=== PATIENT | female | born 1935 | race Caucasian/White ===

== ENCOUNTER → 2016-07-13 | Outpatient (CLI) | payer OTHER, BC ==
[~2016-07-13] MED LIST: ASPI81TA28 PO; CALC-354 PO; CPR250 PO; CRG625 PO; INSUINJ14 SC; INSUINJ4 SC; MULTTAB58 PO; NRV5 PO; PRT40 PO
--- NOTE | 2016-07-13 14:22 | DIAGNOSTIC IMAGING REPORT ---
CT OF THE CHEST WITHOUT IV CONTRAST CLINICAL HISTORY: Pulmonary mass. COMPARISON STUDY: March 23, 2016 CT DOSE: 278.92 mGy.cm TECHNIQUE: CT of the thorax was performed from the thoracic inlet to the lung bases. Images are reviewed in the axial, sagittal, and coronal planes. IV contrast was not administered for this examination. FINDINGS: Thyroid: There is a partially calcified 12 mm right lobe thyroid nodule. Thoracic aorta: The thoracic aorta is normal in course and caliber, noting standard 3 vessel arch anatomy. Heart: The heart is normal in size and configuration, without pericardial effusion. Lungs and pleural spaces: No pleural effusions are visualized. There is been interval resolution of the previously identified 3 cm groundglass right lower lobe pleural-based opacity. There is a stable subtle area of distortion within the right upper lobe. There are multiple scattered areas of presumed interstitial scarring. There is scattered subcentimeter pulmonary nodules. A 5.9 mm right lower lobe pulmonary nodule as visualized in image #[id number] measured 4.6 mm in November 2013. Mediastinum: There is a stable 9 mm precarinal lymph node. Samantha: There is no evidence of pathologic hilar adenopathy given the limitations of a noncontrast study Axilla: Clear. Upper abdomen: No adrenal masses are visualized Skeletal structures: There are no lytic or blastic osseous lesions. IMPRESSION: 1. The recently described 3 cm groundglass nodule within the right lower lobe has resolved. This is likely inflammatory/atelectatic 2. Scattered bilateral subcentimeter pulmonary nodules. A 5.9 mm right lower lobe pulmonary nodule measured 4.6 mm in November 2013. 3. Scattered areas of interstitial scarring. Electronically signed by: Isauro Espinal M.D. 07/13/2016 2:21 PM Dictated Date/Time: 07/13/2016 2:13 PM
== END | disposition home or self-care (01) ==
LOC: C.CTS 13:59
PROVIDERS: ATTEND Internal Medicine Pulmonary Disease
DX: R91.8 Other nonspecific abnormal finding of lung field (principal); R91.1 Solitary pulmonary nodule

== ENCOUNTER → 2016-09-14 | Outpatient (CLI) | payer OTHER, BC ==
[~2016-09-14] MED LIST changes: +CIPR250T5 PO; -CPR250 PO
--- NOTE | 2016-09-14 07:44 | DIAGNOSTIC IMAGING REPORT ---
CT ANGIO ABD/PELVIS WITH CONTRAST CT DOSE: 570.27 mGy.cm CLINICAL HISTORY: Chronic renal disease. Possible renal artery stenosis. Nondiagnostic ultrasound. TECHNIQUE: The patient was scanned in a dynamic helical fashion during intravenous administration of 117 cc of Optiray 320. MIP imaging was performed. COMPARISON STUDY: 06/03/2014 FINDINGS: Visualized portions lung bases reveal bibasilar atelectasis. No hepatic or splenic masses are visualized this arterial phase study. The gallbladder surgically absent. No adrenal masses are visualized. Masses are visualized. No solid renal masses are visualized this arterial phase study. There are no transition zones indicate bowel obstruction. No acute inflammatory changes are visualized. There is no pathologic adenopathy. There is no evidence of aortic or iliac artery stenosis. Moderate atheromatous changes are present within the aorta. There is minimal narrowing of the celiac origin. There is no evidence of superior mesenteric artery stenosis. There is no evidence of left renal artery stenosis. There is a proximal right renal artery stent. There is moderate luminal narrowing of the proximal stent.] Stenosis measurement is difficult to determine due to adjacent calcification. IMPRESSION: 1. Atheromatous calcification at the origin of the left renal artery but no evidence of hemodynamically significant stenosis 2. Proximal right renal artery stent. Moderate luminal narrowing of the stent is suspected. Is difficult to obtain an accurate stenosis measurements due to artifact from adjacent stent wall and calcification. Electronically signed by: Isauro Espinal M.D. 09/14/2016 7:41 AM Dictated Date/Time: 09/14/2016 7:33 AM
== END | disposition home or self-care (01) ==
LOC: C.CTS 06:48
PROVIDERS: ATTEND Internal Medicine Cardiovascular Disease
DX: I12.9 Hypertensive chronic kidney disease with stage 1 through stage 4 chronic kidney disease, or unspecified chronic kidney disease (principal); N18.3 Chronic kidney disease, stage 3 (moderate); I70.1 Atherosclerosis of renal artery

== ENCOUNTER → 2017-02-16 | Outpatient (CLI) | payer OTHER, BC ==
[~2017-02-16] MED LIST changes: -CIPR250T5 PO; +CPR250 PO; +OPTIRAY 320 IV PRN
--- NOTE | 2017-02-16 09:24 | DIAGNOSTIC IMAGING REPORT ---
ANGIO ABDOMEN COMBO CLINICAL HISTORY: 81 years-old Female presenting with I70.1, renal artery stenosis, right renal artery stent. TECHNIQUE: Multidetector CT angiography of the abdomen and pelvis was performed before and after the administration of intravenous contrast. 3-D volumetric and/or maximum intensity projection (MIP) images were subsequently reconstructed for review. IV contrast: 92 mL of Optiray 320. A dose lowering technique was used consistent with the principles of ALARA (as low as reasonably achievable). Stenosis measurements were based on NASCET-like criteria. COMPARISON: 09/14/2016. CT DOSE (mGy.cm): The estimated cumulative dose is 1957.52. FINDINGS: History Card Clerk topogram: Cholecystectomy clips noted. Vasculature: Calcified and noncalcified atherosclerotic plaque along the normal caliber patent abdominal aorta. No significant narrowing of the celiac or superior mesenteric artery origins. A right renal artery stent is noted at the origin extending along the proximal 1 to 2 cm of the course. The stent is patent. No significant narrowing of the stent. Single bilateral main renal arteries. No significant narrowing of the origin of the left renal artery. The iliac vessels patent. Remaining abdomen and pelvis: Lung bases: Extensive dependent and bandlike opacities at the lung bases, stable to slightly increased from prior exam, likely atelectasis and scarring. Mosaic attenuation at the lung bases could suggest small airways disease. Multichamber enlargement of the heart. Coronary artery calcification. No pericardial or pleural effusion. Liver: Normal morphology. No focal lesion allowing for the phase of contrast. Suggestion of hepatic steatosis. Patent portal veins. Accessory left hepatic artery arising from the left gastric artery. Biliary: No intrahepatic or extrahepatic biliary ductal dilatation. Gallbladder surgically absent. Pancreas: Moderate parenchymal atrophy. Spleen: Normal. Adrenal glands: Normal. Kidneys and ureters: Few punctate hyperdensities in the upper pole of the right kidney may represent tiny renal calculi. Bladder: Mild circumferential bladder wall thickening. Pelvic organs: Uterus surgically absent. No adnexal masses. Bowel: Normal. No bowel obstruction. Peritoneal cavity: No free fluid or intraperitoneal gas. Lymph nodes: Scattered subcentimeter lymph nodes in the mesentery and retroperitoneum, nonspecific and possibly reactive. Abdominal wall: Diastasis of the rectus abdominis. Musculoskeletal: Degenerative changes of the spine. IMPRESSION: 1. Patent proximal right renal artery stent. 2. Atherosclerosis of the abdominal aorta without significant narrowing of the origins of the major branch vessels. 3. Mild circumference of bladder wall thickening. Cystitis cannot be excluded. Correlate with urinalysis. Electronically signed by: Mello Titus M.D. 02/16/2017 9:22 AM Dictated Date/Time: 02/16/2017 9:13 AM
== END | disposition home or self-care (01) ==
LOC: C.CTS 06:55
PROVIDERS: ATTEND Surgery Vascular Surgery
DX: I70.1 Atherosclerosis of renal artery (principal); I70.0 Atherosclerosis of aorta

== ENCOUNTER → 2017-04-10 | Outpatient (CLI) | payer OTHER, BC ==
[~2017-04-10] MED LIST changes: +CIPR250T5 PO; -CPR250 PO; -OPTIRAY 320 IV PRN
--- NOTE | 2017-04-10 15:03 | DIAGNOSTIC IMAGING REPORT ---
(CHEST) THORAX WITHOUT CLINICAL HISTORY: R91.1 RIGHT LOWER LOBE MASS. FOLLOWING NODULES. COMPARISON STUDY: 07/11/2016 CT DOSE: 282.60 mGy.cm TECHNIQUE: CT of the thorax was performed from the thoracic inlet to the lung bases. Images are reviewed in the axial, sagittal, and coronal planes. IV contrast was not administered for this examination. A dose lowering technique was utilized adhering to the principles of ALARA. FINDINGS: Thyroid: The right lobe appears larger than the left. There are multiple right lobe nodules several which contain calcifications. Thoracic aorta: The thoracic aorta is normal in course and caliber, noting standard 3 vessel arch anatomy. Heart: The heart is borderline enlarged. There is no pericardial effusion. Lungs and pleural spaces: No pleural effusions are visualized. There are stable areas of presumed interstitial scarring. There is a stable area of architectural distortion within the right upper lobe. There is scattered bilateral nodules including tree-in-bud opacities within the left upper lobe. These are likely inflammatory/postinflammatory. The solid right lower lobe pulmonary nodule remains similar in size measuring 6 mm. Mediastinum: There is a 9 mm precarinal lymph node. Samantha: There is no evidence of pathologic hilar adenopathy given the limitations of a noncontrast study Axilla: There is no evidence of pathologic axillary lymphadenopathy Upper abdomen: Partially visualized upper abdominal viscera is within normal limits. Skeletal structures: There are no lytic or blastic osseous lesions. IMPRESSION: 1. No significant change from the preceding July 2016 study 2. Multiple scattered bilateral pulmonary nodules, including a stable 6 mm right lower lobe pulmonary nodule 3. Scattered areas of presumed interstitial scarring. Electronically signed by: Isauro Espinal M.D. 04/10/2017 3:01 PM Dictated Date/Time: 04/10/2017 2:56 PM
== END | disposition home or self-care (01) ==
LOC: C.CTS 14:11
PROVIDERS: ATTEND Internal Medicine Pulmonary Disease
DX: R91.8 Other nonspecific abnormal finding of lung field (principal); R91.1 Solitary pulmonary nodule

== ENCOUNTER → 2017-09-21 | Outpatient (CLI) | payer OTHER, BC ==
[~2017-09-21] MED LIST changes: +CIPR250T23 PO; -CIPR250T5 PO
--- NOTE | 2017-09-21 13:39 | Discharge Instructions ---
Discharge Instructions Procedure Procedure Date: September 21, 2017. Reason for visit: Thyroid Nodule. Discharge Discharge Date: September 21, 2017. Discharge Diagnosis: Thyroid nodule Instructions Activity Recommendations: No limitations Return to School/Work: no limitations Recommended Home Diet: Resume Previous Diet Provider Instructions: Ultrasound guided fine-needle aspiration of a right lobe thyroid nodule is performed. The procedure was well tolerated and without immediate complication. ACTIVITY RECOMMENDATIONS: * Rest today. * Resume regular activity in one day. MEDICATIONS: * May take Tylenol or Ibuprofen as needed for pain. DIET: * Resume previous diet. SPECIAL CARE INSTRUCTIONS: Call your doctor if: * Temperature above 101 degrees F. * Pain not relieved by pain medicine ordered. * Increased drainage or redness from incision. * Notify your doctor with any questions or concerns. Call your doctor or go to the nearest Emergency Department if you experience: * Increased chest pain or shortness of breath. FOLLOW UP VISIT: Follow-up with Referring Physician as scheduled. Allergies Coded Allergies: Latex (Verified Allergy, Intermediate, RED RASH, 02/13/15) NO KNOWN DRUG ALLERGIES (Verified Allergy, Unknown, NKDA, 02/13/15) [place] Recommendations: Call your doctor if: * Temperature above 101 degrees * Pain not relieved by pain medicine ordered * There is increased drainage or redness from any incision * You have any unanswered questions or concerns. Your Doctors Instructions noted above were prepared by provider Teddy Mejia. Patient Signature Section: Patient Instructions Signature Page Mer Diaz Patient (or Guardian) Signature/Date: I have read and understand the instructions given to me by my caregivers. Caregiver/RN/Doctor Signature/Date: The above-named patient and/or guardian has received patient instructions on this date. + Original Patient Signature Page (only) stays with chart. Please make copy for patient.
--- NOTE | 2017-09-21 13:52 | DIAGNOSTIC IMAGING REPORT ---
ULTRASOUND-GUIDED FINE-NEEDLE ASPIRATION THYROID CLINICAL HISTORY: Right lobe thyroid nodule. COMPARISON STUDY: Thyroid ultrasound dated 08/17/2017. PROCEDURE: The risks, benefits, and alternatives to the procedure were discussed with the patient. Written informed consent was obtained. The patient was placed supine in ultrasound, and the 3.0 x 2.1 x 1.7 cm solid and cystic nodule in the right lobe of the thyroid was localized by ultrasound and selected for fine needle aspiration. The right neck was prepped and draped in the usual sterile fashion. The nodule was aspirated under ultrasound guidance with 2 passes utilizing 25-gauge needles. Specimens were reviewed by the pathologist in real-time and deemed adequate for diagnosis. The patient tolerated the procedure well and left the department in satisfactory condition. IMPRESSION: Completed fine-needle aspiration of a right thyroid nodule as above. Electronically signed by: Teddy Mejia M.D. 09/21/2017 1:51 PM Dictated Date/Time: 09/21/2017 1:50 PM
== END | disposition home or self-care (01) ==
LOC: C.ULTR 12:34
PROVIDERS: ATTEND Family Medicine
DX: E04.1 Nontoxic single thyroid nodule (principal)

== ENCOUNTER 2024-02-13 15:12 | Inpatient (IN) ==
[2024-02-13] MEDS ORDERED: STAT IV Infusion **Titration per Protocol STA ×5 (15:18→19:36)
[2024-02-13] MEDS: propofoL 1,000 MG/100 ML VIAL IV SCH (15:25)
--- NOTE | 2024-02-13 15:36 | Emergency Department Note ---
Impression & Plan Cardiac arrest, Aspiration pneumonia ED Provider Note HISTORY OF PRESENT ILLNESS: Patient is an 88-year-old female presenting status postcardiac arrest. Patient was at [facility] receiving outpatient CT abdomen/pelvis with oral contrast. She reportedly ingested the oral contrast earlier this afternoon and shortly after ingestion, she became nauseous and very short of breath. A rapid response was called and the CT waiting room for the patient. She was bradycardic and hypoxic and was given supplemental oxygen and 1 mg of atropine. They laid her flat for further assessment and shortly after laying supine, the patient lost pulses. ACLS was performed for 4 minutes per report. She received 1 mg of epinephrine. Carburetor Repairer, Dr. Matos, reports patient was noted to be in a wide-complex tachycardia on the monitor. He states that he did administer 1 shock. ROSC was obtained. Patient was intubated by anesthesia at [facility] and she received succinylcholine for the intubation. Per report from [facility] cardiology, patient had an EKG that showed sinus tachycardia with a left bundle branch block. In route to the hospital with EMS, the patient started to gag around her tube and she was given IV etomidate and fentanyl for further sedation. On arrival to the ER, the patient is unresponsive and unable to provide any meaningful history. ROS: as above PHYSICAL EXAM: Constitutional: Patient appears in no acute distress. Patient is intubated with a Vitaly device on her chest not supplying CPR at this time. HENT: Head: Normocephalic and atraumatic. Eyes: Pupils pinpoint. Mouth/Throat: Mucous membranes moist. Neck: Trachea midline. Neck supple. Cardiovascular: Tachycardic with regular rhythm. No murmurs, rubs or gallops. Intact femoral pulse. Pulmonary/Chest: Patient is intubated. Coarse breath sounds bilaterally. Abdominal: Abdomen soft, no tenderness, rebound or guarding. Musculoskeletal: No edema, tenderness or deformity noted. Skin: Warm and dry. Neurological: Unresponsive. Gag reflex present. MDM: - Vitals signs showed hypertension. - History obtained via EMS, given patient's unresponsiveness.. History as above. - Chronic conditions affecting care: DM-2; HTN; renal artery stenosis; CKD - Differential diagnoses include, but are not limited to: Aspiration; dysrhythmia; electrolyte abnormality; ACS - Order placed for continuous cardiac monitoring. At this time, monitor showed rate of 72 bpm with normal sinus rhythm, per my interpretation. - External medical records reviewed. Transthoracic echocardiogram obtained on 09/07/2016 through [facility] was reviewed. Patient had a normal EF of 60 to 64% at that time. - Bedside [id number] echo shows good squeeze throughout all chambers, per my interpretation. No obvious pericardial effusion. - EKG interpreted by myself showed normal sinus rhythm. Rate tachycardic 107 bpm. Noted to have a left bundle branch block. QT 374. - Laboratory workup interpreted by myself showed leukocytosis (WBC 16.54) with elevated neutrophils; normal PT/INR; stable electrolytes; elevated troponin (45.4); normal lipase - Repeat troponin risen to 108.2. Likely secondary to her compressions from CPR. - CXR showed bilateral multi focal opacities, per my interpretation. - CT head wo contrast negative for acute intracranial pathology. - CT chest wo contrast cardiomegaly with evidence of fluid overload/congestive failure and pleural effusions. Noted to have diffuse multifocal airspace consolidations throughout both lungs. - CT abdomen/pelvis wo contrast showed small amount of pneumatosis versus extraluminal gas in the splenic flexure likely due to barotrauma. - IV unasyn ordered for aspiration coverage. Patient was started on IV propofol for sedation, she does awaken and try to sit up in bed without any. She was given pushes of IV fentanyl for further sedation. Her blood pressure did drop and she became hypotensive, so she was started on peripheral IV epinephrine. A central line was placed in the right IJ by myself. Please see procedure note below. Post line placement x-ray shows appropriate placement of the IJ without any pneumothorax. A right radial arterial line was also placed by myself. Please see procedure note below. - Discussion was had with family preservation caseworker about patient's case and need for admission - Discussed case with ICU attending, Dr. Hollins, at 17:06. He was agreeable to ICU admission. - Hospitalist, Dr. Lyons, consulted for admission - Patient admitted to [facility] hospitalist service for further evaluation and management. I have personally spent 73 minutes of critical care time in the direct management of this patient. This includes bedside care, interpretation of diagnostic studies, and testing, discussion with consultants, patient, and family members, and other required patient management activities. This 73 minutes is in excess of all separately billable procedures. PROCEDURE: 1. Central Venous Catheter Indication: limited IV access; pressor support Catheter type: triple lumen Location: Right IJ Emergent consent implied, given the patient's critical illness. At this time, the risks of the procedure are less than the risks of NOT performing the procedure. A time out was taken and the correct patient and site identified. The patient was placed in reverse Trendelenburg position and the skin was prepped in the standard fashion with chlorhexidine and full sterile drapes applied. The proper landmarks were identified with ultrasound and the needle was inserted through the skin in the standard fashion. The needle was carefully advanced into blood vessel lumen under ultrasound guidance. The guidewire was placed uneventfully. The vessel is dilated and the catheter was placed. It was sutured into position. There was good blood return from all ports. The patient tolerated the procedure well and there were no complications. Post procedure x- ray was normal. 2. Arterial Line Indication: BP monitoring; frequent ABGs Catheter type: Arrow Location: Right radial artery Emergent consent implied, given the patient's critical illness. At this time, the risks of the procedure are less than the risks of NOT performing the procedure. A time out was taken and the correct patient and site identified. Skin was prepped in the standard fashion with chlorhexidine and full sterile drapes applied. The proper landmarks were identified with ultrasound and the needle was inserted through the skin in the standard fashion. The needle was carefully advanced into blood vessel lumen under ultrasound guidance. The guidewire was placed uneventfully. The catheter was then placed over the guidewire. It was sutured into position. There was good blood return from all ports. The patient tolerated the procedure well and there were no complications. 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 Cervical myelopathy Encounter for pre-operative examination HTN (hypertension) (Chronic) Heart disease (Chronic) GERD (gastroesophageal reflux disease) (Chronic) DM type 2 (diabetes mellitus, type 2) (Chronic) CKD (chronic kidney disease), stage III (Chronic) Peripheral neuropathy (Acute) Hyperlipidemia (Acute) Diabetic nephropathy (Acute) Asthma (Acute) Mitral regurgitation Left bundle branch block Chronic pain Esophageal dilatation HH (hiatus hernia) Abdominal pain Renal artery stenosis (Chronic) Status post right renal artery stent 2014 Medical History (Updated 02/13/24 @ 18:20 by Triston Hollins MD) Dysphagia Osteoarthritis Chronic back pain GERD (gastroesophageal reflux disease) Diabetes mellitus, type 2 Anxiety Hypertension Hyperlipidemia Cardiac murmur follows with Dr. Esquivel Esophageal spasm Surgical History (Updated 08/23/22 @ 15:45 by Memo Ramirez PA-C) History of total hysterectomy with bilateral salpingo-oophorectomy (BSO) History of dilatation and curettage History of surgery Status post right renal artery stent 2014 History of tooth extraction upper teeth History of wisdom tooth extraction History of bilateral cataract extraction History of colonoscopy Hx laparoscopic cholecystectomy H/O esophagogastroduodenoscopy H/O breast surgery "left breast duct excision" S/P tonsillectomy and adenoidectomy S/P appendectomy Family History Father Heart disease Mother Heart disease Family history of reaction to anesthesia had tear duct sx--right side of head "hair turned white" Diabetes Hypertension Stroke Denies family history of Crohn's disease Colorectal cancer Ulcerative colitis Social History Smoking Status: Unknown if ever smoked packs per day: 1; Second Hand Exposure: Yes (parents smoked); Do You Dip or Chew Tobacco: No; Preferred Language: Portuguese Communication Ability: Unable to Communication Ability Comment: Unable to obtain Organizational Effectiveness Director Required: No Beliefs That Will Affect Care: Voodoo Voodoo Beliefs: Anabaptism marital status: / Current Living Situation: Alone Current Living Situation Comment: Unable to obtain current occupational status: retired How many Children do You have: 2 Feels Safe at Home: Yes Diet: diabetic during the past year weight has: decreased > 10 lbs Assistive Devices: Denture - Upper and Glasses Allergies Allergies Allergy/AdvReac Type Severity Reaction Status Date / Time latex Allergy Intermediate RED RASH Verified 06/12/23 14:35 [id number] Reductase Allergy Intermediate muscle Verified 06/12/23 14:35 Inhibitor pain/can't [[id number]-[id number] Reductase concentrate/dizzy/nausea Inhibitor] Home Meds Home Medications Medication Instructions Recorded Confirmed multivitamin (Multiple Vitamins 1 tab PO QAM 01/03/19 02/13/24 tablet) losartan 25 mg tablet 12.5 mg PO QAM 05/31/19 02/13/24 aspirin 81 mg tablet,delayed 81 mg PO QAM 10/23/19 02/13/24 release (Mariella Low Dose Aspirin) furosemide 20 mg tablet 20 mg PO QAM 06/12/23 02/13/24 omeprazole 20 mg capsule,delayed 20 mg PO QAM 06/12/23 02/13/24 release calcium carbonate 600 mg-vitamin 1 tab PO BID 02/13/24 02/13/24 D3 20 mcg (800 unit) tablet (Caltrate with Vitamin D3) insulin degludec 100 unit/mL (3 24 unit subcut HS 02/13/24 02/13/24 mL) subcutaneous pen (Tresiba FlexTouch U-100 insulin) timolol maleate 0.5 % eye drops 1 drp OPR BID 02/13/24 02/13/24 Previous Rx's Medication Instructions Recorded insulin aspart U-100 100 unit/mL 30 unit (0.3 mL) subcut DAILY #30 12/22/23 (3 mL) subcutaneous pen (Novolog mL FlexPen U-100 Insulin aspart) Contour Next Test Strips (blood #300 ea 01/23/24 sugar diagnostic) Results & Data (ED) Vital Signs Vital Signs - 24 hr 02/13/24 15:18 02/13/24 15:27 02/13/24 15:30 Temperature 33.5 C L Temperature Source Dixon Cath ( Temp Sensing) Pulse Rate 102 H 98 H Pulse Rate from SpO2 Sensor 103 H Respiratory Rate 18 18 Respiratory Effort / Characteristics Non-Labored Spontaneous Respiratory Depth Normal Respiratory Pattern Regular Blood Pressure 191/121 H 147/72 H Blood Pressure Mean 156 97 Blood Pressure Position Lying Pulse Oximetry 93 94 Oxygen Delivery Method Mechanical Vent Fraction of Inspired Oxygen Sepsis Recent Fever Within 48 Hours No Sepsis New/Unexplained Change in Mental Status N/A Sepsis Action Taken by Nursing No Action Required 02/13/24 15:30 02/13/24 15:30 02/13/24 15:30 Temperature Temperature Source Pulse Rate Pulse Rate from SpO2 Sensor Respiratory Rate Respiratory Effort / Characteristics Respiratory Depth Respiratory Pattern Blood Pressure 147/72 H 147/72 H 147/72 H Blood Pressure Mean 107 107 107 Blood Pressure Position Pulse Oximetry Oxygen Delivery Method Fraction of Inspired Oxygen Sepsis Recent Fever Within 48 Hours Sepsis New/Unexplained Change in Mental Status Sepsis Action Taken by Nursing 02/13/24 15:32 02/13/24 15:33 02/13/24 15:58 Temperature Temperature Source Pulse Rate 106 H Pulse Rate from SpO2 Sensor Respiratory Rate 16 Respiratory Effort / Characteristics Respiratory Depth Respiratory Pattern Blood Pressure 76/44 L Blood Pressure Mean 55 Blood Pressure Position Pulse Oximetry 94 Oxygen Delivery Method Fraction of Inspired Oxygen 100 Sepsis Recent Fever Within 48 Hours Sepsis New/Unexplained Change in Mental Status Sepsis Action Taken by Nursing 02/13/24 16:00 02/13/24 16:05 02/13/24 16:05 Temperature Temperature Source Pulse Rate Pulse Rate from SpO2 Sensor Respiratory Rate Respiratory Effort / Characteristics Respiratory Depth Respiratory Pattern Blood Pressure 83/47 L 84/54 L 84/54 L Blood Pressure Mean 56 60 60 Blood Pressure Position Pulse Oximetry Oxygen Delivery Method Fraction of Inspired Oxygen Sepsis Recent Fever Within 48 Hours Sepsis New/Unexplained Change in Mental Status Sepsis Action Taken by Nursing 02/13/24 16:05 02/13/24 16:09 02/13/24 16:10 Temperature 36.8 C Temperature Source Pulse Rate 82 Pulse Rate from SpO2 Sensor 82 Respiratory Rate 18 Respiratory Effort / Characteristics Respiratory Depth Respiratory Pattern Blood Pressure 84/54 L 98/59 L Blood Pressure Mean 60 73 Blood Pressure Position Pulse Oximetry 96 Oxygen Delivery Method Fraction of Inspired Oxygen Sepsis Recent Fever Within 48 Hours Sepsis New/Unexplained Change in Mental Status Sepsis Action Taken by Nursing 02/13/24 16:10 02/13/24 16:15 02/13/24 16:15 Temperature 36.8 C Temperature Source Pulse Rate 81 Pulse Rate from SpO2 Sensor 81 Respiratory Rate 17 Respiratory Effort / Characteristics Respiratory Depth Respiratory Pattern Blood Pressure 98/59 L 114/56 L Blood Pressure Mean 73 74 Blood Pressure Position Pulse Oximetry 96 Oxygen Delivery Method Fraction of Inspired Oxygen Sepsis Recent Fever Within 48 Hours Sepsis New/Unexplained Change in Mental Status Sepsis Action Taken by Nursing 02/13/24 16:25 02/13/24 16:25 02/13/24 16:30 Temperature Temperature Source Pulse Rate Pulse Rate from SpO2 Sensor Respiratory Rate Respiratory Effort / Characteristics Respiratory Depth Respiratory Pattern Blood Pressure 94/57 L 94/57 L 97/60 L Blood Pressure Mean 70 70 72 Blood Pressure Position Pulse Oximetry Oxygen Delivery Method Fraction of Inspired Oxygen Sepsis Recent Fever Within 48 Hours Sepsis New/Unexplained Change in Mental Status Sepsis Action Taken by Nursing 02/13/24 16:30 02/13/24 16:30 02/13/24 16:35 Temperature 36.8 C Temperature Source Pulse Rate 77 Pulse Rate from SpO2 Sensor 62 Respiratory Rate 18 Respiratory Effort / Characteristics Respiratory Depth Respiratory Pattern Blood Pressure 97/60 L 94/54 L Blood Pressure Mean 72 72 Blood Pressure Position Pulse Oximetry 96 Oxygen Delivery Method Fraction of Inspired Oxygen Sepsis Recent Fever Within 48 Hours Sepsis New/Unexplained Change in Mental Status Sepsis Action Taken by Nursing 02/13/24 16:35 Temperature Temperature Source Pulse Rate Pulse Rate from SpO2 Sensor Respiratory Rate Respiratory Effort / Characteristics Respiratory Depth Respiratory Pattern Blood Pressure 94/54 L Blood Pressure Mean 72 Blood Pressure Position Pulse Oximetry Oxygen Delivery Method Fraction of Inspired Oxygen Sepsis Recent Fever Within 48 Hours Sepsis New/Unexplained Change in Mental Status Sepsis Action Taken by Nursing Laboratory Data 02/13/24 15:24 02/13/24 17:17 Lab Results 02/13/24 Range/Units 15:24 WBC 16.54 H (4.8-10.8) K/ul RBC 5.59 H (4.20-5.40) M/uL Hgb 17.5 H (12.0-16.0) g/dl Hct 51.0 H (37.0-47.0) % MCV 91.2 (80.0-100.0) fL MCH 31.3 (25.0-34.0) pg MCHC 34.3 (32.0-36.0) g/dL RDW Std Deviation 39.6 (36.4-46.3) fL RDW Coeff of Kiana 11.9 (11.5-14.5) % Plt Count 367 (130-400) K/uL MPV 9.8 (9.4-12.4) fL Immature Gran % (Auto) 2.2 % Neut % (Auto) 56.2 % Lymph % (Auto) 28.8 % Wirt % (Auto) 11.0 % Eos % (Auto) 1.3 % Baso % (Auto) 0.5 % Neut # (Auto) 9.30 H (1.40-6.50) K/uL Lymph # (Auto) 4.77 H (1.20-3.40) K/uL Wirt # (Auto) 1.82 H (0.11-0.59) K/uL Eos # (Auto) 0.21 (0.00-0.50) K/uL Baso # (Auto) 0.08 (0.00-0.20) K/uL Immature Gran # (Auto) 0.36 H (0.01-0.20) K/uL PT Cancelled INR Cancelled Sodium 135 L (136-145) mmol/L Potassium TNP Chloride 99 (98-107) mmol/L Carbon Dioxide 30 (21-32) mmol/L Anion Gap 6 (3-11) BUN 19 (6-23) mg/dl Creatinine 1.09 (0.6-1.2) mg/dl Est Cr Clr Drug Dosing 43.2 ml/min Est GFR ( Amer) 52.5 ml/min Est GFR (Non-Af Amer) 45.3 ml/min BUN/Creatinine Ratio 17.4 (10-20) Glucose 217 H (70-99(Fasting)) mg/dl Calcium 8.9 (8.6-10.3) mg/dl Total Bilirubin 0.6 (0.2-1.0) mg/dl AST TNP ALT 31 (7-52) U/L Alkaline Phosphatase 134 H (34-104) U/L Troponin I High Sens 45.4 H (0-14) pg/ml Total Protein 7.5 (6.0-8.3) gm/dl Albumin 3.8 (3.4-5.0) gm/dl Globulin 3.7 (2.5-4.0) gm/dl Albumin/Globulin Ratio 1.0 (0.9-2) Lipase 46 (11-82) U/L Administered Medications Propofol (Diprivan) 1,000 mg in 100 mls @ 11.94 mls/hr IV .Q8H23M [facility]; Protocol Stop: 02/16/24 15:29 Last Admin: 02/13/24 15:25 Dose: 20 mcg/kg/min, 11.9 mls/hr Documented By: ASW Co-signed By: CEF Epinephrine HCl () 4 mg in 254 mls @ 7.582 mls/hr IV .Q24H RAIZA; Protocol Stop: 03/14/24 16:14 Last Titration: 02/13/24 18:42 Dose: 0.04 mcg/kg/min, 15.2 mls/hr Documented By: Admin: 02/13/24 16:37 Dose: 0.03 mcg/kg/min, 11.4 mls/hr Documented By: ASW Co-signed By: MARGARET Fentanyl Citrate (Fentanyl Citrate) 2,500 mcg in 250 mls @ 2.5 mls/hr IV .Q96H RAIZA; Protocol Stop: 02/27/24 18:29 Last Admin: 02/13/24 18:38 Dose: 25 mcg/hr, 2.5 mls/hr Documented By: RASHEED Co-signed By: SHARA Propofol (Propofol Bolus From Bag) 20 mg IV Q5M PRN PRN Reason: Sedation Stop: 02/16/24 15:17 Last Admin: 02/13/24 15:40 Dose: 20 mg Documented By: ASW Co-signed By: CEF Discontinued Medications Fentanyl Citrate (Fentanyl Citrate Pf 100 Mcg/2 Ml Vial) Confirm Administered Dose 100 mcg .ROUTE .STK-MED ONE Stop: 02/13/24 15:20 Last Increment: 02/13/24 15:57 Dose: 50 mcg Documented By: ASW Fentanyl Citrate (Fentanyl Citrate Pf 100 Mcg/2 Ml Vial) Confirm Administered Dose 100 mcg .ROUTE .STK-MED ONE Stop: 02/13/24 16:55 Last Increment: 02/13/24 16:46 Dose: 50 mcg Documented By: ASW Fentanyl Citrate (Fentanyl Citrate Pf 100 Mcg/2 Ml Vial) Confirm Administered Dose 100 mcg .ROUTE .STK-MED ONE Stop: 02/13/24 17:43 Last Increment: 02/13/24 17:44 Dose: 50 mcg Documented By: ASW Ampicillin Sodium/Sulbactam Sodium (Unasyn) 3,000 mg in 100 mls @ 200 mls/hr IV NOW ONE; Protocol Stop: 02/13/24 16:29 Last Infusion: 02/13/24 17:53 Dose: Infused Documented By: Admin: 02/13/24 17:18 Dose: 200 mls/hr Documented By: ASW Propofol (Propofol Iv Emulsion 10 Mg/Ml 100 Ml Vial) Confirm Administered Dose 1,000 mg IV .[email or web address] ONE Stop: 02/13/24 15:18 Last Admin: 02/13/24 15:58 Dose: 1,000 mg Documented By: ETHANW Co-signed By: [facility] Imaging Data Radiologist's Impression: Abdomen/Pelvis CT 02/13/24 15:29 CT abd pelvis wo con CLINICAL HISTORY: arrest TECHNIQUE: Helical axial images of the abdomen and pelvis were obtained. Automated dose lowering techniques and/or adjustment according to patient size were utilized for this exam. This exam was performed without intravenous contrast. COMPARISON: Comparison is made to CT abdomen pelvis 01/28/2022 FINDINGS: Lower chest: For findings above the diaphragm, please see CT chest performed same day. Liver: Unremarkable. No focal lesions are seen. Gallbladder and biliary tree: Patient is status post cholecystectomy. No intra- or extrahepatic biliary ductal dilation. Pancreas: Fatty replacement of the pancreas is seen. Spleen: Unremarkable. Adrenals: Unremarkable. Kidneys and ureters: Perinephric stranding is noted bilaterally. Bladder: Dixon catheter is seen. Reproductive organs: Patient is status post hysterectomy. Bowel: Unremarkable. Lymph nodes Retroperitoneal: Unremarkable. Pelvic: Unremarkable. Mesenteric: Unremarkable. Peritoneum: A small amount of gas is seen surrounding the large bowel about the splenic flexure. Vessels: Atherosclerotic calcifications are seen. Abdominal wall: Unremarkable. Bones: Degenerative changes in the visualized spine. IMPRESSION: A small amount of pneumatosis versus extraluminal gas about the splenic flexure is likely due to barotrauma in this patient status post cardiac arrest. No gross abnormalities are otherwise seen. ACT 112: Negative or not required by law. Electronically signed by: Jersey Chauhan M.D. 02/13/2024 4:22 PM Chest X-Ray 02/13/24 15:29 XR chest 1V portable CLINICAL HISTORY: cardiac arrest TECHNIQUE: Single frontal radiograph of the chest was obtained. Comparison: Comparison is made to chest radiograph 02/11/2016 FINDINGS: Endotracheal tube terminates 6 cm from the vadim. Cardiomegaly is noted. The aortic arch is calcified. Multifocal airspace opacities are seen, currently B- lines are noted. No evidence of pleural effusion or pneumothorax. IMPRESSION: Multifocal airspace opacities likely represent aspiration in this patient status post cardiac arrest. Superimposed pneumonia or edema may be present. ACT 112: Negative or not required by law. Electronically signed by: Jersey Chauhan M.D. 02/13/2024 3:[address] 02/13/24 15:29 CT head/brain wo con CLINICAL HISTORY: 88 years-old Female with arrest. Acute cardiac arrest TECHNIQUE: Multiple axial CT images of the head were obtained without contrast. A dose lowering technique was utilized adhering to the principles of ALARA. CT DOSE: 1787.8 mGy.cm COMPARISON: 06/18/2019 FINDINGS: Motion degraded study. No acute intracranial hemorrhage, midline shift, intra- axial mass, hydrocephalus, territorial ischemia or abnormal extra-axial collection. Involutional changes with chronic microvascular ischemic disease. Cerebrovascular calcifications. 11 mm calcified meningioma adjacent to the right frontotemporal lobe on image 11 series 2 without significant mass effect, unchanged. The calvarium is intact. The paranasal sinuses, mastoid air cells, and middle ear cavities are clear. IMPRESSION: Chronic findings as above without acute intracranial abnormality. ACT 112: Negative or not required by law. The above report was generated using voice recognition software. It may contain grammatical, syntax or spelling errors. Electronically signed by: Major Maloney M.D. 02/13/2024 4:[address] 02/13/24 15:30 CT SCAN OF THE CHEST WITHOUT IV CONTRAST CLINICAL HISTORY: Cardiac arrest. COMPARISON STUDY: Chest CT dated 03/28/2018. Chest x-ray dated 02/13/2024. TECHNIQUE: CT scan of the thorax was performed from the thoracic inlet to the upper abdomen. Images are reviewed in the axial, sagittal, and coronal planes. IV contrast was not administered for this examination as per the referring clinician. A dose lowering technique was utilized adhering to the principles of ALARA. The examination is significantly degraded by motion artifact, as well as by streak artifact from the arms which could not be elevated above the chest. FINDINGS: Thyroid: Mildly enlarged and heterogeneous, typical for goiter. Thoracic aorta: There is advanced atherosclerotic calcification of the thoracic aorta, which is normal in caliber and demonstrates standard 3-vessel arch anatomy. Heart: The heart is enlarged and without pericardial effusion. The coronary arteries and mitral annulus are densely calcified. The main pulmonary arteries are dilated beginning pulmonary artery hypertension. Lungs and pleural spaces: Evaluation of the lung parenchyma is significantly degraded by motion artifact. An endotracheal tube is in place, and terminates above the vadim. There are small pleural effusions. Diffuse intralobular septal thickening indicates fluid overload/congestive failure. Dense multifocal airspace consolidation is seen throughout both lungs. No pneumothorax is seen. Mediastinum: Mildly enlarged mediastinal lymph nodes measure up to 12 mm in short axis. Samantha: Not well assessed without IV contrast. Axillae: There is no axillary lymphadenopathy. Upper abdomen: An enteric tube is in place. This extends below the diaphragm into the stomach. There is advanced atherosclerotic calcification of the visualized abdominal aorta. Skeletal structures: The skeletal structures are osteopenic. The bony thorax is grossly intact. No lytic or blastic bony lesions are seen. Degenerative change and mild kyphoscoliosis is noted in the thoracic spine. IMPRESSION: 1. Significantly streak and motion compromised examination. 2. Cardiomegaly with evidence of fluid overload/congestive failure and small pleural effusions. 3. Extensive/diffuse multifocal airspace consolidation is seen throughout both lungs. Differential considerations include pulmonary edema, multifocal pneumonia, pulmonary hemorrhage, and/or ARDS. Clinical correlation will be essential. 4. No pneumothorax is seen. 5. Lines and tubes as above. ACT 112: Negative or not required by law. Electronically signed by: Teddy Mejia M.D. 02/13/2024 4:37 PM Discharge Plan Visit Data Chief Complaint: Cardiac Arrest/CPR Stated Complaint: CARDIAC ED Provider: Ana Ramos Discharge Problem: Cardiac arrest, Aspiration pneumonia Patient Disposition: Admitted As Inpatient Discharge Instructions Interventions: ED Discharge Assessment Last Done: 02/13/24 18:01
[2024-02-13] MEDS: PROPOFOL BOLUS FROM BAG IV PRN (15:40)
[2024-02-13 15:49] LABS: Basophils # (auto) 0.08 K/uL (0.00-0.20); Basophils % (auto) 0.5 %; Eosinophils # (auto) 0.21 K/uL (0.00-0.50); Eosinophils % (auto) 1.3 %; Hemoglobin 17.5 g/dl (12.0-16.0); Immature Granulocytes # (auto) 0.36 K/uL (0.01-0.20); Immature Granulocytes % (auto) 2.2 %; Lymphocytes # (auto) 4.77 K/uL (1.20-3.40); Lymphocytes % (auto) 28.8 %; Mean Corpuscular Hemoglobin 31.3 pg (25.0-34.0); Mean Corpuscular Hgb Conc 34.3 g/dL (32.0-36.0); Mean Corpuscular Volume 91.2 fL (80.0-100.0); Mean Platelet Volume 9.8 fL (9.4-12.4); Monocytes # (auto) 1.82 K/uL (0.11-0.59); Neutrophils % (auto) 56.2 %; Platelet Count 367 K/uL (130-400); RDW Coefficient of Variation 11.9 % (11.5-14.5); RDW Standard Deviation 39.6 fL (36.4-46.3); Red Blood Count 5.59 M/uL (4.20-5.40); White Blood Count 16.54 K/ul (4.8-10.8)
[2024-02-13] MEDS: fentaNYL citrate PF 100 MCG/2 ML VIAL ONE ×3 (15:57→17:44)
--- NOTE | 2024-02-13 15:57 | XRay Report ---
XR chest 1V portable CLINICAL HISTORY: cardiac arrest TECHNIQUE: Single frontal radiograph of the chest was obtained. Comparison: Comparison is made to chest radiograph 02/11/2016 FINDINGS: Endotracheal tube terminates 6 cm from the vadim. Cardiomegaly is noted. The aortic arch is calcifie d. Multifocal airspace opacities are seen, currently B-lines are noted. No evidence of pleural effusi on or pneumothorax. IMPRESSION: Multifocal airspace opacities likely represent aspiration in this patient status post cardiac arrest. Superimposed pneumonia or edema may be present. ACT 112: Negative or not required by law. Electronically signed by: Jersey Chauhan M.D. 02/13/2024 3:56 PM
[2024-02-13] MEDS: PROPOFOL IV EMULSION 10 MG/ML 100 ML VIAL IV ONE (15:58)
--- NOTE | 2024-02-13 16:07 | CT Scan Report ---
CT head/brain wo con CLINICAL HISTORY: 88 years-old Female with arrest. Acute cardiac arrest TECHNIQUE: Multiple axial CT images of the head were obtained without contrast. A dose lowering tech nique was utilized adhering to the principles of ALARA. CT DOSE: 1787.8 mGy.cm COMPARISON: 06/18/2019 FINDINGS: Motion degraded study. No acute intracranial hemorrhage, midline shift, intra-axial mass, hydrocephal us, territorial ischemia or abnormal extra-axial collection. Involutional changes with chronic microv ascular ischemic disease. Cerebrovascular calcifications. 11 mm calcified meningioma adjacent to the right frontotemporal lobe on image 11 series 2 without significant mass effect, unchanged. The calvarium is intact. The paranasal sinuses, mastoid air cells, and middle ear cavities are clear . IMPRESSION: Chronic findings as above without acute intracranial abnormality. ACT 112: Negative or not required by law. The above report was generated using voice recognition software. It may contain grammatical, syntax o r spelling errors. Electronically signed by: Major Maloney M.D. 02/13/2024 4:06 PM
[2024-02-13 16:20] LABS: Alanine Aminotransferase 31 U/L (7-52); Albumin Level 3.8 gm/dl (3.4-5.0); Alkaline Phosphatase 134 U/L (34-104); Anion Gap 6 (3-11); BUN Creatinine Ratio 17.4 (10-20); Bilirubin,Total 0.6 mg/dl (0.2-1.0); Blood Urea Nitrogen 19 mg/dl (6-23); Calcium 8.9 mg/dl (8.6-10.3); Carbon Dioxide 30 mmol/L (21-32); Chloride 99 mmol/L (98-107); Creatinine Clr Calc Pharmacy 43.2 ml/min; Est GFR (African American) 52.5 ml/min; Est GFR (Non-African American) 45.3 ml/min; Globulin 3.7 gm/dl (2.5-4.0); Glucose 217 mg/dl (70-99(Fasting)); Lipase 46 U/L (11-82); Sodium 135 mmol/L (136-145); Total Protein 7.5 gm/dl (6.0-8.3); Troponin I High Sensitivity 45.4 pg/ml (0-14)
--- NOTE | 2024-02-13 16:23 | CT Scan Report ---
CT abd pelvis wo con CLINICAL HISTORY: arrest TECHNIQUE: Helical axial images of the abdomen and pelvis were obtained. Automated dose lowering tech niques and/or adjustment according to patient size were utilized for this exam. This exam was perfor med without intravenous contrast. COMPARISON: Comparison is made to CT abdomen pelvis 01/28/2022 FINDINGS: Lower chest: For findings above the diaphragm, please see CT chest performed same day. Liver: Unremarkable. No focal lesions are seen. Gallbladder and biliary tree: Patient is status post cholecystectomy. No intra- or extrahepatic bilia ry ductal dilation. Pancreas: Fatty replacement of the pancreas is seen. Spleen: Unremarkable. Adrenals: Unremarkable. Kidneys and ureters: Perinephric stranding is noted bilaterally. Bladder: Dixon catheter is seen. Reproductive organs: Patient is status post hysterectomy. Bowel: Unremarkable. Lymph nodes Retroperitoneal: Unremarkable. Pelvic: Unremarkable. Mesenteric: Unremarkable. Peritoneum: A small amount of gas is seen surrounding the large bowel about the splenic flexure. Vessels: Atherosclerotic calcifications are seen. Abdominal wall: Unremarkable. Bones: Degenerative changes in the visualized spine. IMPRESSION: A small amount of pneumatosis versus extraluminal gas about the splenic flexure is likely due to roseline trauma in this patient status post cardiac arrest. No gross abnormalities are otherwise seen. ACT 112: Negative or not required by law. Electronically signed by: Jersey Chauhan M.D. 02/13/2024 4:22 PM
[2024-02-13] MEDS: EPINEPHrine/NSS 4 MG/254 ML BAG IV SCH (16:37)
--- NOTE | 2024-02-13 16:38 | CT Scan Report ---
CT SCAN OF THE CHEST WITHOUT IV CONTRAST CLINICAL HISTORY: Cardiac arrest. COMPARISON STUDY: Chest CT dated 03/28/2018. Chest x-ray dated 02/13/2024. TECHNIQUE: CT scan of the thorax was performed from the thoracic inlet to the upper abdomen. Images are reviewed in the axial, sagittal, and coronal planes. IV contrast was not administered for this ex amination as per the referring clinician. A dose lowering technique was utilized adhering to the jacqueline david of [place]. The examination is significantly degraded by motion artifact, as well as by streak artifact from the arms which could not be elevated above the chest. FINDINGS: Thyroid: Mildly enlarged and heterogeneous, typical for goiter. Thoracic aorta: There is advanced atherosclerotic calcification of the thoracic aorta, which is jesi l in caliber and demonstrates standard 3-vessel arch anatomy. Heart: The heart is enlarged and without pericardial effusion. The coronary arteries and mitral annul us are densely calcified. The main pulmonary arteries are dilated beginning pulmonary artery hyperten cat. Lungs and pleural spaces: Evaluation of the lung parenchyma is significantly degraded by motion artif act. An endotracheal tube is in place, and terminates above the vadim. There are small pleural effus ions. Diffuse intralobular septal thickening indicates fluid overload/congestive failure. Dense multi focal airspace consolidation is seen throughout both lungs. No pneumothorax is seen. Mediastinum: Mildly enlarged mediastinal lymph nodes measure up to 12 mm in short axis. Samantha: Not well assessed without IV contrast. Axillae: There is no axillary lymphadenopathy. Upper abdomen: An enteric tube is in place. This extends below the diaphragm into the stomach. There is advanced atherosclerotic calcification of the visualized abdominal aorta. Skeletal structures: The skeletal structures are osteopenic. The bony thorax is grossly intact. No ly tic or blastic bony lesions are seen. Degenerative change and mild kyphoscoliosis is noted in the tho racic spine. IMPRESSION: 1. Significantly streak and motion compromised examination. 2. Cardiomegaly with evidence of fluid overload/congestive failure and small pleural effusions. 3. Extensive/diffuse multifocal airspace consolidation is seen throughout both lungs. Differential co nsiderations include pulmonary edema, multifocal pneumonia, pulmonary hemorrhage, and/or ARDS. Clinic al correlation will be essential. 4. No pneumothorax is seen. 5. Lines and tubes as above. ACT 112: Negative or not required by law. Electronically signed by: Teddy Mejia M.D. 02/13/2024 4:37 PM
--- NOTE | 2024-02-13 16:49 | History & Physical Report ---
Date of Service February 13, 2024 Assessment & Plan (1) Aspiration pneumonia: (2) Cardiac arrest: Plan Patient is an 88-year-old female with past medical history significant for type 2 diabetes, renal artery stenosis, hypertension, GERD, CKD who was brought in via EMS intubated status post cardiac arrest at the [facility]. Patient was at the [facility] to complete a CT abdomen pelvis with IV and oral contrast as part of her gastroenterology workup for generalized abdominal pain. Reportedly right after patient drank oral contrast she developed nausea and respiratory distress. The rapid response team there was activated, which included insurance checker Dr. Matos and anesthesia who were present in the building. It was reported that her oxygen saturations were in the 70s and she was given a dose of Solu-Medrol 125 mg and 50 mg of diphen hydramine IM into the left deltoid. She was also given supplemental oxygen. Her respiratory distress progressed and she became unresponsive. Per Dr. Matos's report in [facility], her EKG revealed left bundle branch block which he states is chronic for her. CPR was started when she became bradycardic down to the 30s and she was given 1 mg of IV atropine. Per Dr. Matos's report in [facility], she subsequently developed wide-complex tachycardia in the 140s and had a palpable brachial and radial pulse, effectively achieving ROSC. As she was still unresponsive, she underwent endotracheal intubation by anesthesia and was given succinylcholine. She was then transferred to the [facility] emergency room via EMS. Per other reports, ACLS was performed for 4 minutes and patient also received 1mg of epinephrine. On arrival to the emergency room, patient was sedated, central and peripheral lines placed and she was admitted to the ICU for further evaluation and management. Cardiac arrest Elevated Troponins Hypotension Anaphylaxis Mechanical ventilation Status post CPR with ROSC, currently intubated and sedated Received 1 mg of atropine and 1 mg of epinephrine EKG, Trend trops, echo Was on epi, transitioned to levophed Continue sedation with propofol and fentanyl Flotation Tank Operator/letterer consulted, appreciate recs Cardiology consulted, appreciate recs Aspiration pneumonia Chest xray and Chest CT suggestive of aspiration Continue IV Unasyn and azithromycin s/p bronch on 02/13/24 in the ICU Follow cultures Resume other home meds once able to take po Diet: currently npo DVT prophylaxis: SCDs Dispo: admit to the ICU History of Present Illness Chief Complaint: cardiac arrest Primary Care Provider: Luis Felipe Jerome MD Patient is an 88-year-old female with past medical history significant for type 2 diabetes, renal artery stenosis, hypertension, GERD, CKD who was brought in via EMS intubated status post cardiac arrest at the [facility]. Patient was at the [facility] to complete a CT abdomen pelvis with IV and oral contrast as part of her gastroenterology workup for generalized abdominal pain. Reportedly right after patient drank oral contrast she developed nausea and respiratory distress. The rapid response team was activated, which included insurance checker Dr. Matos and anesthesia who was present in the building. It was reported that her oxygen saturations were in the 70s and she was given a dose of Solu-Medrol 125 mg and 50 mg of diphenhydramine IM into the left deltoid. She was also given supplemental oxygen. Her respiratory distress progressed and she became unresponsive. Per Dr. Matos's report in [facility], her EKG revealed left bundle branch block which he states is chronic for her. CPR was started when she became bradycardic down to the 30s and she was given 1 mg of IV atropine. Per Dr. Matos's report in [facility], she subsequently developed wide-complex tachycardia in the 140s and had a palpable brachial and radial pulse. As she was still unresponsive, she underwent endotracheal intubation by anesthesia and was given succinylcholine. She was then transferred to the [facility] emergency room via EMS. Per other reports, ACLS was performed for 4 minutes and patient also received 1mg of epinephrine. On arrival to the emergency room, patient was sedated, central and peripheral lines placed and she was admitted to the ICU. Discussion with patient's son via telephone who states that he does have her CODE STATUS wishes down on paper but it is at home. States he is unclear of the exact wording however he believes that initially she would want everything done and is a full code at this time. Allergies Allergy/AdvReac Type Severity Reaction Status Date / Time Iodinated Contrast Media Allergy Severe Anaphylaxis Verified 02/13/24 20:21 latex Allergy Intermediate RED RASH Verified 06/12/23 14:35 [id number] Reductase Allergy Intermediate muscle Verified 06/12/23 14:35 Inhibitor pain/can't [Jrozgxh-Pyl-Com Reductase concentrate/dizzy/nausea Inhibitor] Home Medications Medication Instructions Recorded Confirmed Type multivitamin (Multiple Vitamins 1 tab PO QAM 01/03/19 02/13/24 History tablet) losartan 25 mg tablet 12.5 mg PO QAM 05/31/19 02/13/24 History aspirin 81 mg tablet,delayed 81 mg PO QAM 10/23/19 02/13/24 History release (Mariella Low Dose Aspirin) furosemide 20 mg tablet 20 mg PO QAM 06/12/23 02/13/24 History omeprazole 20 mg capsule,delayed 20 mg PO QAM 06/12/23 02/13/24 History release insulin aspart U-100 100 unit/mL 30 unit (0.3 mL) subcut DAILY #30 12/22/23 02/13/24 Rx (3 mL) subcutaneous pen (Novolog mL FlexPen U-100 Insulin aspart) Contour Next Test Strips (blood #300 ea 01/23/24 02/13/24 Rx sugar diagnostic) calcium carbonate 600 mg-vitamin 1 tab PO BID 02/13/24 02/13/24 History D3 20 mcg (800 unit) tablet (Caltrate with Vitamin D3) insulin degludec 100 unit/mL (3 24 unit subcut HS 02/13/24 02/13/24 History mL) subcutaneous pen (Tresiba FlexTouch U-100 insulin) timolol maleate 0.5 % eye drops 1 drp OPR BID 02/13/24 02/13/24 History Past Med/Surg History Problem List (Updated 02/13/24 @ 18:20 by Triston Hollins MD) Arterial hypotension Aspiration pneumonia (Acute) Cardiac arrest (Acute) Intercostal pain right side @ lower sternum Right-sided chest wall pain right of lower sternum Hx of cholecystectomy Spinal stenosis of cervical region with radiculopathy Chronic visceral pain Cervical spondylosis 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 Cervical myelopathy Encounter for pre-operative examination HTN (hypertension) (Chronic) Heart disease (Chronic) GERD (gastroesophageal reflux disease) (Chronic) DM type 2 (diabetes mellitus, type 2) (Chronic) CKD (chronic kidney disease), stage III (Chronic) Peripheral neuropathy (Acute) Hyperlipidemia (Acute) Diabetic nephropathy (Acute) Asthma (Acute) Mitral regurgitation Left bundle branch block Chronic pain Esophageal dilatation HH (hiatus hernia) Abdominal pain Renal artery stenosis (Chronic) Status post right renal artery stent 2014 Medical History (Updated 02/13/24 @ 18:20 by Triston Hollins MD) Dysphagia Osteoarthritis Chronic back pain GERD (gastroesophageal reflux disease) Diabetes mellitus, type 2 Anxiety Hypertension Hyperlipidemia Cardiac murmur follows with Dr. Esquivel Esophageal spasm Surgical History (Updated 08/23/22 @ 15:45 by Memo Ramirez PA-C) History of total hysterectomy with bilateral salpingo-oophorectomy (BSO) History of dilatation and curettage History of surgery Status post right renal artery stent 2014 History of tooth extraction upper teeth History of wisdom tooth extraction History of bilateral cataract extraction History of colonoscopy Hx laparoscopic cholecystectomy H/O esophagogastroduodenoscopy H/O breast surgery "left breast duct excision" S/P tonsillectomy and adenoidectomy S/P appendectomy Family History Father Heart disease Mother Heart disease Family history of reaction to anesthesia had tear duct sx--right side of head "hair turned white" Diabetes Hypertension Stroke Denies family history of Crohn's disease Colorectal cancer Ulcerative colitis Social History Smoking Status: Unknown if ever smoked packs per day: 1; Second Hand Exposure: Yes (parents smoked); Do You Dip or Chew Tobacco: No; Preferred Language: Tamazight Communication Ability: Unable to Communication Ability Comment: Unable to obtain Slabber Required: No Beliefs That Will Affect Care: Zoroastrian Zoroastrian Beliefs: Mormonism marital status: / Current Living Situation: Alone Current Living Situation Comment: Unable to obtain current occupational status: retired How many Children do You have: 2 Feels Safe at Home: Yes Diet: diabetic during the past year weight has: decreased > 10 lbs Assistive Devices: Denture - Upper and Glasses Review of Systems Review of Systems: All systems reviewed & are unremarkable except as noted in HPI & below Physical Exam Physical Exam: General: intubated and sedated at the time of exam Psych: mood and affect could not be determined Neuro: intubated and sedated HEENT: NC/AT, intubated and sedated CV: RRR Resp: intubated and sedated Abdomen: Soft Extremities: No edema in lower extremities bilaterally. Results & Data Results & Data Vital Signs (Past 12 Hours) Vital Signs Temp Pulse Resp BP Pulse Ox O2 Del Method FiO2 02/13/24 16:35 94/54 L 02/13/24 16:35 94/54 L 02/13/24 16:30 36.8 C 77 18 96 02/13/24 16:30 97/60 L 02/13/24 16:30 97/60 L 02/13/24 16:25 94/57 L 02/13/24 16:25 94/57 L 02/13/24 16:15 36.8 C 81 17 96 02/13/24 16:15 114/56 L 02/13/24 16:10 98/59 L 02/13/24 16:10 98/59 L 02/13/24 16:09 36.8 C 82 18 96 02/13/24 16:05 84/54 L 02/13/24 16:05 84/54 L 02/13/24 16:05 84/54 L 02/13/24 16:00 83/47 L 02/13/24 15:58 76/44 L 02/13/24 15:33 106 H 02/13/24 15:32 16 94 100 02/13/24 15:30 147/72 H 02/13/24 15:30 147/72 H 02/13/24 15:30 147/72 H 02/13/24 15:30 33.5 C L 98 H 18 147/72 H 94 Mechanical Vent 02/13/24 15:27 102 H 18 93 02/13/24 15:18 191/121 H Diagnostic Findings Abdomen/Pelvis CT 02/13/24 15:29 CT abd pelvis wo con CLINICAL HISTORY: arrest TECHNIQUE: Helical axial images of the abdomen and pelvis were obtained. Automated dose lowering techniques and/or adjustment according to patient size were utilized for this exam. This exam was performed without intravenous contrast. COMPARISON: Comparison is made to CT abdomen pelvis 01/28/2022 FINDINGS: Lower chest: For findings above the diaphragm, please see CT chest performed same day. Liver: Unremarkable. No focal lesions are seen. Gallbladder and biliary tree: Patient is status post cholecystectomy. No intra- or extrahepatic biliary ductal dilation. Pancreas: Fatty replacement of the pancreas is seen. Spleen: Unremarkable. Adrenals: Unremarkable. Kidneys and ureters: Perinephric stranding is noted bilaterally. Bladder: Dixon catheter is seen. Reproductive organs: Patient is status post hysterectomy. Bowel: Unremarkable. Lymph nodes Retroperitoneal: Unremarkable. Pelvic: Unremarkable. Mesenteric: Unremarkable. Peritoneum: A small amount of gas is seen surrounding the large bowel about the splenic flexure. Vessels: Atherosclerotic calcifications are seen. Abdominal wall: Unremarkable. Bones: Degenerative changes in the visualized spine. IMPRESSION: A small amount of pneumatosis versus extraluminal gas about the splenic flexure is likely due to barotrauma in this patient status post cardiac arrest. No gross abnormalities are otherwise seen. ACT 112: Negative or not required by law. Electronically signed by: Jersey Chauhan M.D. 02/13/2024 4:22 PM Chest X-Ray 02/13/24 15:29 XR chest 1V portable CLINICAL HISTORY: cardiac arrest TECHNIQUE: Single frontal radiograph of the chest was obtained. Comparison: Comparison is made to chest radiograph 02/11/2016 FINDINGS: Endotracheal tube terminates 6 cm from the vadim. Cardiomegaly is noted. The aortic arch is calcified. Multifocal airspace opacities are seen, currently B- lines are noted. No evidence of pleural effusion or pneumothorax. IMPRESSION: Multifocal airspace opacities likely represent aspiration in this patient status post cardiac arrest. Superimposed pneumonia or edema may be present. ACT 112: Negative or not required by law. Electronically signed by: Jersey Chauhan M.D. 02/13/2024 3:[address] 02/13/24 15:29 CT head/brain wo con CLINICAL HISTORY: 88 years-old Female with arrest. Acute cardiac arrest TECHNIQUE: Multiple axial CT images of the head were obtained without contrast. A dose lowering technique was utilized adhering to the principles of ALARA. CT DOSE: 1787.8 mGy.cm COMPARISON: 06/18/2019 FINDINGS: Motion degraded study. No acute intracranial hemorrhage, midline shift, intra- axial mass, hydrocephalus, territorial ischemia or abnormal extra-axial collection. Involutional changes with chronic microvascular ischemic disease. Cerebrovascular calcifications. 11 mm calcified meningioma adjacent to the right frontotemporal lobe on image 11 series 2 without significant mass effect, unchanged. The calvarium is intact. The paranasal sinuses, mastoid air cells, and middle ear cavities are clear. IMPRESSION: Chronic findings as above without acute intracranial abnormality. ACT 112: Negative or not required by law. The above report was generated using voice recognition software. It may contain grammatical, syntax or spelling errors. Electronically signed by: Major Maloney M.D. 02/13/2024 4:[address] 02/13/24 15:30 CT SCAN OF THE CHEST WITHOUT IV CONTRAST CLINICAL HISTORY: Cardiac arrest. COMPARISON STUDY: Chest CT dated 03/28/2018. Chest x-ray dated 02/13/2024. TECHNIQUE: CT scan of the thorax was performed from the thoracic inlet to the upper abdomen. Images are reviewed in the axial, sagittal, and coronal planes. IV contrast was not administered for this examination as per the referring clinician. A dose lowering technique was utilized adhering to the principles of ALARA. The examination is significantly degraded by motion artifact, as well as by streak artifact from the arms which could not be elevated above the chest. FINDINGS: Thyroid: Mildly enlarged and heterogeneous, typical for goiter. Thoracic aorta: There is advanced atherosclerotic calcification of the thoracic aorta, which is normal in caliber and demonstrates standard 3-vessel arch anatomy. Heart: The heart is enlarged and without pericardial effusion. The coronary arteries and mitral annulus are densely calcified. The main pulmonary arteries are dilated beginning pulmonary artery hypertension. Lungs and pleural spaces: Evaluation of the lung parenchyma is significantly degraded by motion artifact. An endotracheal tube is in place, and terminates above the vadim. There are small pleural effusions. Diffuse intralobular septal thickening indicates fluid overload/congestive failure. Dense multifocal airspace consolidation is seen throughout both lungs. No pneumothorax is seen. Mediastinum: Mildly enlarged mediastinal lymph nodes measure up to 12 mm in short axis. Samantha: Not well assessed without IV contrast. Axillae: There is no axillary lymphadenopathy. Upper abdomen: An enteric tube is in place. This extends below the diaphragm into the stomach. There is advanced atherosclerotic calcification of the visualized abdominal aorta. Skeletal structures: The skeletal structures are osteopenic. The bony thorax is grossly intact. No lytic or blastic bony lesions are seen. Degenerative change and mild kyphoscoliosis is noted in the thoracic spine. IMPRESSION: 1. Significantly streak and motion compromised examination. 2. Cardiomegaly with evidence of fluid overload/congestive failure and small pleural effusions. 3. Extensive/diffuse multifocal airspace consolidation is seen throughout both lungs. Differential considerations include pulmonary edema, multifocal pneumonia, pulmonary hemorrhage, and/or ARDS. Clinical correlation will be essential. 4. No pneumothorax is seen. 5. Lines and tubes as above. ACT 112: Negative or not required by law. Electronically signed by: Teddy Mejia M.D. 02/13/2024 4:37 PM Chest X-Ray 02/13/24 17:11 XR chest 1V portable CLINICAL HISTORY: line placement TECHNIQUE: Single frontal radiograph of the chest was obtained. Comparison: Comparison is made to chest radiograph 02/13/2024 FINDINGS: Interval placement of a right jugular venous catheter with the tip in the mid SVC. Cardiomegaly is noted. The aortic arch is calcified. Multifocal airspace opacities are seen. No evidence of pleural effusion or pneumothorax. IMPRESSION: Multifocal airspace opacities may represent atelectasis, pneumonia, and/or aspiration. Satisfactory position of venous catheter. ACT 112: Negative or not required by law. Electronically signed by: Jersey Chauhan M.D. 02/13/2024 5:30 PM
[2024-02-13] MEDS: AMPICILLIN/SULBACTAM SOD 3,000 MG/100 ML BAG IV ONE (17:18)
--- NOTE | 2024-02-13 17:31 | XRay Report ---
XR chest 1V portable CLINICAL HISTORY: line placement TECHNIQUE: Single frontal radiograph of the chest was obtained. Comparison: Comparison is made to chest radiograph 02/13/2024 FINDINGS: Interval placement of a right jugular venous catheter with the tip in the mid SVC. Cardiomegaly is no rey. The aortic arch is calcified. Multifocal airspace opacities are seen. No evidence of pleural eff usion or pneumothorax. IMPRESSION: Multifocal airspace opacities may represent atelectasis, pneumonia, and/or aspiration. Satisfactory p osition of venous catheter. ACT 112: Negative or not required by law. Electronically signed by: Jersey Chauhan M.D. 02/13/2024 5:30 PM
[2024-02-13 17:56] LABS: Potassium 4.8 mmol/L (3.5-5.1)
[2024-02-13 18:13] LABS: Prothrombin Time 10.6 Seconds (9.0-12.0)
[2024-02-13] MEDS ORDERED: methylPREDNISolone 125 MG/2 ML VIAL IV STA (18:23)
--- NOTE | 2024-02-13 18:31 | Critical Care Consultation ---
Date of Consultation February 13, 2024 Assessment & Plan (1) Cardiac arrest: (2) Aspiration pneumonia: (3) Arterial hypotension: Plan 88-year-old female with a past medical history of cervical spine stenosis, hypertension, CKD stage III, diabetic nephropathy, hiatal hernia and left bundle branch block who presents to the ICU status postcardiac arrest which was witnessed in an outpatient radiology department. She achieved ROSC after 4 minutes of CPR and received 1 mg of atropine and 1 mg of epinephrine. She is currently on low-dose propofol and low-dose epinephrine. Neurologic: Reportedly she is moving all of her limbs post ROSC and required sedation. CT head completed in the ER revealed chronic findings of microvascular disease. No acute findings. An 11 mm calcified meningioma was noted. Will maintain sedation to maintain RASS of -1. Daily spontaneous awakening trials. Pulmonary: Chest CT reveals multifocal pulmonary infiltrates consistent with aspiration pneumonitis. Cannot rule out aspirated barium contrast. Will start the patient on empiric antibiotics and IV methylprednisone. Will proceed with bronchoscopy once consent is obtained from family. Continue lung protective ventilation strategy. Daily SBT. Obtain respiratory viral panel. COVID-19 testing on admission was negative. Cardiovascular: Troponin mildly elevated and trending upward likely due to demand ischemia and myocardial stunning from cardiac arrest. Will trend troponins and obtain echo. EKG with sinus tachycardia and left bundle branch block which is old compared to prior. Patient currently on epinephrine drip likely due to hypotension related to propofol. Wean to maintain maps above 65 mmHg. Gastrointestinal: N.p.o. for the time being. Continue OG tube to low intermittent wall suction. LFTs largely unremarkable. CT abdomen and pelvis without any acute concerns. Small amount of pneumatosis noted versus extraluminal gas which is likely related to barotrauma from CPR. Will follow exam clinically. Lactate pending. Renal: No significant issues. Mild hyperglycemia noted likely reactive to stress. Infectious disease: Unasyn initiated due to aspiration. Obtain Pro-Nicholas tomorrow. Hematologic: Labs suggest hemoconcentration. Leukocytosis also noted likely due to stress reaction and possible pneumonia. Endocrine: Maintain euglycemia. Lines and tubes: IJ CVL placed in the ER 02/13/2024. Right radial arterial line placed 02/13/2024. "Dixon catheter placed 02/13/2024. VTE prophylaxis: SCDs CODE STATUS: Full Family at bedside: Patient's son and [id number] updated at bedside. Disposition: ICU. Care coordinated with ER nursing, ICU nursing and ER physician. I have personally spent 63 minutes of critical care time in the direct management of this patient. This is a life/limb threatening event. This includes time spent evaluating patient, direct bedside care, chart review, placing orders, interpretation of diagnostic studies, discussion with consultants, patient, and family members, as well as other required patient management acti vities. This time is exclusive of all separately billable procedures, and teaching time and separate from and in addition to any other critical care service time. Thank you for allowing us to participate in the care of this patient. History of Present Illness Reason for Consultation: Status post witnessed cardiac arrest and intubation/mechanical ventilation Attending Physician: Corrie Lyons MD History of Present Illness 88-year-old female who presented to [facility] for a CT scan of her abdomen and pelvis with oral contrast. Patient reportedly ingested oral contrast and then subsequently became short of breath and lost consciousness. She was given 1 mg atropine due to bradycardia and hypoxia. She was then laid supine and fell to be pulseless. CPR was initiated and she received 1 mg of epinephrine. No shock was given. She underwent CPR for about 4 minutes and had ROSC. She was intubated in the field. She reportedly had a wide-complex tachycardia on the monitor per the outpatient sfdc solution architect who was present in the clinic around the area that she was located. In the ER, she was started on propofol as she was waking up. After propofol was initiated she had hypotension and was started on IV epinephrine. A left IJ central line and radial arterial line was placed by the ER physician. Patient is currently sedated and unable to participate in review of systems. Allergies Allergy/AdvReac Type Severity Reaction Status Date / Time latex Allergy Intermediate RED RASH Verified 06/12/23 14:35 Cqidlfq-[id number] Reductase Allergy Intermediate muscle Verified 06/12/23 14:35 Inhibitor pain/can't [Qssezbg-Fle-Lta Reductase concentrate/dizzy/nausea Inhibitor] Home Medications Medication Instructions Recorded Confirmed Type multivitamin (Multiple Vitamins 1 tab PO QAM 01/03/19 02/13/24 History tablet) losartan 25 mg tablet 12.5 mg PO QAM 05/31/19 02/13/24 History aspirin 81 mg tablet,delayed 81 mg PO QAM 10/23/19 02/13/24 History release (Mariella Low Dose Aspirin) furosemide 20 mg tablet 20 mg PO QAM 06/12/23 02/13/24 History omeprazole 20 mg capsule,delayed 20 mg PO QAM 06/12/23 02/13/24 History release insulin aspart U-100 100 unit/mL 30 unit (0.3 mL) subcut DAILY #30 12/22/23 02/13/24 Rx (3 mL) subcutaneous pen (Novolog mL FlexPen U-100 Insulin aspart) Contour Next Test Strips (blood #300 ea 01/23/24 02/13/24 Rx sugar diagnostic) calcium carbonate 600 mg-vitamin 1 tab PO BID 02/13/24 02/13/24 History D3 20 mcg (800 unit) tablet (Caltrate with Vitamin D3) insulin degludec 100 unit/mL (3 24 unit subcut HS 02/13/24 02/13/24 History mL) subcutaneous pen (Tresiba FlexTouch U-100 insulin) timolol maleate 0.5 % eye drops 1 drp OPR BID 02/13/24 02/13/24 History Patient History Medical History (Updated 02/13/24 @ 18:20 by Triston Hollins MD) Dysphagia Osteoarthritis Chronic back pain GERD (gastroesophageal reflux disease) Diabetes mellitus, type 2 Anxiety Hypertension Hyperlipidemia Cardiac murmur follows with Dr. Esquivel Esophageal spasm Surgical History (Updated 08/23/22 @ 15:45 by Memo Ramirez PA-C) History of total hysterectomy with bilateral salpingo-oophorectomy (BSO) History of dilatation and curettage History of surgery Status post right renal artery stent 2014 History of tooth extraction upper teeth History of wisdom tooth extraction History of bilateral cataract extraction History of colonoscopy Hx laparoscopic cholecystectomy H/O esophagogastroduodenoscopy H/O breast surgery "left breast duct excision" S/P tonsillectomy and adenoidectomy S/P appendectomy Family History Father Heart disease Mother Heart disease Family history of reaction to anesthesia had tear duct sx--right side of head "hair turned white" Diabetes Hypertension Stroke Denies family history of Crohn's disease Colorectal cancer Ulcerative colitis Social History Smoking Status: Unknown if ever smoked packs per day: 1; Second Hand Exposure: Yes (parents smoked); Do You Dip or Chew Tobacco: No; Preferred Language: Greenlandic Communication Ability: Unable to Communication Ability Comment: Unable to obtain Exhaust Emissions Inspector Required: No Beliefs That Will Affect Care: Jew Jew Beliefs: Congregation marital status: / Current Living Situation: Alone Current Living Situation Comment: Unable to obtain current occupational status: retired How many Children do You have: 2 Feels Safe at Home: Yes Diet: diabetic during the past year weight has: decreased > 10 lbs Assistive Devices: Denture - Upper and Glasses Review of Systems Review of Systems: Unobtainable due to endotracheal tube Physical Exam Physical Exam: Constitutional: Patient appears to be of their stated age. Patient is in no apparent distress. Patient is well-developed. Eyes: Pupils are equal round and reactive to light. Conjunctivae are normal. Anicteric sclera. Ears nose, mouth and throat: Endotracheal tube in place. Neck: Trachea is midline. Visual inspection is normal. Respiratory: Coarse rhonchi bilaterally. Cardiovascular: Regular rate and rhythm. No murmurs. No edema. Gastrointestinal: Normal bowel sounds, soft, nontender and nondistended. No hepatosplenomegaly noted. Musculoskeletal: No cyanosis. Patient is able to move all extremities. Strength is 5 out of 5 in the upper and lower extremities. Skin: No rashes, warm dry and intact. Neurologic: Difficult to assess due to sedation. Psychiatric: Difficult to fully assess due to sedation. Results & Data Results & Data Vital Signs (Past 12 Hours) Vital Signs Temp Pulse Pulse Resp BP BP Pulse Ox 02/13/24 17:55 64 18 146/32 H 100 02/13/24 17:29 72 122/62 100 02/13/24 17:20 69 19 126/58 L 100 02/13/24 16:51 75 23 106/63 98 02/13/24 16:35 94/54 L 02/13/24 16:35 94/54 L 02/13/24 16:30 36.8 C 77 18 96 02/13/24 16:30 97/60 L 02/13/24 16:30 97/60 L 02/13/24 16:25 94/57 L 02/13/24 16:25 94/57 L 02/13/24 16:15 36.8 C 81 17 96 02/13/24 16:15 114/56 L 02/13/24 16:10 98/59 L 02/13/24 16:10 98/59 L 02/13/24 16:09 36.8 C 82 18 96 02/13/24 16:05 84/54 L 02/13/24 16:05 84/54 L 02/13/24 16:05 84/54 L 02/13/24 16:00 83/47 L 02/13/24 15:58 76/44 L 02/13/24 15:33 106 H 02/13/24 15:32 16 94 02/13/24 15:30 147/72 H 02/13/24 15:30 147/72 H 02/13/24 15:30 147/72 H 02/13/24 15:30 33.5 C L 98 H 18 147/72 H 94 02/13/24 15:27 102 H 18 93 02/13/24 15:18 191/121 H O2 Del Method FiO2 02/13/24 17:55 Mechanical Vent 02/13/24 17:29 Mechanical Vent 02/13/24 17:20 Mechanical Vent 02/13/24 16:51 Mechanical Vent 02/13/24 16:35 02/13/24 16:35 02/13/24 16:30 02/13/24 16:30 02/13/24 16:30 02/13/24 16:25 02/13/24 16:25 02/13/24 16:15 02/13/24 16:15 02/13/24 16:10 02/13/24 16:10 02/13/24 16:09 02/13/24 16:05 02/13/24 16:05 02/13/24 16:05 02/13/24 16:00 02/13/24 15:58 02/13/24 15:33 02/13/24 15:32 100 02/13/24 15:30 02/13/24 15:30 02/13/24 15:30 02/13/24 15:30 Mechanical Vent 02/13/24 15:27 02/13/24 15:18 Coding Level of Care Code 74237 CRITICAL CARE 1ST 30-74M Diagnoses Cardiac arrest I46.9 Aspiration pneumonia J69.0 Arterial hypotension I95.9
[2024-02-13] MEDS: fentaNYL citrate 2,500 MCG/250 ML BAG IV SCH (18:38)
[2024-02-13] MEDS: NOREPINEPHRINE/D5W 4 MG/250 ML PLCT IV SCH (19:23)
--- NOTE | 2024-02-13 19:25 | Procedure Note ---
Procedure Note Date of Service February 13, 2024 Flexible diagnostic bronchoscopy Consent obtained from the patient send as the patient is currently intubated, sedated and on mechanical ventilation. Timeout performed immediately prior to the procedure. Patient was hyperoxygenated on 100% FiO2 and PEEP of 8. Endotracheal tube adapter was placed to allow insertion of the bronchoscope. Bronchoscope was inserted via the endotracheal tube. Endotracheal tube was seated appropriately about 4 cm above the vadim. Bilateral tracheobronchial tree inspection was performed. Tracheobronchomalacia noted bilaterally. The airways appeared hyperemic with bloody secretions emanating from bilateral lower lobes. Washings were performed of the right lower lobe and sent for culture and cytology. Approximately 150 mL of saline was used to wash the bilateral lungs and clear his own secretions and blood. No obvious active bleeding was noted. Scope was then withdrawn. Patient tolerated the procedure well. Follow cultures from the right lower lobe washings. [facility] [place] Procedure Codes (Charges) Pulmonary/Thoracic Procedure 1: Pulmonary and Thoracic: 14466 Dx bronchoscopy/wash Coding CPT Codes Pulmonary/Thoracic - Pulmonary and Thoracic: 90575 Dx bronchoscopy/wash ([id number]) Additional Codes Date of Service ([email or web address])
[2024-02-13] MEDS ORDERED: MODERATE STRESS LEVEL ONE (19:36)
[2024-02-13] MEDS ORDERED: INSULIN PROTOCOL GOAL RANGE ONE (19:36)
[2024-02-13] MEDS: NOREPINEPHRINE/D5W 4 MG/250 ML IV ONE (19:37)
[2024-02-13 19:55] LABS: iSTAT Art Bld Gas pCO2 Correct 56 mmHg (35-46); iSTAT Art Bld Gas pH Corrected 7.288 (7.35-7.45); iSTAT Arterial Blood Gas HCO3 27 meg/L (19-24); iSTAT Arterial Blood Gas pCO2 57 mmHg (35-46); iSTAT Arterial Blood Gas pH 7.28 (7.35-7.45); iSTAT Arterial Blood Gas pO2 105 mmHg (80-95); iSTAT Arterial Blood Gas pO2 C 103; iSTAT Carbon Dioxide 29 mmol/L (24-31); iSTAT FiO2 80 %; iSTAT Hematocrit 48 % (37-47); iSTAT Hemoglobin 16.3 g/dl (12.0-16.0); iSTAT Potassium 4.3 mmol/L (3.3-5.0); iSTAT Site Art Line; iSTAT Sodium 135 mmol/L (135-144)
[2024-02-13 19:57] LABS: Adenovirus PCR Not Detected (NotDetected); Bordetella parapertussis PCR Not Detected (NotDetected); Bordetella pertussis PCR Not Detected (NotDetected); Chlamydia pneumoniae PCR Not Detected (NotDetected); Coronavirus 229E PCR Not Detected (NotDetected); Coronavirus CoV-2 (COVID19)PCR Not Detected (NotDetected); Coronavirus HKU1 PCR Not Detected (NotDetected); Coronavirus NL63 PCR Not Detected (NotDetected); Coronavirus OC43PCR Not Detected (NotDetected); Human Metapneumovirus PCR Not Detected (NotDetected); Influenza A PCR Not Detected (NotDetected); Influenza B PCR Not Detected (NotDetected); Mycoplasma pneumoniae PCR Not Detected (NotDetected); Parainfluenza Virus 1 PCR Not Detected (NotDetected); Parainfluenza Virus 2 PCR Not Detected (NotDetected); Parainfluenza Virus 3 PCR Not Detected (NotDetected); Parainfluenza Virus 4 PCR Not Detected (NotDetected); Respiratory Syncytial VirusPCR Not Detected (NotDetected); Rhinovirus/Enterovirus PCR Not Detected (NotDetected)
[2024-02-13] MEDS: INSULIN REGULAR 250 UNITS in SODIUM CHLORIDE 0.9% 247.5 ML IV SCH (19:58)
[2024-02-13] MEDS: methylPREDNISolone 40 MG in SYRINGE 0 ML IV SCH (20:00)
[2024-02-13] MEDS: INSULIN ASPART PER UNIT CHARGE SC SCH (20:07)
[2024-02-13] MEDS: AZITHROMYCIN 500 MG in DEXTROSE 5% 250 ML IV STA (20:31)
[2024-02-13 22:12] LABS: Fluid Mono/Macrophage 23 %; Lymphocyte Body Fluid Man 5 %; Neutrophil Body Fluid Man 72 %
[2024-02-13] MEDS: AMPICILLIN/SULBACTAM SOD 3,000 MG/100 ML BAG IV SCH (23:40)
[2024-02-14] MEDS: fentaNYL BOLUS from BAG IV PRN (02:54)
[2024-02-14 04:28] LABS: iSTAT Art Bld Gas pCO2 Correct 35 mmHg (35-46); iSTAT Arterial Blood Gas HCO3 24 meg/L (19-24); iSTAT Arterial Blood Gas pCO2 36 mmHg (35-46); iSTAT Arterial Blood Gas pH 7.44 (7.35-7.45); iSTAT Arterial Blood Gas pO2 73 mmHg (80-95); iSTAT Arterial Blood Gas pO2 C 71; iSTAT Carbon Dioxide 25 mmol/L (24-31); iSTAT FiO2 40 %; iSTAT Hematocrit 41 % (37-47); iSTAT Hemoglobin 13.9 g/dl (12.0-16.0); iSTAT Potassium 3.6 mmol/L (3.3-5.0); iSTAT Site Art Line; iSTAT Sodium 130 mmol/L (135-144)
[2024-02-14 04:56] LABS: Basophils # (auto) 0.03 K/uL (0.00-0.20); Basophils % (auto) 0.1 %; Hematocrit (blood only) 42.9 % (37.0-47.0); Hemoglobin 14.9 g/dl (12.0-16.0); Immature Granulocytes # (auto) 0.17 K/uL (0.01-0.20); Immature Granulocytes % (auto) 0.8 %; Lymphocytes # (auto) 1.22 K/uL (1.20-3.40); Lymphocytes % (auto) 5.9 %; Mean Corpuscular Hemoglobin 30.8 pg (25.0-34.0); Mean Corpuscular Hgb Conc 34.7 g/dL (32.0-36.0); Mean Corpuscular Volume 88.8 fL (80.0-100.0); Mean Platelet Volume 9.7 fL (9.4-12.4); Monocytes # (auto) 1.22 K/uL (0.11-0.59); Monocytes % (auto) 5.9 %; Neutrophils # (auto) 18.02 K/uL (1.40-6.50); Neutrophils % (auto) 87.3 %; Platelet Count 299 K/uL (130-400); RDW Coefficient of Variation 11.9 % (11.5-14.5); RDW Standard Deviation 38.8 fL (36.4-46.3); Red Blood Count 4.83 M/uL (4.20-5.40); White Blood Count 20.66 K/ul (4.8-10.8)
[2024-02-14 04:57] LABS: BUN Creatinine Ratio 20.3 (10-20); Calcium 8.6 mg/dl (8.6-10.3); Creatinine Clr Calc Pharmacy 35.4 ml/min; Est GFR (African American) 41.3 ml/min; Est GFR (Non-African American) 35.6 ml/min; Magnesium 1.9 mg/dl (1.7-2.4); Phosphorus 2.6 mg/dl (2.5-4.9); Potassium 3.8 mmol/L (3.5-5.1)
[2024-02-14 05:07] LABS: Troponin I High Sensitivity 1462.1 pg/ml (0-14)
[2024-02-14] MEDS: POTASSIUM CHLORIDE 20 MEQ/15 ML UDC PO STA (05:53)
[2024-02-14] MEDS: Heparin IV Adult Wt-Based Standard *NO* INITIAL Bolus Protocol IV STA (05:53)
[2024-02-14] MEDS: HEPARIN SODIUM/DEXTROSE 25,000 UNITS/500 ML BAG IV SCH (05:53)
[2024-02-14] MEDS: MAGNESIUM SULFATE / D5W 1 GM/100 ML BAG IV ONE (05:54)
[2024-02-14 06:30] LABS: Partial Thromboplastin Time 26 Seconds (21-31); Prothrombin Time 10.9 Seconds (9.0-12.0)
--- NOTE | 2024-02-14 07:57 | Critical Care Progress Note ---
Date of Service February 14, 2024 Assessment & Plan (1) Aspiration pneumonia: (2) Cardiac arrest: (3) Arterial hypotension: (4) DM type 2 (diabetes mellitus, type 2): (5) CKD (chronic kidney disease), stage III: (6) Heart disease: (7) Right-sided chest wall pain: Plan Plan 88-year-old female with a past medical history of cervical spine stenosis, hypertension, CKD stage III, diabetic nephropathy, hiatal hernia and left bundle branch block who presents to the ICU status postcardiac arrest which was witnessed in an outpatient radiology department. She achieved ROSC after 4 minutes of CPR and received 1 mg of atropine and 1 mg of epinephrine. She is cu rrently on low-dose propofol and low-dose epinephrine. Neurologic: Reportedly she is moving all of her limbs post ROSC and required sedation. CT head completed in the ER revealed chronic findings of microvascular disease. No acute findings. An 11 mm calcified meningioma was noted. Will maintain sedation to maintain RASS of -1. Daily spontaneous awakening trials. Pulmonary: Chest CT reveals multifocal pulmonary infiltrates consistent with aspiration pneumonitis. Cannot rule out aspirated barium contrast. Will start the patient on empiric antibiotics and IV methylprednisone. Will proceed with bronchoscopy once consent is obtained from family. Continue lung protective ventilation strategy. Daily SBT. COVID-19 testing on admission was negative. - Resp viral panel larkin-negative - Bronchoscopy, RLL: Gram stain, fungal smear both negative; Bronch bacterial and fungal Cx pending Cardiovascular: Troponin mildly elevated and trending upward likely due to demand ischemia and myocardial stunning from cardiac arrest. Will trend troponins and obtain echo. - HSTrop, 1582 <-- 1150 <-- 108 (admission), continue to trend EKG with sinus tachycardia and left bundle branch block which is old compared to prior. Bradycardic this morning. Patient currently on epinephrine drip likely due to hypotension related to propofol. Wean to maintain MAPs above 65 mmHg. Gastrointestinal: - NPO for the time being. Continue OG tube to low intermittent wall suction. LFTs largely unremarkable. - CT abdomen and pelvis without any acute concerns. Small amount of pneumatosis noted versus extraluminal gas which is likely related to barotrauma from CPR. Will follow exam clinically. Lactate pending. Renal: No significant issues. Infectious disease: Unasyn initiated due to aspiration. Procal ordered for AM lab, 02/14 Legionella urine antigen, pending Hematologic: Labs suggest hemoconcentration. Leukocytosis also noted likely due to stress reaction and possible pneumonia. WBC, 20.7 <-- 16.5 Endocrine: Maintain euglycemia. Mild hyperglycemia noted likely reactive to stress. Lines and tubes: IJ CVL placed in the ER 02/13/2024. Right radial arterial line placed 02/13/2024. "Dixon catheter placed 02/13/2024. VTE prophylaxis: SCDs CODE STATUS: Full Admission and Anticipated Discharge Date Admission Date: February 13, 2024 Supervising Physician Co-Signing Physician Notes Patient seen with resident physician. Agree with note above aside for any additions//noted: Had difficulty with sedation and bradycardia. We have augmented her regimen to continuous ketamine, propofol and fentanyl. Oxygenation requirements have improved, but she has not yet ready for extubation. She does move limbs spontaneously, but does not follow commands. She is being treated for aspiration pneumonitis/pneumonia. She does have signs of potential renal failure likely due to ischemic ATN. Continue albumin as needed. Passive leg raise test did not demonstrate any significant fluid responsiveness. Echo reviewed within normal EF. Troponin has peaked. Cardiology consult appreciated. Will discontinue heparin drip at this time. Cultures pending from bronchoscopy. Subjective Patient is a 88 yo F w/ a PMHx of HTN, HLD, T2DM, CKD-stage 3, GERD, asthma, LBBB, mitral regurgitation, hiatal hernia, osteoarthritis, dysphagia heavily sedated this morning with propofol, fentanyl. Per the nurse, even when the sedation was titrated down, the patient was unable to follow commands. ROS unobtainable due to reduced consciousness, limited PE due to reduced consciousness of patient. Attempt a more full exam w/ ROS later during day, when patient less sedated. Review of Systems Review of Systems: Unobtainable due to reduced consciousness Physical Exam Constitutional: + mechanically ventilated Eyes: + pinpoint pupils Neck: normal visual inspection and trachea midline; no neck crepitus and no submandibular swelling Respiratory: normal respiratory effort, lungs clear to auscultation Cardiovascular: Rate/Rhythm: regular rhythm and + bradycardic Extremities: normal capillary refill and + pedal edema (mild edema of LE's) Gastrointestinal (Abdomen): Inspection/Auscultation: abdomen normal to inspection Percussion/Palpation: no hepatosplenomegaly Neurologic: + obtunded Psychiatric: Orientation: + not alert Results & Data Results & Data Vital Signs (Past 12 Hours) Vital Signs Temp Pulse Resp BP Pulse Ox O2 Del Method FiO2 02/14/24 07:33 Mechanical Vent 40 02/14/24 07:33 40 02/14/24 07:31 58 L 02/14/24 07:20 51 L 18 98 40 02/14/24 06:15 36.4 C L 54 L 15 97 02/14/24 06:01 135/57 L 02/14/24 05:42 36.5 C 52 L 18 97 02/14/24 05:09 36.5 C 50 L 13 98 02/14/24 05:00 107/49 L 02/14/24 05:00 107/49 L 02/14/24 04:54 36.5 C 52 L 22 97 02/14/24 04:36 36.5 C 52 L 18 98 02/14/24 04:03 36.5 C 52 L 20 98 02/14/24 04:00 113/53 L 02/14/24 04:00 51 L 20 98 40 02/14/24 04:00 40 02/14/24 03:54 36.5 C 52 L 20 97 02/14/24 03:45 36.5 C 53 L 13 97 02/14/24 03:21 36.6 C 51 L 14 97 02/14/24 03:00 111/55 L 02/14/24 02:51 36.6 C 57 L 20 98 02/14/24 02:21 36.7 C 56 L 20 98 02/14/24 02:06 36.7 C 56 L 20 97 02/14/24 02:00 115/55 L 02/14/24 02:00 115/55 L 02/14/24 01:36 36.7 C 59 L 20 98 02/14/24 01:17 36.7 C 58 L 20 98 02/14/24 01:02 36.7 C 61 20 97 02/14/24 01:00 113/58 L 02/14/24 00:59 36.7 C 62 20 98 02/14/24 00:47 36.7 C 58 L 20 97 02/14/24 00:38 36.7 C 60 20 97 02/14/24 00:17 36.8 C 60 20 97 02/14/24 00:02 36.8 C 60 20 97 02/14/24 00:00 112/49 L 02/14/24 00:00 112/49 L 02/14/24 00:00 112/49 L 02/14/24 00:00 59 L 02/13/24 23:59 36.8 C 60 20 97 02/13/24 23:50 36.9 C 59 L 20 97 02/13/24 23:48 40 02/13/24 23:32 36.8 C 57 L 20 100 02/13/24 23:30 51 L 20 97 40 02/13/24 23:26 36.8 C 58 L 20 98 02/13/24 23:11 36.8 C 59 L 20 98 02/13/24 23:08 36.8 C 61 20 98 02/13/24 23:00 112/51 L 02/13/24 22:59 36.8 C 59 L 20 98 02/13/24 22:06 36.7 C 66 20 99 02/13/24 22:00 146/71 H 02/13/24 21:57 36.7 C 62 20 100 02/13/24 21:17 Mechanical Vent 60 02/13/24 21:00 124/63 02/13/24 21:00 124/63 02/13/24 21:00 124/63 02/13/24 21:00 36.6 C 67 18 97 02/13/24 20:30 36.6 C 68 20 97 02/13/24 20:09 36.6 C 71 20 97 02/13/24 20:00 132/57 L 02/13/24 20:00 60 02/13/24 19:54 36.6 C 63 20 96
--- OUTSIDE RECORDS SUMMARY | 2024-02-14 08:14 | External Medical Summary | Summary of Care ---
Author Name Unknown Organization [facility] Address [address] [place] [address] Phone [phone] Care Team Providers Care Health Care Legal Assistant Name Role Phone Justus JOHNSON MD, Luis Felipe Kraft Primary Care Provider [phone] Reason for Visit * Reason Comments Outpatient Testing Encounter Details Date Type Department Care Team (Late st Contact Info) Description 02/08/2024 2:40 PM EDT Laboratory Laboratory [facility] [address] [place] [id number] [facility] [address] [address] Generalized abdominal pain Allergies Active Allergy Reactions Criticality Noted Date Comments Adhesive Tape 11/27/2020 bandaids Insulin Glargine Nausea/vomiting 07/27/2016 Ill for 2 days Hydralazine 02/18/2016 Latex Other (Please comment) 12/05/2012 Latex bandaids cause reddened skin Statins Muscle pain 01/07/2019 documented as of this encounter (statuses as of 02/08/2024) Medications Medication Sig Dispensed Refills Start Date End Date Status MULTIVITAMIN PO TABS ONE A DAY 50 + 1 pill daily 0 0 10/27/2005 Active CALTRATE 600 + D 600-125 MG-IU PO TABS One twice a day 0 03/16/2006 Active ASPIRIN 81 MG PO TABS once daily Active Glucose Blood (CHHAYA CONTOUR NEXT TEST) STRP USE UP TO 8 TIMES A DAY NEEDED 200 Strip 5 02/24/2016 Active NOVOFINE 30G X 8 MMIndications:Type 2 diabetes mellitus with hemoglobin A1c goal of less than 8.0% (HCC) USE 4 DAILY 200 Each 7 05/30/2016 Active COMBIGAN 0.2-0.5 % ophthalmic solution Instill 1 Drop into the right eye in the morning and 1 Drop before bedtime. 1 08/23/2016 Active BD PEN NEEDLE KATE U/F 32G X 4 MM FOR USE WITH INSULIN 4 TIMES DAILY 3 09/23/2016 Active insulin aspart (NOVOLOG FLEXPEN) 100 UNIT/ML SOPNIndications:Ty pe 2 diabetes mellitus with hemoglobin A1c goal of less than 8.0% ([facility]) INJECT 8 UNITS AT BREAKFAST, 5 UNITS AT LUNCH AND 8 UNITS AT SUPPER. Per sliding scale 15 Pre-filled Pen Syringe Dosing Unit 1 07/09/2018 Active Additional Information Patient taking differently: INJECT 8 UNITS AT BREAKFAST, 5 UNITS AT LUNCH AND 9 UNITS AT SUPPER. Per sliding scale, Reported on 08/30/2019 Tresiba FlexTouch 100 UNIT/ML Subcutaneous Solution Pen-injector Inject 24 Units under the skin at bedtime. 05/30/2022 Active Clotrimazole 1 % External Cream (Lotrimin)Indicati ons:Intertriginous candidiasis Apply topically to affected area 2 times a day. 60 g 3 02/13/2023 Active Additional Information Patient not taking.Reported on 06/21/2023 Benzonatate 100 MG Oral Capsule (Tessalkay Perljerome) Take 1 Capsule by mouth 3 times a day as needed for Cough. Do not cut, crush, or chew. 50 Capsule 1 02/13/2023 Active Additional Information Patient not taking.Reported on 10/05/2023 Furosemide 20 MG Oral Tablet (Lasix)Indications :HTN, goal: symptom mgmt only,Edema of both lower legs Take 1 Tablet by mouth in the morning. 90 Tablet 3 06/19/2023 Active Omeprazole 20 MG Oral Capsule Delayed Release (PriLOSEC) Take 1 Capsule by mouth in the morning. Active Brimonidine Tartrate-Timolol 0.2-0.5 % Ophthalmic Solution (Combigan) Instill 1 Drop into the right eye in the morning and 1 Drop before bedtime. 06/21/2023 Active Losartan Potassium 25 MG Oral Tablet (Cozaar) Take 0.5 Tablets by mouth in the morning. TAKE 1/2 TABLET BY MOUTH IN THE MORNING. 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 06/03/2021 Hypertension associated with stage 3b chronic kidney disease due to type 2 diabetes mellitus 11/30/2020 Overview: Per CKD protocol Type 2 diabetes mellitus wit h stage 3b chronic kidney disease, with long-term current use of insulin 11/30/2020 Overview: Per CKD protocol Chronic kidney disease, stage 3b 11/30/2020 Overview: Per CKD protocol Type 2 diabetes mellitus with peripheral angiopa thy 02/07/2018 Diabetic polyneuropathy asso ciated with type 2 diabetes mellitus 05/05/2017 Pain of upper abdomen 02/02/2017 HTN, goal: symptom mgmt only 09/16/2014 Renal artery stenosis 09/16/2014 Statin intolerance 05/01/2014 Type 2 diabetes mellitus wit h hemoglobin A1c goal of less than 8.0% 02/20/2013 Overview: ICD-10 update of inactive term ADVANCE DIRECTIVE INFORMATION 03/16/2006 Overview: Yes, Patient instructed to provide copy of advance directive for provider to review and to be scanned into Electronic Medical Record Esophageal reflux documented as of this encounter (statuses as of 02/08/2024) Resolved Problems Problem Noted Date Diagnosed Date Resolved Date Chronic kidney disease, stage 3a 11/03/2020 12/03/2020 Overview: Per CKD protocol Type 2 diabetes mellitus wit h stage 3a chronic kidney disease and hypertension 09/29/2020 12/03/2020 Overview: Per CKD protocol Type 2 diabetes mellitus wit h stage 3a chronic kidney disease, with long-term current use of insulin 09/29/2020 12/03/2020 Overview: Per CKD protocol Type 2 diabetes mellitus wit h stage 3 chronic kidney disease and hypertension 02/07/2018 10/02/19 Overview: Per CKD protocol Type 2 diabetes mellitus wit h stage 3 chronic kidney disease, with long-term current use of insulin 05/05/2017 10/01/2020 Overview: Per CKD protocol Benign hypertension with CKD (chronic kidney disease) stage III 05/05/2017 07/09/2018 Kidney disease, chronic, sta ge III (GFR 30-59 ml/min) 08/04/2014 09/01/2017 Overview: Per CKD protocol #1 Type 1 diabetes mellitus wit h hemoglobin A1c goal of less than 8.0% 02/20/2013 02/20/2013 Overview: ICD-10 update of inactive term HTN, goal below 140/80 11/28/201202/18 HTN, goal below 140/90 11/15/201211/28 BENIGN HYPERTENSION 02/01/2005 11/16/19 13 HTN, goal to be determined 0 11/15/2012 documented as of this encounter (statuses as of 02/08/2024) Immunizations Name Administration Dates Next Due COVID-19 mRNA, LNP-s, No Pre serve, 2-Dose Series (Pfizer) 12/20/2021,04/23/2021,10/15/2020,2020 Pneumococcal Conjugate Vacc, 13 Valent (Prevnar) 07/22/2015 Season Influenza, Quad, PF, Adjuvanted, 65+ Yrs, IM (FLUAD) 03/04/2020 Seasonal Influenza, High Dos e, Trivalent, PF, IM (Fluzone HD) 02/02/2024 Seasonal Influenza, PF, 6 M & above, IM , (FluLaval or Fluzone) 06/21/2018,05/05/2017 Seasonal Influenza, Quadriva lent Hd (Fluzone Hd) 02/20/2023,03/02/2021 Seasonal Influenza, Quadriva lent, No Preserve, IM 04/08/2016,03/13/2015 Seasonal Influenza, Trivalen t, (IIV3), with Preserv, (Fluzone) 03/21/2014,04/08/2013,02/29/2012,2010,02/23/2010,03/20/2008,03/27/2007,1 Seasonal Influenza, Trivalen t, Adjuvanted, 65+ YRS, PF, (Fluad) 04/05/2019 TDAP (age 10 and older)(Boostrix) 01/27/2012 documented as of this encounter Social History Tobacco Use Types Packs/Day Years Used Date Smoking Tobacco: Former Cigarettes 0.5 5 0 09/19/1970 - 09/20/1975 Smokeless Tobacco: Never Alcohol Use Standard Drinks/Week Comments No 0 (1 standard drink = 0.6 oz pur e alcohol) In the past, not drinking now. PHQ-2 Answer Date Recorded PHQ-2 Score 11 08/30/2019 Hunger Vital Sign Answer Date Recorded Worried About Running Out of Food in the Last Ye ar Never true 08/30/2019 Ran Out of Food in the Last Year Never true 08/30/2019 Sex and Gender Information Value Date Recorded Sex Assigned at Female 01/07/2019 3:42 PM EDT Gender Identity Female 01/07/2019 3:42 PM EDT Sexual Orientation Straight 01/07/2019 3: 42 PM EDT Job Start Date Occupation Industry Not on file Not on file Not on file documented as of this encounter Plan of Treatment Upcoming Encounters Date Type Department Care Team (Late st Contact Info) Description 02/13/2024 1:30 PM EDT Imaging Radiology [facility] [address] [place] [address] 03/05/2024 2:40 PM EDT Office Visit [facility] [address] [place] [address] Lorie Nesbitt PA-C [address] [place] [address] 08/06/2024 1:00 PM EDT Office Visit Gastroenterology, [facility] [address] [place] [address] Анна Whittington CRNP [address] [place] [address] Pending Results Name Type Priority Associated Diagnoses Date /Time CREATININE Lab Routine Generalized abdominal pain 02/08/2024 2:33 PM EDT Health Maintenance Due Date Last Done Comments Zoster Vaccines (1 of 2) 11/25/1985 Adult Wellness Visit 01/08/2020 01/07/2019 Depression Monitoring 08/29/2020 08/30/2019 Diabetic Foot Exam 11/14/2020 11/15/2019, 0 02/07/2018, 05/05/2017, Additional history exists DTap/Tdap Vaccines (2 - Td or Tdap) 01/26/2022 01/27/2012 DXA Scan 06/10/2022 06/10/2015, 02/19, 03/07/2011, Additional history exists COVID-19 Vaccine ( season) 2024 03/10/2023, 12/20/2021, 04/23/2021, Additional history exists *NEPHROLOGY REFERRAL DUE TO RESISTANT HTN 02/05/2024 CKD HGB USE SMARTSET 55510 03/16/202403/16, 10/11/2021, 11/12/2020, Additional history exists CKD PHOS USE SMARTSET 34834 03/16/202402/20, 10/11/2021, 07/12/2019, Additional history exists HbA1c 05/02/2024 11/01/2023, 05/24, 03/16/2023, Additional history exists Albumin/Creatinine Ratio 06/21/2024 024, 07/19/2022, 06/03/2021, Additional history exists Diabetic Eye Exam 11/15/2024 11/16/2023, , 09/18/2023, Additional history exists Pneumococcal Vaccine: 65+ Years Completed 07/22/2015, 04/18/2001 Influenza Vaccine (FLU shot) Completed , 02/20/2023, 03/02/2021, Additional history exists HPV (Gardasil) Vaccine Aged Out No lo nger eligible based on patient's age to complete this topic Hepatitis B Vaccine Aged Out No longe r eligible based on patient's age to complete this topic MENINGOCOCCAL (MENACTRA/MENVEO) Aged Out No longer eligible based on patient's age to complete this topic documented as of this encounter Medical Devices Not on filedocumented as of this encounter Visit Diagnoses Diagnosis Generalized abdominal pain Abdominal pain, generalized documented in this encounter Care Teams Health Care Legal Assistant Relationship Specialty Start Date End Date Luis Felipe Jerome III, MD [address] [place] [address] PCP - General 01/04/1996 documented as of this encounter
--- OUTSIDE RECORDS SUMMARY | 2024-02-14 08:14 | External Medical Summary ---
Author Name Unknown Address Unknown Organization [id number] [place] [address] Laboratory Report Ordering Provider Test Date Status NABIL VANEGAS 02/08/2024 14:33:14 Final Observation Date Value Abnormality Reference (Units ) Status Creatinine 02/08/2024 14:33:14 1.1 Above high normal 0.5-1.0 (mg/dL) Final Glomerular filtration rate/1.73 sq M.predicted [Volume Rate/Area] in Serum, Plasma or Blood by Creatinine-based formula (CKD-EPI) 02/08/2024 14:33:14 49 Below low normal >=60 (mL/min) Final eGFR is calculated based on the CKD-EPI 2020 equation. Performing Location [facility] [place] [address]
--- OUTSIDE RECORDS SUMMARY | 2024-02-14 08:14 | External Medical Summary | Summary of Care ---
Author Name Unknown Organization [facility] Address [address] [place] [address] Phone [phone] Care Team Providers Care Adaptive Physical Education Teacher Name Role Phone Justus JOHNSON MD, Luis Felipe Kraft Primary Care Provider [phone] Reason for Referral * Precert (Within 10 days (routine)) - Authorized Specialty Diagnoses / Procedures Referred By Cristy koenig Referred To Contact Radiology Diagnoses Generalized abdominal pain Procedures CT ABD/PELVIS W IV AND W ORAL CONTRAST Franci Gambino PA-C [address] [place] [address] Referral ID Status Reason Start Date Expiration Date V isits Requested Visits Authorized [id number] Authorized 02/02/2024 999 999 Reason for Visit * Reason Onset Date Comments Follow Up Abdominal Pain Nausea Vomiting Medication Administration 02/02/2024 Flu an d/or Pneumo Inj Encounter Details Date Type Department Care Team ([facility] Contact Info) Description 02/02/2024 1:00 PM EDT Office [facility], [facility] [address] [facility] [address] Franci Gambino PA-C [address] [place] [address] Need for prophylactic vaccination and inoculation against influenza*; Generalized abdominal pain Allergies Active Allergy Reactions Criticality Noted Date Comments Adhesive Tape 11/27/2020 bandaids Insulin Glargine Nausea/vomiting 07/27/2016 Ill for 2 days Hydralazine 02/18/2016 Latex Other (Please comment) 12/05/2012 Latex bandaids cause reddened skin Statins Muscle pain 01/07/2019 documented as of this encounter (statuses as of 02/02/2024) Medications Medication Sig Dispensed Refills Start Date [...] 5 02/24/2016 Active NOVOFINE 30G X 8 MMIndications:Typ e 2 diabetes mellitus with hemoglobin A1c goal [...] Active insulin aspart (NOVOLOG FLEXPEN) 100 UNIT/ML SOPNIndications:T ype 2 diabetes mellitus with hemoglobin A1c goal of less than 8.0% (HCC) INJECT 8 UNITS AT BREAKFAST, 5 UNITS [...] 05/30/2022 Active Clotrimazole 1 % External Cream (Lotrimin)Indicat ions:Intertrigino us candidiasis Apply topically to affected area 2 times a day. 60 g 3 02/13/2023 Active Additional Information Patient not taking.Reported on 06/21/2023 Benzonatate 100 MG Oral Capsule (Shira Man) Take 1 Capsule by mouth 3 times a day as needed for Cough. Do not cut, crush, or chew. 50 Capsule 1 02/13/2023 Active Additional Information Patient not taking.Reported on 10/05/2023 Furosemide 20 MG Oral Tablet (Lasix)Indication s:HTN, goal: symptom mgmt only,Edema of both lower [...] THE MORNING. 45 Tablet 3 11/09/2023 Active Carvedilol 6.25 MG Oral Tablet (COREG) Take 1 Tablet by mouth 2 times a day with morning and evening meals. 4 Discontinue d(Patient preference/ discontinua tion) amLODIPine Besylate 2.5 MG Oral Tablet (Norvasc) TAKE 1 TAB BY MOUTH DAILY. (SHES OKAY WITH LUPIN BRAND) 90 Tablet 1 11/25/2022 4 Discontinue d(Patient preference/ discontinua tion) Loratadine 10 MG Oral Tablet (Claritin)Indicat ions:Acute URI,Acute cough Take 1 Tablet by mouth in the morning. 30 Tablet 02/07/2023 4 Discontinue d(Patient preference/ discontinua tion) Famotidine 20 MG Oral Tablet (Pepcid) Take 1 Tablet by mouth in the morning and 1 Tablet before bedtime. 60 Tablet 11 03/08/2023 4 Discontinue d(Patient preference/ discontinua tion) documented as of this encounter (statuses as of 02/02/2024) Active Problems Problem Noted Date Diagnosed Date [...] as of this encounter (statuses as of 02/02/2024) Resolved Problems Problem Noted Date Diagnosed Date [...] chronic kidney disease and hypertension 02/07/2018 10/02/19 21 Overview: Per CKD protocol Type 2 diabetes [...] as of this encounter (statuses as of 02/02/2024) Immunizations Name Administration Dates Next Due COVID-19 [...] on file documented as of this encounter Last Filed Vital Signs Vital Sign Reading Time Taken Comments Blood Pressure 160/108 02/02/2024 1:10 PM EDT Pulse 83 02/02/2024 1:10 PM EDT Temperature 36.8 C (98.2 F) 02/02/2024 1:10 PM ED T Respiratory Rate 18 02/02/2024 1:10 PM EDT Oxygen Saturation 91% 02/02/2024 1:10 PM EDT Inhaled Oxygen Concentration - - Weight 76.2 kg (167 lb 14.4 oz) 02/02/2024 1:10 PM EDT Height - - Body Mass Index 27.94 11/01/2023 3:15 PM EDT documented in this encounter Patient Instructions * Patient Instructions* Franci Gambino PA-C - 02/02/2024 1:45 PM EDT Please schedule CT of the abdomen/pelvis to look more into your pain If this is normal, I would recommend follow-up with PCP about maybe addressing the chronic pain with a medicine documented in this encounter Progress Notes * Jennifer Castillo RN - 02/02/2024 1:13 PM EDT PRE - ADMINISTRATION DOCUMENTATION Are you experiencing any cold symptoms or fever? No Have you had Guillain-Belfry Syndrome (an illness that causes paralysis) within the last 6 weeks? No Have you had the flu shot in the past? YES Have you ever had a reaction to the flu shot? No Jennifer Castillo RN, 02/02/2024 1:13 PM Immunization Administration Documentation Time Out Procedure Performed: Yes Patient Identified (Ask Name/Date of ): Yes Does the patient have a fever greater than 101 degrees today? No Patient allergic to latex? No Pt is allergic to latex VFC Stock: No Immunization(s) verified: Yes, Immunization Name: Flu, VIS Sheet(s) given: Yes Verified Side and Site: Yes Verified Shot(s) with Parent(s)/Patient: Yes * Franci Gambino PA-C - 02/02/2024 1:10 PM EDT DATE OF SERVICE: 02/02/2024 REFERRING PHYSICIAN: Luis Felipe Jerome III, MD Nursing Notes: Jennifer Castillo RN 02/02/24 1310 Sign at exiting of workspace Chief Complaint Patient presents with Follow Up Abdominal Pain Nausea Vomiting Pt states having RT epigastric pain 10/10 currently, will move to the left and then radiate to shoulders till she can move and get some relief. Nausea in the mornings and after eating. Makes her feellike she is choking and gags at times. CC: Abd pain HPI Анна Whittington 10/05/2023: Mer Diaz is a 87 year old female, referred by Luis Felipe Jerome III, MD for evaluation of abdominal pain symptoms which she has daxa experiencing for '14 years'. She is accompanied by son Angel. She feels that food is 'laying' and remaining on epigastric area. She has to move the "lump" to make her feel better. Sometimes pain can cause neck pain. He denies any heart burn, indigestion or acid reflux. Bowels move daily. Denies feeling constipated. She is not on any bowel regimen. Office Visit 02/02/24: Recall pt is a 88 year old y/o female with PMHx of chronic abd pain, previous workup including EGD, colonoscopy, CT wo acute findings. KUB showed moderate stool burden; rec'd to try Miralax + metamucil.She completed this regimen and did have diarrhea with the MiraLax but did not have any improvement in his symptoms and she has not been taking regularly. She is here with tejal who helps with the history. Patient in a wheelchair today. Recent A1C 7.3 %. Returns complaining of nausea, abd pain radiating to the back and neck, which changes depending on her position. No recent vomiting, no melena or hematochezia, no diarrhea. CTA in 2021 showed highgrade stenosis of THEODORA. She states she has had these symptoms 14 years and they are just becoming worse and worse. She states that she did have back injections because they thought maybe her pain was coming from her back but that did not help. Last EGD/Colonoscopy 2021: - Normal esophagus. - Small hiatal hernia. - Gastritis. Biopsied. - Normal examined duodenum. - One 3 mm polyp in the rectum, removed with a cold snare. Resected and retrieved. - Multiple random biopsies were obtained in the entire colon. FINAL DIAGNOSIS A. Stomach, antrum, biopsy: - Gastric mucosa with mild chronic inflammation - Negative for intestinal metaplasia, dysplasia and malignancy - Negative for Helicobacter pylori organisms B. Colon, random, biopsy: - Benign colonic mucosa - Negative for acute and chronic colitis - Negative for microscopic colitis - Negative for dysplasia and malignancy C. Rectum, polyp, polypectomy: - Hyperplastic polyp - Negative for dysplasia and malignancy CT abd/pelvis 10/2021: unremarkable CTA abd/pelvis 01/2022: 1. No acute intra-abdominal or intrapelvic abnormality. 2. No bowel obstruction or bowel wall thickening. 3. 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 4. Patent right renal arterial stent graft demonstrating at least mild stenosis. GES 2016: WNL REVIEW OF SYSTEMS: A complete review of systems is as stated above, otherwise, all others negative. Past Medical History: Diagnosis Date Diabetic eye exam (HCC) 09/18/13 DM type 2, goal A1C below 8.0 02/20/2013 Esophageal reflux HTN, goal to be determined Family History Problem Relation Name Age of Onset Mental Disorder Mother Paranoid Schizophrenic Lung Disorder Mother Eye Problems Mother glaucoma Hypertension Mother Stroke Father once in 70s and once in 80s. Heart Disorder Father No Known Problems Son No Known Problems Son Heart disease Grandmother (Paternal) Past Surgical History: Procedure Laterality Date EGD, FLEXIBLE, DIAGNOSTIC 08/14/2013 ESOPHAGOGASTRODUODENOSCOPY (EGD), FLEXIBLE, TRANSORAL, DIAGNOSTIC performed by Devon Lutz MD at [facility] EGD, FLEXIBLE, DIAGNOSTIC 02/15/2016 normal bx/inpt [facility] EXPLORATION OF NIPPLE 11/07/05 left breast duct exc. done at [facility] by Dr. Olmos LAPAROSCOPY; CHOLECYSTECTOMY 02/23/2015 02/23/2015 laparascopic cholecystectomy [facility] Dr. Rojas 02/23/2015 MAMMOGRAM - BILATERAL 11/28/06 birad code 2 MAMMOGRAM SCREENING-BILATERAL .10.25 bengin findings, yealry mammograms approrpriate, birad code 2 REMOVAL OF APPENDIX 1941 [place] REMOVE TONSILS & ADENOIDS, UNDER 12 1947 [place] TOTAL HYSTERECTOMY 1974 [facility] UPPER ENDOSCOPY GI REFERRAL OP 03/20/06 reflux disease @SOCHXR@ Review of patient's allergies indicates: Allergen Reactions Adhesive Tape bandaids Basaglar Kwikpen [Insulin Glargine] Nausea/vomiting Ill for 2 days Hydralazine Latex Other (Please comment) Latex bandaids cause reddened skin Statins Muscle pain Current Outpatient Medications Medication Sig Dispense Refill MULTIVITAMIN PO TABS ONE A DAY 50 + 1 pill daily 0 0 CALTRATE 600 + D 600-125 MG-IU PO TABS One twice a day 0 ASPIRIN 81 MG PO TABS once daily insulin aspart (NOVOLOG FLEXPEN) 100 UNIT/ML SOPN INJECT 8 UNITS AT BREAKFAST, 5 UNITS AT LUNCH AND8 UNITS AT SUPPER. Per sliding scale (Patient taking differently: INJECT 8 UNITS AT BREAKFAST, 5 UNITS AT LUNCH AND 9 UNITS AT SUPPER. Per sliding scale) 15 Pre-filled Pen Syringe Dosing Unit 1 Tresiba FlexTouch 100 UNIT/ML Subcutaneous Solution Pen-injector Inject 24 Units under the skin at bedtime. Furosemide 20 MG Oral Tablet (Lasix) Take 1 Tablet by mouth in the morning. 90 Tablet 3 Omeprazole 20 MG Oral Capsule Delayed Release (PriLOSEC) Take 1 Capsule by mouth in the morning. Brimonidine Tartrate-Timolol 0.2-0.5 % Ophthalmic Solution (Combigan) Instill 1 Drop into the righteye in the morning and 1 Drop before bedtime. Losartan Potassium 25 MG Oral Tablet (Cozaar) Take 0.5 Tablets by mouth in the morning. TAKE 1/2 TABLET BY MOUTH IN THE MORNING. 45 Tablet 3 Glucose Blood (CHHAYA CONTOUR NEXT TEST) STRP USE UP TO 8 TIMES A DAY NEEDED 200 Strip 5 NOVOFINE 30G X 8 MM USE 4 DAILY 200 Each 7 COMBIGAN 0.2-0.5 % ophthalmic solution Instill 1 Drop into the right eye in the morning and 1 Drop before bedtime. 1 BD PEN NEEDLE KATE U/F 32G X 4 MM FOR USE WITH INSULIN 4 TIMES DAILY 3 Clotrimazole 1 % External Cream (Lotrimin) Apply topically to affected area 2 times a day. (Patientnot taking: Reported on 06/21/2023) 60 g 3 Benzonatate 100 MG Oral Capsule (Tesbarbara Man) Take 1 Capsule by mouth 3 times a day as needed for Cough. Do not cut, crush, or chew. (Patient not taking: Reported on 10/05/2023) 50 Capsule 1 No current facility-administered medications for this visit. EXAM: BP 160/108 | Pulse 83 | Temp 36.8 C (98.2 F) | Resp 18 | Wt 76.2 kg (167 lb 14.4 oz) | SpO2 91%| BMI 27.94 kg/m | BSA 1.87 m GENERAL: Well developed and well nourished chronically ill and in a wheelchair SKIN: Warm, dry, intact, no rash, jaundice HEENT: Normocephalic, sclera clear NECK: Supple, full ROM HEART: Regular rate & rhythm, LUNGS: Clear to auscultation bilaterally, no respiratory distres ABDOMEN: Soft, diffusely tender, no rebound guarding or distention, normal bowel sounds, no masses EXTREMITIES: No palmar erythema, cyanosis, or edema. NEURO: A&O x 3. Sensory/Motor grossly normal. ASSESSMENT AND PLAN: 88-year-old female with chronic abdominal pain, worsening recently. (Z23) Need for prophylactic vaccination and inoculation against influenza (primary encounter diagnosis) Plan: INFLUENZA VAC., TRIVALENT, HD, PF, 65 AND ABOVE, 0.5 ML IM (FLUZONE HD) (R10.84) Generalized abdominal pain Plan: CT ABD/PELVIS W IV AND W ORAL CONTRAST, CREATININE - Long discussion held with her and her son about the possible etiologies of her symptoms. She is very this made by these symptoms and frustrated with the lack of findings so far - Given her worsening pain, we will repeat her imaging at this time with a CTAP - If she has significant vascular disease showing on her CT, may get updated CTA - Other differential diagnosis discussed including gastroparesis though she was tested for this in the past and this was negative, versus functional abdominal pain given her lack of findings on workup so far, and finally consider neuropathic/musculoskeletal cause given how her symptoms change very quickly depending on her position and shifting of her movements in a seated position - PCP may want to consider initiation of a neuromodulator for her abdominal pain - Return here in several months to follow-up - ED for emergencies - Please call with questions or concerns Franci Gambino PA-C Division of Gastroenterology [facility] This chart was completed in part utilizing [employer] Speech Voice Recognition Software. Grammatical errors, random word insertions, prounoun errors, and incomplete sentences are an occasional consequence of this system due to software limitations, ambient noise, and hardware issues. Any formal questions or concerns about the content, text, or information contained within the body of this dictation should be directly addressed to the provider for clarification. documented in this encounter Nursing Notes * Jennifer Castillo RN - 02/02/2024 1:08 PM EDT Chief Complaint Patient presents with Follow Up Abdominal Pain Nausea Vomiting Pt states having RT epigastric pain 10/10 currently, will move to the left and then radiate to shoulders till she can move and get some relief. Nausea in the mornings and after eating. Makes her feellike she is choking and gags at times. documented in this encounter Plan of Treatment Upcoming Encounters Date Type Department Care Team (Late st Contact Info) Description 02/13/2024 1:30 PM EDT Imaging Radiology [address] [facility] [place] [address] 03/05/2024 2:40 PM EDT Office [facility] [address] Lorie Nesbitt PA-C [address] [place] [address] 08/06/2024 1:00 PM EDT Office Visit Gastroenterology, [facility] [address] [place] [address] Анна Whittington CRNP [address] [place] [address] Scheduled Orders Name Type Priority Associated Diagnoses Orde r Schedule CT ABD/PELVIS W IV AND W ORAL CONTRAST Medical Imaging Routine Generalized abdominal pain Ordered: 02/02/2024 CREATININE Lab Routine Generalized abdominal pain Expected: 02/02/2024, Expires: 02/01/2025 Health Maintenance Due Date Last Done Comments Zoster Vaccines (1 of 2) 11/25/1985 Adult Wellness Visit 01/08/2020 01/07/2019 Depression Monitoring 08/29/2020 08/30/2019 Diabetic Foot Exam 11/14/2020 11/15/2019, 0 02/07/2018, 05/05/2017, Additional history exists DTap/Tdap Vaccines (2 - Td or Tdap) 01/26/2022 01/27/2012 DXA Scan 06/10/2022 06/10/2015, 02/19, 03/07/2011, Additional history exists COVID-19 Vaccine ( season) 2024 03/10/2023, 12/20/2021, 04/23/2021, Additional history exists CKD HGB USE SMARTSET 93555 03/16/202403/16, 10/11/2021, 11/12/2020, Additional history exists CKD PHOS USE SMARTSET 46721 03/16/202402/20, 10/11/2021, 07/12/2019, Additional history exists HbA1c [...] as of this encounter Visit Diagnoses Diagnosis Need for prophylactic vaccination and inoculation against influenza- Primary Generalized abdominal pain Abdominal pain, generalized documented in this encounter Care Teams Adaptive Physical Education Teacher Relationship Specialty Start Date End Date Luis Felipe Jerome III, MD [address] [facility] [place] [address] PCP - General 01/04/1996 documented as of this encounter
--- OUTSIDE RECORDS SUMMARY | 2024-02-14 08:15 | External Medical Summary | Summary of Care ---
Author Name Unknown Organization [facility] Address [address] [place] [address] Phone [phone] Care Team Providers Care Social Service Liaison Name Role Phone Justus JOHNSON MD, John E Primary Care Provider [phone] Reason for Visit * Reason Onset Date Comments Advice 11/08/2023 Encounter Details Date Type Department Care Team ([facility] Contact Info) Description 11/08/2023 Telephone [facility] [address] [facility] [place] [address] Luis Felipe Jerome III, MD [address] [place] [address] Advice Allergies Active Allergy Reactions Criticality Noted Date Comments Adhesive Tape 11/27/2020 bandaids Insulin Glargine Nausea/vomiting 07/27/2016 Ill for 2 days Hydralazine 02/18/2016 Latex Other (Please comment) 12/05/2012 Latex bandaids cause reddened skin Statins Muscle pain 01/07/2019 documented as of this encounter (statuses as of 11/14/2023) Medications Medication Sig Dispensed Refills Start Date [...] hemoglobin A1c goal of less than 8.0% ([facility]) USE 4 DAILY 200 Each 7 05/30/2016 [...] hemoglobin A1c goal of less than 8.0% ([facility]) INJECT 8 UNITS AT BREAKFAST, 5 UNITS AT LUNCH AND 8 UNITS AT SUPPER. Per sliding scale 15 Pre-filled Pen Syringe Dosing Unit 1 07/09/2018 Active Additional Information Patient taking differently: INJECT 8 UNITS AT BREAKFAST, 5 UNITS AT LUNCH AND 9 UNITS AT SUPPER. Per sliding scale, Reported on 08/30/2019 Carvedilol 6.25 MG Oral Tablet (COREG) Take 1 Tablet by mouth 2 times a day with morning and evening meals. Active Tresiba FlexTouch 100 UNIT/ML Subcutaneous Solution Pen-injector Inject 24 Units under the skin at bedtime. 05/30/2022 Active amLODIPine Besylate 2.5 MG Oral Tablet (Norvasc) TAKE 1 TAB BY MOUTH DAILY. (SHES OKAY WITH LUPIN BRAND) 90 Tablet 1 11/25/2022 Active Loratadine 10 MG Oral Tablet (Claritin)Indicat ions:Acute URI,Acute cough Take 1 Tablet by mouth in the morning. 30 Tablet 02/07/2023 Active Clotrimazole 1 % External Cream (Lotrimin)Indicat ions:Intertrigino us candidiasis Apply topically to affected area 2 times a day. 60 g 3 02/13/2023 Active Additional Information Patient not taking.Reported on 06/21/2023 Benzonatate 100 MG Oral Capsule (Tessalon Perles) Take 1 Capsule by mouth 3 times a day as needed for Cough. Do not cut, crush, or chew. 50 Capsule 1 02/13/2023 Active Additional Information Patient not taking.Reported on 10/05/2023 Famotidine 20 MG Oral Tablet (Pepcid) Take 1 Tablet by mouth in the morning and 1 Tablet before bedtime. 60 Tablet 11 03/08/2023 Active Additional Information Patient not taking.Reported on 06/21/2023 Furosemide 20 MG Oral Tablet (Lasix)Indication s:HTN, [...] THE MORNING. 45 Tablet 3 11/09/2023 Active Losartan Potassium 25 MG Oral Tablet (Cozaar) Take 1 Tablet by mouth in the morning. TAKE 1/2 TABLET BY MOUTH IN THE MORNING. 45 Tablet 3 11/01/2023 4 Discontinue d(Refill) documented as of this encounter (statuses as of 11/14/2023) Active Problems Problem Noted Date Diagnosed Date [...] as of this encounter (statuses as of 11/14/2023) Resolved Problems Problem Noted Date Diagnosed Date [...] as of this encounter (statuses as of 11/14/2023) Immunizations Name Administration Dates Next Due COVID-19 mRNA, LNP-s, No Pre serve, 2-Dose Series ([a]list games) 12/20/2021,04/23/2021,10/15/2020,2020 Pneumococcal Conjugate Vacc, 13 Valent (Prevnar) 07/22/2015 Season Influenza, Quad, PF, Adjuvanted, 65+ Yrs, IM (FLUAD) 03/04/2020 Seasonal Influenza, PF, 6 M & above, IM , (FluLaval or Fluzone) 06/21/2018,05/05/2017 Seasonal Influenza, Quadriva lent Hd (Fluzone Hd) 02/20/2023,03/02/2021 Seasonal Influenza, Quadriva lent, No Preserve, IM 04/08/2016,03/13/2015 Seasonal Influenza, Split, I IV3, With Preserve, Inj 03/21/2014,04/08/2013,02/29/2012,2010,02/23/2010,03/20/2008,03/27/2007,1 Seasonal Influenza, Trivalen t, Adjuvanted, 65+ yrs 04/05/2019 TDAP (age 10 and older)(Boostrix) 01/27/2012 [...] on file documented as of this encounter Miscellaneous Notes * Telephone Encounter - Ammy Turpin LPN - 11/14/2023 11:19 AM EDT Patient aware and verbalized understanding * Telephone Encounter - Lorie Nesbitt PA-C - 11/09/2023 8:44 PM EDT No pharmacy picked or order pended. As patient requested, the discontinued meds were not removed. * Telephone Encounter - Franci Valencia OSA - 11/08/2023 11:27 AM EDT Patient calling stating Pharmacy needs new script for Losartan Potassium 25 MG Oral Tablet (Cozaar) Script was sent in for 1 daily in the morning and 1/2 a tablet daily in the morning. New Script needs to state 90 day supply 1/2 Tablet once daily. Patient also calling in to let provider know that she does not take these medications. Amlodipine does not take Carvedilol 6.25 Mg. Loratadine 10 MG Oral Tablet (Claritin) documented in this encounter Plan of Treatment Upcoming Encounters Date Type Department Care Team (Late st Contact Info) Description 02/01/2024 2:00 PM EDT Office Visit Gastroenterology, [facility] [address] [facility] [place] [address] Анна Whittington CRNP [address] [facility] [place] [address] 03/05/2024 2:40 PM EDT Office Visit Family Practice [facility] [place] [address] [place] [address] Lorie Nesbitt PA-C [address] [facility] [place] [address] Health Maintenance Due Date Last Done Comments Zoster Vaccines (1 of 2) 11/25/1985 Depression Monitoring 08/29/2020 08/30/2019 Diabetic Foot Exam 11/14/2020 11/15/2019, 0 02/07/2018, 05/05/2017, Additional history exists DTaP,Tdap,and Td Vaccines (2 - Td or Tdap) 01/26/2022 01/27/2012 DXA Scan 06/10/2022 06/10/2015, 02/19, 03/07/2011, Additional history exists COVID-19 Vaccine ( - 2022- season) 2023 03/10/2023, 12/20/2021, 04/23/2021, Additional history exists CKD HGB USE SMARTSET 88342 03/16/202403/16, 10/11/2021, 11/12/2020, Additional history exists CKD PHOS USE SMARTSET 14516 03/16/202402/20, 10/11/2021, 07/12/2019, Additional history exists HbA1c 05/02/2024 11/01/2023, 05/24, 03/16/2023, Additional history exists Albumin/Creatinine Ratio 06/21/2024 024, 07/19/2022, 06/03/2021, Additional history exists Diabetic Eye Exam 07/23/2024 07/24/2023, , 07/11/2023, Additional history exists Pneumococcal Vaccine: 65+ Years Completed 07/22/2015, 04/18/2001 Influenza Vaccine (FLU shot) Completed 06/2022, 03/02/2021, 03/04/2020, Additional history exists GARDASIL-HPV IMMUNIZATION SERIES Aged Out No longer eligible based on patient's age to complete this topic Hepatitis B Aged Out No longer eligi ble based on patient's age to complete this topic MENINGOCOCCAL (MENACTRA/MENVEO) Aged Out No longer eligible based on patient's age to complete this topic documented as of this encounter Medical Devices Not on filedocumented as of this encounter Care Teams Social Service Liaison Relationship Specialty Start Date End Date Luis Felipe Jerome III, MD [address] [place], [place] [address] PCP - General 01/04/1996 documented as of this encounter
--- OUTSIDE RECORDS SUMMARY | 2024-02-14 08:15 | External Medical Summary | Summary of Care ---
Author Name Unknown Organization [facility] Address [address] [place] [address] Phone [phone] Care Team Providers Care Bricklayer Apprentice Name Role Phone Justus JOHNSON MD, John E Primary Care Provider [phone] Encounter Details Date Type Department Care Team ([facility] st Contact Info) Description 11/17/2023 Orders Only Family Practice [facility] [address] [place] [address] Luis Felipe Jerome III, MD [address] [place] [address] Allergies Active Allergy Reactions Criticality Noted Date Comments Adhesive Tape 11/27/2020 bandaids Insulin Glargine Nausea/vomiting 07/27/2016 Ill for 2 days Hydralazine 02/18/2016 Latex Other (Please comment) 12/05/2012 Latex bandaids cause reddened skin Statins Muscle pain 01/07/2019 documented as of this encounter (statuses as of 11/17/2023) Medications Medication Sig Dispensed Refills Start Date [...] hemoglobin A1c goal of less than 8.0% ([facility]) USE 4 DAILY 200 Each 7 05/30/2016 [...] hemoglobin A1c goal of less than 8.0% ([facility]) INJECT 8 UNITS AT BREAKFAST, 5 UNITS [...] 11/25/2022 Active Loratadine 10 MG Oral Tablet (Claritin)Indicati ons:Acute URI,Acute cough Take 1 Tablet by mouth in the morning. 30 Tablet 02/07/2023 Active Clotrimazole 1 % External Cream (Lotrimin)Indicati [...] on 06/21/2023 Furosemide 20 MG Oral Tablet (Lasix)Indications :HTN, [...] as of this encounter (statuses as of 11/17/2023) Active Problems Problem Noted Date Diagnosed Date [...] as of this encounter (statuses as of 11/17/2023) Resolved Problems Problem Noted Date Diagnosed Date [...] as of this encounter (statuses as of 11/17/2023) Immunizations Name Administration Dates Next Due COVID-19 [...] 02/01/2024 2:00 PM EDT Office Visit Gastroenterology, [facility] [address] [address] Анна Whittington CRNP [address] [address] 03/05/2024 2:40 PM EDT Office Visit Family Practice [facility] [place] [address] [facility] [address] Lorie Nesbitt, ÁNGEL [address] [place] [address] Health Maintenance Due Date Last Done Comments Zoster Vaccines (1 of 2) 11/25/1985 Depression Monitoring 08/29/2020 08/30/2019 Diabetic Foot Exam 11/14/2020 11/15/2019, 0 02/07/2018, 05/05/2017, Additional history exists DTaP,Tdap,and Td Vaccines (2 - Td or Tdap) 01/26/2022 01/27/2012 DXA Scan 06/10/2022 06/10/2015, 02/19, 03/07/2011, Additional history exists COVID-19 Vaccine (2022- season) 2023 03/10/2023, 12/20/2021, 04/23/2021, Additional history exists CKD HGB USE SMARTSET 16260 03/16/202403/16, 10/11/2021, 11/12/2020, Additional history exists CKD PHOS USE SMARTSET 30335 03/16/202402/20, 10/11/2021, 07/12/2019, Additional history exists HbA1c 05/02/2024 11/01/2023, 05/24, 03/16/2023, Additional history exists Albumin/Creatinine Ratio 06/21/2024 024, 07/19/2022, 06/03/2021, Additional history exists Diabetic Eye Exam 09/26/2024 11/16/2023, , 09/18/2023, Additional history exists Pneumococcal [...] Not on filedocumented as of this encounter Procedures Procedure Name Priority Date/Time Associated Diagnosis Comments DIABETIC EYE EXAM Routine 11/16/2023 documented in this encounter Results * DIABETIC EYE EXAM (11/16/2023) 11/16/2023 Zeke Jerez MD OTHER OUTSIDE LAB (SEE SCANNED REPORT) documented in this encounter Care Teams Bricklayer Apprentice Relationship Specialty Start Date End Date Luis Felipe Jerome III, MD [address] [place] [address] PCP - General 01/04/1996 documented as of this encounter
--- NOTE | 2024-02-14 08:42 | XRay Report ---
SINGLE VIEW CHEST CLINICAL HISTORY: Respiratory failure. FINDINGS: An AP, portable, upright chest radiograph is compared to chest x-ray and chest CT dated 01/21. An endotracheal tube, an enteric tube, and a right internal jugular central venous catheter a re unchanged in position. The heart is enlarged but noting atherosclerotic calcification of the thora cic aorta. There is evidence of congestive failure. Diffuse/multifocal airspace opacities are again s een throughout both lungs. There are small pleural effusions. No pneumothorax is seen. The skeletal s tructures are osteopenic. The bony thorax is grossly intact. IMPRESSION: 1. Stable lines and tubes. 2. Cardiomegaly with evidence of congestive failure. 3. Layering pleural effusions. 4. Multifocal airspace opacities are again seen throughout both lungs. This is unchanged to minimally cleared as compared to yesterday. ACT 112: Negative or not required by law. Electronically signed by: Teddy Mejia M.D. 02/14/2024 8:41 AM
[2024-02-14] MEDS: AZITHROMYCIN 250 MG in DEXTROSE 5% 250 ML IV SCH (08:53)
[2024-02-14] MEDS ORDERED: STAT IV Infusion **Titration per Protocol STA ×2 (09:59→14:00)
[2024-02-14] MEDS: KETAMINE HCL IV ONE (10:15)
[2024-02-14] MEDS: SODIUM CHLORIDE 0.9% IV ONE (10:15)
[2024-02-14] MEDS: KETAMINE HCL / NSS 500 MG/500 ML BAG IV SCH (10:35)
[2024-02-14] MEDS: PANTOprazole 40 MG in SYRINGE DAILY IV SCH (10:54)
[2024-02-14] MEDS: MIDAZOLAM HCL 1 MG/ML 2ML VIAL IV STA ×2 (11:28→12:47)
[2024-02-14] MEDS: MIDAZOLAM HCL 1 MG/ML 2ML VIAL ONE (11:29)
[2024-02-14] MEDS: TOLVAPTAN 15 MG TABLET PO SCH (11:32)
[2024-02-14] MEDS: ALBUMIN 5% 250 ML IV ONE (11:59)
--- NOTE | 2024-02-14 12:27 | Cardiology Consultation ---
Date of Consultation February 14, 2024 Assessment & Plan (1) Cardiac arrest: (2) Aspiration pneumonia: (3) Pericardial effusion: (4) Left bundle branch block: Plan 88-year-old female present to the emergency department after cardiac arrest likely precipitated by aspiration and hypoxia. Echocardiogram revealing preserved LV systolic function without regional wall motion abnormality. Small loculated pericardial effusion without hemodynamic significance noted. Elevated high-sensitivity troponin secondary to cardiac arrest, hypoxia, demand ischemia. Restart low-dose aspirin via gastric tube. Antihypertensive medications remain on hold at this time. CT revealing bilateral airspace opacities suggesting pneumonia versus aspiration. Continue supportive care, antibiotic therapy, and ventilator management as per critical care. History of Present Illness Reason for Consultation: Cardiac Arrest Requesting Physician: Dr. Corrie Lyons Attending Physician: Agusto Garrison MD History of Present Illness 88 year old female, presented to [facility] for a scheduled CT of the abdomen and pelvis 02/13/2024. Received oral contrast and subsequently developed nausea, respiratory distress, witnessed by her son. 'Rapid response' was called, patient evaluated by supplier quality engineer in waiting room. Initial oxygen saturations 70s. Patient developed subsequent respiratory distress and became unresponsive. ECG revealing left bundle branch block (chronic). Heart rate trended down to the 30s and a pulse was not palpated therefore CPR was initiated. Patient received 1 mg of atropine with subsequent wide-complex tachycardia in the 140s with return of circulation. Patient also treated with 120 mg of Solu-Medrol and 50 mg of diphenhydramine intramuscularly. Intubated by anesthesia at [facility] and transferred to the emergency department for further evaluation and treatment. Patient admitted to the intensive care unit. Sedated with propofol overnight, however, transition to ketamine this a.m. She is not following command, however, eyes are open. Currently not tracking movements. CT of the chest demonstrating bilateral infiltrates suggestive of multifocal pneumonia, possible aspiration. IV Levophed discontinued overnight. Otherwise hemodynamically stable. Preliminary review of bedside echocardiogram demonstrates preserved LV function without regional wall motion abnormality. Cardiac history includes resistant hypertension with multiple drug intolerances, right-sided renal artery stenosis status post percutaneous intervention 2014, dyslipidemia, chronic left bundle branch block, and CKD stage III. Allergies Allergy/AdvReac Type Severity Reaction Status Date / Time Iodinated Contrast Media Allergy Severe Anaphylaxis Verified 02/13/24 20:21 latex Allergy Intermediate RED RASH Verified 06/12/23 14:35 Gwadqlp-PRY-ApY Reductase Allergy Intermediate muscle Verified 06/12/23 14:35 Inhibitor pain/can't [[id number]-Qeq Reductase concentrate/dizzy/nausea Inhibitor] Home Medications Medication Instructions Recorded Confirmed Type multivitamin (Multiple Vitamins 1 tab PO QAM 01/03/19 02/13/24 History tablet) losartan 25 mg tablet 12.5 mg PO QAM 05/31/19 02/13/24 History aspirin 81 mg tablet,delayed 81 mg PO QAM 10/23/19 02/13/24 History release (Mariella Low Dose Aspirin) furosemide 20 mg tablet 20 mg PO QAM 06/12/23 02/13/24 History omeprazole 20 mg capsule,delayed 20 mg PO QAM 06/12/23 02/13/24 History release insulin aspart U-100 100 unit/mL 30 unit (0.3 mL) subcut DAILY #30 12/22/23 02/13/24 Rx (3 mL) subcutaneous pen (Novolog mL FlexPen U-100 Insulin aspart) Contour Next Test Strips (blood #300 ea 01/23/24 02/13/24 Rx sugar diagnostic) calcium carbonate 600 mg-vitamin 1 tab PO BID 02/13/24 02/13/24 History D3 20 mcg (800 unit) tablet (Caltrate with Vitamin D3) insulin degludec 100 unit/mL (3 24 unit subcut HS 02/13/24 02/13/24 History mL) subcutaneous pen (Tresiba FlexTouch U-100 insulin) timolol maleate 0.5 % eye drops 1 drp OPR BID 02/13/24 02/13/24 History Patient History Medical History Dysphagia Osteoarthritis Chronic back pain GERD (gastroesophageal reflux disease) Diabetes mellitus, type 2 Anxiety Hypertension Hyperlipidemia Cardiac murmur follows with Dr. Esquivel Esophageal spasm Surgical History History of total hysterectomy with bilateral salpingo-oophorectomy (BSO) History of dilatation and curettage History of surgery Status post right renal artery stent 2014 History of tooth extraction upper teeth History of wisdom tooth extraction History of bilateral cataract extraction History of colonoscopy Hx laparoscopic cholecystectomy H/O esophagogastroduodenoscopy H/O breast surgery "left breast duct excision" S/P tonsillectomy and adenoidectomy S/P appendectomy Family History Father Heart disease Mother Heart disease Family history of reaction to anesthesia had tear duct sx--right side of head "hair turned white" Diabetes Hypertension Stroke Denies family history of Crohn's disease Colorectal cancer Ulcerative colitis Social History Smoking Status: Unknown if ever smoked packs per day: 1; Second Hand Exposure: Yes (parents smoked); Do You Dip or Chew Tobacco: No; Preferred Language: Palestinian Communication Ability: Unable to Communication Ability Comment: Unable to obtain Senior Marketing Manager Required: No Beliefs That Will Affect Care: Restorationism Restorationism Beliefs: Yazidism marital status: / Current Living Situation: Alone Current Living Situation Comment: Unable to obtain current occupational status: retired How many Children do You have: 2 Feels Safe at Home: Yes Diet: diabetic during the past year weight has: decreased > 10 lbs Assistive Devices: Denture - Upper and Glasses Review of Systems Review of Systems: All systems reviewed & are unremarkable except as noted in Subjective Physical Exam Constitutional: well nourished; no acute distress Respiratory: Auscultation: + rhonchi; no wheezes Cardiovascular: Rate/Rhythm: regular rate and regular rhythm Heart Sounds: normal S1 and normal S2; no murmur Vessels: radial pulses present Extremities: no edema Gastrointestinal (Abdomen): Inspection/Auscultation: abdomen not distended Percussion/Palpation: abdomen soft; abdomen nontender, no guarding and abdomen not rigid Results & Data Vital Signs (Past 12 Hours) Vital Signs Temp Pulse Resp BP Pulse Ox O2 Del Method FiO2 02/14/24 11:42 40 02/14/24 10:05 50 L 18 98 40 02/14/24 08:48 36.1 C L 49 L 18 97 02/14/24 08:33 36.2 C L 49 L 16 97 02/14/24 08:24 36.2 C L 49 L 18 96 02/14/24 08:06 36.2 C L 50 L 18 96 02/14/24 08:00 109/56 L 02/14/24 07:59 40 02/14/24 07:51 36.2 C L 53 L 18 96 02/14/24 07:33 Mechanical Vent 40 02/14/24 07:33 40 02/14/24 07:31 58 L 02/14/24 07:30 36.2 C L 48 L 19 97 02/14/24 07:20 51 L 18 98 40 02/14/24 07:15 36.3 C L 51 L 13 98 02/14/24 07:12 36.3 C L 50 L 16 97 02/14/24 07:00 104/47 L 40 02/14/24 06:48 36.3 C L 55 L 18 97 02/14/24 06:45 36.3 C L 51 L 18 97 02/14/24 06:33 36.4 C L 50 L 18 98 02/14/24 06:15 36.4 C L 54 L 15 97 02/14/24 06:01 135/57 L 02/14/24 05:42 36.5 C 52 L 18 97 02/14/24 05:09 36.5 C 50 L 13 98 02/14/24 05:00 107/49 L 02/14/24 05:00 107/49 L 02/14/24 04:54 36.5 C 52 L 22 97 02/14/24 04:36 36.5 C 52 L 18 98 02/14/24 04:03 36.5 C 52 L 20 98 02/14/24 04:00 113/53 L 02/14/24 04:00 51 L 20 98 40 02/14/24 04:00 40 02/14/24 03:54 36.5 C 52 L 20 97 02/14/24 03:45 36.5 C 53 L 13 97 02/14/24 03:21 36.6 C 51 L 14 97 02/14/24 03:00 111/55 L 02/14/24 02:51 36.6 C 57 L 20 98 02/14/24 02:21 36.7 C 56 L 20 98 02/14/24 02:06 36.7 C 56 L 20 97 02/14/24 02:00 115/55 L 02/14/24 02:00 115/55 L 02/14/24 01:36 36.7 C 59 L 20 98 02/14/24 01:17 36.7 C 58 L 20 98 02/14/24 01:02 36.7 C 61 20 97 02/14/24 01:00 113/58 L 02/14/24 00:59 36.7 C 62 20 98 02/14/24 00:47 36.7 C 58 L 20 97 02/14/24 00:38 36.7 C 60 20 97 Laboratory Results Cardiac Enzymes 02/13/24 02/13/24 02/13/24 Range/Units 15:24 17:17 18:49 AST TNP 47 H Troponin I High Sens 45.4 H 108.2 H* D 166.7 H* D (0-14) pg/ml 02/14/24 02/14/24 02/14/24 Range/Units 00:58 04:03 08:26 AST Troponin I High Sens 1150.3 H* D 1462.1 H* D 1582.0 H* (0-14) pg/ml Coagulation 02/13/24 02/13/24 02/14/24 Range/Units 15:24 17:17 05:44 PT Cancelled 10.6 10.9 APTT 26 (21-31) Seconds CBC 02/13/24 02/14/24 Range/Units 15:24 04:03 WBC 16.54 H 20.66 H (4.8-10.8) K/ul RBC 5.59 H 4.83 (4.20-5.40) M/uL Hgb 17.5 H 14.9 (12.0-16.0) g/dl Hct 51.0 H 42.9 (37.0-47.0) % Plt Count 367 299 (130-400) K/uL Neut # (Auto) 9.30 H 18.02 H (1.40-6.50) K/uL Lymph # (Auto) 4.77 H 1.22 (1.20-3.40) K/uL [place] # (Auto) 1.82 H 1.22 H (0.11-0.59) K/uL Eos # (Auto) 0.21 0.00 (0.00-0.50) K/uL Baso # (Auto) 0.08 0.03 (0.00-0.20) K/uL Comprehensive Metabolic Panel 02/13/24 02/13/24 02/14/24 Range/Units 15:24 17:17 04:03 Sodium 135 L 135 L (136-145) mmol/L Potassium TNP 4.8 3.8 D Chloride 99 102 (98-107) mmol/L Carbon Dioxide 30 25 (21-32) mmol/L BUN 19 27 H (6-23) mg/dl Creatinine 1.09 1.33 H (0.6-1.2) mg/dl Glucose 217 H 150 H (70-99(Fasting)) mg/dl Calcium 8.9 8.6 (8.6-10.3) mg/dl AST TNP 47 H ALT 31 (7-52) U/L Alkaline Phosphatase 134 H (34-104) U/L Total Protein 7.5 (6.0-8.3) gm/dl Albumin 3.8 (3.4-5.0) gm/dl Intake and Output 02/13/24 02/14/24 02/14/24 22:59 06:59 14:59 Intake Total 228.998 / 878.776 649.778 / 878.776 895.572 / 895.572 Output Total 30 / 205 175 / 205 72 / 72 Balance 198.998 / 673.776 474.778 / 673.776 823.572 / 823.572 Intake: IV 228.998 / 878.776 649.778 / 878.776 895.572 / 895.572 Ampicillin/Sulbactam Sod 3,000 100 / 300 200 / 300 100 / 100 mg In 100 ml @ 200 mls/hr IV Q6H [facility] Rx#:[id number] Azithromycin 250 mg In Dextrose 255 / 255 252.5 / 252.5 5% 250 ml @ 125 mls/hr IV Q24H [facility] Rx#:[id number] EPINEPHrine/NSS 4 mg In 254 ml 29.070 / 29.070 0 / 0 @ 0 MCG/KG/MIN IV .Q0M [facility] Rx#: [id number] Heparin Sodium/Dextrose 25,000 34.533 / 34.533 units In 500 ml @ 1,400 UNITS/ HR 28 mls/hr IV .X32M36M [facility] Rx #:[id number] Insulin Regular 250 units In 6.05 / 34.19 28.14 / 34.19 18.56 / 18.56 Sodium Chloride 0.9% 247.5 ml @ 4.33 UNITS/HR 4.33 mls/hr IV . Q24H [facility] Rx#:[id number] Ketamine HCl / Nss 500 mg In 13.393 / 13.393 500 ml @ 0.1 MG/KG/HR 8.15 mls/ hr IV .Q24H [facility] Rx#:[id number] Ketamine HCl 50Mg/ml Vial 40 mg 50.8 / 50.8 In Sodium Chloride 0.9% 50 ml @ 304.8 mls/hr IV NOW ONE Rx#: [id number] Magnesium Sulfate / D5w 1 gm In 100 / 100 100 ml @ 50 mls/hr IV ONE ONE Rx#:[id number] Norepinephrine/D5w 4 mg In 250 33.982 / 64.120 30.138 / 64.120 17.744 / 17.744 ml @ 0 MCG/KG/MIN IV .Q0M [facility] Rx#:[id number] fentaNYL citrate 2,500 mcg In 2.417 / 38.917 36.5 / 38.917 208.042 / 208.042 250 ml @ 1,250 MCG/HR 125 mls/ hr IV .Q2H [facility] Rx#:[id number] propofoL 1,000 mg In 100 ml @ 57.479 / 157.479 100 / 157.479 100.000 / 100.000 25 MCG/KG/MIN 14.925 mls/hr IV .Q6H43M [facility] Rx#:[id number] Output: Urine Amount (Catheter) Dixon/Indwelling Other: Weight 99.5 kg 81.5 kg Weight Measurement Method Chair Scale Built in [facility]
[2024-02-14 12:35] LABS: Appearance Urine Clear (Clear); Bacteria Urine Automated None Seen (None Seen); Bilirubin Urine Negative (Negative); Blood Urine Negative (Negative); Cast Urine Automated >20 /lpf (0-2); Color Urine Yellow; Glucose Urine UA Negative (Negative); Ketones Urine Trace (Negative); Leukocyte Esterase Urine Trace (Negative); Nitrite Urine Negative (Negative); Protein Urine Trace (Negative); RBC Urine Automated 0-2 /hpf (0-2); Specific Gravity Urine 1.029 (1.000-1.030); Urobilinogen Urine Negative (Negative)
--- NOTE | 2024-02-14 13:35 | Hospitalist Progress Note ---
Date of Service February 14, 2024 Assessment & Plan (1) Aspiration pneumonia: (2) Cardiac arrest: Plan Patient is an 88-year-old female with past medical history significant for type 2 diabetes, renal artery stenosis, hypertension, GERD, CKD who was brought in via EMS intubated status post cardiac arrest at the [facility]. Cardiac arrest Elevated Troponin Aspiration pneumonia Pericardial effusion Patient had cardiac arrest at [facility]; ROSC achieve after 4 minutes. Was intubated and brought to the hospital Chest x-ray on admission showed multiple airspace opacity Chest CT does extensive diffuse multifocal air space opacity. Echocardiogram shows EF of 60 to 65% with moderate concentric LVH, severe mitral annular calcification. Small loculated right lateral pericardial effusion Bronchoscopy done on 02/12: " airways appeared hyperemic with bloody secretions emanating from bilateral lower lobes. Washings were performed of the right lower lobe and sent for culture and cytology. Approximately 150 mL of saline was used to wash the bilateral lungs and clear his own secretions and blood. No obvious active bleeding was noted" Hemodynamic support with vasopressor; waean as tolerated Continue mechanical ventilation as per viticulture teacher Continue sedation, Continue IV antibiotics Chronic conditions; Type 2 diabetes mellitus; maintain euglycemic state; currently on insulin drip Hypertension -antihypertensive on hold. Diet: currently npo DVT prophylaxis: SCDs Dispo:Patient critically ill; currently mechanically ventilated and sedated Time spent evaluating patient, direct bedside care, chart review, placing orders, interpretation of diagnostic studies, as well as other required patient management activities is 50 minutes Please note the above document was generated using voice recognition software. It may contain grammatical, syntax or spelling errors. Any formal questions or concerns about the content, text or information contained within the body of this dictation should be directly addressed to the provider for clarification Admission and Anticipated Discharge Date Admission Date: February 13, 2024 Subjective Patient seen and examined in the ICU. Patient sedated and mechanically ventilated She continues to require vasopressors for hemodynamic support Review of Systems Review of Systems: Unobtainable due to endotracheal tube and Unobtainable due to reduced consciousness Physical Exam Physical Exam: Constitutional: Sedated and mechanically ventilated Respiratory: Bilateral mechanical breath sound Cardiovascular: S1-S2, no murmur Chest: normal inspection of chest Abdomen: normal bowel sounds, soft Musculoskeletal: no cyanosis or clubbing, Skin: no rashes, warm and dry normal turgor Neurologic: Sedated Results & Data Results & Data Vital Signs (Past 12 Hours) Vital Signs Temp Pulse Resp BP Pulse Ox O2 Del Method FiO2 02/14/24 13:03 35.6 C L 57 L 18 97 02/14/24 13:00 106/42 L 02/14/24 12:45 35.3 C L 75 19 96 02/14/24 12:36 35.3 C L 74 19 96 02/14/24 12:18 35.6 C L 86 20 96 02/14/24 12:00 144/55 H 02/14/24 12:00 35.8 C L 54 L 18 95 02/14/24 11:51 35.9 C L 50 L 18 94 02/14/24 11:42 40 02/14/24 11:39 35.8 C L 54 L 18 94 02/14/24 11:15 35.9 C L 96 H 29 H 94 02/14/24 10:54 155/85 H 02/14/24 10:51 35.8 C L 87 19 89 L 02/14/24 10:48 35.8 C L 86 21 94 02/14/24 10:39 35.7 C L 61 18 96 02/14/24 10:15 35.7 C L 54 L 18 98 02/14/24 10:12 35.7 C L 53 L 18 98 02/14/24 10:05 50 L 18 98 40 02/14/24 10:00 126/55 L 02/14/24 09:48 36.0 C L 49 L 18 98 02/14/24 09:30 36.0 C L 46 L 16 98 02/14/24 09:21 36.0 C L 47 L 16 98 02/14/24 08:48 36.1 C L 49 L 18 97 02/14/24 08:33 36.2 C L 49 L 16 97 02/14/24 08:24 36.2 C L 49 L 18 96 02/14/24 08:06 36.2 C L 50 L 18 96 02/14/24 08:00 109/56 L 02/14/24 07:59 40 02/14/24 07:51 36.2 C L 53 L 18 96 02/14/24 07:33 Mechanical Vent 40 02/14/24 07:33 40 02/14/24 07:31 58 L 02/14/24 07:30 36.2 C L 48 L 19 97 02/14/24 07:20 51 L 18 98 40 02/14/24 07:15 36.3 C L 51 L 13 98 02/14/24 07:12 36.3 C L 50 L 16 97 02/14/24 07:00 104/47 L 40 02/14/24 06:48 36.3 C L 55 L 18 97 02/14/24 06:45 36.3 C L 51 L 18 97 02/14/24 06:33 36.4 C L 50 L 18 98 02/14/24 06:15 36.4 C L 54 L 15 97 02/14/24 06:01 135/57 L 02/14/24 05:42 36.5 C 52 L 18 97 02/14/24 05:09 36.5 C 50 L 13 98 02/14/24 05:00 107/49 L 02/14/24 05:00 107/49 L 02/14/24 04:54 36.5 C 52 L 22 97 02/14/24 04:36 36.5 C 52 L 18 98 02/14/24 04:03 36.5 C 52 L 20 98 02/14/24 04:00 113/53 L 02/14/24 04:00 51 L 20 98 40 02/14/24 04:00 40 02/14/24 03:54 36.5 C 52 L 20 97 02/14/24 03:45 36.5 C 53 L 13 97 02/14/24 03:21 36.6 C 51 L 14 97 02/14/24 03:00 111/55 L 02/14/24 02:51 36.6 C 57 L 20 98 02/14/24 02:21 36.7 C 56 L 20 98 02/14/24 02:06 36.7 C 56 L 20 97 02/14/24 02:00 115/55 L 02/14/24 02:00 115/55 L 02/14/24 01:36 36.7 C 59 L 20 98
[2024-02-14 14:04] LABS: ANTI-Xa, UFH(UnfractionatedHep 0.81 IU/ml (0.3-0.7)
--- NOTE | 2024-02-14 14:10 | Billing Data ---
Date of Service February 14, 2024 CRITICAL CARE TIME I have personally spent 51 minutes of critical care time in the direct management of this patient. This is a life/limb threatening event. This includes time spent evaluating patient, direct bedside care, chart review, placing orders, interpretation of diagnostic studies, discussion with consultants, tommy ent, and family members, as well as other required patient management activities. This time is exclusive of all separately billable procedures, and teaching time and separate from and in addition to any other critical care service time. Coding Level of Care Code 35531 CRITICAL CARE 1ST 30-74M
[2024-02-14] MEDS: propofoL 1,000 MG/100 ML VIAL IV SCH (14:11)
[2024-02-14] MEDS: PROPOFOL IV EMULSION 10 MG/ML 100 ML VIAL IV ONE (14:12)
[2024-02-14 14:55] LABS: BUN Creatinine Ratio 20.8 (10-20); Calcium 8.5 mg/dl (8.6-10.3); Creatinine Clr Calc Pharmacy 28.7 ml/min; Magnesium 2.4 mg/dl (1.7-2.4); Potassium 3.7 mmol/L (3.5-5.1)
[2024-02-14] MEDS: AMPICILLIN/SULBACTAM SOD 3,000 MG/100 ML BAG IV SCH (17:24)
[2024-02-14] MEDS: HEPARIN SOD 5,000 UNIT/0.5 ML VIAL SQ SCH (21:02)
[2024-02-15] MEDS ORDERED: GLUCOSE 10 TAB/TUBE PO PRN (03:19)
[2024-02-15] MEDS ORDERED: CARBOHYDRATES FOR HYPOGLYCEMIA PO PRN (03:19)
[2024-02-15] MEDS ORDERED: GLUCOSE 40% GEL 15 GM TUBE PO PRN (03:19)
[2024-02-15] MEDS ORDERED: DEXTROSE 50% 50 ML SYRINGE IV PRN (03:19)
[2024-02-15] MEDS ORDERED: GLUCAGON FOR INJ 1 MG VIAL SQ PRN (03:19)
[2024-02-15 04:06] LABS: iSTAT Art Bld Gas pCO2 Correct 46 mmHg (35-46); iSTAT Art Bld Gas pH Corrected 7.364 (7.35-7.45); iSTAT Arterial Blood Gas HCO3 26 meg/L (19-24); iSTAT Arterial Blood Gas pCO2 45 mmHg (35-46); iSTAT Arterial Blood Gas pH 7.37 (7.35-7.45); iSTAT Arterial Blood Gas pO2 78 mmHg (80-95); iSTAT Arterial Blood Gas pO2 C 80; iSTAT Carbon Dioxide 27 mmol/L (24-31); iSTAT FiO2 50 %; iSTAT Hematocrit 35 % (37-47); iSTAT Hemoglobin 11.9 g/dl (12.0-16.0); iSTAT Potassium 4.1 mmol/L (3.3-5.0); iSTAT Site Art Line; iSTAT Sodium 134 mmol/L (135-144)
[2024-02-15 04:46] LABS: Basophils # (auto) 0.01 K/uL (0.00-0.20); Basophils % (auto) 0.1 %; Hematocrit (blood only) 35.6 % (37.0-47.0); Hemoglobin 12.3 g/dl (12.0-16.0); Immature Granulocytes # (auto) 0.11 K/uL (0.01-0.20); Immature Granulocytes % (auto) 0.7 %; Lymphocytes # (auto) 1.16 K/uL (1.20-3.40); Lymphocytes % (auto) 7.2 %; Mean Corpuscular Hemoglobin 30.6 pg (25.0-34.0); Mean Corpuscular Hgb Conc 34.6 g/dL (32.0-36.0); Mean Corpuscular Volume 88.6 fL (80.0-100.0); Mean Platelet Volume 9.7 fL (9.4-12.4); Monocytes # (auto) 1.75 K/uL (0.11-0.59); Monocytes % (auto) 10.9 %; Neutrophils # (auto) 13.09 K/uL (1.40-6.50); Neutrophils % (auto) 81.1 %; Platelet Count 230 K/uL (130-400); RDW Coefficient of Variation 12.1 % (11.5-14.5); RDW Standard Deviation 39.2 fL (36.4-46.3); Red Blood Count 4.02 M/uL (4.20-5.40); White Blood Count 16.12 K/ul (4.8-10.8)
[2024-02-15 04:56] LABS: BUN Creatinine Ratio 22.8 (10-20); Calcium 8.2 mg/dl (8.6-10.3); Creatinine Clr Calc Pharmacy 26.4 ml/min; Est GFR (African American) 32.5 ml/min; Est GFR (Non-African American) 28.1 ml/min; Potassium 4.1 mmol/L (3.5-5.1)
[2024-02-15 04:57] LABS: Magnesium 2.2 mg/dl (1.7-2.4); Phosphorus 5.2 mg/dl (2.5-4.9)
[2024-02-15] MEDS: INSULIN ASPART PER UNIT CHARGE SC SCH (06:01)
--- NOTE | 2024-02-15 06:31 | Electrocardiogram Report ---
Test Reason : Blood Pressure : */* mmHG Vent. Rate : 52 BPM Atrial Rate : 52 BPM P-R Int : 196 ms QRS Dur : 140 ms QT Int : 526 ms P-R-T Axes : 71 -56 160 degrees QTcB Int : 489 ms Sinus bradycardia Possible Left atrial enlargement Left axis deviation Left bundle branch block Abnormal ECG When compared with ECG of 13-Feb-2024 23:53, No significant change was found Confirmed by Oliver Amaya ([id number]) on 02/15/2024 6:31:22 AM Referred By: REFERRED SELF Confirmed By: Oliver Amaya
--- NOTE | 2024-02-15 06:31 | Electrocardiogram Report ---
Test Reason : Blood Pressure : */* mmHG Vent. Rate : 62 BPM Atrial Rate : 62 BPM P-R Int : 198 ms QRS Dur : 138 ms QT Int : 478 ms P-R-T Axes : 54 -57 143 degrees QTcB Int : 485 ms Normal sinus rhythm Left axis deviation Left bundle branch block Abnormal ECG When compared with ECG of 13-Feb-2024 15:21, Vent. rate has decreased by 45 bpm Confirmed by Oliver Amaya ([id number]) on 02/15/2024 6:31:07 AM Referred By: REFERRED SELF Confirmed By: Oliver Amaya
--- NOTE | 2024-02-15 06:31 | Electrocardiogram Report ---
Test Reason : Blood Pressure : */* mmHG Vent. Rate : 107 BPM Atrial Rate : 107 BPM P-R Int : 180 ms QRS Dur : 142 ms QT Int : 374 ms P-R-T Axes : 66 -41 120 degrees QTcB Int : 499 ms Sinus tachycardia Possible Left atrial enlargement Left axis deviation Left bundle branch block Abnormal ECG When compared with ECG of 18-Jun-2019 12:09, No significant change was found Confirmed by Oliver Amaya ([id number]) on 02/15/2024 6:30:48 AM Referred By: REFERRED SELF Confirmed By: Oliver Amaya
--- NOTE | 2024-02-15 09:11 | XRay Report ---
XR chest 1V portable CLINICAL HISTORY: f/u TECHNIQUE: Single frontal radiograph of the chest was obtained. Comparison: Comparison is made to chest radiograph 02/14/2024 FINDINGS: Lines and tubes are stable. Cardiomegaly is noted. The aortic arch is calcified. There is prominence and cephalization of the vasculature with Elsy B lines seen. Multiple airspace opacities are again seen. No evidence of pleural effusion or pneumothorax. IMPRESSION: 1. Cardiomegaly and moderate pulmonary edema. This is essentially unchanged from prior. 2. Multiple airspace opacities are unchanged. ACT 112: Negative or not required by law. Electronically signed by: Jersey Chauhan M.D. 02/15/2024 9:10 AM
--- NOTE | 2024-02-15 10:22 | Procedure Note ---
Procedure Note Date of Service February 15, 2024 Consent was already obtained from the patient's son. Timeout performed immediately prior to the procedure. Patient was hyperoxygenated on the ventilator with 100% FiO2. Bronchoscope was inserted via the endotracheal tube adapter. Large amounts of bright red blood was noted emanating from the right and left mainstem bronchus. This was washed and suctioned clear. I evaluated the lower lobes in the upper lobes of the tracheobronchial tree with areas of oozing bright red blood. No active lesions were identified. Findings are suggestive of diffuse alveolar hemorrhage. Patient generally tolerated the procedure well and withdrew the scope. I am going to increase her Solu-Medrol to 250 mg every 6 hours for diffuse alveolar hemorrhage. I suspect she has sustained pneumonitis related to aspiration of contrast and gastric contents leading to alveolar hemorrhage. This was discussed with the patient's son over the phone. [facility] [place] (Charges) Pulmonary/Thoracic Procedure 1: Pulmonary and Thoracic: 34060 Dx bronchoscopy/wash Coding CPT Codes Pulmonary/Thoracic - Pulmonary and Thoracic: 34489 Dx bronchoscopy/wash ([id number]) Additional Codes Date of Service (PG.SURGERY)
--- NOTE | 2024-02-15 10:52 | Critical Care Progress Note ---
Date of Service February 15, 2024 Assessment & Plan (1) Diffuse pulmonary alveolar hemorrhage: (2) Acute encephalopathy: (3) Aspiration pneumonia: (4) Cardiac arrest: (5) Arterial hypotension: (6) DM type 2 (diabetes mellitus, type 2): (7) CKD (chronic kidney disease), stage III: (8) Heart disease: (9) Right-sided chest wall pain: Plan Plan 88-year-old female with a past medical history of cervical spine stenosis, hypertension, CKD stage III, diabetic nephropathy, hiatal hernia and left bundle branch block who presents to the ICU status postcardiac arrest which was witnessed in an outpatient radiology department. She achieved ROSC after 4 minutes of CPR and received 1 mg of atropine and 1 mg of epinephrine. Neurologic: She remains encephalopathic possibly due to anoxic brain injury and delirium related to medications. Will obtain an MRI of the brain without contrast. Will consider EEG. Pulmonary: Bronchoscopy cultures pending. Patient today with diffuse alveolar hemorrhage noted on bronchoscopy from 02/15/2024. Will increase Solu-Medrol to 250 mg every 6 hours. Suspect alveolar hemorrhage secondary to caustic ingestion of contrast and gastric contents. Cardiovascular: Patient presented with demand ischemia likely related to cardiac arrest. All anticoagulation on hold at this time given diffuse alveolar hemorrhage. Gastrointestinal: - NPO for the time being. Continue OG tube to low intermittent wall suction. LFTs largely unremarkable. - CT abdomen and pelvis without any acute concerns. Small amount of pneumatosis noted versus extraluminal gas which is likely related to barotrauma from CPR. Lactate negative. Renal: Patient with JEFFREY on CKD stage III. Continue crystalloid infusion if needed. Infectious disease: Discontinue Unasyn. Continue azithromycin. MRSA screen negative on admission. Procal was positive to 1.0 in 02/14. Will escalate from Unasyn to Zosyn. Legionella urine antigen, pending Hematologic: Check DIC labs. Hemoglobin stable. Endocrine: Maintain euglycemia. Suspect glucose control will get worse with high-dose steroids. May need to reinitiate insulin drip. Lines and tubes: IJ CVL placed in the ER 02/13/2024. Right radial arterial line placed 02/13/2024. Dixon catheter placed 02/13/2024. VTE prophylaxis: SCDs CODE STATUS: Full, discussed with family over the phone. Prognosis is guarded at this time. Admission and Anticipated Discharge Date Admission Date: February 13, 2024 Subjective Patient remains heavily sedated and is unable to participate in exam. She is on ketamine, propofol and fentanyl. Nursing and RT had noticed thick bloody secretions coming from her endotracheal tube. Hemodynamically she remained stable. Review of Systems Review of Systems: Unobtainable due to cognitive status Physical Exam Physical Exam: Constitutional: Patient appears to be of their stated age. Patient is in no apparent distress. Patient is well-developed. Eyes: Pupils are equal round and reactive to light. Conjunctivae are normal. Anicteric sclera. Ears nose, mouth and throat: Endotracheal tube in place. Neck: Trachea is midline. Visual inspection is normal. Respiratory: Coarse rhonchi bilaterally. Cardiovascular: Regular rate and rhythm. No murmurs. No edema. Gastrointestinal: Normal bowel sounds, soft, nontender and nondistended. No hepatosplenomegaly noted. Musculoskeletal: No cyanosis. Patient is able to move all extremities. Strength is 5 out of 5 in the upper and lower extremities. Skin: No rashes, warm dry and intact. Neurologic: Difficult to assess due to sedation. Psychiatric: Difficult to fully assess due to sedation. Results & Data Results & Data Vital Signs (Past 12 Hours) Vital Signs Temp Pulse Resp BP Pulse Ox O2 Del Method FiO2 02/15/24 10:40 67 18 98 50 02/15/24 08:52 Mechanical Vent 35 02/15/24 08:01 71 18 95 35 02/15/24 08:00 35 02/15/24 08:00 74 02/15/24 06:00 36.9 C 74 18 137/48 L 97 Mechanical Vent 50 02/15/24 05:45 36.9 C 84 19 97 Mechanical Vent 50 02/15/24 05:36 37.0 C 81 18 97 Mechanical Vent 50 02/15/24 05:06 72 18 98 Mechanical Vent 50 02/15/24 05:00 37.0 C 70 18 142/51 H 98 Mechanical Vent 50 02/15/24 04:42 37.0 C 70 18 98 Mechanical Vent 50 02/15/24 04:07 81 19 96 50 02/15/24 04:00 37.2 C 82 21 130/49 L 96 Mechanical Vent 50 02/15/24 03:56 50 02/15/24 03:56 78 151/87 H 02/15/24 03:36 37.1 C 84 19 96 Mechanical Vent 50 02/15/24 03:00 37.1 C 87 20 151/87 H 96 Mechanical Vent 50 02/15/24 02:33 37.2 C 71 18 129/51 L 96 Mechanical Vent 50 02/15/24 02:00 37.0 C 81 18 116/38 L 95 Mechanical Vent 50 02/15/24 01:30 36.8 C 75 19 95 Mechanical Vent 50 02/15/24 01:03 36.5 C 68 18 94 Mechanical Vent 50 02/15/24 01:00 36.3 C L 90 21 123/43 L 93 Mechanical Vent 50 02/15/24 00:33 36.0 C L 80 18 92 Mechanical Vent 50 02/15/24 00:00 35.9 C L 68 18 125/47 L 94 Mechanical Vent 50 02/15/24 00:00 50 02/15/24 00:00 81 125/47 L 02/14/24 23:50 73 19 94 50 02/14/24 23:30 35.3 C L 73 18 94 Mechanical Vent 50 02/14/24 23:30 62 02/14/24 23:00 35.2 C L 60 18 129/42 L 95 Mechanical Vent Coding Level of Care Code 29258 CRITICAL CARE 1ST 30-74M Diagnoses Diffuse pulmonary alveolar hemorrhage R04.89 Acute encephalopathy G93.40 Aspiration pneumonia J69.0 Cardiac arrest I46.9 Arterial hypotension I95.9 DM type 2 (diabetes mellitus, type 2) E11.9 CKD (chronic kidney disease), stage III N18.3 Heart disease I51.9 Right-sided chest wall pain R07.89
[2024-02-15] MEDS: methylPREDNISolone 250 MG in DEXTROSE 5% 100 ML IV STA (10:53)
--- NOTE | 2024-02-15 10:56 | Hospitalist Progress Note ---
Date of Service February 15, 2024 Assessment & Plan (1) Aspiration pneumonia: (2) Cardiac arrest: Plan Patient is an 88-year-old female with past medical history significant for type 2 diabetes, renal artery stenosis, hypertension, GERD, CKD who was brought in via EMS intubated status post cardiac arrest at the [facility]. Cardiac arrest Elevated Troponin Aspiration pneumonia Pericardial effusion Diffuse pulmonary alveolar hemorrhage Patient had cardiac arrest at [facility]; ROSC achieve after 4 minutes. Was intubated and brought to the hospital Chest x-ray on admission showed multiple airspace opacity Chest CT does extensive diffuse multifocal air space opacity. Echocardiogram shows EF of 60 to 65% with moderate concentric LVH, severe mitral annular calcification. Small loculated right lateral pericardial effusion Bronchoscopy done on 02/12: " airways appeared hyperemic with bloody secretions emanating from bilateral lower lobes. Washings were performed of the right lower lobe and sent for culture and cytology. Approximately 150 mL of saline was used to wash the bilateral lungs and clear his own secretions and blood. No obvious active bleeding was noted" Bronchoscopy on 02/14 showed findings suggestive of diffuse alveolar hemorrhage. Patient currently on IV Solu-Medrol 250 mg every 6 hours Plan for MRI brain without contrast Continue mechanical ventilation, sedation On Zosyn and azithromycin for aspiration pneumonia, continue Chronic conditions; Type 2 diabetes mellitus; maintain euglycemic state; on sc insulin every 6 hours Hypertension -antihypertensive on hold. Diet: currently npo DVT prophylaxis: SCDs Dispo:Patient critically ill; currently mechanically ventilated and sedated Time spent evaluating patient, direct bedside care, chart review, placing orders, interpretation of diagnostic studies, as well as other required patient management activities is 50 minutes Please note the above document was generated using voice recognition software. It may contain grammatical, syntax or spelling errors. Any formal questions or concerns about the content, text or information contained within the body of this dictation should be directly addressed to the provider for clarification Admission and Anticipated Discharge Date Admission Date: February 13, 2024 Subjective Patient seen and examined at bedside. She continues to be mechanically ventilated and sedated Noted to have thick bloody secretions from the ET tube Review of Systems Review of Systems: All systems reviewed & are unremarkable except as noted in Subjective Physical Exam Physical Exam: Constitutional: Sedated and mechanically ventilated Respiratory: Bilateral mechanical breath sound Cardiovascular: S1-S2, no murmur Chest: normal inspection of chest Abdomen: normal bowel sounds, soft Musculoskeletal: no cyanosis or clubbing, Skin: no rashes, warm and dry normal turgor Neurologic: Sedated Results & Data Results & Data Vital Signs (Past 12 Hours) Vital Signs Temp Pulse Resp BP Pulse Ox O2 Del Method FiO2 02/15/24 10:40 67 18 98 50 02/15/24 08:52 Mechanical Vent 35 02/15/24 08:01 71 18 95 35 02/15/24 08:00 35 02/15/24 08:00 74 02/15/24 06:00 36.9 C 74 18 137/48 L 97 Mechanical Vent 50 02/15/24 05:45 36.9 C 84 19 97 Mechanical Vent 50 02/15/24 05:36 37.0 C 81 18 97 Mechanical Vent 50 02/15/24 05:06 72 18 98 Mechanical Vent 50 02/15/24 05:00 37.0 C 70 18 142/51 H 98 Mechanical Vent 50 02/15/24 04:42 37.0 C 70 18 98 Mechanical Vent 50 02/15/24 04:07 81 19 96 50 02/15/24 04:00 37.2 C 82 21 130/49 L 96 Mechanical Vent 50 02/15/24 03:56 50 02/15/24 03:56 78 151/87 H 02/15/24 03:36 37.1 C 84 19 96 Mechanical Vent 50 02/15/24 03:00 37.1 C 87 20 151/87 H 96 Mechanical Vent 50 02/15/24 02:33 37.2 C 71 18 129/51 L 96 Mechanical Vent 50 02/15/24 02:00 37.0 C 81 18 116/38 L 95 Mechanical Vent 50 02/15/24 01:30 36.8 C 75 19 95 Mechanical Vent 50 02/15/24 01:03 36.5 C 68 18 94 Mechanical Vent 50 02/15/24 01:00 36.3 C L 90 21 123/43 L 93 Mechanical Vent 50 02/15/24 00:33 36.0 C L 80 18 92 Mechanical Vent 50 02/15/24 00:00 35.9 C L 68 18 125/47 L 94 Mechanical Vent 50 02/15/24 00:00 50 02/15/24 00:00 81 125/47 L 02/14/24 23:50 73 19 94 50 02/14/24 23:30 35.3 C L 73 18 94 Mechanical Vent 50 02/14/24 23:30 62 02/14/24 23:00 35.2 C L 60 18 129/42 L 95 Mechanical Vent
[2024-02-15] MEDS: VECURONIUM BROMIDE 10 MG VIAL IV ONE (11:25)
[2024-02-15 11:27] LABS: Creatine Kinase 216 U/L (26-192); Lactate Dehydrogenase 197 U/L (86-244)
[2024-02-15] MEDS: VECURONIUM BROMIDE 10 MG VIAL IV STA (11:29)
[2024-02-15 11:37] LABS: Fibrinogen 474 mg/dl (184-400); Prothrombin Time 10.6 Seconds (9.0-12.0)
[2024-02-15] MEDS: PROPOFOL BOLUS FROM BAG IV PRN (12:00)
--- NOTE | 2024-02-15 12:34 | Magnetic Resonance Report ---
MR brain wo con CLINICAL HISTORY: encephalopathy s/p cardiac arrest TECHNIQUE: Multiplanar and multisequence MR images of the brain were obtained without intravenous con trast. Comparison: None available at the time of this dictation. FINDINGS: No abnormal restricted diffusion is identified. Foci of T2 and FLAIR hyperintensity are noted in the paraventricular areas consistent with chronic small vessel ischemic disease. Ex vacuo ventriculomegal y and sulcal enlargement is noted compatible with diffuse volume loss. No mass is seen. There is no m ass effect or midline shift. There is no evidence of acute intraparenchymal hemorrhage. No extra axia l fluid collections are seen. The corpus callosum, pituitary gland, and cerebellar tonsils appear piper ssly unremarkable. Flow voids of the major intracranial arterial vessels are identified. The imaged portions of the para nasal sinuses, mastoid air cells, and orbits are unremarkable. IMPRESSION: No acute abnormality and in particular no evidence of acute infarct. ACT 112: Negative or not required by law. Electronically signed by: Jersey Chauhan M.D. 02/15/2024 12:32 PM
[2024-02-15] MEDS: PIPERACILLIN/TAZOBACTAM 4.5 GM/100 ML BAG IV STA (12:51)
[2024-02-15] MEDS ORDERED: STAT IV Infusion **Titration per Protocol STA (13:15)
[2024-02-15] MEDS ORDERED: INSULIN PROTOCOL GOAL RANGE ONE (13:15)
[2024-02-15] MEDS: BUDESONIDE 0.5 MG/2 ML VIAL (PULMICORT) NEB STA (13:33)
[2024-02-15] MEDS: INSULIN REGULAR 250 UNITS in SODIUM CHLORIDE 0.9% 247.5 ML IV SCH (13:55)
[2024-02-15] MEDS: NovoLIN-R BOLUS FROM BAG IV ONE (13:57)
--- NOTE | 2024-02-15 14:10 | Cardiology Progress Note ---
Date of Service February 15, 2024 Assessment & Plan (1) Aspiration pneumonia: (2) Diffuse pulmonary alveolar hemorrhage: (3) Acute encephalopathy: (4) Cardiac arrest: (5) Pericardial effusion: (6) Left bundle branch block: Plan 88-year-old female present to the emergency department after cardiac arrest likely precipitated by aspiration and hypoxia. Echocardiogram revealing preserved LV systolic function without regional wall motion abnormality. Small loculated pericardial effusion without hemodynamic significance noted. Elevated high-sensitivity troponin secondary to cardiac arrest, hypoxia, demand ischemia. Diffuse alveolar hemorrhage noted. Steroids titrated by critical care medicine. Avoid antiplatelet medication at this time. Continue antibiotic therapy, supportive care, and ventilator management as per critical care medicine. Cardiology will sign off at this time. Please call with further concerns/questions. Admission and Anticipated Discharge Date Admission Date: February 13, 2024 Subjective 88-year-old female seen examined at the bedside. Sedated on ventilator. Unfortunately, developed diffuse alveolar hemorrhage. Bronchoscopy performed this a.m. demonstrating bloody secretions. Pressors weaned off currently borderline hypertensive. Review of Systems Review of Systems: Unobtainable due to endotracheal tube Physical Exam Constitutional: well nourished; no acute distress Respiratory: Auscultation: + rhonchi; no wheezes Cardiovascular: Rate/Rhythm: regular rate and regular rhythm Heart Sounds: normal S1 and normal S2; no murmur Vessels: radial pulses present Extremities: no edema Gastrointestinal (Abdomen): Inspection/Auscultation: abdomen not distended Percussion/Palpation: abdomen soft; abdomen nontender, no guarding and abdomen not rigid Results & Data Vital Signs (Past 12 Hours) Vital Signs Temp Pulse Resp BP Pulse Ox O2 Del Method FiO2 02/15/24 13:03 36.1 C L 75 18 100 02/15/24 13:00 146/56 H 02/15/24 12:54 36.1 C L 80 18 100 02/15/24 12:53 163/58 H 02/15/24 12:39 36.5 C 100 H 18 98 02/15/24 12:36 102 H 18 94 02/15/24 12:00 70 02/15/24 11:00 129/53 L 02/15/24 11:00 36.6 C 67 18 96 02/15/24 10:40 67 18 98 50 02/15/24 10:00 149/66 H 02/15/24 10:00 36.6 C 67 16 95 02/15/24 09:03 36.6 C 70 18 97 02/15/24 09:00 141/52 H 02/15/24 08:52 Mechanical Vent 35 02/15/24 08:48 36.7 C 69 18 96 02/15/24 08:01 71 18 95 35 02/15/24 08:00 128/48 L 02/15/24 08:00 32.1 C L 69 18 94 02/15/24 08:00 35 02/15/24 08:00 74 02/15/24 07:15 36.7 C 80 19 95 02/15/24 06:21 36.9 C 76 18 97 02/15/24 06:00 36.9 C 74 18 137/48 L 97 Mechanical Vent 50 02/15/24 05:45 36.9 C 84 19 97 Mechanical Vent 50 02/15/24 05:36 37.0 C 81 18 97 Mechanical Vent 50 02/15/24 05:06 72 18 98 Mechanical Vent 50 02/15/24 05:00 37.0 C 70 18 142/51 H 98 Mechanical Vent 50 02/15/24 04:42 37.0 C 70 18 98 Mechanical Vent 50 02/15/24 04:07 81 19 96 50 02/15/24 04:00 37.2 C 82 21 130/49 L 96 Mechanical Vent 50 02/15/24 03:56 50 02/15/24 03:56 78 151/87 H 02/15/24 03:36 37.1 C 84 19 96 Mechanical Vent 50 02/15/24 03:00 37.1 C 87 20 151/87 H 96 Mechanical Vent 50 02/15/24 02:33 37.2 C 71 18 129/51 L 96 Mechanical Vent 50
[2024-02-15] MEDS: methylPREDNISolone 250 MG in DEXTROSE 5% 100 ML IV SCH (16:20)
[2024-02-15] MEDS: PIPERACILLIN/TAZOBACTAM 4.5 GM/100 ML BAG IV SCH (16:21)
[2024-02-15] MEDS ORDERED: INSULIN ASPART PER UNIT CHARGE SC SCH (16:30)
[2024-02-15] MEDS ORDERED: methylPREDNISolone 250 MG in SYRINGE 0 ML IV SCH (17:00)
[2024-02-15] MEDS: PANTOprazole 40 MG in SYRINGE 0 ML IV SCH (20:08)
[2024-02-15] MEDS: BUDESONIDE 0.5 MG/2 ML VIAL (PULMICORT) NEB SCH (20:24)
--- NOTE | 2024-02-15 22:48 | Electrocardiogram Report ---
Test Reason : Blood Pressure : */* mmHG Vent. Rate : 77 BPM Atrial Rate : 77 BPM P-R Int : 188 ms QRS Dur : 146 ms QT Int : 444 ms P-R-T Axes : 74 -48 119 degrees QTcB Int : 502 ms Normal sinus rhythm Left axis deviation Left bundle branch block Abnormal ECG When compared with ECG of 14-Feb-2024 03:51, Vent. rate has increased by 25 bpm Confirmed by Oliver Amaya ([id number]) on 02/15/2024 10:47:34 PM Referred By: REFERRED SELF Confirmed By: Oliver Amaya
[2024-02-16 03:50] LABS: Basophils # (auto) 0.01 K/uL (0.00-0.20); Basophils % (auto) 0.1 %; Hematocrit (blood only) 35.6 % (37.0-47.0); Hemoglobin 12.6 g/dl (12.0-16.0); Immature Granulocytes # (auto) 0.05 K/uL (0.01-0.20); Immature Granulocytes % (auto) 0.5 %; Lymphocytes # (auto) 0.63 K/uL (1.20-3.40); Lymphocytes % (auto) 6.5 %; Mean Corpuscular Hemoglobin 30.8 pg (25.0-34.0); Mean Corpuscular Hgb Conc 35.4 g/dL (32.0-36.0); Mean Platelet Volume 9.8 fL (9.4-12.4); Monocytes # (auto) 0.48 K/uL (0.11-0.59); Monocytes % (auto) 4.9 %; Neutrophils # (auto) 8.59 K/uL (1.40-6.50); Platelet Count 213 K/uL (130-400); RDW Standard Deviation 38.5 fL (36.4-46.3); Red Blood Count 4.09 M/uL (4.20-5.40); White Blood Count 9.76 K/ul (4.8-10.8)
[2024-02-16 04:05] LABS: BUN Creatinine Ratio 27.4 (10-20); Calcium 8.1 mg/dl (8.6-10.3); Creatinine Clr Calc Pharmacy 29.6 ml/min; Est GFR (African American) 36.9 ml/min; Est GFR (Non-African American) 31.8 ml/min; Magnesium 2.4 mg/dl (1.7-2.4); Phosphorus 3.7 mg/dl (2.5-4.9); Potassium 3.7 mmol/L (3.5-5.1)
--- NOTE | 2024-02-16 09:14 | Hospitalist Progress Note ---
Date of Service February 16, 2024 Assessment & Plan (1) Aspiration pneumonia: (2) Cardiac arrest: Plan Patient is an 88-year-old female with past medical history significant for type 2 diabetes, renal artery stenosis, hypertension, GERD, CKD who was brought in via EMS intubated status post cardiac arrest at the [facility]. Cardiac arrest Elevated Troponin Aspiration pneumonia Pericardial effusion Diffuse pulmonary alveolar hemorrhage Patient had cardiac arrest at [facility]; ROSC achieve after 4 minutes. Was intubated and brought to the hospital Chest x-ray on admission showed multiple airspace opacity Chest CT does extensive diffuse multifocal air space opacity. Echocardiogram shows EF of 60 to 65% with moderate concentric LVH, severe mitral annular calcification. Small loculated right lateral pericardial effusion Bronchoscopy done on 02/12: " airways appeared hyperemic with bloody secretions emanating from bilateral lower lobes. Washings were performed of the right lower lobe and sent for culture and cytology. Approximately 150 mL of saline was used to wash the bilateral lungs and clear his own secretions and blood. No obvious active bleeding was noted". Bronchial sample from 02/12- light normal tania Bronchoscopy on 02/14 showed findings suggestive of diffuse alveolar hemorrhage. MRI Brain wo contrast- no acute findings Patient currently on IV Solu-Medrol 250 mg every 6 hours Nicardipine drip for high blood pressure Continue mechanical ventilation, sedation On Zosyn and azithromycin for aspiration pneumonia, continue Chronic conditions; Type 2 diabetes mellitus; maintain euglycemic state; on insulin drip Hypertension -currenly on nicardipine drip Diet: currently npo DVT prophylaxis: SCDs Dispo:Patient critically ill; currently mechanically ventilated. Time spent evaluating patient, direct bedside care, chart review, placing orders, interpretation of diagnostic studies, as well as other required patient management activities is 50 minutes Please note the above document was generated using voice recognition software. It may contain grammatical, syntax or spelling errors. Any formal questions or concerns about the content, text or information contained within the body of this dictation should be directly addressed to the provider for clarification Admission and Anticipated Discharge Date Admission Date: February 13, 2024 Subjective Patient seen and examined in the ICU She was placed on pressor support with sedation of Vital signs are stable; was placed on nicardipine drip due to high blood pressure Review of Systems Review of Systems: Unobtainable due to endotracheal tube Physical Exam Physical Exam: Constitutional: Awake and moving her extremities. Respiratory: Bilateral mechanical breath sound Cardiovascular: S1-S2, no murmur Chest: normal inspection of chest Abdomen: normal bowel sounds, soft Musculoskeletal: no cyanosis or clubbing, Skin: no rashes, warm and dry normal turgor Neurologic: Awake and moving her extremities. Results & Data Results & Data Vital Signs (Past 12 Hours) Vital Signs Temp Pulse Resp BP Pulse Ox O2 Del Method FiO2 02/16/24 07:27 86 19 94 40 02/16/24 07:20 Mechanical Vent 0.4 02/16/24 07:17 36.4 C L 02/16/24 07:15 40 02/16/24 06:00 173/69 H 02/16/24 05:57 36.3 C L 55 L 18 97 02/16/24 05:00 154/63 H 02/16/24 05:00 154/63 H 02/16/24 05:00 154/63 H 02/16/24 05:00 36.3 C L 55 L 18 97 02/16/24 04:01 165/59 H 02/16/24 04:00 40 02/16/24 03:57 36.4 C L 54 L 18 97 02/16/24 03:09 36.3 C L 54 L 18 98 02/16/24 03:01 155/62 H 02/16/24 02:50 53 L 18 94 40 02/16/24 02:03 36.2 C L 54 L 18 97 02/16/24 02:01 166/62 H 02/16/24 01:03 36.0 C L 54 L 18 96 02/16/24 01:01 166/66 H 02/16/24 00:01 158/68 H 02/16/24 00:00 58 L 02/16/24 00:00 35.9 C L 56 L 18 95 02/16/24 00:00 40 02/15/24 23:23 54 L 19 95 40 02/15/24 23:01 156/115 H 02/15/24 23:00 56 L 18 97 02/15/24 22:01 158/62 H 02/15/24 22:00 36.4 C L 02/15/24 21:57 35.8 C L 52 L 18 98
[2024-02-16] MEDS: niCARdipine 25 MG in SODIUM CHLORIDE 0.9% 240 ML IV SCH (10:02)
--- NOTE | 2024-02-16 10:48 | XRay Report ---
XR chest 1V portable CLINICAL HISTORY: diffuse alveolar hemorrhage TECHNIQUE: Single frontal radiograph of the chest was obtained. Comparison: Comparison is made to chest radiograph 02/15/2024 FINDINGS: Lines and tubes are stable. Cardiomegaly is noted. Bilateral airspace opacities are seen, the right l ower airspace opacity is increased in conspicuity from prior exam. Pulmonary vascular prominence and Elsy B-lines are again seen. No evidence of pleural effusion or pneumothorax. IMPRESSION: Focal airspace opacities are seen, somewhat more conspicuous in the right lower lobe. Cardiomegaly an d moderate pulmonary edema are again seen. ACT 112: Negative or not required by law. Electronically signed by: Jersey Chauhan M.D. 02/16/2024 10:47 AM
[2024-02-16] MEDS: LABETALOL HCL IV 5 MG/ML 20ML IV STA (11:24)
[2024-02-16] MEDS: ONDANSETRON INJ 2 MG/ML 2 ML VIAL IV PRN (14:13)
[2024-02-16] MEDS ORDERED: ROCURONIUM BROMIDE 10 MG/ML 5 ML VIAL IV ONE (15:43)
[2024-02-16] MEDS ORDERED: fentaNYL citrate PF 100 MCG/2 ML VIAL IV ONE (15:43)
[2024-02-16] MEDS ORDERED: ETOMIDATE 2 MG/ML 20 ML VIAL IV ONE (15:43)
--- NOTE | 2024-02-16 16:31 | XRay Report ---
XR KUB/Abdomen 1 view CLINICAL HISTORY: abdominal pain TECHNIQUE: 1 view of the abdomen was obtained. Comparison: Comparison is made to CT abdomen pelvis 02/13/2024 FINDINGS: Enteric tube terminates in the stomach. The osseous structures are grossly unremarkable. The bowel ga s pattern is nonobstructive. A moderate amount of stool is noted within the large bowel. IMPRESSION: Nonobstructive bowel gas pattern. ACT 112: Negative or not required by law. Electronically signed by: Jersey Chauhan M.D. 02/16/2024 4:30 PM
[2024-02-16] MEDS: PROMETHAZINE 6.25 MG/50.25 ML BAG IV ONE (16:34)
--- NOTE | 2024-02-16 18:52 | Procedure Note ---
Procedure Note Date of Service February 16, 2024 INTUBATION PROCEDURE NOTE: Dr. Triston Hollins Verbal consent was obtained from the patient due to emergency circumstances. Also verbal consent was obtained from the patient's son over the phone. A time-out was completed verifying correct patient, procedure, site, positioning. Patient was evaluated and required intubation for hypoxemia. Sedative agent used: 20 mg of etomidate and 50 mcg of fentanyl Paralysis agent used: 50 mg rocuronium Number of attempts: 1 The patient was prepared in the appropriate fashion. Sedation was achieved utilizing etomidate, fentanyl and rocuronium. The patient was easily ventilated using [id number] to achieve adequate oxygenation. A 7.5 Lithuanian endotracheal tube was placed under GlideScope guided to 22 cm at the lip. The stylette was removed and balloon was inflated with 10mL of air. Appropriate Colorimetric change was appreciated. Bilateral breath sounds were heard without air sounds in the abdomen. Post Intubation Chest X-ray ordered. Patient tolerated the procedure well and there were no immediate complications. Additionally, emergency bronchoscopy was performed status post intubation. Endotracheal tube appeared to be appropriately positioned above the vadim. There were erythematous and hemorrhagic appearing airways. No active bleeding was seen. The airways were washed with approximately 100 mL of saline in the bilateral lower lobes. The scope was then withdrawn. Patient tolerated pr ocedure well. [facility] [place] Codes (Charges) Pulmonary/Thoracic Procedure 1: Pulmonary and Thoracic: 84889 Dx bronchoscopy/wash Resuscitation Resuscitation: 92466 Endotracheal Intubation, emergency Coding CPT Codes Resuscitation - Resuscitation: 11383 Endotracheal Intubation, emergency ([id number]) Pulmonary/Thoracic - Pulmonary and Thoracic: 85403 Dx bronchoscopy/wash ([id number]) Additional Codes Date of Service (PG.[email or web address])
[2024-02-16] MEDS: RAPID SEQUENCE INDUCTION BAG ONE (19:17)
[2024-02-16 19:21] LABS: iSTAT Art Bld Gas pCO2 Correct 54 mmHg (35-46); iSTAT Arterial Blood Gas HCO3 27 meg/L (19-24); iSTAT Arterial Blood Gas pCO2 55 mmHg (35-46); iSTAT Arterial Blood Gas pO2 104 mmHg (80-95); iSTAT Arterial Blood Gas pO2 C 101; iSTAT Carbon Dioxide 29 mmol/L (24-31); iSTAT FiO2 100 %; iSTAT Hematocrit 40 % (37-47); iSTAT Hemoglobin 13.6 g/dl (12.0-16.0); iSTAT Potassium 3.2 mmol/L (3.3-5.0); iSTAT Site Art Line; iSTAT Sodium 136 mmol/L (135-144)
[2024-02-16] MEDS ORDERED: DEXTROSE 5% IV SCH (21:45)
[2024-02-16] MEDS ORDERED: METHYLPREDNISOLONE IV SCH (21:45)
--- NOTE | 2024-02-16 22:04 | XRay Report ---
SINGLE VIEW CHEST CLINICAL HISTORY: Respiratory failure. FINDINGS: An AP, portable, upright chest radiograph is compared to study performed earlier the same d ay 02/16/2024 and correlated with chest CT dated 02/13/2024. An endotracheal tube, an enteric tube, and a right internal jugular central venous catheter are unchanged in position. The heart is enlarged no ting atherosclerotic calcification of the thoracic aorta. There is evidence of congestive failure. Di ffuse/multifocal airspace opacities are again seen throughout both lungs. There are small pleural eff usions with dependent consolidation. No pneumothorax is seen. The skeletal structures are osteopenic. The bony thorax is grossly intact. IMPRESSION: 1. Stable lines and tubes. 2. Cardiomegaly with evidence of congestive failure. 3. Layering pleural effusions with dependent consolidation. 4. Multifocal airspace opacities are again seen throughout both lungs. This has not significantly eulalia nged from today's earlier examination. ACT 112: Negative or not required by law. Electronically signed by: Teddy Mejia M.D. 02/16/2024 10:02 PM
[2024-02-16] MEDS: methylPREDNISolone 80 MG in SYRINGE 0 ML IV SCH (22:30)
[2024-02-17 05:19] LABS: Hematocrit (blood only) 35.6 % (37.0-47.0); Hemoglobin 12.2 g/dl (12.0-16.0); Immature Granulocytes # (auto) 0.05 K/uL (0.01-0.20); Immature Granulocytes % (auto) 0.5 %; Lymphocytes # (auto) 0.64 K/uL (1.20-3.40); Lymphocytes % (auto) 6.8 %; Mean Corpuscular Hgb Conc 34.3 g/dL (32.0-36.0); Mean Corpuscular Volume 87.7 fL (80.0-100.0); Mean Platelet Volume 9.5 fL (9.4-12.4); Monocytes % (auto) 7.4 %; Neutrophils # (auto) 8.07 K/uL (1.40-6.50); Neutrophils % (auto) 85.3 %; Platelet Count 216 K/uL (130-400); RDW Coefficient of Variation 12.2 % (11.5-14.5); RDW Standard Deviation 39.3 fL (36.4-46.3); Red Blood Count 4.06 M/uL (4.20-5.40); White Blood Count 9.46 K/ul (4.8-10.8)
[2024-02-17 05:30] LABS: BUN Creatinine Ratio 30.8 (10-20); Calcium 8.2 mg/dl (8.6-10.3); Creatinine Clr Calc Pharmacy 29.7 ml/min; Est GFR (African American) 37.8 ml/min; Est GFR (Non-African American) 32.6 ml/min; Magnesium 2.5 mg/dl (1.7-2.4); Phosphorus 4.1 mg/dl (2.5-4.9); Potassium 3.5 mmol/L (3.5-5.1)
[2024-02-17 05:44] LABS: iSTAT Art Bld Gas pCO2 Correct 36 mmHg (35-46); iSTAT Art Bld Gas pH Corrected 7.469 (7.35-7.45); iSTAT Arterial Blood Gas HCO3 26 meg/L (19-24); iSTAT Arterial Blood Gas pCO2 36 mmHg (35-46); iSTAT Arterial Blood Gas pH 7.47 (7.35-7.45); iSTAT Arterial Blood Gas pO2 82 mmHg (80-95); iSTAT Arterial Blood Gas pO2 C 82; iSTAT Carbon Dioxide 27 mmol/L (24-31); iSTAT FiO2 50 %; iSTAT Hematocrit 35 % (37-47); iSTAT Hemoglobin 11.9 g/dl (12.0-16.0); iSTAT Potassium 3.4 mmol/L (3.3-5.0); iSTAT Site Art Line; iSTAT Sodium 136 mmol/L (135-144)
[2024-02-17] MEDS: PNEUMOCOCCAL VACCINE (PCV20) 20-VAL CONJ-DIP CRM/PF 0.5 ML SYR IM ONE (07:18)
[2024-02-17] MEDS: PANTOprazole 40 MG in SYRINGE 0 ML IV SCH (08:05)
--- NOTE | 2024-02-17 08:07 | XRay Report ---
SINGLE VIEW CHEST CLINICAL HISTORY: Respiratory failure. FINDINGS: An AP, portable, upright chest radiograph is compared to studies dated 02/16/2024 and correl ated with chest CT dated 02/13/2024. An endotracheal tube, an enteric tube, and a right internal jugul ar central venous catheter are unchanged in position. The heart is enlarged noting atherosclerotic ca lcification of the thoracic aorta. There is evidence of congestive failure. Diffuse/multifocal airspa ce opacities are again seen throughout both lungs. There are small pleural effusions with dependent c onsolidation. No pneumothorax is seen. The skeletal structures are osteopenic. The bony thorax is piper ssly intact. IMPRESSION: 1. Stable lines and tubes. 2. Cardiomegaly with evidence of congestive failure. 3. Layering pleural effusions with dependent consolidation. 4. Multifocal airspace opacities are again seen throughout both lungs. This has not significantly eulalia nged from yesterday. ACT 112: Negative or not required by law. Electronically signed by: Teddy Mejia M.D. 02/17/2024 8:06 AM
--- NOTE | 2024-02-17 08:46 | Hospitalist Progress Note ---
Date of Service February 17, 2024 Assessment & Plan (1) Aspiration pneumonia: (2) Cardiac arrest: Plan Patient is an 88-year-old female with past medical history significant for type 2 diabetes, renal artery stenosis, hypertension, GERD, CKD who was brought in via EMS intubated status post cardiac arrest at the [facility]. Cardiac arrest Elevated Troponin Aspiration pneumonia Pericardial effusion Diffuse pulmonary alveolar hemorrhage Patient had cardiac arrest at [facility]; ROSC achieve after 4 minutes. Was intubated and brought to the hospital Chest x-ray on admission showed multiple airspace opacity Chest CT does extensive diffuse multifocal air space opacity. Echocardiogram shows EF of 60 to 65% with moderate concentric LVH, severe mitral annular calcification. Small loculated right lateral pericardial effusion Bronchoscopy done on 02/12: " airways appeared hyperemic with bloody secretions emanating from bilateral lower lobes. Washings were performed of the right lower lobe and sent for culture and cytology. Approximately 150 mL of saline was used to wash the bilateral lungs and clear his own secretions and blood. No obvious active bleeding was noted". Bronchial sample from 02/12- light normal tania Bronchoscopy on 02/14 showed findings suggestive of diffuse alveolar hemorrhage. MRI Brain wo contrast- no acute findings Patient was extubated on 02/15 and required reintubation on the same day due to h ypoxia Patient currently on IV Solu-Medrol Continue mechanical ventilation, sedation compelted 5 days of antiboitics Chronic conditions; Type 2 diabetes mellitus; maintain euglycemic state; on insulin drip Hypertension -monitor Diet: currently npo DVT prophylaxis: SCDs Due to diffuse pulmonary ovular hemorrhage Dispo:Patient critically ill; currently mechanically ventilated. Updated patient's son Angel and daughter in law Erika at bedside. Answered questions/queries. Time spent evaluating patient, direct bedside care, chart review, placing orders, interpretation of diagnostic studies, as well as other required patient management activities is 50 minutes Please note the above document was generated using voice recognition software. It may contain grammatical, syntax or spelling errors. Any formal questions or concerns about the content, text or information contained within the body of this dictation should be directly addressed to the provider for clarification Admission and Anticipated Discharge Date Admission Date: February 13, 2024 Subjective Patient was reintubated last evening after extubation. Continues to be mechanically ventilated Sedated with propofol and fentanyl Review of Systems Review of Systems: Unobtainable due to reduced consciousness Physical Exam Physical Exam: Constitutional: Mechanically ventilated and sedated Respiratory: Bilateral mechanical breath sound Cardiovascular: S1-S2, no murmur Chest: normal inspection of chest Abdomen: normal bowel sounds, soft Musculoskeletal: no cyanosis or clubbing, Skin: no rashes, warm and dry normal turgor Neurologic: Awake and moving her extremities. Results & Data Results & Data Vital Signs (Past 12 Hours) Vital Signs Temp Pulse Resp BP Pulse Ox FiO2 02/17/24 07:20 64 18 97 40 02/17/24 07:01 176/60 H 02/17/24 07:00 36.7 C 61 18 97 02/17/24 06:03 36.9 C 58 L 18 99 02/17/24 05:33 36.9 C 60 18 98 02/17/24 05:21 37.0 C 61 18 100 02/17/24 05:01 160/64 H 02/17/24 05:01 160/64 H 02/17/24 04:57 37.0 C 61 18 97 02/17/24 04:33 37.1 C 64 18 98 02/17/24 04:24 61 19 98 60 02/17/24 04:12 37.1 C 63 18 99 02/17/24 04:00 50 02/17/24 03:30 37.0 C 62 18 98 02/17/24 03:12 37.0 C 60 18 99 02/17/24 02:30 36.9 C 63 18 100 02/17/24 02:18 36.8 C 62 18 99 02/17/24 01:33 36.7 C 62 18 99 02/17/24 01:15 36.7 C 62 18 99 02/17/24 00:36 36.6 C 66 19 100 02/17/24 00:03 36.6 C 63 18 97 02/17/24 00:00 66 02/17/24 00:00 60 02/16/24 23:36 36.6 C 69 18 96 02/16/24 23:31 69 18 96 60 02/16/24 22:36 36.4 C L 64 18 154/46 H 100 02/16/24 22:06 36.4 C L 66 18 100 02/16/24 21:03 36.2 C L 70 18 100
--- NOTE | 2024-02-17 12:03 | Critical Care Progress Note ---
Date of Service February 17, 2024 Assessment & Plan (1) Diffuse pulmonary alveolar hemorrhage: (2) Acute encephalopathy: (3) Aspiration pneumonia: (4) Cardiac arrest: (5) Arterial hypotension: (6) DM type 2 (diabetes mellitus, type 2): (7) CKD (chronic kidney disease), stage III: (8) Heart disease: Plan 88-year-old female with a past medical history of cervical spine stenosis, hypertension, GERD who presented to the ER after a respiratory and cardiac arrest. She aspirated barium for CT abdomen pelvis. Plan 88-year-old female with a past medical history of cervical spine stenosis, hypertension, CKD stage III, diabetic nephropathy, hiatal hernia and left bundle branch block who presents to the ICU status postcardiac arrest which was witnessed in an outpatient radiology department. She achieved ROSC after 4 minutes of CPR and received 1 mg of atropine and 1 mg of epinephrine. Neurologic: Patient was extubated 02/16/2024 oh and was alert and oriented x 3. Currently on sedation that she was reintubated due to hypoxemia that same day. Continue propofol and fentanyl. Pulmonary: Bronchoscopy cultures negative to date. Patient today with diffuse alveolar hemorrhage noted on bronchoscopy from 02/15/2024. I have decreased her Solu- Medrol to 80 mg 3 times daily due to ongoing hypertension and hyperglycemia. Repeat bronchoscopy 02/16/2024 reveals improving alveolar hemorrhage. Suspect alveolar hemorrhage secondary to caustic ingestion of contrast and gastric contents. Procalcitonin was negative and cultures are negative. Will discontinue Zosyn and leave azithromycin for 5 days total. Autoimmune studies for alveolar hemorrhage pending. Cardiovascular: Patient presented with demand ischemia likely related to cardiac arrest. All anticoagulation on hold at this time given diffuse alveolar hemorrhage. Gastrointestinal: -Initiate tube feeds. - CT abdomen and pelvis without any acute concerns. Small amount of pneumatosis noted versus extraluminal gas which is likely related to barotrauma from CPR. Lactate negative. Repeat KUB 02/16/2024 revealed a nonobstructive gas pattern. Renal: Patient with JEFFREY on CKD stage III. Continue crystalloid infusion if needed. BNP elevated to almost 700 today. Will give 40 mg of IV Lasix and 40 mill equivalents of potassium chloride. Infectious disease: Follow-up procalcitonin unremarkable. Discontinue gram-negative coverage. Continue azithromycin for the time being for atypical coverage. Legionella urine antigen, fungal antibodies pending. Respiratory viral panel negative on admission. Hematologic: No evidence of hemolysis or DIC. Hemoglobin remains stable. Endocrine: Maintain euglycemia. Continue insulin drip while on high-dose steroids. Lines and tubes: IJ CVL placed in the ER 02/13/2024. Right radial arterial line placed 02/13/2024. Dixon catheter placed 02/13/2024. VTE prophylaxis: SCDs CODE STATUS: Full, discussed with family over the phone. Prognosis is guarded at this time. CRITICAL CARE TIME I have personally spent 51 minutes of critical care time in the direct management of this patient. This is a life/limb threatening event. This includes time spent evaluating patient, direct bedside care, chart review, placing orders, interpretation of diagnostic studies, discussion with consultants, patient, and family members, as well as other required patient management activities. This time is exclusive of all separately billable procedures, and teaching time and separate from and in addition to any other critical care service time. Admission and Anticipated Discharge Date Admission Date: February 13, 2024 Subjective Patient seen examined. Remains minimally responsive to commands as she is heavily sedated. Currently on minimal vent settings. ABG reviewed with mild respiratory alkalosis. No significant hemoptysis overnight. Recall, she was emergently intubated yesterday evening and bronched due to worsening respiratory failure. Review of Systems Review of Systems: Unobtainable due to cognitive status and Unobtainable due to endotracheal tube Physical Exam Physical Exam: Constitutional: Patient is heavily sedated and intubated at this present time. Eyes: Pupils are equal round and reactive to light. Conjunctivae are normal. Anicteric sclera. Ears nose, mouth and throat: Endotracheal tube in place (7.5). Neck: Trachea is midline. Visual inspection is normal. Respiratory: Coarse rhonchi bilaterally. Cardiovascular: Regular rate and rhythm. No murmurs. No edema. Gastrointestinal: Normal bowel sounds, soft, nontender and nondistended. No hepatosplenomegaly noted. OG tube in place. Musculoskeletal: No cyanosis. Patient is able to move all extremities. Strength is 5 out of 5 in the upper and lower extremities. Skin: No rashes, warm dry and intact. Neurologic: Difficult to assess due to sedation. Psychiatric: Difficult to fully assess due to sedation. Results & Data Results & Data Vital Signs (Past 12 Hours) Vital Signs Temp Pulse Resp BP Pulse Ox O2 Del Method FiO2 02/17/24 09:30 Mechanical Vent 02/17/24 09:00 36.7 C 56 L 18 93 02/17/24 08:30 36.7 C 57 L 18 94 02/17/24 08:03 36.6 C 58 L 18 96 02/17/24 08:00 56 L 02/17/24 07:20 64 18 97 40 02/17/24 07:03 36.7 C 57 L 18 97 02/17/24 07:01 176/60 H 02/17/24 07:00 36.7 C 61 18 97 02/17/24 06:03 36.9 C 58 L 18 99 02/17/24 05:33 36.9 C 60 18 98 02/17/24 05:21 37.0 C 61 18 100 02/17/24 05:01 160/64 H 02/17/24 05:01 160/64 H 02/17/24 04:57 37.0 C 61 18 97 02/17/24 04:33 37.1 C 64 18 98 02/17/24 04:24 61 19 98 60 02/17/24 04:12 37.1 C 63 18 99 02/17/24 04:00 50 02/17/24 03:30 37.0 C 62 18 98 02/17/24 03:12 37.0 C 60 18 99 02/17/24 02:30 36.9 C 63 18 100 02/17/24 02:18 36.8 C 62 18 99 02/17/24 01:33 36.7 C 62 18 99 02/17/24 01:15 36.7 C 62 18 99 02/17/24 00:36 36.6 C 66 19 100 02/17/24 00:03 36.6 C 63 18 97 02/17/24 00:00 66 02/17/24 00:00 60 Coding Level of Care Code 04870 CRITICAL CARE 1ST 30-74M Diagnoses Diffuse pulmonary alveolar hemorrhage R04.89 Acute encephalopathy G93.40 Aspiration pneumonia J69.0 Cardiac arrest I46.9 Arterial hypotension I95.9 DM type 2 (diabetes mellitus, type 2) E11.9 CKD (chronic kidney disease), stage III N18.3 Heart disease I51.9
--- NOTE | 2024-02-17 12:14 | Electrocardiogram Report ---
Test Reason : Blood Pressure : */* mmHG Vent. Rate : 83 BPM Atrial Rate : 83 BPM P-R Int : 186 ms QRS Dur : 160 ms QT Int : 438 ms P-R-T Axes : 56 -43 125 degrees QTcB Int : 514 ms Sinus rhythm with Premature supraventricular complexes Possible Left atrial enlargement Left axis deviation Left bundle branch block Abnormal ECG When compared with ECG of 15-Feb-2024 08:32, Premature supraventricular complexes are now Present Confirmed by Silvia Leavitt (Selena) on 02/17/2024 9:27:17 AM Referred By: REFERRED SELF Confirmed By: Silvia Leavitt
[2024-02-17] MEDS: hydrALAZINE HCL 20 MG/ML VIAL IV STA (13:04)
[2024-02-17] MEDS: FUROSEMIDE 40 MG/4 ML VIAL IV ONE ×2 (13:20→17:07)
[2024-02-17] MEDS: POTASSIUM CHLORIDE 20 MEQ/15 ML UDC PO STA (13:20)
[2024-02-17] MEDS ORDERED: PROPOFOL BOLUS FROM BAG IV PRN (15:10)
[2024-02-17] MEDS ORDERED: STAT IV Infusion **Titration per Protocol STA (15:10)
[2024-02-17] MEDS: propofoL 1,000 MG/100 ML VIAL IV SCH (17:01)
[2024-02-17 17:33] LABS: BUN Creatinine Ratio 27.9 (10-20); Calcium 8.2 mg/dl (8.6-10.3); Creatinine Clr Calc Pharmacy 27.4 ml/min; Est GFR (African American) 34.6 ml/min; Est GFR (Non-African American) 29.8 ml/min; Potassium 3.6 mmol/L (3.5-5.1)
[2024-02-18 05:09] LABS: Hematocrit (blood only) 38.4 % (37.0-47.0); Hemoglobin 13.1 g/dl (12.0-16.0); Immature Granulocytes # (auto) 0.06 K/uL (0.01-0.20); Immature Granulocytes % (auto) 0.8 %; Lymphocytes # (auto) 0.53 K/uL (1.20-3.40); Lymphocytes % (auto) 7.2 %; Mean Corpuscular Hemoglobin 30.3 pg (25.0-34.0); Mean Corpuscular Hgb Conc 34.1 g/dL (32.0-36.0); Mean Corpuscular Volume 88.7 fL (80.0-100.0); Mean Platelet Volume 9.7 fL (9.4-12.4); Monocytes # (auto) 0.66 K/uL (0.11-0.59); Platelet Count 229 K/uL (130-400); RDW Coefficient of Variation 11.9 % (11.5-14.5); RDW Standard Deviation 38.7 fL (36.4-46.3); Red Blood Count 4.33 M/uL (4.20-5.40); White Blood Count 7.35 K/ul (4.8-10.8)
[2024-02-18 05:14] LABS: BUN Creatinine Ratio 31.4 (10-20); Calcium 7.9 mg/dl (8.6-10.3); Creatinine Clr Calc Pharmacy 27.8 ml/min; Est GFR (African American) 34.8 ml/min; Est GFR (Non-African American) 30.1 ml/min; Magnesium 2.3 mg/dl (1.7-2.4); Potassium 2.9 mmol/L (3.5-5.1)
[2024-02-18 05:50] LABS: iSTAT Art Bld Gas pCO2 Correct 34 mmHg (35-46); iSTAT Art Bld Gas pH Corrected 7.528 (7.35-7.45); iSTAT Arterial Blood Gas HCO3 28 meg/L (19-24); iSTAT Arterial Blood Gas pCO2 34 mmHg (35-46); iSTAT Arterial Blood Gas pH 7.52 (7.35-7.45); iSTAT Arterial Blood Gas pO2 76 mmHg (80-95); iSTAT Arterial Blood Gas pO2 C 74; iSTAT Carbon Dioxide 29 mmol/L (24-31); iSTAT FiO2 40 %; iSTAT Hematocrit 36 % (37-47); iSTAT Hemoglobin 12.2 g/dl (12.0-16.0); iSTAT Potassium 2.8 mmol/L (3.3-5.0); iSTAT Site Art Line; iSTAT Sodium 140 mmol/L (135-144)
[2024-02-18] MEDS: POTASSIUM CHLORIDE / WTR 10 MEQ/100 ML PLCT IV SCH (07:13)
[2024-02-18] MEDS: POTASSIUM CHLORIDE PWD 20 MEQ PACK PO ONE (07:14)
--- NOTE | 2024-02-18 07:47 | Hospitalist Progress Note ---
Date of Service February 18, 2024 Assessment & Plan (1) Aspiration pneumonia: (2) Cardiac arrest: Plan Patient is an 88-year-old female with past medical history significant for type 2 diabetes, renal artery stenosis, hypertension, GERD, CKD who was brought in via EMS intubated status post cardiac arrest at the [facility]. Cardiac arrest Elevated Troponin Aspiration pneumonia Pericardial effusion Diffuse pulmonary alveolar hemorrhage Patient had cardiac arrest at [facility]; ROSC achieve after 4 minutes. Was intubated and brought to the hospital Chest x-ray on admission showed multiple airspace opacity Chest CT does extensive diffuse multifocal air space opacity. Echocardiogram shows EF of 60 to 65% with moderate concentric LVH, severe mitral annular calcification. Small loculated right lateral pericardial effusion Bronchoscopy done on 02/12: " airways appeared hyperemic with bloody secretions emanating from bilateral lower lobes. Washings were performed of the right lower lobe and sent for culture and cytology. Approximately 150 mL of saline was used to wash the bilateral lungs and clear his own secretions and blood. No obvious active bleeding was noted". Bronchial sample from 02/12- light normal tania Bronchoscopy on 02/14 showed findings suggestive of diffuse alveolar hemorrhage. MRI Brain wo contrast- no acute findings Patient was extubated on 02/15 and required reintubation on the same day due to h ypoxia On IV steroids Currently on pressor support; ventilator management as per bicycle repair technician completed 5 days of antibiotics (Zosyn and azithromycin) Chronic conditions; Type 2 diabetes mellitus; maintain euglycemic state; on insulin drip Hypertension -monitor Diet: currently npo DVT prophylaxis: SCDs Due to diffuse pulmonary alveolar hemorrhage Dispo:Patient critically ill; currently mechanically ventilated. Updated patient's son Angel and daughter in law Erika at bedside on 02/17/2024. Answered questions/queries. Time spent evaluating patient, direct bedside care, chart review, placing orders, interpretation of diagnostic studies, as well as other required patient management activities is 50 minutes Please note the above document was generated using voice recognition software. It may contain grammatical, syntax or spelling errors. Any formal questions or concerns about the content, text or information contained within the body of this dictation should be directly addressed to the provider for clarification Admission and Anticipated Discharge Date Admission Date: February 13, 2024 Subjective Patient is currently on pressure support; awakens by voice. Hemodynamically stable. She is on Precedex Review of Systems Review of Systems: Unobtainable due to reduced consciousness Physical Exam Physical Exam: Constitutional: Mechanically ventilated and sedated Respiratory: Bilateral mechanical breath sound Cardiovascular: S1-S2, no murmur Chest: normal inspection of chest Abdomen: normal bowel sounds, soft Musculoskeletal: no cyanosis or clubbing, Skin: no rashes, warm and dry normal turgor Neurologic: Awake and moving her extremities. Results & Data Results & Data Vital Signs (Past 12 Hours) Vital Signs Temp Pulse Resp BP Pulse Ox FiO2 02/18/24 04:00 176/58 H 02/18/24 04:00 36.4 C L 60 18 95 02/18/24 04:00 40 02/18/24 03:40 49 L 19 94 40 02/18/24 03:24 36.3 C L 46 L 18 95 02/18/24 03:00 169/62 H 02/18/24 02:51 36.2 C L 49 L 18 02/18/24 02:11 36.0 C L 48 L 18 93 02/18/24 02:00 175/60 H 02/18/24 01:56 36.0 C L 64 18 94 02/18/24 01:32 36.0 C L 59 L 18 95 02/18/24 01:00 182/64 H 02/18/24 00:56 35.9 C L 49 L 18 02/18/24 00:47 35.9 C L 49 L 18 95 02/18/24 00:02 35.9 C L 49 L 18 96 02/18/24 00:00 49 L 02/18/24 00:00 173/73 H 02/18/24 00:00 173/73 H 02/18/24 00:00 173/73 H 02/18/24 00:00 40 02/17/24 23:39 48 L 18 95 40 02/17/24 23:38 36.0 C L 63 18 95 02/17/24 23:23 36.0 C L 57 L 18 95 02/17/24 23:00 168/66 H 02/17/24 22:12 36.3 C L 52 L 18 94 02/17/24 22:06 36.3 C L 51 L 18 95 02/17/24 21:39 157/59 H 02/17/24 21:00 155/52 H 02/17/24 21:00 36.5 C 52 L 18 88 L 02/17/24 20:20 55 L 18 92 40 02/17/24 20:00 170/60 H 02/17/24 20:00 40 02/17/24 19:57 36.5 C 60 18 92
--- NOTE | 2024-02-18 09:09 | XRay Report ---
SINGLE VIEW CHEST CLINICAL HISTORY: Respiratory failure. FINDINGS: An AP, portable, upright chest radiograph is compared to studies dated 02/17/2024 and correl ated with chest CT dated 02/13/2024. An endotracheal tube, an enteric tube, and a right internal jugul ar central venous catheter are unchanged in position. The heart is enlarged noting atherosclerotic ca lcification of the thoracic aorta. There is evidence of congestive failure. Diffuse/multifocal airspa ce opacities are again seen throughout both lungs. There are small pleural effusions with dependent c onsolidation. No pneumothorax is seen. The skeletal structures are osteopenic. The bony thorax is piper ssly intact. IMPRESSION: 1. Stable lines and tubes. 2. Cardiomegaly with evidence of congestive failure. 3. Layering pleural effusions with dependent consolidation. 4. Multifocal airspace opacities are again seen throughout both lungs. This has not significantly eulalia nged from yesterday. ACT 112: Negative or not required by law. Electronically signed by: Teddy Mejia M.D. 02/18/2024 9:08 AM
[2024-02-18] MEDS: PEPTAMEN 1.5 CAL 1,000 ML BAG NG SCH (10:17)
[2024-02-18] MEDS: TUBE FEEDING WATER FLUSH NG SCH (10:20)
[2024-02-18] MEDS ORDERED: STAT IV Infusion **Titration per Protocol STA ×2 (10:45→14:31)
[2024-02-18] MEDS: dexMEDEtomidine 200 MCG/50 ML BAG IV SCH (11:05)
--- NOTE | 2024-02-18 11:31 | Critical Care Progress Note ---
Date of Service February 18, 2024 Assessment & Plan (1) Diffuse pulmonary alveolar hemorrhage: (2) Acute encephalopathy: (3) Aspiration pneumonia: (4) Cardiac arrest: (5) Arterial hypotension: (6) DM type 2 (diabetes mellitus, type 2): (7) CKD (chronic kidney disease), stage III: (8) Heart disease: (9) HTN (hypertension): (10) Hypokalemia: Plan 88-year-old female with a past medical history of cervical spine stenosis, hypertension, GERD who presented to the ER after a respiratory and cardiac arrest. She aspirated barium for CT abdomen pelvis. Plan 88-year-old female with a past medical history of cervical spine stenosis, hypertension, CKD stage III, diabetic nephropathy, hiatal hernia and left bundle branch block who presents to the ICU status postcardiac arrest which was witnessed in an outpatient radiology department. She achieved ROSC after 4 minutes of CPR and received 1 mg of atropine and 1 mg of epinephrine. Neurologic: Patient was extubated 02/16/2024 and was alert and oriented x 3. She was then subsequently reintubated due to hypoxemia. Currently on Precedex to help with anxiety and currently on a spontaneous breathing trial. Hopefully may be reable to reextubate her later today. Pulmonary: Bronchoscopy cultures negative to date. Patient today with diffuse alveolar hemorrhage noted on bronchoscopy from 02/15/2024. Solu-Medrol further decreased to 40 mg twice daily starting 02/18/2024. Repeat bronchoscopy 02/16/2024 reveals improving alveolar hemorrhage. Suspect alveolar hemorrhage secondary to caustic ingestion of contrast and gastric contents. Procalcitonin was negative and cultures are negative. Continue azithromycin for 5 days total. Autoimmune studies for alveolar hemorrhage pending. Possible extubation later today. Cardiovascular: Patient presented with demand ischemia likely related to cardiac arrest. All anticoagulation on hold at this time given diffuse alveolar hemorrhage. Gastrointestinal: -Hold tube feeds while on SBT at this time. - CT abdomen and pelvis without any acute concerns. Small amount of pneumatosis noted versus extraluminal gas which is likely related to barotrauma from CPR. Lactate negative. Repeat KUB 02/16/2024 revealed a nonobstructive gas pattern. Renal: Patient heavily diuresed with improvement of respiratory status. Follow urine output. She has mild JEFFREY. Placing potassium due to hypokalemia today. Magnesium level normal at 2.3. Infectious disease: Follow-up procalcitonin unremarkable. Continue azithromycin for the time being for atypical coverage. Legionella urine antigen negative. Fungal antibodies pending. Respiratory viral panel negative on admission. Hematologic: No evidence of hemolysis or DIC. Hemoglobin remains stable. Endocrine: Maintain euglycemia. Continue insulin drip while on high-dose steroids. Lines and tubes: IJ CVL placed in the ER 02/13/2024. Right radial arterial line placed 02/13/2024. Dixon catheter placed 02/13/2024. VTE prophylaxis: SCDs CODE STATUS: Full. CRITICAL CARE TIME I have personally spent 44 minutes of critical care time in the direct management of this patient. This is a life/limb threatening event. This includes time spent evaluating patient, direct bedside care, chart review, placing orde rs, interpretation of diagnostic studies, discussion with consultants, patient, and family members, as well as other required patient management activities. This time is exclusive of all separately billable procedures, and teaching time and separate from and in addition to any other critical care service time. Admission and Anticipated Discharge Date Admission Date: February 13, 2024 Subjective Patient seen and examined. She is doing well on a spontaneous awakening trial and spontaneous breathing trial. She remains hypertensive. We do have her on Precedex to help with anxiety. Review of Systems Review of Systems: All systems reviewed & are unremarkable except as noted in HPI & below Physical Exam Physical Exam: Constitutional: The patient is mildly sedated. Appears comfortable with endotracheal tube in place currently. Eyes: Pupils are equal round and reactive to light. Conjunctivae are normal. Anicteric sclera. Ears nose, mouth and throat: Endotracheal tube in place (7.5). Neck: Trachea is midline. Visual inspection is normal. Respiratory: Coarse rhonchi bilaterally. Cardiovascular: Regular rate and rhythm. No murmurs. No edema. Gastrointestinal: Normal bowel sounds, soft, nontender and nondistended. No hepatosplenomegaly noted. OG tube in place. Musculoskeletal: No cyanosis. Patient is able to move all extremities. Strength is 5 out of 5 in the upper and lower extremities. Skin: No rashes, warm dry and intact. Neurologic: Following commands. No overt signs of focal deficits. Psychiatric: Mild anxiety. Appears alert. Results & Data Results & Data Vital Signs (Past 12 Hours) Vital Signs Temp Pulse Resp BP Pulse Ox O2 Del Method FiO2 02/18/24 09:03 37.2 C 50 L 14 97 02/18/24 09:00 141/55 H 02/18/24 08:57 37.2 C 51 L 14 97 02/18/24 08:13 163/57 H 02/18/24 08:12 37.1 C 57 L 14 96 02/18/24 08:09 37.1 C 53 L 14 96 02/18/24 08:00 48 L 02/18/24 07:30 Mechanical Vent 35 02/18/24 07:03 36.9 C 50 L 14 96 02/18/24 07:00 49 L 16 95 40 02/18/24 06:03 36.7 C 52 L 18 96 02/18/24 05:06 36.6 C 58 L 18 96 02/18/24 04:00 176/58 H 02/18/24 04:00 176/58 H 02/18/24 04:00 36.4 C L 60 18 95 02/18/24 04:00 40 02/18/24 03:40 49 L 19 94 40 02/18/24 03:24 36.3 C L 46 L 18 95 02/18/24 03:00 169/62 H 02/18/24 02:51 36.2 C L 49 L 18 95 02/18/24 02:11 36.0 C L 48 L 18 93 02/18/24 02:00 175/60 H 02/18/24 01:56 36.0 C L 64 18 94 02/18/24 01:32 36.0 C L 59 L 18 95 02/18/24 01:00 182/64 H 02/18/24 00:56 35.9 C L 49 L 18 95 02/18/24 00:47 35.9 C L 49 L 18 95 02/18/24 00:02 35.9 C L 49 L 18 96 02/18/24 00:00 49 L 02/18/24 00:00 173/73 H 02/18/24 00:00 173/73 H 02/18/24 00:00 173/73 H 02/18/24 00:00 40 02/17/24 23:39 48 L 18 95 40 02/17/24 23:38 36.0 C L 63 18 95 Coding Level of Care Code 47700 CRITICAL CARE 1ST 30-74M Diagnoses Diffuse pulmonary alveolar hemorrhage R04.89 Acute encephalopathy G93.40 Aspiration pneumonia J69.0 Cardiac arrest I46.9 Arterial hypotension I95.9 DM type 2 (diabetes mellitus, type 2) E11.9 CKD (chronic kidney disease), stage III N18.3 Heart disease I51.9 HTN (hypertension) I10 Hypertension type: essential hypertension Hypokalemia E87.6 (9) HTN (hypertension) Hypertension type: essential hypertension Qualified Code(s): I10 - Essential (primary) hypertension
[2024-02-18] MEDS: carvediloL 3.125 MG TAB PO ONE (11:54)
[2024-02-18] MEDS: amLODIPine BESYLATE 5 MG TAB PO ONE (11:54)
[2024-02-18] MEDS ORDERED: methylPREDNISolone 40 MG in SYRINGE 0 ML IV SCH (14:00)
[2024-02-18 14:38] LABS: BUN Creatinine Ratio 33.3 (10-20); Calcium 7.9 mg/dl (8.6-10.3); Creatinine Clr Calc Pharmacy 26.8 ml/min; Est GFR (African American) 33.3 ml/min; Est GFR (Non-African American) 28.7 ml/min; Magnesium 2.4 mg/dl (1.7-2.4); Phosphorus 4.5 mg/dl (2.5-4.9); Potassium 3.9 mmol/L (3.5-5.1)
[2024-02-18] MEDS: fentaNYL citrate 2,500 MCG/250 ML BAG IV SCH (14:42)
[2024-02-18] MEDS: FUROSEMIDE 40 MG/4 ML VIAL IV ONE (16:13)
[2024-02-18] MEDS: POTASSIUM CHLORIDE 20 MEQ/15 ML UDC PO STA (16:13)
[2024-02-18] MEDS: carvediloL 3.125 MG TAB PO SCH (20:13)
[2024-02-18] MEDS: methylPREDNISolone 40 MG in SYRINGE 0 ML IV SCH (20:33)
[2024-02-18] MEDS: hydrALAZINE HCL 20 MG/ML VIAL IV PRN (21:29)
[2024-02-19 00:28] LABS: Legionella DNA, Source BAL; Legionella Species DNA NOT DETECTED; Legionella pneumophila DNA NOT DETECTED
[2024-02-19] MEDS: fentaNYL BOLUS from BAG IV PRN (03:43)
[2024-02-19 04:52] LABS: Basophils # (auto) 0.01 K/uL (0.00-0.20); Basophils % (auto) 0.1 %; Hematocrit (blood only) 42.4 % (37.0-47.0); Hemoglobin 13.9 g/dl (12.0-16.0); Immature Granulocytes # (auto) 0.13 K/uL (0.01-0.20); Immature Granulocytes % (auto) 1.6 %; Lymphocytes # (auto) 0.76 K/uL (1.20-3.40); Lymphocytes % (auto) 9.4 %; Mean Corpuscular Hgb Conc 32.8 g/dL (32.0-36.0); Mean Corpuscular Volume 91.4 fL (80.0-100.0); Mean Platelet Volume 9.7 fL (9.4-12.4); Monocytes # (auto) 1.06 K/uL (0.11-0.59); Monocytes % (auto) 13.1 %; Neutrophils # (auto) 6.12 K/uL (1.40-6.50); Neutrophils % (auto) 75.8 %; Platelet Count 212 K/uL (130-400); RDW Coefficient of Variation 12.3 % (11.5-14.5); RDW Standard Deviation 40.8 fL (36.4-46.3); Red Blood Count 4.64 M/uL (4.20-5.40); White Blood Count 8.08 K/ul (4.8-10.8)
[2024-02-19 05:06] LABS: BUN Creatinine Ratio 39.4 (10-20); Est GFR (African American) 38.1 ml/min; Est GFR (Non-African American) 32.9 ml/min; Magnesium 2.4 mg/dl (1.7-2.4)
--- NOTE | 2024-02-19 07:14 | XRay Report ---
XR chest 1V portable CLINICAL HISTORY: eval lines/tubes/lung hung while intubated TECHNIQUE: Single frontal radiograph of the chest was obtained. Comparison: Comparison is made to chest radiograph of 02/18/2024 FINDINGS: Lines and tubes are stable. The cardiomediastinal silhouette is stable. Bilateral lower lung predomin ant airspace opacities are seen. Small bilateral pleural effusions. IMPRESSION: Bilateral lower lung predominant airspace opacities which may represent atelectasis, pneumonia, and/o r aspiration. Small bilateral pleural effusions. ACT 112: Negative or not required by law. Electronically signed by: Jersey Chauhan M.D. 02/19/2024 7:13 AM
[2024-02-19] MEDS: amLODIPine BESYLATE 5 MG TAB PO SCH (08:09)
[2024-02-19] MEDS: FUROSEMIDE INJ 20 MG/2 ML VIAL IV STA (10:09)
[2024-02-19] MEDS: LANTUS PER UNIT CHARGE SC STA (10:23)
--- NOTE | 2024-02-19 10:26 | Critical Care Progress Note ---
Date of Service February 19, 2024 Assessment & Plan (1) Diffuse pulmonary alveolar hemorrhage: (2) Acute encephalopathy: (3) Aspiration pneumonia: (4) Cardiac arrest: (5) Arterial hypotension: (6) DM type 2 (diabetes mellitus, type 2): (7) CKD (chronic kidney disease), stage III: (8) Heart disease: (9) HTN (hypertension): (10) Hypokalemia: Plan 88-year-old female with a past medical history of cervical spine stenosis, hypertension, GERD who presented to the ER after a respiratory and cardiac arrest. She aspirated barium for CT abdomen pelvis. Plan 88-year-old female with a past medical history of cervical spine stenosis, hypertension, CKD stage III, diabetic nephropathy, hiatal hernia and left bundle branch block who presents to the ICU status postcardiac arrest which was witnessed in an outpatient radiology department. She achieved ROSC after 4 minutes of CPR and received 1 mg of atropine and 1 mg of epinephrine. Neurologic: Agitation -Precedex to facilitate mechanical ventilation Pulmonary: Bronchoscopy cultures negative to date. Patient today with diffuse alveolar hemorrhage noted on bronchoscopy from 02/15/2024. - Solu-Medrol further decreased to 40 mg twice daily starting 02/18/2024. -Repeat bronchoscopy 02/16/2024 reveals improving alveolar hemorrhage. - Suspect alveolar hemorrhage secondary to caustic ingestion of contrast and gastric contents. Procalcitonin was negative and cultures are negative. Continue azithromycin for 5 days total. -Autoimmune studies for alveolar hemorrhage pending Cardiovascular: Patient presented with demand ischemia likely related to cardiac arrest. All anticoagulation on hold at this time given diffuse alveolar hemorrhage. Gastrointestinal: - CT abdomen and pelvis without any acute concerns. Small amount of pneumatosis noted versus extraluminal gas which is likely related to barotrauma from CPR. Lactate negative. Repeat KUB 02/16/2024 revealed a nonobstructive gas pattern. Renal: Optimize electrolytes, 1 dose Lasix IV 20 mg today Infectious disease: Follow-up procalcitonin unremarkable. Continue azithromycin for the time being for atypical coverage. Legionella urine antigen negative. Fungal antibodies pending. Respiratory viral panel negative on admission. Hematologic: No evidence of hemolysis or DIC. Hemoglobin remains stable. Endocrine: Maintain euglycemia. Continue insulin drip while on high-dose steroids. Lines and tubes: IJ CVL placed in the ER 02/13/2024. Right radial arterial line placed 02/13/2024. Dixon catheter placed 02/13/2024. VTE prophylaxis: SCDs CODE STATUS: Full. CRITICAL CARE TIME I have personally spent 55 minutes of critical care time in the direct management of this patient. This is a life/limb threatening event. This includes time spent evaluating patient, direct bedside care, chart review, placing orders, interpretation of diagnostic studies, discussion with consultants, patient, and family members, as well as other required patient management activities. This time is exclusive of all separately billable procedures, and teaching time and separate from and in addition to any other critical care service time. Admission and Anticipated Discharge Date Admission Date: February 13, 2024 Subjective No overnight events, tolerating spontaneous breathing trial we will proceed with extubation Physical Exam Physical Exam: General: Arousable, follows two-step commands. nontoxic. Skin: Warm, dry, Head: Atraumatic Ears, nose, mouth and throat: airway obscured by endotracheal tube Cardiovascular: Normal peripheral perfusion Respiratory: Ventilator settings reviewed Gastrointestinal: Non distended Musculoskeletal: No deformity Results & Data Results & Data Vital Signs (Past 12 Hours) Vital Signs Temp Pulse Resp BP Pulse Ox O2 Del Method FiO2 02/19/24 08:30 57 L 15 94 35 02/19/24 08:00 55 L 02/19/24 07:00 36.7 C 56 L 14 94 02/19/24 07:00 130/45 L 02/19/24 05:00 123/41 L 02/19/24 05:00 37.0 C 54 L 14 92 Mechanical Vent 35 02/19/24 04:57 36.9 C 54 L 14 120/42 L 92 Mechanical Vent 35 02/19/24 04:15 37.1 C 54 L 14 93 Mechanical Vent 35 02/19/24 04:00 35 02/19/24 04:00 54 L 120/42 L 02/19/24 03:09 53 L 14 95 35 02/19/24 03:00 14 152/57 H 95 Mechanical Vent 35 02/19/24 02:51 37.2 C 53 L 14 95 Mechanical Vent 35 02/19/24 02:15 37.2 C 52 L 14 96 Mechanical Vent 35 02/19/24 01:06 37.3 C 54 L 14 167/63 H 94 Mechanical Vent 35 02/19/24 00:08 54 L 14 92 35 02/19/24 00:00 37.4 C 54 L 14 162/60 H 94 02/19/24 00:00 35 02/19/24 00:00 54 L 162/60 H 02/19/24 00:00 54 L 02/18/24 23:03 37.5 C 55 L 14 159/58 H 91 Mechanical Vent 35 Critical Care Results & Data Vital Signs (Past 12 Hours) Vital Signs Temp Pulse Resp BP Pulse Ox O2 Del Method FiO2 02/19/24 08:30 57 L 15 94 35 02/19/24 08:00 55 L 02/19/24 07:00 36.7 C 56 L 14 94 02/19/24 07:00 130/45 L 02/19/24 05:00 123/41 L 02/19/24 05:00 37.0 C 54 L 14 92 Mechanical Vent 35 02/19/24 04:57 36.9 C 54 L 14 120/42 L 92 Mechanical Vent 35 02/19/24 04:15 37.1 C 54 L 14 93 Mechanical Vent 35 02/19/24 04:00 35 02/19/24 04:00 54 L 120/42 L 02/19/24 03:09 53 L 14 95 35 02/19/24 03:00 14 152/57 H 95 Mechanical Vent 35 02/19/24 02:51 37.2 C 53 L 14 95 Mechanical Vent 35 02/19/24 02:15 37.2 C 52 L 14 96 Mechanical Vent 35 02/19/24 01:06 37.3 C 54 L 14 167/63 H 94 Mechanical Vent 35 02/19/24 00:08 54 L 14 92 35 02/19/24 00:00 37.4 C 54 L 14 162/60 H 94 02/19/24 00:00 35 02/19/24 00:00 54 L 162/60 H 02/19/24 00:00 54 L 02/18/24 23:03 37.5 C 55 L 14 159/58 H 91 Mechanical Vent 35 Lab & Micro Results (Past 24 Hours) RBC 4.64 M/uL (4.20-5.40) 02/19/24 WBC 8.08 K/ul (4.8-10.8) 02/19/24 Hgb 13.9 g/dl (12.0-16.0) 02/19/24 Hct 42.4 % (37.0-47.0) 02/19/24 MCV 91.4 fL (80.0-100.0) 02/19/24 MCH 30.0 pg (25.0-34.0) 02/19/24 MCHC 32.8 g/dL (32.0-36.0) 02/19/24 RDW Standard Deviation 40.8 fL (36.4-46.3) 02/19/24 RDW Coefficient of Variation 12.3 % (11.5-14.5) 02/19/24 Plt Count 212 K/uL (130-400) 02/19/24 MPV 9.7 fL (9.4-12.4) 02/19/24 Neutrophils (%) (Auto) 75.8 % 02/19/24 Lymphocytes (%) (Auto) 9.4 % 02/19/24 Monocytes # (Auto) 1.06 K/uL (0.11-0.59) H 02/19/24 Eosinophils # (Auto) 0.00 K/uL (0.00-0.50) 02/19/24 Immature Granulocyte % (Auto) 1.6 % 02/19/24 Neutrophils # (Auto) 6.12 K/uL (1.40-6.50) 02/19/24 Lymphocytes # (Auto) 0.76 K/uL (1.20-3.40) L 02/19/24 Monocytes # (Auto) 1.06 K/uL (0.11-0.59) H 02/19/24 Eosinophils # (Auto) 0.00 K/uL (0.00-0.50) 02/19/24 Basophils # (Auto) 0.01 K/uL (0.00-0.20) 02/19/24 Immature Granulocyte # (Auto) 0.13 K/uL (0.01-0.20) 4 Na 141 mmol/L (136-145) 02/19/24 K 4.0 mmol/L (3.5-5.1) 02/19/24 Cl 106 mmol/L (98-107) 02/19/24 CO2 28 mmol/L (21-32) 02/19/24 Anion Gap 7 (3-11) 02/19/24 BUN 56 mg/dl (6-23) H 02/19/24 Creatinine 1.42 mg/dl (0.6-1.2) H 02/19/24 Estimated GFR ( Amer) 38.1 ml/min 02/19/24 Estimated GFR (Non-Af Amer) 32.9 ml/min 02/19/24 BUN/Creatinine Ratio 39.4 (10-20) H 02/19/24 Glu 188 mg/dl (70-99(Fasting)) H 02/19/24 Ca 8.0 mg/dl (8.6-10.3) L 02/19/24 Phosphorus Level 4.5 mg/dl (2.5-4.9) 02/18/24 Mg 2.4 mg/dl (1.7-2.4) 02/19/24 04:23 Calcium Level 8.0 mg/dl (8.6-10.3) L 02/19/24 04:23 Microbiology 02/13/24 19:00 Fungal Smear - Final Bronch Wash,Right Lower Lobe Fungal Culture - Preliminary No yeast or fungus isolated - Report 1, Additional Report to Follow. Diagnostic Findings (Past 24 Hours) Chest X-Ray 02/19/24 06:00 XR chest 1V portable CLINICAL HISTORY: eval lines/tubes/lung hung while intubated TECHNIQUE: Single frontal radiograph of the chest was obtained. Comparison: Comparison is made to chest radiograph of 02/18/2024 FINDINGS: Lines and tubes are stable. The cardiomediastinal silhouette is stable. Bilateral lower lung predominant airspace opacities are seen. Small bilateral pleural effusions. IMPRESSION: Bilateral lower lung predominant airspace opacities which may represent atelectasis, pneumonia, and/or aspiration. Small bilateral pleural effusions. ACT 112: Negative or not required by law. Electronically signed by: Jersey Chauhan M.D. 02/19/2024 7:13 AM I & O Totals 24 Hours 02/18/24 02/19/24 02/20/24 06:59 06:59 06:59 Intake Total 1218.360 / 1218.360 864.267 / 864.267 176.163 / 176.163 Output Total 3465 / 3465 2650 / 2650 Balance -2246.640 / -2246.640 -1785.733 / -1785.733 176.163 / 176.163 Cumulative 02/13/24 15:01 thru 02/19/24 09:02 Intake Total 8753.456 Output Total 9842 Balance -1088.544 RT Ventilator Mngmt (Last Documented) Ventilator Ordered Settings Ventilator Support Mode Assist Control 02/19/24 08:30 Respiratory Rate 15 02/19/24 08:30 Ventilator Tidal Volume 380 02/19/24 08:30 Setting Minute Ventilation 5.7 02/19/24 08:30 Ventilator Positive Pressure 12 02/18/24 12:00 Support Setting Positive End Expiratory 5 02/19/24 08:30 Pressure Fraction of Inspired Oxygen 35 02/19/24 08:30 Machine Comment CHANGED BACK TO A/C BY 1430 02/18/24 15:25 Ventilator - PT Measurements Respiratory Rate 15 Exhaled Tidal Volume 380 Minute Ventilation 5.7 Peak Inspiratory Airway 21 Pressure Plateau Pressure 14.8 Respiratory Cycle Inspiratory: 1:3.8 Expiratory Ratio Inspiratory Phase Time 0.9 End-Tidal CO2 36 Static Lung Compliance 38.78 Dynamic Lung Compliance 23.75 Normal Static Lung Compliance 46.00 Patient Measurements Comment 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 RN AND PA-C AWARE. PT OBTAINING SUFFICIENT TIDAL VOLUMES. Coding Level of Care Code 30731 CRITICAL CARE 1ST 30-74M Diagnoses Diffuse pulmonary alveolar hemorrhage R04.89 Acute encephalopathy G93.40 Aspiration pneumonia J69.0 Cardiac arrest I46.9 Arterial hypotension I95.9 DM type 2 (diabetes mellitus, type 2) E11.9 CKD (chronic kidney disease), stage III N18.3 Heart disease I51.9 HTN (hypertension) I10 Hypertension type: essential hypertension Hypokalemia E87.6 (9) HTN (hypertension) Hypertension type: essential hypertension Qualified Code(s): I10 - Essential (primary) hypertension
--- NOTE | 2024-02-19 11:46 | Hospitalist Progress Note ---
Date of Service February 19, 2024 Assessment & Plan (1) Aspiration pneumonia: (2) Cardiac arrest: Plan Patient is an 88-year-old female with past medical history significant for type 2 diabetes, renal artery stenosis, hypertension, GERD, CKD who was brought in via EMS intubated status post cardiac arrest at the [facility]. Cardiac arrest Elevated Troponin Aspiration pneumonia Pericardial effusion Diffuse pulmonary alveolar hemorrhage Patient had cardiac arrest at [facility]; ROSC achieve after 4 minutes. Was intubated and brought to the hospital Chest x-ray on admission showed multiple airspace opacity Chest CT does extensive diffuse multifocal air space opacity. Echocardiogram shows EF of 60 to 65% with moderate concentric LVH, severe mitral annular calcification. Small loculated right lateral pericardial effusion Bronchoscopy done on 02/12: " airways appeared hyperemic with bloody secretions emanating from bilateral lower lobes. Washings were performed of the right lower lobe and sent for culture and cytology. Approximately 150 mL of saline was used to wash the bilateral lungs and clear his own secretions and blood. No obvious active bleeding was noted". Bronchial sample from 02/12- light normal tania Bronchoscopy on 02/14 showed findings suggestive of diffuse alveolar hemorrhage. 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 Diet: currently npo DVT prophylaxis: SCDs Due to diffuse pulmonary alveolar hemorrhage Dispo:Patient critically ill; currently mechanically ventilated. Updated patient's son Angel and daughter in law Erika at bedside on 02/17/2024. Answered questions/queries. Time spent evaluating patient, direct bedside care, chart review, placing orders, interpretation of diagnostic studies, as well as other required patient management activities is 50 minutes Please note the above document was generated using voice recognition software. It may contain grammatical, syntax or spelling errors. Any formal questions or concerns about the content, text or information contained within the body of this dictation should be directly addressed to the provider for clarification Admission and Anticipated Discharge Date Admission Date: February 13, 2024 Subjective Patient seen and examined at bedside She continues to be mechanically ventilated and sedated No significant events overnight Review of Systems Review of Systems: All systems reviewed & are unremarkable except as noted in Subjective Physical Exam Physical Exam: Constitutional: Mechanically ventilated and sedated Respiratory: Bilateral mechanical breath sound Cardiovascular: S1-S2, no murmur Chest: normal inspection of chest Abdomen: normal bowel sounds, soft Musculoskeletal: no cyanosis or clubbing, Skin: no rashes, warm and dry normal turgor Neurologic: Awake and moving her extremities. Results & Data Results & Data Vital Signs (Past 12 Hours) Vital Signs Temp Pulse Resp BP Pulse Ox O2 Del Method FiO2 02/19/24 08:30 57 L 15 94 35 02/19/24 08:00 35 02/19/24 08:00 55 L 02/19/24 07:00 36.7 C 56 L 14 94 02/19/24 07:00 130/45 L 02/19/24 05:00 123/41 L 02/19/24 05:00 37.0 C 54 L 14 92 Mechanical Vent 35 02/19/24 04:57 36.9 C 54 L 14 120/42 L 92 Mechanical Vent 35 02/19/24 04:15 37.1 C 54 L 14 93 Mechanical Vent 35 02/19/24 04:00 35 02/19/24 04:00 54 L 120/42 L 02/19/24 03:09 53 L 14 95 35 02/19/24 03:00 14 152/57 H 95 Mechanical Vent 35 02/19/24 02:51 37.2 C 53 L 14 95 Mechanical Vent 35 02/19/24 02:15 37.2 C 52 L 14 96 Mechanical Vent 35 02/19/24 01:06 37.3 C 54 L 14 167/63 H 94 Mechanical Vent 35 02/19/24 00:08 54 L 14 92 35 02/19/24 00:00 37.4 C 54 L 14 162/60 H 94 02/19/24 00:00 35 02/19/24 00:00 54 L 162/60 H 02/19/24 00:00 54 L
[2024-02-19] MEDS: INSULIN ASPART PER UNIT CHARGE SC SCH ×2 (12:29→23:54)
[2024-02-19] MEDS ORDERED: GLUCOSE 40% GEL 15 GM TUBE PO PRN (21:41)
[2024-02-20 06:12] LABS: BUN Creatinine Ratio 50.7 (10-20); Calcium 8.5 mg/dl (8.6-10.3); Est GFR (African American) 40.2 ml/min; Est GFR (Non-African American) 34.7 ml/min; Magnesium 2.5 mg/dl (1.7-2.4); Phosphorus 3.9 mg/dl (2.5-4.9); Potassium 3.9 mmol/L (3.5-5.1)
[2024-02-20 06:14] LABS: Basophils # (auto) 0.05 K/uL (0.00-0.20); Basophils % (auto) 0.4 %; Hemoglobin 14.7 g/dl (12.0-16.0); Immature Granulocytes # (auto) 0.45 K/uL (0.01-0.20); Immature Granulocytes % (auto) 3.3 %; Lymphocytes # (auto) 0.45 K/uL (1.20-3.40); Lymphocytes % (auto) 3.3 %; Mean Corpuscular Hemoglobin 30.3 pg (25.0-34.0); Mean Corpuscular Hgb Conc 32.7 g/dL (32.0-36.0); Mean Corpuscular Volume 92.8 fL (80.0-100.0); Mean Platelet Volume 9.7 fL (9.4-12.4); Monocytes # (auto) 1.29 K/uL (0.11-0.59); Monocytes % (auto) 9.3 %; Neutrophils # (auto) 11.58 K/uL (1.40-6.50); Neutrophils % (auto) 83.7 %; Platelet Count 279 K/uL (130-400); RDW Coefficient of Variation 12.6 % (11.5-14.5); RDW Standard Deviation 42.9 fL (36.4-46.3); Red Blood Count 4.85 M/uL (4.20-5.40); White Blood Count 13.82 K/ul (4.8-10.8)
--- NOTE | 2024-02-20 09:45 | Critical Care Progress Note ---
Date of Service February 20, 2024 Assessment & Plan (1) Diffuse pulmonary alveolar hemorrhage: (2) Acute encephalopathy: (3) Aspiration pneumonia: (4) Cardiac arrest: (5) Arterial hypotension: (6) DM type 2 (diabetes mellitus, type 2): (7) CKD (chronic kidney disease), stage III: (8) Heart disease: (9) HTN (hypertension): (10) Hypokalemia: Plan 88-year-old female with a past medical history of cervical spine stenosis, hypertension, GERD who presented to the ER after a respiratory and cardiac arrest. She aspirated barium for CT abdomen pelvis. Plan 88-year-old female with a past medical history of cervical spine stenosis, hypertension, CKD stage III, diabetic nephropathy, hiatal hernia and left bundle branch block who presents to the ICU status postcardiac arrest which was witnessed in an outpatient radiology department. She achieved ROSC after 4 minutes of CPR and received 1 mg of atropine and 1 mg of epinephrine. Neurologic: Delierium -Seroquel at night given reports of Pulmonary: Bronchoscopy cultures negative to date. Patient today with diffuse alveolar hemorrhage noted on bronchoscopy from 02/15/2024. - Solu-Medrol further decreased to 40 mg twice daily starting 02/18/2024. -Repeat bronchoscopy 02/16/2024 reveals improving alveolar hemorrhage. - Suspect alveolar hemorrhage secondary to caustic ingestion of contrast and gastric contents. Procalcitonin was negative and cultures are negative. Continue azithromycin for 5 days total. -Autoimmune studies for alveolar hemorrhage pending -Oral steroid taper over the next 5 days, given concerns for steroid- induced fugue Cardiovascular: Patient presented with demand ischemia likely related to cardiac arrest. Hypertension -Increased amlodipine to 10 mg daily and Coreg to 6.25 Gastrointestinal: - CT abdomen and pelvis without any acute concerns. Small amount of pneumatosis noted versus extraluminal gas which is likely related to barotrauma from CPR. Lactate negative. Repeat KUB 02/16/2024 revealed a nonobstructive gas pattern. Speech consult Renal: Optimize electrolytes Acute kidney injury continues to improve Infectious disease: Follow-up procalcitonin unremarkable. Continue azithromycin for the time being for atypical coverage. Legionella urine antigen negative. Fungal antibodies pending. Respiratory viral panel negative on admission. Hematologic: No evidence of hemolysis or DIC. Hemoglobin remains stable. -Given the stability of the patient's respiratory status, and likelihood the hemorrhage was related to acute pulmonary edema in the setting of aspiration/cardiac arrest I feel it is reasonable to reinitiate chemoprophylaxis Endocrine: Maintain euglycemia. Continue insulin drip while on high-dose steroids. Lines and tubes: IJ CVL discontinue CVL. Right radial arterial line discontinued 02/18, Dixon catheter placed 02/13/2024. VTE prophylaxis: SCDs Heparin CODE STATUS: Full. Physical therapy and Occupational Therapy consults Critical care needs have resolved, stable for downgrade out of ICU, critical care will sign off Admission and Anticipated Discharge Date Admission Date: February 13, 2024 Subjective Overnight patient required a short course of noninvasive ventilation and Precedex to facilitate that secondary to anxiety and tachypnea. Patient does e xhibit delirium and perseverates about abdominal pain and is not very redirectable. Family reports patient has not had bowel movement in several days Physical Exam Physical Exam: General: Alert. Waxing and waning mental status, perseverating on pain moving to the right: Family reports this is gone on for years Skin: Warm, dry, Head: Atraumatic Ears, nose, mouth and throat: airway patent Cardiovascular: Normal peripheral perfusion Respiratory: no respiratory distress Gastrointestinal: Non distended Musculoskeletal: No deformity Results & Data Results & Data Vital Signs (Past 12 Hours) Vital Signs Temp Pulse Pulse Resp BP Pulse Ox O2 Del Method 02/20/24 09:09 37.3 C 74 25 H 93 02/20/24 09:00 184/68 H 02/20/24 08:39 37.3 C 84 22 93 02/20/24 08:12 37.3 C 81 33 H 94 02/20/24 08:00 177/52 H 02/20/24 08:00 Nasal Cannula 02/20/24 08:00 84 02/20/24 07:54 37.3 C 81 32 H 93 02/20/24 07:10 83 17 94 Nasal Cannula 02/20/24 07:00 171/58 H 02/20/24 06:48 37.3 C 90 29 H 95 Nasal Cannula 02/20/24 06:09 37.3 C 87 26 H 99 02/20/24 06:00 200/74 H 02/20/24 05:42 37.3 C 93 H 24 97 02/20/24 05:03 37.3 C 85 28 H 187/66 H 97 BiPAP 10/01/24 04:00 181/64 H 02/20/24 04:00 181/64 H 02/20/24 03:57 37.3 C 90 30 H 96 02/20/24 03:42 37.3 C 89 30 H 95 02/20/24 03:42 184/61 H 02/20/24 03:42 184/61 H 02/20/24 03:33 95 H 29 H 96 02/20/24 03:11 194/53 H 02/20/24 03:11 194/53 H 02/20/24 03:06 37.3 C 100 H 29 H 95 02/20/24 03:02 216/70 H 02/20/24 03:02 216/70 H 02/20/24 03:02 216/70 H 02/20/24 03:02 216/70 H 02/20/24 02:54 37.3 C 104 H 28 H 95 02/20/24 02:15 37.2 C 101 H 28 H 96 02/20/24 02:00 179/74 H 02/20/24 01:57 37.2 C 104 H 27 H 96 02/20/24 01:03 185/64 H 02/20/24 01:03 185/64 H 02/20/24 01:03 185/64 H 02/20/24 01:03 185/64 H 02/20/24 01:00 37.2 C 107 H 36 H 94 02/20/24 00:59 186/63 H 02/20/24 00:45 37.2 C 113 H 26 H 94 02/20/24 00:36 76 19 95 Nasal Cannula 02/20/24 00:15 37.1 C 98 H 22 95 02/20/24 00:00 201/76 H 02/19/24 23:42 37.0 C 97 H 20 95 02/19/24 23:14 96 H 02/19/24 23:03 36.9 C 96 H 24 95 02/19/24 22:27 36.8 C 90 22 194/68 H 95 02/19/24 22:03 36.8 C 92 H 26 H 95 02/19/24 22:00 191/58 H 02/19/24 21:57 36.8 C 91 H 29 H 95 O2 Flow Rate FiO2 02/20/24 09:09 02/20/24 09:00 02/20/24 08:39 02/20/24 08:12 02/20/24 08:00 02/20/24 08:00 3 02/20/24 08:00 02/20/24 07:54 02/20/24 07:10 2 02/20/24 07:00 02/20/24 06:48 3 02/20/24 06:09 02/20/24 06:00 02/20/24 05:42 02/20/24 05:03 35 02/20/24 04:00 02/20/24 04:00 02/20/24 03:57 02/20/24 03:42 02/20/24 03:42 02/20/24 03:42 02/20/24 03:33 35 02/20/24 03:11 02/20/24 03:11 02/20/24 03:06 02/20/24 03:02 02/20/24 03:02 02/20/24 03:02 02/20/24 03:02 02/20/24 02:54 02/20/24 02:15 02/20/24 02:00 02/20/24 01:57 02/20/24 01:03 02/20/24 01:03 02/20/24 01:03 02/20/24 01:03 02/20/24 01:00 02/20/24 00:59 02/20/24 00:45 02/20/24 00:36 4 02/20/24 00:15 02/20/24 00:00 02/19/24 23:42 02/19/24 23:14 02/19/24 23:03 02/19/24 22:27 02/19/24 22:03 02/19/24 22:00 02/19/24 21:57 Critical Care Results & Data Vital Signs (Past 12 Hours) Vital Signs Temp Pulse Pulse Resp BP Pulse Ox O2 Del Method 02/20/24 09:09 37.3 C 74 25 H 93 02/20/24 09:00 184/68 H 02/20/24 08:39 37.3 C 84 22 93 02/20/24 08:12 37.3 C 81 33 H 94 02/20/24 08:00 177/52 H 02/20/24 08:00 Nasal Cannula 02/20/24 08:00 84 02/20/24 07:54 37.3 C 81 32 H 93 02/20/24 07:10 83 17 94 Nasal Cannula 02/20/24 07:00 171/58 H 02/20/24 06:48 37.3 C 90 29 H 95 Nasal Cannula 02/20/24 06:09 37.3 C 87 26 H 99 02/20/24 06:00 200/74 H 02/20/24 05:42 37.3 C 93 H 24 97 02/20/24 05:03 37.3 C 85 28 H 187/66 H 97 BiPAP 02/20/24 04:00 181/64 H 02/20/24 04:00 181/64 H 02/20/24 03:57 37.3 C 90 30 H 96 02/20/24 03:42 37.3 C 89 30 H 95 02/20/24 03:42 184/61 H 02/20/24 03:42 184/61 H 02/20/24 03:33 95 H 29 H 96 02/20/24 03:11 194/53 H 02/20/24 03:11 194/53 H 02/20/24 03:06 37.3 C 100 H 29 H 95 02/20/24 03:02 216/70 H 02/20/24 03:02 216/70 H 02/20/24 03:02 216/70 H 02/20/24 03:02 216/70 H 02/20/24 02:54 37.3 C 104 H 28 H 95 02/20/24 02:15 37.2 C 101 H 28 H 96 02/20/24 02:00 179/74 H 02/20/24 01:57 37.2 C 104 H 27 H 96 02/20/24 01:03 185/64 H 02/20/24 01:03 185/64 H 02/20/24 01:03 185/64 H 02/20/24 01:03 185/64 H 02/20/24 01:00 37.2 C 107 H 36 H 94 02/20/24 00:59 186/63 H 02/20/24 00:45 37.2 C 113 H 26 H 94 02/20/24 00:36 76 19 95 Nasal Cannula 02/20/24 00:15 37.1 C 98 H 22 95 02/20/24 00:00 201/76 H 02/19/24 23:42 37.0 C 97 H 20 95 02/19/24 23:14 96 H 02/19/24 23:03 36.9 C 96 H 24 95 02/19/24 22:27 36.8 C 90 22 194/68 H 95 02/19/24 22:03 36.8 C 92 H 26 H 95 02/19/24 22:00 191/58 H 02/19/24 21:57 36.8 C 91 H 29 H 95 O2 Flow Rate FiO2 02/20/24 09:09 02/20/24 09:00 02/20/24 08:39 02/20/24 08:12 02/20/24 08:00 02/20/24 08:00 3 02/20/24 08:00 02/20/24 07:54 02/20/24 07:10 2 02/20/24 07:00 02/20/24 06:48 3 02/20/24 06:09 02/20/24 06:00 02/20/24 05:42 02/20/24 05:03 35 02/20/24 04:00 02/20/24 04:00 02/20/24 03:57 02/20/24 03:42 02/20/24 03:42 02/20/24 03:42 02/20/24 03:33 35 02/20/24 03:11 02/20/24 03:11 02/20/24 03:06 02/20/24 03:02 02/20/24 03:02 02/20/24 03:02 02/20/24 03:02 02/20/24 02:54 02/20/24 02:15 02/20/24 02:00 02/20/24 01:57 02/20/24 01:03 02/20/24 01:03 02/20/24 01:03 02/20/24 01:03 02/20/24 01:00 02/20/24 00:59 02/20/24 00:45 02/20/24 00:36 4 02/20/24 00:15 02/20/24 00:00 02/19/24 23:42 02/19/24 23:14 02/19/24 23:03 02/19/24 22:27 02/19/24 22:03 02/19/24 22:00 02/19/24 21:57 Lab & Micro Results (Past 24 Hours) RBC 4.85 M/uL (4.20-5.40) 02/20/24 WBC 13.82 K/ul (4.8-10.8) H 02/20/24 Hgb 14.7 g/dl (12.0-16.0) 02/20/24 Hct 45.0 % (37.0-47.0) 02/20/24 MCV 92.8 fL (80.0-100.0) 02/20/24 MCH 30.3 pg (25.0-34.0) 02/20/24 MCHC 32.7 g/dL (32.0-36.0) 02/20/24 RDW Standard Deviation 42.9 fL (36.4-46.3) 02/20/24 RDW Coefficient of Variation 12.6 % (11.5-14.5) 02/20/24 Plt Count 279 K/uL (130-400) 02/20/24 MPV 9.7 fL (9.4-12.4) 02/20/24 Neutrophils (%) (Auto) 83.7 % 02/20/24 Lymphocytes (%) (Auto) 3.3 % 02/20/24 Monocytes # (Auto) 1.29 K/uL (0.11-0.59) H 02/20/24 Eosinophils # (Auto) 0.00 K/uL (0.00-0.50) 02/20/24 Immature Granulocyte % (Auto) 3.3 % 02/20/24 Neutrophils # (Auto) 11.58 K/uL (1.40-6.50) H 02/20/24 Lymphocytes # (Auto) 0.45 K/uL (1.20-3.40) L 02/20/24 Monocytes # (Auto) 1.29 K/uL (0.11-0.59) H 02/20/24 Eosinophils # (Auto) 0.00 K/uL (0.00-0.50) 02/20/24 Basophils # (Auto) 0.05 K/uL (0.00-0.20) 02/20/24 Immature Granulocyte # (Auto) 0.45 K/uL (0.01-0.20) H 02/19 Na 143 mmol/L (136-145) 02/20/24 K 3.9 mmol/L (3.5-5.1) 02/20/24 Cl 106 mmol/L (98-107) 02/20/24 CO2 29 mmol/L (21-32) 02/20/24 Anion Gap 8 (3-11) 02/20/24 BUN 69 mg/dl (6-23) H 02/20/24 Creatinine 1.36 mg/dl (0.6-1.2) H 02/20/24 Estimated GFR ( Amer) 40.2 ml/min 02/20/24 Estimated GFR (Non-Af Amer) 34.7 ml/min 02/20/24 BUN/Creatinine Ratio 50.7 (10-20) H 02/20/24 Glu 174 mg/dl (70-99(Fasting)) H 02/20/24 Ca 8.5 mg/dl (8.6-10.3) L 02/20/24 Phosphorus Level 3.9 mg/dl (2.5-4.9) 02/20/24 Mg 2.5 mg/dl (1.7-2.4) H 02/20/24 04:06 Calcium Level 8.5 mg/dl (8.6-10.3) L 02/20/24 04:06 I & O Totals 24 Hours 02/19/24 02/20/24 02/21/24 06:59 06:59 06:59 Intake Total 864.267 / 864.267 896.634 / 896.634 Output Total 2650 / 2650 1969 / 1969 200 / 200 Balance -1785.733 / -1785.733 -1073.366 / -1073.366 -200 / -200 Cumulative 02/13/24 15:01 thru 02/20/24 08:00 Intake Total 9473.927 Output Total 45015 Balance -2538.073 RT Ventilator Mngmt (Last Documented) Ventilator Ordered Settings Ventilator Support Mode Assist Control 02/19/24 08:30 Respiratory Rate 25 02/20/24 09:09 Ventilator Tidal Volume 380 02/19/24 08:30 Setting Minute Ventilation 5.7 02/19/24 08:30 Ventilator Positive Pressure 12 02/19/24 08:00 Support Setting Positive End Expiratory 5 02/19/24 08:30 Pressure Fraction of Inspired Oxygen 35 02/20/24 05:03 Machine Comment CHANGED BACK TO A/C BY 1430 02/18/24 15:25 Ventilator - PT Measurements Respiratory Rate 25 Exhaled Tidal Volume 380 Minute Ventilation 5.7 Peak Inspiratory Airway 21 Pressure Plateau Pressure 14.8 Respiratory Cycle Inspiratory: 1:3.8 Expiratory Ratio Inspiratory Phase Time 0.9 End-Tidal CO2 36 Static Lung Compliance 38.78 Dynamic Lung Compliance 23.75 Normal Static Lung Compliance 46.00 Patient Measurements Comment 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 RN AND KORIC AWARE. PT OBTAINING SUFFICIENT TIDAL VOLUMES. Coding Level of Care Code 50223 SUB INP/OBS CARE 3/50MIN Diagnoses Diffuse pulmonary alveolar hemorrhage R04.89 Acute encephalopathy G93.40 Aspiration pneumonia J69.0 Cardiac arrest I46.9 Arterial hypotension I95.9 DM type 2 (diabetes mellitus, type 2) E11.9 CKD (chronic kidney disease), stage III N18.3 Heart disease I51.9 HTN (hypertension) I10 Hypertension type: essential hypertension Hypokalemia E87.6 (9) HTN (hypertension) Hypertension type: essential hypertension Qualified Code(s): I10 - Essential (primary) hypertension
[2024-02-20] MEDS: LANTUS PER UNIT CHARGE SC SCH (10:55)
[2024-02-20] MEDS: amLODIPine BESYLATE 5 MG TAB PO ONE (10:55)
--- NOTE | 2024-02-20 11:12 | Hospitalist Progress Note ---
Date of Service February 20, 2024 Assessment & Plan (1) Aspiration pneumonia: (2) Cardiac arrest: Plan Patient is an 88-year-old female with past medical history significant for type 2 diabetes, renal artery stenosis, hypertension, GERD, CKD who was brought in via EMS intubated status post cardiac arrest at the [facility]. Cardiac arrest Elevated Troponin Aspiration pneumonia Pericardial effusion Diffuse pulmonary alveolar hemorrhage Patient had cardiac arrest at [facility]; ROSC achieve after 4 minutes. Was intubated and brought to the hospital Chest x-ray on admission showed multiple airspace opacity Chest CT does extensive diffuse multifocal air space opacity. Echocardiogram shows EF of 60 to 65% with moderate concentric LVH, severe mitral annular calcification. Small loculated right lateral pericardial effusion Bronchoscopy done on 02/12: " airways appeared hyperemic with bloody secretions emanating from bilateral lower lobes. Washings were performed of the right lower lobe and sent for culture and cytology. Approximately 150 mL of saline was used to wash the bilateral lungs and clear his own secretions and blood. No obvious active bleeding was noted". Bronchial sample from 02/12- light normal tania Bronchoscopy on 02/14 showed findings suggestive of diffuse alveolar hemorrhage. MRI Brain wo contrast- no acute findings Patient was extubated on 02/15 and required reintubation on the same day due to hypoxia Patient again extubated on 02/18; currently on nasal cannula On prednisone 40 mg once a day; plan to continue for 5 more days. 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 Diet: CLD DVT prophylaxis: SCDs Due to diffuse pulmonary alveolar hemorrhage Dispo:PT OT pending; will likely need rehab at discharge. Updated patient's son Angel and daughter in law Erika at bedside on 02/17/2024. Answered questions/queries. Time spent evaluating patient, direct bedside care, chart review, placing orders, interpretation of diagnostic studies, as well as other required patient management activities is 50 minutes Please note the above document was generated using voice recognition software. It may contain grammatical, syntax or spelling errors. Any formal questions or concerns about the content, text or information contained within the body of this dictation should be directly addressed to the provider for clarification Admission and Anticipated Discharge Date Admission Date: February 13, 2024 Subjective Patient seen and examined at bedside. She is awake, oriented to self. She is on nasal cannula at 3 L/min. She is on Precedex for anxiety No significant events overnight Review of Systems Review of Systems: Unobtainable due to cognitive status Physical Exam Physical Exam: Constitutional: Awake, oriented to self. Able to follow simple one-step commands Respiratory: Decreased breath sound at bases Cardiovascular: S1-S2, no murmur Chest: normal inspection of chest Abdomen: normal bowel sounds, soft Musculoskeletal: no cyanosis or clubbing, Skin: no rashes, warm and dry normal turgor Neurologic: Awake and moving all her extremities. Results & Data Results & Data Vital Signs (Past 12 Hours) Vital Signs Temp Pulse Pulse Resp BP Pulse Ox O2 Del Method 02/20/24 09:09 37.3 C 74 25 H 93 02/20/24 09:00 184/68 H 02/20/24 08:39 37.3 C 84 22 93 02/20/24 08:12 37.3 C 81 33 H 94 02/20/24 08:00 177/52 H 02/20/24 08:00 Nasal Cannula 02/20/24 08:00 84 02/20/24 07:54 37.3 C 81 32 H 93 02/20/24 07:10 83 17 94 Nasal Cannula 02/20/24 07:00 171/58 H 02/20/24 06:48 37.3 C 90 29 H 95 Nasal Cannula 02/20/24 06:09 37.3 C 87 26 H 99 02/20/24 06:00 200/74 H 02/20/24 05:42 37.3 C 93 H 24 97 02/20/24 05:03 37.3 C 85 28 H 187/66 H 97 BiPAP 02/20/24 04:00 181/64 H 02/20/24 04:00 181/64 H 02/20/24 03:57 37.3 C 90 30 H 96 02/20/24 03:42 37.3 C 89 30 H 95 02/20/24 03:42 184/61 H 02/20/24 03:42 184/61 H 02/20/24 03:33 95 H 29 H 96 02/20/24 03:11 194/53 H 02/20/24 03:11 194/53 H 02/20/24 03:06 37.3 C 100 H 29 H 95 02/20/24 03:02 216/70 H 02/20/24 03:02 216/70 H 02/20/24 03:02 216/70 H 02/20/24 03:02 216/70 H 02/20/24 02:54 37.3 C 104 H 28 H 95 02/20/24 02:15 37.2 C 101 H 28 H 96 02/20/24 02:00 179/74 H 02/20/24 01:57 37.2 C 104 H 27 H 96 02/20/24 01:03 185/64 H 02/20/24 01:03 185/64 H 02/20/24 01:03 185/64 H 02/20/24 01:03 185/64 H 02/20/24 01:00 37.2 C 107 H 36 H 94 02/20/24 00:59 186/63 H 02/20/24 00:45 37.2 C 113 H 26 H 94 02/20/24 00:36 76 19 95 Nasal Cannula 02/20/24 00:15 37.1 C 98 H 22 95 02/20/24 00:00 201/76 H 02/19/24 23:42 37.0 C 97 H 20 95 02/19/24 23:14 96 H O2 Flow Rate FiO2 02/20/24 09:09 02/20/24 09:00 02/20/24 08:39 02/20/24 08:12 02/20/24 08:00 02/20/24 08:00 3 02/20/24 08:00 02/20/24 07:54 02/20/24 07:10 2 02/20/24 07:00 02/20/24 06:48 3 02/20/24 06:09 02/20/24 06:00 02/20/24 05:42 02/20/24 05:03 35 02/20/24 04:00 02/20/24 04:00 02/20/24 03:57 02/20/24 03:42 02/20/24 03:42 02/20/24 03:42 02/20/24 03:33 35 02/20/24 03:11 02/20/24 03:11 02/20/24 03:06 02/20/24 03:02 02/20/24 03:02 02/20/24 03:02 02/20/24 03:02 02/20/24 02:54 02/20/24 02:15 02/20/24 02:00 02/20/24 01:57 02/20/24 01:03 02/20/24 01:03 02/20/24 01:03 02/20/24 01:03 02/20/24 01:00 02/20/24 00:59 02/20/24 00:45 02/20/24 00:36 4 02/20/24 00:15 02/20/24 00:00 02/19/24 23:42 02/19/24 23:14
[2024-02-20] MEDS: ACETAMINOPHEN 325 MG TAB PO PRN (11:36)
[2024-02-20] MEDS: carvediloL 6.25 MG TAB PO SCH (17:48)
[2024-02-20] MEDS: TIMOLOL MALEATE 0.5% OP SOLN 5 ML BTL OPR SCH (19:51)
[2024-02-20] MEDS: QUEtiapine FUMARATE 25 MG TABLET PO SCH (21:11)
[2024-02-21 04:36] LABS: Basophils # (auto) 0.04 K/uL (0.00-0.20); Basophils % (auto) 0.3 %; Eosinophils # (auto) 0.07 K/uL (0.00-0.50); Eosinophils % (auto) 0.5 %; Hematocrit (blood only) 45.6 % (37.0-47.0); Hemoglobin 14.8 g/dl (12.0-16.0); Immature Granulocytes # (auto) 0.37 K/uL (0.01-0.20); Immature Granulocytes % (auto) 2.7 %; Lymphocytes # (auto) 1.41 K/uL (1.20-3.40); Lymphocytes % (auto) 10.2 %; Mean Corpuscular Hgb Conc 32.5 g/dL (32.0-36.0); Mean Corpuscular Volume 92.5 fL (80.0-100.0); Mean Platelet Volume 9.5 fL (9.4-12.4); Monocytes # (auto) 2.37 K/uL (0.11-0.59); Monocytes % (auto) 17.1 %; Neutrophils % (auto) 69.2 %; Platelet Count 262 K/uL (130-400); RDW Coefficient of Variation 12.8 % (11.5-14.5); RDW Standard Deviation 43.6 fL (36.4-46.3); Red Blood Count 4.93 M/uL (4.20-5.40); White Blood Count 13.86 K/ul (4.8-10.8)
[2024-02-21 04:58] LABS: BUN Creatinine Ratio 46.9 (10-20); Calcium 8.6 mg/dl (8.6-10.3); Creatinine Clr Calc Pharmacy 32.3 ml/min; Est GFR (African American) 43.2 ml/min; Est GFR (Non-African American) 37.3 ml/min; Magnesium 2.7 mg/dl (1.7-2.4); Phosphorus 2.7 mg/dl (2.5-4.9)
[2024-02-21] MEDS: carvediloL 12.5 MG TAB PO ONE (06:34)
[2024-02-21] MEDS: ACETAMINOPHEN 325 MG TAB PO STA (06:34)
[2024-02-21] MEDS ORDERED: Nursing to Pharmacy Communication SCH ×2 (07:15→20:00)
[2024-02-21] MEDS: predniSONE 10 MG TABLET PO SCH (08:15)
[2024-02-21] MEDS: amLODIPine BESYLATE 5 MG TAB PO SCH (08:16)
[2024-02-21] MEDS: INSULIN ASPART PER UNIT CHARGE SC SCH ×2 (09:53→23:53)
--- NOTE | 2024-02-21 15:14 | Cardiology Progress Note ---
Date of Service February 21, 2024 Assessment & Plan (1) Aspiration pneumonia: (2) Diffuse pulmonary alveolar hemorrhage: (3) Acute encephalopathy: (4) Cardiac arrest: (5) Pericardial effusion: (6) Left bundle branch block: (7) HTN (hypertension): Plan 88-year-old female who initially admitted after acute respiratory arrest/cardiac arrest. Evaluated by Dr. Hunt during the first few days of admission. Echocardiogram post event revealing preserved LV systolic function without regional wall motion abnormality. Small loculated pericardial effusion without hemodynamic significance noted. She is now extubated. Alert and answering questions appropriately Patient with chronic LBBB. Has had intermittent wide complex tachycardia since admission. Also uncontrolled hypertension Amlodipine initiated and titrated to 10 mg daily Carvedilol initiated at 6.25 mg BID, increased to 12.5 mg Losartan resumed at 12.5 mg. She received dose of IV enalapril today. Given wide complex tachycardia, recommend transitioning to oral metoprolol starting tonight. Potassium and magnesium levels acceptable. Increase losartan to 50 mg. Give additional dose of 25 mg today Case discussed with Dr. Charles Jackson spent a total of 35 minutes on the date of service in preparation, delivery, and documentation of the care provided to this patient, excluding any time spent in the performance of separately billed services. Renetta Chand PA-C Department of Cardiology, [facility] This chart was completed in part utilizing Speech Voice Recognition Software. Grammatical errors, random word insertions, pronoun errors, and incomplete sentences are an occasional consequence of this system due to software limitations, ambient noise, and hardware issues. Any formal questions or concerns about the content, text, or information contained within the body of this dictation should be directly addressed to the provider for clarification. Admission and Anticipated Discharge Date Admission Date: February 13, 2024 Supervising Physician Co-Signing Physician Notes Patient was seen and personally examined Complex recent history now extubated x 2 days still very uncomfortable. Requiring 3 L nasal cannula at rest. Blood pressures now trending high Telemetry with intermittent wide-complex tachycardia atrial versus ventricular with baseline left bundle branch block present Plan as outlined. Resume antihypertensive regimen. Will use metoprolol succinate over carvedilol Add topical nitrates for additional hypertension control with 1/2 inch every 6. May be removed for hypotension Limited echocardiogram in a.m. repeat assess LV function and pericardial effusion Aggressive pulmonary toilet, patient respiratory status remains marginal Portable chest x-ray ordered for a.m. Initial cardiac arrest appear to be secondary to acute pulmonary issues, possible aspiration but with underlying conduction system disease present Currently no indications for pacer defibrillator but will follow closely Expect blood pressure and heart rates to improve with initiation of therapies as above I spent a total of 25 minutes on the date of service in preparation, delivery, and documentation of the care provided to this patient, excluding any time spent in the performance of separately billed services. This chart was completed in part utilizing Speech Voice Recognition Software. Grammatical errors, random word insertions, pronoun errors, and incomplete sentences are an occasional consequence of this system due to software limitations, ambient noise, and hardware issues. Any formal questions or concerns about the content, text, or information contained within the body of this dictation should be directly addressed to the provider for clarification. Subjective Cardiology re-consulted this admission for management of hypertension. Admission on 02/13 after episode of respiratory arrest secondary to aspiration of oral contrast in the outpatient setting, with resultant loss of consciousness, bradycardia and loss of pulse, requiring 4 minutes of CPR with return of c irculation. Intubated in the field. Wide complex tachycardia noted and defibrillated in the field. Patient has since been successfully extubated. Oral medications resumed. She is now on carvedilol 12.5 mg BID, amlodipine 10 mg and losartan resumed this morning. BP has been persistently elevated since admission. At time of evaluation, patient resting in bed. Reports ongoing soreness in her throat. Difficulty speaking but answers questions appropriately. Denies current chest pain. She has reported intermittent chest pain since extubation, likely due to CPR. Ongoing SOB/wheezing reported. No edema. She continues to have intermittent short runs of wide complex tachycardia on monitor. Chronic LBBB noted. Review of Systems 2 Review of Systems: All systems reviewed & are unremarkable except as noted in HPI & below Physical Exam Constitutional: no acute distress Respiratory: Auscultation: + rhonchi and + wheezes Cardiovascular: Rate/Rhythm: regular rate and regular rhythm Heart Sounds: normal S1 and normal S2; no murmur Extremities: no edema Gastrointestinal (Abdomen): Inspection/Auscultation: abdomen not distended Percussion/Palpation: abdomen soft; abdomen nontender, no guarding and abdomen not rigid Results & Data Vital Signs (Past 12 Hours) Vital Signs Temp Pulse Pulse Resp BP Pulse Ox O2 Del Method 02/21/24 14:03 37.4 C 87 39 H 95 02/21/24 13:49 200/59 H 02/21/24 13:36 37.5 C 83 25 H 98 02/21/24 13:25 196/68 H 02/21/24 13:21 37.5 C 81 32 H 98 02/21/24 13:00 37.5 C 84 22 97 02/21/24 12:06 37.5 C 84 30 H 94 02/21/24 12:01 187/68 H 02/21/24 11:39 37.5 C 81 27 H 94 02/21/24 11:18 37.5 C 77 26 H 94 02/21/24 10:00 37.7 C H 78 28 H 98 02/21/24 09:06 37.8 C H 76 33 H 99 02/21/24 08:00 152/57 H 02/21/24 08:00 37.8 C H 79 27 H 96 02/21/24 07:42 37.8 C H 75 28 H 97 02/21/24 07:37 Nasal Cannula 02/21/24 07:37 107 H 02/21/24 07:08 86 24 97 Nasal Cannula 02/21/24 07:05 154/49 H 02/21/24 07:00 37.7 C H 92 H 28 H 97 Nasal Cannula 02/21/24 06:30 37.8 C H 94 H 32 H 96 02/21/24 06:03 200/66 H 02/21/24 05:48 37.8 C H 87 32 H 97 02/21/24 05:12 37.7 C H 93 H 32 H 98 02/21/24 05:02 181/63 H 02/21/24 04:51 37.8 C H 92 H 29 H 98 02/21/24 04:09 37.8 C H 97 H 28 H 02/21/24 04:01 181/69 H 02/21/24 03:57 37.7 C H 110 H 27 H 94 02/21/24 03:27 37.8 C H 77 28 H 97 02/21/24 03:26 188/62 H 02/21/24 03:24 194/65 H 02/21/24 03:24 37.8 C H 79 26 H 95 O2 Flow Rate 10/02/24 14:03 02/21/24 13:49 02/21/24 13:36 02/21/24 13:25 02/21/24 13:21 02/21/24 13:00 02/21/24 12:06 02/21/24 12:01 02/21/24 11:39 02/21/24 11:18 02/21/24 10:00 02/21/24 09:06 02/21/24 08:00 02/21/24 08:00 02/21/24 07:42 02/21/24 07:37 3 02/21/24 07:37 02/21/24 07:08 2 02/21/24 07:05 02/21/24 07:00 3 02/21/24 06:30 02/21/24 06:03 02/21/24 05:48 02/21/24 05:12 02/21/24 05:02 02/21/24 04:51 02/21/24 04:09 02/21/24 04:01 02/21/24 03:57 02/21/24 03:27 02/21/24 03:26 02/21/24 03:24 02/21/24 03:24 Laboratory Results CBC 02/21/24 Range/Units 04:10 WBC 13.86 H (4.8-10.8) K/ul RBC 4.93 (4.20-5.40) M/uL Hgb 14.8 (12.0-16.0) g/dl Hct 45.6 (37.0-47.0) % Plt Count 262 (130-400) K/uL Neut # (Auto) 9.60 H (1.40-6.50) K/uL Lymph # (Auto) 1.41 (1.20-3.40) K/uL [place] # (Auto) 2.37 H (0.11-0.59) K/uL Eos # (Auto) 0.07 (0.00-0.50) K/uL Baso # (Auto) 0.04 (0.00-0.20) K/uL Comprehensive Metabolic Panel 02/21/24 Range/Units 04:10 Sodium 142 (136-145) mmol/L Potassium 4.0 (3.5-5.1) mmol/L Chloride 107 (98-107) mmol/L Carbon Dioxide 29 (21-32) mmol/L BUN 60 H (6-23) mg/dl Creatinine 1.28 H (0.6-1.2) mg/dl Glucose 125 H (70-99(Fasting)) mg/dl Calcium 8.6 (8.6-10.3) mg/dl Intake and Output 02/21/24 02/21/24 02/21/24 06:59 14:59 22:59 Output Total 425 / 1100 450 / 450 Balance -425 / -670.00 -450 / -450 Output: Urine Amount (Catheter) 425 / 1050 450 / 450 Dixon/Indwelling 425 / 1050 450 / 450 Other: Weight 75.8 kg Weight Measurement Method Built in [facility] Diagnostic Findings Telemetry reviewed: NSR with LBBB pattern. Short runs of non sustained wide complex tachycardia over the last few days lasting 5-10 beats. Frequent atrial/ventricular ectopy. Medications Administered Current Inpatient Medications Acetaminophen (Acetaminophen 325 Mg Tab) 650 mg PO Q6H PRN PRN Reason: Pain Stop: 03/21/24 11:29 Last Admin: 02/20/24 11:36 Dose: 650 mg Amlodipine Besylate (Amlodipine Besylate 5 Mg Tab) 10 mg PO QAM [facility] Stop: 03/22/24 08:59 Last Admin: 02/21/24 08:16 Dose: 10 mg Brimonidine Tartrate (Brimonidine Tartrate 0.2% 5ml) 1 drops OPR BID [facility] Stop: 03/22/24 20:59 Budesonide (Budesonide 0.5 Mg/2 Ml Vial (Pulmicort)) 0.5 mg NEB BIDR [facility] Stop: 03/16/24 18:59 Last Admin: 02/21/24 07:08 Dose: 0.5 mg Carvedilol (Carvedilol 12.5 Mg Tab) 12.5 mg PO BIDM [facility] Stop: 03/22/24 16:59 Dextrose (Dextrose 50% 50 Ml Syringe) 25 - 50 ml IV UD PRN; Protocol PRN Reason: Hypoglycemia Protocol Stop: 03/16/24 03:18 Glucagon (Glucagon For Inj 1 Mg Vial) 1 mg SQ UD PRN; Protocol PRN Reason: Hypoglycemia Protocol Stop: 03/16/24 03:18 Glucose (Glucose 40% Gel 15 Gm Tube) 15 - 30 gm PO UD PRN; Protocol PRN Reason: Hypoglycemia Protocol Stop: 03/16/24 03:18 Glucose (Glucose 10 Tab/Tube) 4 - 8 tab PO UD PRN; Protocol PRN Reason: Hypoglycemia Treatment Stop: 03/16/24 03:18 Heparin Sodium (Beef Lung) (Heparin 10 Unit/Ml 5 Ml Flush) 5 ml FLUSH PRN PRN PRN Reason: Flush Stop: 03/15/24 05:46 Heparin Sodium (Porcine) (Heparin Sod 5,000 Unit/0.5 Ml Vial) 5,000 units SQ Q12 [facility] Stop: 03/15/24 20:59 Last Admin: 02/21/24 08:27 Dose: 5,000 units Hydralazine HCl (Hydralazine Hcl 20 Mg/Ml Vial) 10 mg IV Q4H PRN PRN Reason: SBP >180 Stop: 03/19/24 19:10 Last Admin: 02/21/24 13:33 Dose: 10 mg Insulin Aspart (Insulin Aspart Per Unit Charge) 0 units SC [facility] Stop: 03/21/24 00:00 Last Admin: 02/21/24 13:22 Dose: 4 units Insulin Glargine (Lantus Per Unit Charge) 0 units SC DAILY [facility]; Protocol Stop: 03/21/24 10:29 Last Admin: 02/21/24 08:27 Dose: Not Given Losartan Potassium (Losartan Potassium 25 Mg Tab) 12.5 mg PO QAM [facility] Stop: 03/23/24 08:59 Miscellaneous (Carbohydrates For Hypoglycemia ) 15 - 30 gm PO UD PRN PRN Reason: Hypoglycemia Protocol Stop: 03/16/24 03:18 Ondansetron HCl (Ondansetron Inj 2 Mg/Ml 2 Ml Vial) 4 mg IV Q6H PRN PRN Reason: Nausea And Vomiting Stop: 03/17/24 14:01 Last Admin: 02/21/24 14:21 Dose: 4 mg Pantoprazole Sodium (Pantoprazole 40 Mg Tab) 40 mg PO DAILY [facility] Stop: 03/23/24 08:59 Prednisone (Prednisone 10 Mg Tablet) 40 mg PO DAILY [facility]; Taper Stop: 02/26/24 08:59 Last Admin: 02/21/24 08:15 Dose: 40 mg Quetiapine Fumarate (Quetiapine Fumarate 25 Mg Tablet) 50 mg PO HS [facility] Stop: 03/21/24 20:59 Last Admin: 02/20/24 21:11 Dose: 50 mg Timolol Maleate (Timolol Maleate 0.5% Op Soln 5 Ml Btl) 1 drops OPR BID [facility] Stop: 03/21/24 20:59 Last Admin: 02/21/24 08:15 Dose: 1 drops Timolol Maleate (Timolol Maleate 0.5% Op Soln 5 Ml Btl) 1 drops OPR BID [facility] Stop: 03/22/24 20:59 (7) HTN (hypertension) Hypertension type: essential hypertension Qualified Code(s): I10 - Essential (primary) hypertension
[2024-02-21] MEDS ORDERED: MIDAZOLAM HCL 5 MG/ML 2ML VIAL IV ONE (15:41)
[2024-02-21] MEDS ORDERED: ETOMIDATE 2 MG/ML 20 ML VIAL IV ONE (15:41)
[2024-02-21] MEDS ORDERED: ROCURONIUM BROMIDE 10 MG/ML 5 ML VIAL IV ONE (15:41)
[2024-02-21] MEDS: LOSARTAN POTASSIUM 25 MG TAB PO ONE (16:17)
--- NOTE | 2024-02-21 16:58 | Hospitalist Progress Note ---
Date of Service February 21, 2024 Assessment & Plan (1) Aspiration pneumonia: (2) Cardiac arrest: Plan Patient is an 88-year-old female with past medical history significant for type 2 diabetes, renal artery stenosis, hypertension, GERD, CKD who was brought in via EMS intubated status post cardiac arrest at the [facility]. Cardiac arrest Elevated Troponin Aspiration pneumonia Pericardial effusion Diffuse pulmonary alveolar hemorrhage Small loculated right lateral pericardial effusion Patient had cardiac arrest at [facility]; ROSC achieve after 4 minutes. Was intubated and brought to the hospital --Chest x-ray on admission showed multiple airspace opacity --Chest CT does extensive diffuse multifocal air space opacity. --Echocardiogram shows EF of 60 to 65% with moderate concentric LVH, severe mitral annular calcification. Small loculated right lateral pericardial effusion --Bronchoscopy done on 02/12: " airways appeared hyperemic with bloody secretions emanating from bilateral lower lobes. Washings were performed of the right lower lobe and sent for culture and cytology. Approximately 150 mL of saline was used to wash the bilateral lungs and clear his own secretions and blood. No obvious active bleeding was noted". --Bronchial sample from 02/12- light normal tania --Bronchoscopy on 02/14 showed findings suggestive of diffuse alveolar hemorrhage. --MRI Brain wo contrast- no acute findings --Patient was extubated on 02/15 and required reintubation on the same day due to hypoxia --Patient again extubated on 02/18; currently on nasal cannula -- Completed 5-day course of Zosyn, azithromycin -Wean off of supplemental oxygen as able- --continue prednisone for 5 more days --Continue PT OT, speech eval --Appreciate critical care, cardiology input Hypertensive urgency Continue amlodipine 10 mg daily Continue losartan 50 mg daily Carvedilol changed to metoprolol 25 mg twice daily IV hydralazine as needed Also started nitroglycerin Appreciate cardiology input Monitor blood pressure and adjust medications as needed Chronic conditions; Type 2 diabetes mellitus; maintain euglycemic state; on insulin drip Hypertension -monitor, on amlodipine and coreg. DVT Px: SCDs Due to diffuse pulmonary alveolar hemorrhage CODE STATUS Full code Disposition PT OT prior to discharge Admission and Anticipated Discharge Date Admission Date: February 13, 2024 Subjective Patient is seen and examined at bedside Reports throat pain and nausea Also reports intermittent chest discomfort No other complaints today Noted blood pressure elevation today Saturating well on 3 L supplemental oxygen Review of Systems Review of Systems: All systems reviewed & are unremarkable except as noted in Subjective Physical Exam Physical Exam: Physical Exam: Vitals signs as noted above General Appearance:Moderately built and nourished, ill-appearing, elderly, no apparent distress Head: normocephalic, Atraumatic Eyes: normal inspection, EOMI Neck: supple, Trachea midline Respiratory/Chest: Normal breath sounds, scattered wheezes, rhonchi, No accessory muscle use Cardiovascular: S1, S2, No murmur Abdomen/GI:Soft, Non tender, Bowel sounds present Extremities/Musculoskeletal:normal inspection, no edema Neurologic/Psych:AAOX3, grossly no focal neurological deficits Skin: normal color, warm Results & Data Results & Data Vital Signs (Past 12 Hours) Vital Signs Temp Pulse Pulse Resp BP Pulse Ox O2 Del Method 02/21/24 16:00 94 H 02/21/24 16:00 37.2 C 90 29 H 92 02/21/24 16:00 184/61 H 02/21/24 15:03 37.2 C 86 26 H 94 02/21/24 14:23 182/84 H 02/21/24 14:18 37.3 C 94 H 29 H 92 02/21/24 14:03 37.4 C 87 39 H 95 02/21/24 13:49 200/59 H 02/21/24 13:36 37.5 C 83 25 H 98 02/21/24 13:25 196/68 H 02/21/24 13:21 37.5 C 81 32 H 98 02/21/24 13:00 37.5 C 84 22 97 02/21/24 12:06 37.5 C 84 30 H 94 02/21/24 12:01 187/68 H 02/21/24 11:39 37.5 C 81 27 H 94 02/21/24 11:18 37.5 C 77 26 H 94 02/21/24 10:00 37.7 C H 78 28 H 98 02/21/24 09:06 37.8 C H 76 33 H 99 02/21/24 08:00 152/57 H 02/21/24 08:00 37.8 C H 79 27 H 96 02/21/24 07:42 37.8 C H 75 28 H 97 02/21/24 07:37 Nasal Cannula 02/21/24 07:37 107 H 02/21/24 07:08 86 24 97 Nasal Cannula 02/21/24 07:05 154/49 H 02/21/24 07:00 37.7 C H 92 H 28 H 97 Nasal Cannula 02/21/24 06:30 37.8 C H 94 H 32 H 96 02/21/24 06:03 200/66 H 02/21/24 05:48 37.8 C H 87 32 H 97 02/21/24 05:12 37.7 C H 93 H 32 H 98 02/21/24 05:02 181/63 H O2 Flow Rate 02/21/24 16:00 02/21/24 16:00 02/21/24 16:00 02/21/24 15:03 02/21/24 14:23 02/21/24 14:18 02/21/24 14:03 02/21/24 13:49 02/21/24 13:36 02/21/24 13:25 02/21/24 13:21 02/21/24 13:00 02/21/24 12:06 02/21/24 12:01 02/21/24 11:39 02/21/24 11:18 02/21/24 10:00 02/21/24 09:06 02/21/24 08:00 02/21/24 08:00 02/21/24 07:42 02/21/24 07:37 3 02/21/24 07:37 02/21/24 07:08 2 02/21/24 07:05 02/21/24 07:00 3 02/21/24 06:30 02/21/24 06:03 02/21/24 05:48 02/21/24 05:12 02/21/24 05:02 Laboratory Results Short CBC 02/21/24 Range/Units 04:10 WBC 13.86 H (4.8-10.8) K/ul Hgb 14.8 (12.0-16.0) g/dl Hct 45.6 (37.0-47.0) % Plt Count 262 (130-400) K/uL BMP 02/21/24 04:10 Sodium 142 Potassium 4.0 Chloride 107 Carbon Dioxide 29 BUN 60 H Creatinine 1.28 H Glucose 125 H Calcium 8.6
[2024-02-21] MEDS ORDERED: carvediloL 12.5 MG TAB PO SCH (17:00)
[2024-02-21] MEDS: NITROGLYCERIN 2% OINTMENT 30GM TUBE EXT SCH (17:19)
[2024-02-21] MEDS: ENALAPRILAT 0.625 MG in SYRINGE 9.5 ML IV ONE (17:20)
[2024-02-21] MEDS ORDERED: STAT IV Infusion **Titration per Protocol STA ×3 (18:03→18:21)
--- NOTE | 2024-02-21 18:05 | XRay Report ---
XR chest 1V portable HISTORY: 88 years-old Female Hypoxia acute shortness of breath COMPARISON: 02/19/2024 TECHNIQUE: AP view of the chest FINDINGS: Cardiac silhouette is enlarged. Pulmonary vascular congestion with interstitial coarsening. Status po st extubation with removal of the enteric tube and right IJ catheter. Mildly improved aeration of the right lung. Bilateral mixed interstitial and alveolar opacities redemonstrated with left greater matthew n right layering pleural effusions and bibasilar consolidation. Bones appear grossly intact. IMPRESSION: 1. Status post extubation. 2. Cardiomegaly with persistent mixed interstitial and alveolar opacities. There is mildly improved a eration of the right lung. 3. Layering pleural effusions with bibasilar consolidation redemonstrated. ACT 112: Negative or not required by law. The above report was generated using voice recognition software. It may contain grammatical, syntax o r spelling errors. Electronically signed by: Major Maloney M.D. 02/21/2024 6:04 PM
[2024-02-21 18:12] LABS: iSTAT Allen Test Pass; iSTAT Art Bld Gas pCO2 Correct 65 mmHg (35-46); iSTAT Art Bld Gas pH Corrected 7.278 (7.35-7.45); iSTAT Arterial Blood Gas HCO3 31 meg/L (19-24); iSTAT Arterial Blood Gas pCO2 65 mmHg (35-46); iSTAT Arterial Blood Gas pH 7.28 (7.35-7.45); iSTAT Arterial Blood Gas pO2 58 mmHg (80-95); iSTAT Arterial Blood Gas pO2 C 58; iSTAT Carbon Dioxide 32 mmol/L (24-31); iSTAT Hematocrit 44 % (37-47); iSTAT Potassium 4.4 mmol/L (3.3-5.0); iSTAT Site L Radial; iSTAT Sodium 143 mmol/L (135-144)
--- NOTE | 2024-02-21 18:18 | Electrocardiogram Report ---
Test Reason : Blood Pressure : */* mmHG Vent. Rate : 100 BPM Atrial Rate : 94 BPM P-R Int : 168 ms QRS Dur : 136 ms QT Int : 380 ms P-R-T Axes : * -53 124 degrees QTcB Int : 490 ms Sinus rhythm with Premature supraventricular complexes Left axis deviation Left bundle branch block Abnormal ECG When compared with ECG of 16-Feb-2024 16:25, QRS duration has decreased Confirmed by August Esquivel ([id number]) on 02/21/2024 6:17:35 PM Referred By: REFERRED SELF Confirmed By: August Esquivel
--- NOTE | 2024-02-21 18:19 | Communication Note ---
Date of Service: February 21, 2024 Patient clinically deteriorated complaining of shortness of breath. Noted to be sinus tachycardia with PVCs and PACs. Blood pressure significantly elevated. ABG consistent with respiratory acidosis. Placed on BiPAP and given a dose of IV Lasix. Transferred patient back to ICU status. ICU team plans to intubate the patient. Patient's son updated over the phone.
--- NOTE | 2024-02-21 18:21 | Procedure Note ---
Procedure Note Date of Service February 21, 2024 INTUBATION PROCEDURE NOTE: Proceduralist: Baron SANDOVAL ([facility]) Attending: Dr. Baker Sedation/medications: Dr. Marie Patient was evaluated and required intubation for: Respiratory failure on BiPAP with increasing CO2, Tachypnea, Tachycardia Sedative agent used: Etomidate, Midazolam Paralysis agent used: Rocuronium Emergent consent was implied given patients rapidly declining clinical status related to work of breathing, hypercarbia, tachycardia, pulmonary edema and need for airway protection. The patient was prepared in the appropriate fashion. The patient was easily ventilated BIPAP with back up rate and 100% oxygenation, VTs were adequate with chest rise and fall with 100% SPO2 prior to medications. Sedation was achieved utilizing Etomidate, Versed and Rocuronium, per Dr. Marie's direction. Once desired effects of medications were achieved, patient's dentures were removed and given to the nurse, airway was opened with scissor technique, GlideScope video laryngoscopy was advanced to obtain Grade II view of vocal chords. A 7.5 [place] endotracheal tube was placed under direct VL to 24 cm at the lip. The stylette was removed and balloon was inflated with 10mL of air. Appropriate Colorimetric change was appreciated. Bilateral breath sounds were heard without air sounds in the abdomen. Dr. Marie was present for the entire procedure. Post Intubation Chest X-ray confirms placement without pneumothorax- ETT withdrawl 1 cm Patient tolerated the procedure well and there were no immediate complications. [facility] [place] Procedure Codes (Charges) Resuscitation Resuscitation: 37001 Endotracheal Intubation, emergency Coding CPT Codes Resuscitation - Resuscitation: 93707 Endotracheal Intubation, emergency ([id number]) Additional Codes Date of Service ([email or web address])
--- NOTE | 2024-02-21 18:28 | Critical Care Consultation ---
Date of Consultation February 21, 2024 History of Present Illness Attending Physician: Emerson Ramos MD Allergies Allergy/AdvReac Type Severity Reaction Status Date / Time Iodinated Contrast Media Allergy Severe Anaphylaxis Verified 02/13/24 20:21 latex Allergy Intermediate RED RASH Verified 06/12/23 14:35 [id number] Reductase Allergy Intermediate muscle Verified 06/12/23 14:35 Inhibitor pain/can't [Kfgkisf-Une-Yla Reductase concentrate/dizzy/nausea Inhibitor] Home Medications Medication Instructions Recorded Confirmed Type multivitamin (Multiple Vitamins 1 tab PO QAM 01/03/19 02/13/24 History tablet) losartan 25 mg tablet 12.5 mg PO QAM 05/31/19 02/13/24 History aspirin 81 mg tablet,delayed 81 mg PO QAM 10/23/19 02/13/24 History release (Mariella Low Dose Aspirin) furosemide 20 mg tablet 20 mg PO QAM 06/12/23 02/13/24 History omeprazole 20 mg capsule,delayed 20 mg PO QAM 06/12/23 02/13/24 History release insulin aspart U-100 100 unit/mL 30 unit (0.3 mL) subcut DAILY #30 12/22/23 02/13/24 Rx (3 mL) subcutaneous pen (Novolog mL FlexPen U-100 Insulin aspart) Contour Next Test Strips (blood #300 ea 01/23/24 02/13/24 Rx sugar diagnostic) calcium carbonate 600 mg-vitamin 1 tab PO BID 02/13/24 02/13/24 History D3 20 mcg (800 unit) tablet (Caltrate with Vitamin D3) insulin degludec 100 unit/mL (3 24 unit subcut HS 02/13/24 02/13/24 History mL) subcutaneous pen (Tresiba FlexTouch U-100 insulin) timolol maleate 0.5 % eye drops 1 drp OPR BID 02/13/24 02/13/24 History brimonidine 0.2 % ophthalmic (eye) BID 02/21/24 02/21/24 History Patient History Medical History Dysphagia Osteoarthritis Chronic back pain GERD (gastroesophageal reflux disease) Diabetes mellitus, type 2 Anxiety Hypertension Hyperlipidemia Cardiac murmur follows with Dr. Esquivel Esophageal spasm Surgical History History of total hysterectomy with bilateral salpingo-oophorectomy (BSO) History of dilatation and curettage History of surgery Status post right renal artery stent 2014 History of tooth extraction upper teeth History of wisdom tooth extraction History of bilateral cataract extraction History of colonoscopy Hx laparoscopic cholecystectomy H/O esophagogastroduodenoscopy H/O breast surgery "left breast duct excision" S/P tonsillectomy and adenoidectomy S/P appendectomy Family History Father Heart disease Mother Heart disease Family history of reaction to anesthesia had tear duct sx--right side of head "hair turned white" Diabetes Hypertension Stroke Denies family history of Crohn's disease Colorectal cancer Ulcerative colitis Social History Smoking Status: Unknown if ever smoked packs per day: 1; Second Hand Exposure: Yes (parents smoked); Do You Dip or Chew Tobacco: No; Preferred Language: Malawian Communication Ability: Impaired Communication Ability Comment: Unable to obtain Sweeper Brush Maker Machine Required: No Beliefs That Will Affect Care: Rastafari Rastafari Beliefs: Lutheran marital status: / Current Living Situation: Alone Current Living Situation Comment: Unable to obtain current occupational status: retired How many Children do You have: 2 Feels Safe at Home: Yes Diet: diabetic during the past year weight has: decreased > 10 lbs Assistive Devices: Cane and Walker Results & Data Results & Data Vital Signs (Past 12 Hours) Vital Signs Temp Pulse Pulse Resp BP Pulse Ox O2 Del Method 02/21/24 16:00 94 H 02/21/24 16:00 37.2 C 90 29 H 92 02/21/24 16:00 184/61 H 02/21/24 15:03 37.2 C 86 26 H 94 02/21/24 14:23 182/84 H 02/21/24 14:18 37.3 C 94 H 29 H 92 02/21/24 14:03 37.4 C 87 39 H 95 02/21/24 13:49 200/59 H 02/21/24 13:36 37.5 C 83 25 H 98 02/21/24 13:25 196/68 H 02/21/24 13:21 37.5 C 81 32 H 98 02/21/24 13:00 37.5 C 84 22 97 02/21/24 12:06 37.5 C 84 30 H 94 02/21/24 12:01 187/68 H 02/21/24 11:39 37.5 C 81 27 H 94 02/21/24 11:18 37.5 C 77 26 H 94 02/21/24 10:00 37.7 C H 78 28 H 98 02/21/24 09:06 37.8 C H 76 33 H 99 02/21/24 08:00 152/57 H 02/21/24 08:00 37.8 C H 79 27 H 96 02/21/24 07:42 37.8 C H 75 28 H 97 02/21/24 07:37 Nasal Cannula 02/21/24 07:37 107 H 02/21/24 07:08 86 24 97 Nasal Cannula 02/21/24 07:05 154/49 H 02/21/24 07:00 37.7 C H 92 H 28 H 97 Nasal Cannula 02/21/24 06:30 37.8 C H 94 H 32 H 96 O2 Flow Rate 02/21/24 16:00 02/21/24 16:00 02/21/24 16:00 02/21/24 15:03 02/21/24 14:23 02/21/24 14:18 02/21/24 14:03 02/21/24 13:49 02/21/24 13:36 02/21/24 13:25 02/21/24 13:21 02/21/24 13:00 02/21/24 12:06 02/21/24 12:01 02/21/24 11:39 02/21/24 11:18 02/21/24 10:00 02/21/24 09:06 02/21/24 08:00 02/21/24 08:00 02/21/24 07:42 02/21/24 07:37 3 02/21/24 07:37 02/21/24 07:08 2 02/21/24 07:05 02/21/24 07:00 3 02/21/24 06:30 Coding
[2024-02-21] MEDS ORDERED: niCARdipine 25 MG in SODIUM CHLORIDE 0.9% 240 ML IV SCH (18:30)
[2024-02-21] MEDS: FUROSEMIDE 40 MG/4 ML VIAL IV STA (18:47)
--- NOTE | 2024-02-21 18:56 | XRay Report ---
XR chest 1V portable HISTORY: 88 years-old Female eval tube placement and lung hung- post intubati acute respiratory fa ilure COMPARISON: Chest radiograph of same day at 5:49 PM TECHNIQUE: AP view of the chest FINDINGS: Cardiac silhouette is enlarged. Pulmonary vascular congestion with interstitial coarsening. Endotrach eal tube overlies the midline, 2.3 cm superior to the vadim. Enteric tube courses into the stomach w ith distal tip outside the [id number]. Mildly improved aeration of the right lung. Bilateral mixed interstitial and alveolar opacities redemonstrated with left greater than right layering pleural eff usions and bibasilar consolidation. Bones appear grossly intact. IMPRESSION: 1. Endotracheal tube overlies the midline, 2.3 cm superior to the vadim. 2. Enteric tube courses into the stomach with distal tip outside the [id number]. 3. Cardiomegaly with persistent mixed interstitial and alveolar opacities. 4. Layering pleural effusions with bibasilar consolidation redemonstrated. ACT 112: Negative or not required by law. The above report was generated using voice recognition software. It may contain grammatical, syntax o r spelling errors. Electronically signed by: Major Maloney M.D. 02/21/2024 6:55 PM
[2024-02-21] MEDS: FUROSEMIDE 40 MG/4 ML VIAL IV ONE ×2 (19:04→19:29)
[2024-02-21] MEDS: RAPID SEQUENCE INDUCTION BAG ONE (19:04)
[2024-02-21] MEDS: PROPOFOL IV EMULSION 10 MG/ML 100 ML VIAL IV ONE (19:05)
[2024-02-21] MEDS: fentaNYL citrate 2,500 MCG/250 ML BAG IV SCH (19:05)
[2024-02-21] MEDS: fentaNYL citrate 2,500 MCG/250 ML BAG IV ONE (19:05)
[2024-02-21] MEDS: niCARdipine 25 MG in SODIUM CHLORIDE 0.9% 240 ML IV SCH (19:05)
[2024-02-21] MEDS: propofoL 1,000 MG/100 ML VIAL IV SCH (19:06)
--- NOTE | 2024-02-21 19:07 | Critical Care Progress Note ---
Date of Service February 21, 2024 Assessment & Plan (1) Acute encephalopathy: (2) Respiratory failure requiring intubation: (3) HTN (hypertension): (4) DM type 2 (diabetes mellitus, type 2): (5) GERD (gastroesophageal reflux disease): (6) Left bundle branch block: Plan Reason Critically Ill: 88 YOF who is now HD # post out of hospital cardiac arrest- which was initially contributed to aspiration of barium and complicated by DAH, and now respiratory failure x2 requiring emergent re-intubation. Neuro - Encephalopathy, anxiety, sedation for mechanical ventilation CAM ICU: NATY - Patient obtunded likely secondary to hypercarbia and fatigue from respiratory standpoint - Sedation for mechanical ventilation with KARLOS goal -2- Propofol/Fentanyl - Daily awake and breathing trials Cardiac - Tachycardia, hypertension poorly controlled, HFpEF, dysrythmia - Patient remains with pulmonary edema- her event today is in same setting of tachycardia, hypercarbia/hypoxia requiring BiPAP and rapidly progressing to respiratory failure/fatigue - We will obtain ECG and trend troponin- her previous ECHO post arrest was without RWMA and preserved EF - Her ECG is with LBB - which appears chronic- again will obtain HsCTNI and ECHO - Possible with afib or uncompensated PACS- resolved with lowering her HR and now with PACs - Se was diuresed prior to intubation - and will continue to diurese tonight - For her HR HfpEF medications- she was transitioned from Carvedilol to metoprolol to start this evening, amlodipine and Losartan was increased today- and remains with poorly controlled blood pressure - will place on Cardene infusion tonight - hold her amlodipine - obtain bedside POCUS - Change her Toprol XL 25mg BID to - Metoprolol Tartrate 25mg PO q8 h - ECG is without obvious STEMI - Transdermal NTG discontinued - Her repeated failures- seems to come from SCAPE like picture with poor tolerance to HTN, Anxiety, and Tachycardia and unfortunately she has poor reserve and decompensates rapidly Respiratory - Acute on chronic respiratory failure requiring emergent intubation, DAH- resolved - Patient has failed extubation x2 now intubated x3 - - She would likely benefit from early tracheostomy in setting of respiratory failure, and to limit sedation and decreased mobility associated with being with ETT and Ventilator- Dr. Bakre will discuss with family this evening - Will diurese as above - wean ventilator settings as able - Continue steroids for DAH continue to wean GI - NO acute needs - OG Tube placed- Ok to use - confirmed with CXR and PH RENAL/LYTES - JEFFREY - improving- follow with diuresis and increase in ARB - electrolyte protocol per ICU - No acute needs - continue with Dixon catheter ENDO - DMII - ICU hyper/hypoglycemic protocol HEME - NO acute needs ID - No concern at this time for infective etiology - However she is continued on Azithromycin which will finish day #5 on [id number] LINES/IV ACCESS - PIV x3 , Arterial Line, Dixon catheter, ETT, OGT Continue use of these lines DVT PROPHYLAXIS - SCDS, Heparin sub q DISPO: ICU while intubated and sedated and requiring mechanical ventilation I have personally spent 60 minutes of critical care time in the direct management of this patient. This is a life/limb threatening event. This includes time spent evaluating patient, direct bedside care, chart review, placing orders, interpretation of diagnostic studies, discussion with consultants, patient, and family members, as well as other required patient management activities. This time is exclusive of all separately billable procedures, and teaching time and separate from and in addition to any other critical care service time. Thank you for allowing us to participate in the care of this patient. Please refer to my attending physician's documentation for any further recommendations. Admission and Anticipated Discharge Date Admission Date: February 13, 2024 Supervising Physician Co-Signing Physician Notes I have personally evaluated and examined this patient. I agree with assessment and plan of Soto SANDOVAL. I had an extensive discussion from 8 PM until 8:32 PM with the patient's son and his regarding prognosis, current condition, likelihood of needing reintubation and probable outcomes with tracheostomy which would likely include LTAC. Son in agreement that patient has been fiercely independent at would not want LTAC and long-term care. They have worked very hard to allow the patient to remain at home for several years. Patient has a longstanding history of declining attempts for placement or short courses of rehab. Accordingly we will make the patient DNR DNI in event of cardiac arrest and respiratory insufficiency. The current treatment plan is to optimize the patient to proceed and proceed with a terminal extubation. We discussed that if the patient has a sudden decompensation like she would today we will do our best to manage his delirium and stave off acute respiratory decompensation however I feel she has a high risk of significant decompensation and would likely proceed to comfort measures and high likelihood of passing away. This evening's decompensation appeared to arise from increase in delirium which then led to atrial fibrillation and rapid ventricular response, bedside ultrasound performed by XAVIER was demonstrative of inability to tolerate atrial fibrillation. We will attempt to obtain a formal echocardiogram tomorrow prior to extubation. Patient has remained net negative for consecutive days and continues to decline in weight, so I do not believe this is CHF related to volume overload more inability to tolerate arrhythmia.. Subjective Called to bedside by nursing as well as attending Medicine Physician- Dr. Norman secondary to patient in respiratory distress. - Patient is slumping over, tachypneic on BiPAP using accessory muscles, tachycardic in the 120s and hypertensive - Patient does awaken to voice and able to shake head yes and now but easily drifts back off to sleep - Decision was made to intubate patient in light of respiratory failure with impending respiratory and/or cardiac arrest Review of Systems Review of Systems: REVIEW OF SYSTEMS: Full ROS - unobtainable at this time secondary to obtundation and acuity of the situation Physical Exam Physical Exam: PHYSICAL EXAM: General: fatigued, ill appearing, obtunded Head: Normocephalic, atraumatic ENT: PERRLA, EOMI, no pharyngeal exudate, mucous membranes dry Neuro: AAO x 1, speech weak but appropriate, weakly moves all extremities and does reach for ETT post intubation Chest: equal rise and fall of the chest, accessory muscle use on BiPAP , decreased in bases with rhochi and expiratory wheeze Cardiac: Irregular rate and rhythm, telelmetry reviewed- tachycardic with ectopy, skin cool and clammy, cap refill <3 seconds, peripheral pulses +2 no JVD, no murmur, +2 edema lower extremities GI: NABS x 4 quadrants, soft, nontender to palpation, no rebound, guarding or tenderness : Dixon to gravity Psych: Anxious Skin: multiple areas of ecchymosis to upper arms and legs Results & Data Results & Data Vital Signs (Past 12 Hours) Vital Signs Temp Pulse Pulse Resp BP Pulse Ox O2 Del Method 02/21/24 18:39 95 H 24 98 02/21/24 16:00 94 H 02/21/24 16:00 37.2 C 90 29 H 92 02/21/24 16:00 184/61 H 02/21/24 15:03 37.2 C 86 26 H 94 02/21/24 14:23 182/84 H 02/21/24 14:18 37.3 C 94 H 29 H 92 02/21/24 14:03 37.4 C 87 39 H 95 02/21/24 13:49 200/59 H 02/21/24 13:36 37.5 C 83 25 H 98 02/21/24 13:25 196/68 H 02/21/24 13:21 37.5 C 81 32 H 98 02/21/24 13:00 37.5 C 84 22 97 02/21/24 12:06 37.5 C 84 30 H 94 02/21/24 12:01 187/68 H 02/21/24 11:39 37.5 C 81 27 H 94 02/21/24 11:18 37.5 C 77 26 H 94 02/21/24 10:00 37.7 C H 78 28 H 98 02/21/24 09:06 37.8 C H 76 33 H 99 02/21/24 08:00 152/57 H 02/21/24 08:00 37.8 C H 79 27 H 96 02/21/24 07:42 37.8 C H 75 28 H 97 02/21/24 07:37 Nasal Cannula 02/21/24 07:37 107 H 02/21/24 07:08 86 24 97 Nasal Cannula 02/21/24 07:05 154/49 H 02/21/24 07:00 37.7 C H 92 H 28 H 97 Nasal Cannula O2 Flow Rate FiO2 02/21/24 18:39 50 02/21/24 16:00 02/21/24 16:00 02/21/24 16:00 02/21/24 15:03 02/21/24 14:23 02/21/24 14:18 02/21/24 14:03 02/21/24 13:49 02/21/24 13:36 02/21/24 13:25 02/21/24 13:21 02/21/24 13:00 02/21/24 12:06 02/21/24 12:01 02/21/24 11:39 02/21/24 11:18 02/21/24 10:00 02/21/24 09:06 02/21/24 08:00 02/21/24 08:00 02/21/24 07:42 02/21/24 07:37 3 02/21/24 07:37 02/21/24 07:08 2 02/21/24 07:05 02/21/24 07:00 3 Diagnostic Findings Chest X-Ray 02/21/24 17:39 XR chest 1V portable HISTORY: 88 years-old Female Hypoxia acute shortness of breath COMPARISON: 02/19/2024 TECHNIQUE: AP view of the chest FINDINGS: Cardiac silhouette is enlarged. Pulmonary vascular congestion with interstitial coarsening. Status post extubation with removal of the enteric tube and right IJ catheter. Mildly improved aeration of the right lung. Bilateral mixed interstitial and alveolar opacities re-demonstrated with left greater than right layering pleural effusions and bibasilar consolidation. Bones appear grossly intact. IMPRESSION: 1. Status post extubation. 2. Cardiomegaly with persistent mixed interstitial and alveolar opacities. There is mildly improved aeration of the right lung. 3. Layering pleural effusions with bibasilar consolidation re-demonstrated. ACT 112: Negative or not required by law. The above report was generated using voice recognition software. It may contain grammatical, syntax or spelling errors. Electronically signed by: Major aMloney M.D. 02/21/2024 6:04 PM Chest X-Ray 02/21/24 18:17 XR chest 1V portable HISTORY: 88 years-old Female eval tube placement and lung hung- post intubation acute respiratory failure COMPARISON: Chest radiograph of same day at 5:49 PM TECHNIQUE: AP view of the chest FINDINGS: Cardiac silhouette is enlarged. Pulmonary vascular congestion with interstitial coarsening. Endotracheal tube overlies the midline, 2.3 cm superior to the vadim. Enteric tube courses into the stomach with distal tip outside the [id number]. Mildly improved aeration of the right lung. Bilateral mixed interstitial and alveolar opacities re-demonstrated with left greater than right layering pleural effusions and bibasilar consolidation. Bones appear grossly intact. IMPRESSION: 1. Endotracheal tube overlies the midline, 2.3 cm superior to the vadim. 2. Enteric tube courses into the stomach with distal tip outside the [id number]. 3. Cardiomegaly with persistent mixed interstitial and alveolar opacities. 4. Layering pleural effusions with bibasilar consolidation re-demonstrated. ACT 112: Negative or not required by law. The above report was generated using voice recognition software. It may contain grammatical, syntax or spelling errors. Electronically signed by: Major Maloney M.D. 02/21/2024 6:55 PM Medications Administered Home Medications multivitamin (Multiple Vitamins tablet) 1 tab PO QAM 01/03/19 [History Confirmed 02/13/24] losartan 25 mg tablet 12.5 mg PO QAM 05/31/19 [History Confirmed 02/13/24] aspirin 81 mg tablet,delayed release (Mariella Low Dose Aspirin) 81 mg PO QAM 10/23/19 [History Confirmed 02/13/24] furosemide 20 mg tablet 20 mg PO QAM 06/12/23 [History Confirmed 02/13/24] omeprazole 20 mg capsule,delayed release 20 mg PO QAM 06/12/23 [History Confirmed 02/13/24] insulin aspart U-100 100 unit/mL (3 mL) subcutaneous pen (Novolog FlexPen U-100 Insulin aspart) 30 unit (0.3 mL) subcut DAILY #30 mL 12/22/23 [Rx Confirmed 02/13/24] Contour Next Test Strips (blood sugar diagnostic) #300 ea 01/23/24 [Rx Confirmed 02/13/24] calcium carbonate 600 mg-vitamin D3 20 mcg (800 unit) tablet (Caltrate with Vitamin D3) 1 tab PO BID 02/13/24 [History Confirmed 02/13/24] insulin degludec 100 unit/mL (3 mL) subcutaneous pen (Tresiba FlexTouch U-100 insulin) 24 unit subcut HS 02/13/24 [History Confirmed 02/13/24] timolol maleate 0.5 % eye drops 1 drp OPR BID 02/13/24 [History Confirmed 02/13/24] brimonidine 0.2 % ophthalmic (eye) BID 02/21/24 [History Confirmed 02/21/24] Active Medications Acetaminophen (Acetaminophen 325 Mg Tab) 650 mg PO Q6H PRN PRN Reason: Pain Stop: 03/21/24 11:29 Last Admin: 02/20/24 11:36 Dose: 650 mg Amlodipine Besylate (Amlodipine Besylate 5 Mg Tab) [facility] [place]: 03/22/24 08:59 Last Admin: 02/21/24 08:16 Dose: 10 mg Brimonidine Tartrate (Brimonidine Tartrate 0.2% 5ml) 1 drops OPR BID [facility] Stop: 03/22/24 20:59 Budesonide (Budesonide 0.5 Mg/2 Ml Vial (Pulmicort)) 0.5 mg NEB BIDR RAIZA Stop: 03/16/24 18:59 Last Admin: 02/21/24 18:24 Dose: 0.5 mg Dextrose (Dextrose 50% 50 Ml Syringe) 25 - 50 ml IV UD PRN; Protocol PRN Reason: Hypoglycemia Protocol Stop: 03/16/24 03:18 Fentanyl Citrate (Fentanyl Bolus From Bag) 50 mcg IV Q60M PRN PRN Reason: Pain or Agitation Stop: 03/06/24 18:16 Glucagon (Glucagon For Inj 1 Mg Vial) 1 mg SQ UD PRN; Protocol PRN Reason: Hypoglycemia Protocol Stop: 03/16/24 03:18 Glucose (Glucose 40% Gel 15 Gm Tube) 15 - 30 gm PO UD PRN; Protocol PRN Reason: Hypoglycemia Protocol Stop: 03/16/24 03:18 Glucose (Glucose 10 Tab/Tube) 4 - 8 tab PO UD PRN; Protocol PRN Reason: Hypoglycemia Treatment Stop: 03/16/24 03:18 Heparin Sodium (Beef Lung) (Heparin 10 Unit/Ml 5 Ml Flush) 5 ml FLUSH PRN PRN PRN Reason: Flush Stop: 03/15/24 05:46 Heparin Sodium (Porcine) (Heparin Sod 5,000 Unit/0.5 Ml Vial) 5,000 units SQ Q12 RAIZA Stop: 03/15/24 20:59 Last Admin: 02/21/24 08:27 Dose: 5,000 units Hydralazine HCl (Hydralazine Hcl 20 Mg/Ml Vial) 10 mg IV Q4H PRN PRN Reason: SBP >180 Stop: 03/19/24 19:10 Last Admin: 02/21/24 13:33 Dose: 10 mg Nicardipine HCl 25 mg/ Sodium (Chloride) 250 mls @ 50 mls/hr IV .Q5H RAIZA; Protocol Stop: 03/22/24 18:14 Propofol (Diprivan) 1,000 mg in 100 mls @ 9.096 mls/hr IV .Q11H [facility]; Protocol Stop: 02/24/24 18:29 Fentanyl Citrate (Fentanyl Citrate) 2,500 mcg in 250 mls @ 2.5 mls/hr IV .Q96H RAIZA; Protocol Stop: 03/06/24 18:29 Insulin Aspart (Insulin Aspart Per Unit Charge) 0 units SC ACHS [facility] Stop: 03/21/24 00:00 Last Admin: 02/21/24 16:27 Dose: 3 units Insulin Glargine (Lantus Per Unit Charge) 0 units SC DAILY [facility]; Protocol Stop: 03/21/24 10:29 Last Admin: 02/21/24 08:27 Dose: Not Given Levalbuterol HCl (Levalbuterol Hcl 0.63 Mg/3 Ml Neb) 0.63 mg NEB Q6R PRN; Protocol PRN Reason: Shortness Of Breath Or Wheezing Stop: 03/22/24 17:39 Losartan Potassium (Losartan Potassium 50 Mg Tab) 50 mg PO QAM [facility] Stop: 03/23/24 08:59 Metoprolol Succinate (Metoprolol Succ 25mg Ext Rel Tab) 25 mg PO BID [facility] Stop: 03/22/24 20:59 Miscellaneous (Carbohydrates For Hypoglycemia ) 15 - 30 gm PO UD PRN PRN Reason: Hypoglycemia Protocol Stop: 03/16/24 03:18 Ondansetron HCl (Ondansetron Inj 2 Mg/Ml 2 Ml Vial) 4 mg IV Q6H PRN PRN Reason: Nausea And Vomiting Stop: 03/17/24 14:01 Last Admin: 02/21/24 14:21 Dose: 4 mg Pantoprazole Sodium (Pantoprazole 40 Mg Tab) 40 mg PO DAILY [facility] Stop: 03/23/24 08:59 Prednisone (Prednisone 10 Mg Tablet) 40 mg PO DAILY [facility]; Taper Stop: 02/26/24 08:59 Last Admin: 02/21/24 08:15 Dose: 40 mg Propofol (Propofol Bolus From Bag) 20 mg IV Q5M PRN PRN Reason: Sedation Stop: 02/24/24 18:16 Quetiapine Fumarate (Quetiapine Fumarate 25 Mg Tablet) 50 mg PO HS [facility] Stop: 03/21/24 20:59 Last Admin: 02/20/24 21:11 Dose: 50 mg Timolol Maleate (Timolol Maleate 0.5% Op Soln 5 Ml Btl) 1 drops OPR BID [facility] Stop: 03/21/24 20:59 Last Admin: 02/21/24 08:15 Dose: 1 drops Timolol Maleate (Timolol Maleate 0.5% Op Soln 5 Ml Btl) 1 drops OPR BID [facility] Stop: 03/22/24 20:59 ECG Additional Comments: Sinus rhythmwithPremature supraventricular complexes Left axis deviation Left bundle branch block Abnormal ECG When compared with ECG [id number] 16:25, QRS durationhas decreased Confirmed by August Esquivel ([id number]) on 02/21/2024 6:17:35 PM Coding Level of Care Code 23971 CRITICAL CARE 1ST 30-74M Diagnoses Acute encephalopathy G93.40 Respiratory failure requiring intubation J96.90 HTN (hypertension) I10 Hypertension type: essential hypertension DM type 2 (diabetes mellitus, type 2) E11.9 GERD (gastroesophageal reflux disease) K21.9 Left bundle branch block I44.7 Time Spent (min) 60 (3) HTN (hypertension) Hypertension type: essential hypertension Qualified Code(s): I10 - Essential (primary) hypertension
[2024-02-21 19:41] LABS: BUN Creatinine Ratio 43.7 (10-20); Calcium 8.7 mg/dl (8.6-10.3); Creatinine Clr Calc Pharmacy 32.8 ml/min; Magnesium 2.6 mg/dl (1.7-2.4); Potassium 4.3 mmol/L (3.5-5.1)
[2024-02-21] MEDS: fentaNYL BOLUS from BAG IV PRN (19:47)
[2024-02-21] MEDS: PROPOFOL BOLUS FROM BAG IV PRN (19:48)
[2024-02-21 19:50] LABS: Troponin I High Sensitivity 133.1 pg/ml (0-14)
[2024-02-21] MEDS: BRIMONIDINE TARTRATE 0.2% 5ML OPR SCH (20:52)
[2024-02-21] MEDS: METOPROLOL TARTRATE 25 MG TAB PO SCH (20:52)
[2024-02-21] MEDS: TIMOLOL MALEATE 0.5% OP SOLN 5 ML BTL OPR SCH (20:53)
[2024-02-21] MEDS ORDERED: METOPROLOL SUCC 25MG EXT REL TAB PO SCH (21:00)
[2024-02-21 21:09] LABS: iSTAT Allen Test Pass; iSTAT Art Bld Gas pCO2 Correct 25 mmHg (35-46); iSTAT Art Bld Gas pH Corrected 7.614 (7.35-7.45); iSTAT Arterial Blood Gas HCO3 26 meg/L (19-24); iSTAT Arterial Blood Gas pCO2 25 mmHg (35-46); iSTAT Arterial Blood Gas pH 7.61 (7.35-7.45); iSTAT Arterial Blood Gas pO2 64 mmHg (80-95); iSTAT Arterial Blood Gas pO2 C 64; iSTAT Carbon Dioxide 26 mmol/L (24-31); iSTAT FiO2 50 %; iSTAT Hematocrit 38 % (37-47); iSTAT Hemoglobin 12.9 g/dl (12.0-16.0); iSTAT Potassium 3.8 mmol/L (3.3-5.0); iSTAT Site R Radial; iSTAT Sodium 141 mmol/L (135-144)
[2024-02-22 05:52] LABS: Basophils # (auto) 0.02 K/uL (0.00-0.20); Basophils % (auto) 0.1 %; Eosinophils # (auto) 0.06 K/uL (0.00-0.50); Eosinophils % (auto) 0.4 %; Hematocrit (blood only) 41.7 % (37.0-47.0); Hemoglobin 13.6 g/dl (12.0-16.0); Immature Granulocytes # (auto) 0.26 K/uL (0.01-0.20); Immature Granulocytes % (auto) 1.9 %; Mean Corpuscular Hemoglobin 30.2 pg (25.0-34.0); Mean Corpuscular Hgb Conc 32.6 g/dL (32.0-36.0); Mean Corpuscular Volume 92.5 fL (80.0-100.0); Mean Platelet Volume 9.5 fL (9.4-12.4); Monocytes # (auto) 1.82 K/uL (0.11-0.59); Monocytes % (auto) 13.3 %; Neutrophils # (auto) 10.03 K/uL (1.40-6.50); Neutrophils % (auto) 73.3 %; Platelet Count 182 K/uL (130-400); RDW Coefficient of Variation 12.4 % (11.5-14.5); RDW Standard Deviation 42.3 fL (36.4-46.3); Red Blood Count 4.51 M/uL (4.20-5.40); White Blood Count 13.69 K/ul (4.8-10.8)
[2024-02-22 05:58] LABS: BUN Creatinine Ratio 42.3 (10-20); Calcium 8.2 mg/dl (8.6-10.3); Creatinine Clr Calc Pharmacy 27.8 ml/min; Magnesium 2.4 mg/dl (1.7-2.4); Potassium 3.9 mmol/L (3.5-5.1)
--- NOTE | 2024-02-22 06:58 | XRay Report ---
XR chest 1V portable HISTORY: 88 years-old Female Hypoxic respiratory failure COMPARISON: 02/21/2024 TECHNIQUE: AP view of the chest FINDINGS: Cardiac silhouette is enlarged. Pulmonary vascular congestion with interstitial coarsening. Endotrach eal tube overlies the midline, 2.8 cm superior to the vadim. Enteric tube courses into the stomach w ith distal tip outside the [id number]. Mildly improved aeration of the right lung. Bilateral mixed interstitial and alveolar opacities redemonstrated with left greater than right layering pleural eff usions and bibasilar consolidation. Bones appear grossly intact. IMPRESSION: 1. Lines and tubes as above. 2. Unchanged appearance of the lungs with persistent pleural effusions. 3. No pneumothorax. ACT 112: Negative or not required by law. The above report was generated using voice recognition software. It may contain grammatical, syntax o r spelling errors. Electronically signed by: Major Maloney M.D. 02/22/2024 6:57 AM
--- NOTE | 2024-02-22 07:07 | Critical Care Progress Note ---
Date of Service February 22, 2024 Assessment & Plan (1) Respiratory failure requiring intubation: (2) Respiratory failure: (3) Acute encephalopathy: (4) Diffuse pulmonary alveolar hemorrhage: (5) Cardiac arrest: (6) GERD (gastroesophageal reflux disease): (7) DM type 2 (diabetes mellitus, type 2): (8) CKD (chronic kidney disease), stage III: Plan Reason Critically Ill: Pt is an 88 yo female with a past med hx of cervical spinal stenosis, HTN, GERD, CKD stage 3, hiatal hernia, and hx of LBBB who presents to the hospital on 02/12 after cardiac arrest when doing a CT abd with contrast at [facility], initially in the ICU from 02/12 to 02/18 for need for mechanical ventilation, back in the ICU on 02/20 and intubated for the 3rd time this admission for recurrence of need for mechanical ventilation due to acute hypercapnic resp distress. Plan: Neuro - Encephalopathy, anxiety, sedation for mechanical ventilation CAM ICU: NATY - Sedation for mechanical ventilation with KARLOS goal -2- Propofol/Fentanyl - Daily awake and breathing trials, will attempt to wean tomorrow Cardiac - Tachycardia, hypertension poorly controlled, HFpEF, dysrhythmia - Patient remains with pulmonary edema- CXR relatively unchanged today - We will obtain ECG and trend troponin- her previous ECHO post arrest was without RWMA and preserved EF, repeat echo this morning pending - Her ECG is with LBBB - which appears chronic- again will obtain HsCTNI and ECHO - Possible with afib or uncompensated PACS- resolved with lowering her HR and now with PACs - She was diuresed prior to intubation - and will continue to diurese - For her HR/HfpEF medications- she was transitioned from Carvedilol to metoprolol 02/20, amlodipine and Losartan was increased 02/20- and remains with poorly controlled blood pressure - will place on Cardene infusion tonight - hold her amlodipine - Change her Toprol XL 25mg BID to - Metoprolol Tartrate 25mg PO q8 h - ECG is without obvious STEMI - Transdermal NTG discontinued - Her repeated failures- seems to come from SCAPE like picture with poor tolerance to HTN, Anxiety, and Tachycardia and unfortunately she has poor reserve and decompensates rapidly Respiratory - Acute on chronic respiratory failure requiring emergent intuba tion, DAH - Patient has failed extubation x2 now intubated x3 - - diuresed as above - wean ventilator settings as able, - Continue steroids for DAH but will extend steroid course from to more p rolonged course, - 30 mg steroid for 5 days starting 02/21, then 20 mg for 5 days and then 10 mg for 5 days - chest CT w/o contrast; pending - sputum culture; pending GI - NO acute needs - OG Tube placed- Ok to use - confirmed with CXR and PH, will start feeds today RENAL/LYTES - JEFFREY - Cr worsened from 1.26 yest to 1.49 today, will defer IVF since will start feeds today and do not want to fluid overload - electrolyte protocol per ICU - No acute needs - continue with Dixon catheter ENDO - DMII - ICU hyper/hypoglycemic protocol HEME - - will do b/l LE US for concern of DVT given acutely worsened resp status last night ID - - was on azithromycin - will start empiric zosyn for 7 days Called son/POA Angel, he is still on board to continue ventilation today and attempt tube removal tomorrow. LINES/IV ACCESS - PIV x3 , Arterial Line, Dixon catheter, ETT, OGT DVT PROPHYLAXIS - SCDS, Heparin sub q DISPO: ICU while intubated and sedated and requiring mechanical ventilation Admission and Anticipated Discharge Date Admission Date: February 13, 2024 Supervising Physician Co-Signing Physician Notes Dr. Langford was resident physician during care of patient. I separately evaluated patient for griffin portions of the history and the exam. I was present during the critical portion of medical decision making, and I discussed the case with the resident. I generally agree with the findings and plan. Patient failed spontaneous breathing trial secondary to tachypnea. Will attempt spontaneous breathing trial tomorrow. Will obtain Noncon CT scan to evaluate lung parenchyma and no contrast secondary to worsening renal function and venous duplex as the patient has not been on chemoprophylaxis secondary to possible alveolar hemorrhage. Venous duplex is negative and we are reinstituting chemoprophylaxis. My review of the CT scan demonstrates small bilateral pleural effusions. Subjective Pt is an 88 yo female with a past med hx of cervical spinal stenosis, HTN, GERD, CKD stage 3, hiatal hernia, and hx of LBBB who presents to the hospital on 02/12 after cardiac arrest when doing a CT abd with contrast at [facility], initially in the ICU from 02/12 to 02/18 for need for mechanical ventilation, back in the ICU on 02/20 and intubated for the 3rd time this admission for recurrence of need for mechanical ventilation due to acute hypercapnic resp distress. Today, pt is intubated and sedated. No signs of acute distress or discomfort while on ventilator this morning. Unarousable due to sedation. Review of Systems Review of Systems: Unobtainable due to endotracheal tube Physical Exam Physical Exam: General: On ventilator, sedated, no acute distress HEENT: Normocephalic, atraumatic, Resp: Diffuse crackles noted bilaterally Cardio: Regular rate during time of exam and rhythm, GI: Soft, bowel sounds noted Skin: Warm, dry, Results & Data Results & Data Vital Signs (Past 12 Hours) Vital Signs Temp Pulse Resp BP Pulse Ox O2 Del Method FiO2 02/22/24 05:45 133/45 L 02/22/24 05:42 38.2 C H 72 20 99 02/22/24 05:03 38.1 C H 72 20 98 02/22/24 05:00 134/46 L 02/22/24 05:00 134/46 L 02/22/24 05:00 134/46 L 02/22/24 04:57 38.1 C H 74 20 97 02/22/24 04:45 141/43 H 02/22/24 04:36 38.0 C H 72 20 96 02/22/24 04:30 38.0 C H 70 20 97 02/22/24 04:30 153/52 H 02/22/24 04:30 153/52 H 02/22/24 04:15 167/48 H 02/22/24 04:15 167/48 H 02/22/24 04:15 167/48 H 02/22/24 04:06 37.8 C H 72 20 99 02/22/24 04:00 167/57 H 02/22/24 04:00 37.8 C H 73 20 99 02/22/24 04:00 71 20 97 50 02/22/24 03:54 37.8 C H 73 20 99 02/22/24 03:45 172/56 H 02/22/24 03:36 37.7 C H 73 20 99 02/22/24 03:30 37.6 C H 20 96 02/22/24 03:15 133/47 L 02/22/24 03:15 37.5 C 70 20 98 02/22/24 03:00 50 02/22/24 02:45 37.4 C 70 20 97 02/22/24 02:45 143/46 H 02/22/24 02:45 143/46 H 02/22/24 02:45 143/46 H 02/22/24 02:45 143/46 H 02/22/24 02:45 143/46 H 02/22/24 02:30 141/51 H 02/22/24 02:30 37.3 C 70 20 97 02/22/24 02:30 141/51 H 02/22/24 02:30 141/51 H 02/22/24 02:30 141/51 H 02/22/24 02:15 37.2 C 71 20 97 02/22/24 02:15 167/70 H 02/22/24 02:00 37.2 C 70 20 96 02/22/24 01:45 37.2 C 67 20 96 02/22/24 01:45 147/64 H 02/22/24 01:30 132/49 L 02/22/24 01:30 132/49 L 02/22/24 01:15 37.2 C 64 20 96 02/22/24 01:03 37.1 C 67 20 95 02/22/24 01:00 118/42 L 02/22/24 01:00 118/42 L 02/22/24 00:54 37.1 C 65 20 95 02/22/24 00:45 125/43 L 02/22/24 00:39 37.1 C 66 20 96 02/22/24 00:30 134/45 L 02/22/24 00:30 134/45 L 02/22/24 00:18 37.1 C 68 20 96 02/22/24 00:15 140/47 L 02/22/24 00:06 37.1 C 64 20 98 02/22/24 00:03 37.1 C 76 12 96 02/22/24 00:01 176/71 H 02/22/24 00:01 176/71 H 02/22/24 00:00 72 02/21/24 23:57 37.1 C 64 20 97 02/21/24 23:54 50 02/21/24 23:45 128/49 L 02/21/24 23:45 128/49 L 02/21/24 23:45 37.2 C 64 20 97 02/21/24 23:34 61 20 97 50 02/21/24 23:30 129/44 L 02/21/24 23:30 129/44 L 02/21/24 23:30 129/44 L 02/21/24 23:30 37.2 C 63 20 96 02/21/24 23:18 37.3 C 60 20 97 02/21/24 23:15 124/44 L 02/21/24 23:15 124/44 L 02/21/24 23:00 120/41 L 02/21/24 22:51 37.4 C 61 20 97 02/21/24 22:45 37.4 C 62 20 97 02/21/24 22:45 117/38 L 02/21/24 22:41 Mechanical Vent 50 02/21/24 22:36 37.5 C 59 L 20 97 02/21/24 22:30 117/41 L 02/21/24 22:30 117/41 L 02/21/24 22:20 37.5 C 63 20 97 02/21/24 22:15 115/41 L 02/21/24 22:15 115/41 L 02/21/24 22:11 37.6 C H 62 20 97 02/21/24 22:02 37.6 C H 63 20 97 02/21/24 22:00 110/40 L 02/21/24 22:00 110/40 L 02/21/24 21:53 37.6 C H 64 20 97 02/21/24 21:45 120/41 L 02/21/24 21:44 37.6 C H 65 20 98 02/21/24 21:41 37.6 C H 66 20 98 02/21/24 21:30 121/43 L 02/21/24 21:26 37.6 C H 69 20 99 02/21/24 21:15 133/45 L 02/21/24 21:15 133/45 L 02/21/24 21:14 37.6 C H 70 20 99 02/21/24 21:05 37.6 C H 71 20 100 02/21/24 21:00 137/51 L 02/21/24 21:00 69 20 96 50 02/21/24 20:47 37.6 C H 73 24 99 02/21/24 20:45 140/48 L 02/21/24 20:45 140/48 L 02/21/24 20:38 37.5 C 79 24 98 02/21/24 20:35 37.5 C 75 24 98 Mechanical Vent 50 02/21/24 20:30 154/55 H 02/21/24 20:23 37.5 C 77 24 99 02/21/24 20:15 142/68 H 02/21/24 20:15 142/68 H 02/21/24 20:00 159/59 H 02/21/24 20:00 159/59 H 02/21/24 20:00 159/59 H 02/21/24 19:56 37.4 C 80 24 98 02/21/24 19:54 50 02/21/24 19:37 160/62 H 02/21/24 19:30 128/102 H 02/21/24 19:30 37.3 C 85 24 98 02/21/24 19:15 161/65 H 02/21/24 19:15 161/65 H 02/21/24 19:15 161/65 H 02/21/24 19:15 161/65 H 02/21/24 19:06 37.2 C 86 24 99 Critical Care Time I have personally spent 40 minutes of critical care time in the direct management of this patient. This is a life/limb threatening event. This includes time spent evaluating patient, direct bedside care, chart review, placing orders, interpretation of diagnostic studies, discussion with consultants, patient, and/or family members regarding treatment decisions, as well as other required patient management activities. This time is exclusive of all separately billable procedures, and teaching time and separate from and in addition to any other critical care service time.
[2024-02-22] MEDS: LEVALBUTEROL HCL 0.63 MG/3 ML NEB NEB PRN (07:26)
[2024-02-22] MEDS: LOSARTAN POTASSIUM 50 MG TAB PO SCH (08:57)
[2024-02-22] MEDS ORDERED: NON-FORMULARY MEDICATION (Omeprazole 20 mg capsule,delayed release(DR/EC)) PO SCH (09:00)
[2024-02-22] MEDS ORDERED: LOSARTAN POTASSIUM 25 MG TAB PO SCH (09:00)
[2024-02-22] MEDS ORDERED: PLASMA-LYTE A 1,000 ML IV SCH (09:45)
[2024-02-22] MEDS: 4.5GM X1 IV STA (10:16)
[2024-02-22 10:48] LABS: Appearance Urine Cloudy (Clear); Bacteria Urine Automated 4+ (None Seen); Bilirubin Urine Negative (Negative); Blood Urine Negative (Negative); Color Urine Yellow; Epithelial Cell Urine Auto 0-2 /hpf (0-2); Glucose Urine UA Negative (Negative); Ketones Urine Negative (Negative); Leukocyte Esterase Urine 2+ (Negative); Nitrite Urine Negative (Negative); Protein Urine Negative (Negative); RBC Urine Automated 0-2 /hpf (0-2); Specific Gravity Urine 1.014 (1.000-1.030); Urobilinogen Urine Negative (Negative); WBC Urine Automated 21-50 /hpf (0-5)
[2024-02-22] MEDS: PANTOprazole 40 MG in SYRINGE DAILY IV SCH (10:51)
[2024-02-22] MEDS: PANTOprazole 40 MG TAB PO SCH (10:58)
[2024-02-22] MEDS ORDERED: PEPTAMEN INTENSE VHP 1.0 CAL 1,000 ML BAG OG SCH (11:00)
--- NOTE | 2024-02-22 12:50 | Ultrasound Report ---
BILATERAL LOWER EXTREMITY VENOUS DOPPLER HISTORY: Acute pain and swelling of lower legs Worsened resp status, DVT? COMPARISON STUDY: None. FINDINGS: There is normal compressibility, flow, and augmentation within the bilateral lower extremit y deep venous systems. IMPRESSION: No DVT within the right or left lower extremity. ACT 112: Negative or not required by law. Electronically signed by: Major Maloney M.D. 02/22/2024 12:49 PM
[2024-02-22] MEDS: TUBE FEEDING WATER FLUSH OG SCH (13:16)
--- NOTE | 2024-02-22 13:17 | Cardiology Progress Note ---
Date of Service February 22, 2024 Assessment & Plan (1) Respiratory failure requiring intubation: (2) Left bundle branch block: (3) Diastolic dysfunction: (4) Severe hypertension: Plan Patient is a complex 88-year-old female now with extended hospitalization followed [id number] cardiac arrest. Event appeared to be mixed etiology including respiratory arrest and transient bradycardia without ventricular tachycardia or ventricular fibrillation. Chronic left bundle branch block noted Longstanding hypertension with renal artery stenosis, left hypertrophy and diastolic dysfunction Marginal pulmonary status now having required second reintubation last evening Echocardiogram repeat demonstrates moderate left ventricular hypertrophy with normal LV systolic function, diastolic dysfunction and calcified mitral valve with very mild mitral stenosis Hemodynamically currently stable with heart rates and blood pressure controlled No further tachy or bradycardia arrhythmias Recommendations: Continue respiratory support Continue beta-brice at current dosing. Small hypertrophied ventricle with diastolic dysfunction will require rate control and arrhythmia prevention Continue losartan though need to reduce may be present if blood pressure lowers further or renal function worsens Would attempt to avoid IV hydralazine in this patient with small hypertrophied left ventricle Agree with calcium channel brice infusion Admission and Anticipated Discharge Date Admission Date: February 13, 2024 Subjective Patient seen and personally examined Events of prior evening observed Acute decline in respiratory status requiring reintubation. Event in association with sinus tachycardia with atrial ectopy and short runs of atrial tachycardia. Currently heart rate and blood pressure controlled though with ventilatory support, IV nicardipine Results & Data Vital Signs (Past 12 Hours) Vital Signs Temp Pulse Resp BP Pulse Ox O2 Del Method FiO2 02/22/24 12:15 114/72 02/22/24 12:03 37.9 C H 69 20 97 02/22/24 12:00 37.9 C H 70 20 96 02/22/24 12:00 121/42 L 02/22/24 11:46 117/48 L 02/22/24 11:45 38.0 C H 71 20 96 02/22/24 11:30 104/41 L 02/22/24 11:30 104/41 L 02/22/24 11:30 104/41 L 02/22/24 11:15 114/46 L 02/22/24 11:03 38.2 C H 71 20 96 02/22/24 11:00 115/44 L 02/22/24 11:00 115/44 L 02/22/24 11:00 40 02/22/24 10:57 38.3 C H 74 20 95 02/22/24 10:46 137/45 L 02/22/24 10:42 38.4 C H 80 20 93 02/22/24 10:33 38.5 C H 78 20 93 02/22/24 10:30 106/44 L 02/22/24 10:27 38.4 C H 79 20 93 02/22/24 10:21 38.4 C H 85 20 91 02/22/24 10:18 103/41 L 02/22/24 10:18 103/41 L 02/22/24 10:15 88 23 93 40 02/22/24 10:09 38.2 C H 89 0 L 95 02/22/24 10:00 85 23 89 L 02/22/24 09:46 195/63 H 02/22/24 09:46 195/63 H 02/22/24 09:46 195/63 H 02/22/24 09:39 38.4 C H 88 21 90 02/22/24 09:16 199/65 H 02/22/24 09:16 199/65 H 02/22/24 09:12 38.4 C H 87 27 H 92 02/22/24 09:00 38.3 C H 78 21 92 02/22/24 09:00 176/57 H 02/22/24 09:00 176/57 H 02/22/24 09:00 176/57 H 02/22/24 08:55 75 22 92 40 02/22/24 08:48 38.3 C H 73 20 89 L 02/22/24 08:45 159/62 H 02/22/24 08:42 38.3 C H 68 20 97 02/22/24 08:30 38.2 C H 66 20 97 02/22/24 08:30 148/50 H 02/22/24 08:15 159/58 H 02/22/24 08:15 159/58 H 02/22/24 08:15 38.2 C H 67 20 97 02/22/24 08:00 77 02/22/24 08:00 158/51 H 02/22/24 08:00 158/51 H 02/22/24 08:00 38.1 C H 65 20 97 02/22/24 08:00 Mechanical Vent 40 02/22/24 07:45 38.1 C H 67 20 97 02/22/24 07:45 155/50 H 02/22/24 07:36 68 20 99 40 02/22/24 07:30 136/46 L 02/22/24 07:24 38.1 C H 80 20 99 02/22/24 07:15 117/45 L 02/22/24 07:15 117/45 L 02/22/24 07:15 117/45 L 02/22/24 07:09 38.1 C H 70 20 99 02/22/24 07:00 112/43 L 02/22/24 06:51 38.1 C H 71 20 99 02/22/24 05:45 133/45 L 02/22/24 05:42 38.2 C H 72 20 99 02/22/24 05:03 38.1 C H 72 20 98 02/22/24 05:00 134/46 L 02/22/24 05:00 134/46 L 02/22/24 05:00 134/46 L 02/22/24 04:57 38.1 C H 74 20 97 02/22/24 04:45 141/43 H 02/22/24 04:36 38.0 C H 72 20 96 02/22/24 04:30 38.0 C H 70 20 97 02/22/24 04:30 153/52 H 02/22/24 04:30 153/52 H 02/22/24 04:15 167/48 H 02/22/24 04:15 167/48 H 02/22/24 04:15 167/48 H 02/22/24 04:06 37.8 C H 72 20 99 02/22/24 04:00 167/57 H 02/22/24 04:00 37.8 C H 73 20 99 02/22/24 04:00 71 20 97 50 02/22/24 03:54 37.8 C H 73 20 99 02/22/24 03:45 172/56 H 02/22/24 03:36 37.7 C H 73 20 99 02/22/24 03:30 37.6 C H 20 96 02/22/24 03:15 133/47 L 02/22/24 03:15 37.5 C 70 20 98 02/22/24 03:00 50 02/22/24 02:45 37.4 C 70 20 97 02/22/24 02:45 143/46 H 02/22/24 02:45 143/46 H 02/22/24 02:45 143/46 H 02/22/24 02:45 143/46 H 02/22/24 02:45 143/46 H 02/22/24 02:30 141/51 H 02/22/24 02:30 37.3 C 70 20 97 02/22/24 02:30 141/51 H 02/22/24 02:30 141/51 H 02/22/24 02:30 141/51 H 02/22/24 02:15 37.2 C 71 20 97 02/22/24 02:15 167/70 H 02/22/24 02:00 37.2 C 70 20 96 02/22/24 01:45 37.2 C 67 20 96 02/22/24 01:45 147/64 H 02/22/24 01:30 132/49 L 02/22/24 01:30 132/49 L Laboratory Results Laboratory Results - last 24 hr 02/21/24 02/21/24 02/21/24 16:24 17:57 19:12 WBC RBC Hgb POC Hgb 15.0 Hct POC Hct 44 MCV MCH MCHC RDW Std Deviation RDW Coeff of Kiana Plt Count MPV Immature Gran % (Auto) Neut % (Auto) Lymph % (Auto) [place] % (Auto) Eos % (Auto) Baso % (Auto) Neut # (Auto) Lymph # (Auto) [place] # (Auto) Eos # (Auto) Baso # (Auto) Immature Gran # (Auto) Sample Site L Radial POC pH 7.28 L POC pCO2 65 H POC pO2 58 L POC HCO3 31 H POC Total CO2 32 H POC Base Excess 4.0 H ABG pH (Temp Correct) 7.278 L ABG pCO2 (Temp Corrct 65 H POC ABG pO2 at Pt Temp 58 POC ABG O2 Sat 85.0 L Emeka Test Pass O2 Delivery Device SimpleMask POC O2 Rate POC FiO2 Tidal Volume PEEP POC Sodium 143 Sodium 142 POC Potassium 4.4 Potassium 4.3 Chloride 106 Carbon Dioxide 29 Anion Gap 7 BUN 55 H Creatinine 1.26 H Est Cr Clr Drug Dosing 32.8 eGFR 41.06 BUN/Creatinine Ratio 43.7 H Glucose 164 H POC Glucose 205 H Lactate 1.4 Calcium 8.7 Magnesium 2.6 H Troponin I High Sens 133.1 H* Urine Color Urine Appearance Urine pH Ur Specific [place] Urine Protein Urine Glucose (UA) Urine Ketones Urine Blood Urine Nitrite Urine Bilirubin Urine Urobilinogen Ur Leukocyte Esterase Urine WBC (Auto) Urine RBC (Auto) U Hyaline Cast (Auto) U Epithel Cells (Auto) Urine Bacteria (Auto) 02/21/24 02/21/24 02/22/24 20:58 23:45 05:30 WBC 13.69 H RBC 4.51 Hgb 13.6 POC Hgb 12.9 Hct 41.7 POC Hct 38 MCV 92.5 MCH 30.2 MCHC 32.6 RDW Std Deviation 42.3 RDW Coeff of Kiana 12.4 Plt Count 182 MPV 9.5 Immature Gran % (Auto) 1.9 Neut % (Auto) 73.3 Lymph % (Auto) 11.0 [place] % (Auto) 13.3 Eos % (Auto) 0.4 Baso % (Auto) 0.1 Neut # (Auto) 10.03 H Lymph # (Auto) 1.50 [place] # (Auto) 1.82 H Eos # (Auto) 0.06 Baso # (Auto) 0.02 Immature Gran # (Auto) 0.26 H Sample Site R Radial POC pH 7.61 H* POC pCO2 25 L POC pO2 64 L POC HCO3 26 H POC Total CO2 26 POC Base Excess 4.0 H ABG pH (Temp Correct) 7.614 H* ABG pCO2 (Temp Corrct 25 L POC ABG pO2 at Pt Temp 64 POC ABG O2 Sat 96.0 H Emeka Test Pass O2 Delivery Device Ventilator POC O2 Rate 24 POC FiO2 50 Tidal Volume 450 PEEP 5 POC Sodium 141 Sodium 144 POC Potassium 3.8 Potassium 3.9 Chloride 108 H Carbon Dioxide 29 Anion Gap 7 BUN 63 H Creatinine 1.49 H Est Cr Clr Drug Dosing 27.8 eGFR 33.58 BUN/Creatinine Ratio 42.3 H Glucose 143 H POC Glucose 158 H Lactate Calcium 8.2 L Magnesium 2.4 Troponin I High Sens Urine Color Urine Appearance Urine pH Ur Specific [place] Urine Protein Urine Glucose (UA) Urine Ketones Urine Blood Urine Nitrite Urine Bilirubin Urine Urobilinogen Ur Leukocyte Esterase Urine WBC (Auto) Urine RBC (Auto) U Hyaline Cast (Auto) U Epithel Cells (Auto) Urine Bacteria (Auto) 02/22/24 02/22/24 02/22/24 05:34 09:01 10:20 WBC RBC Hgb POC Hgb Hct POC Hct MCV MCH MCHC RDW Std Deviation RDW Coeff of Kiana Plt Count MPV Immature Gran % (Auto) Neut % (Auto) Lymph % (Auto) [place] % (Auto) Eos % (Auto) Baso % (Auto) Neut # (Auto) Lymph # (Auto) [place] # (Auto) Eos # (Auto) Baso # (Auto) Immature Gran # (Auto) Sample Site POC pH POC pCO2 POC pO2 POC HCO3 POC Total CO2 POC Base Excess ABG pH (Temp Correct) ABG pCO2 (Temp Corrct POC ABG pO2 at Pt Temp POC ABG O2 Sat Emeka Test O2 Delivery Device POC O2 Rate POC FiO2 Tidal Volume PEEP POC Sodium Sodium POC Potassium Potassium Chloride Carbon Dioxide Anion Gap BUN Creatinine Est Cr Clr Drug Dosing eGFR BUN/Creatinine Ratio Glucose POC Glucose 136 H 127 H Lactate Calcium Magnesium Troponin I High Sens Urine Color Yellow Urine Appearance Cloudy A Urine pH 5.0 Ur Specific [place] 1.014 Urine Protein Negative Urine Glucose (UA) Negative Urine Ketones Negative Urine Blood Negative Urine Nitrite Negative Urine Bilirubin Negative Urine Urobilinogen Negative Ur Leukocyte Esterase 2+ H Urine WBC (Auto) 21-50 H Urine RBC (Auto) 0-2 U Hyaline Cast (Auto) 11-20 H U Epithel Cells (Auto) 0-2 Urine Bacteria (Auto) 4+ H 02/22/24 02/22/24 02/22/24 11:32 11:35 11:41 WBC RBC Hgb POC Hgb Hct POC Hct MCV MCH MCHC RDW Std Deviation RDW Coeff of Kiana Plt Count MPV Immature Gran % (Auto) Neut % (Auto) Lymph % (Auto) [place] % (Auto) Eos % (Auto) Baso % (Auto) Neut # (Auto) Lymph # (Auto) [place] # (Auto) Eos # (Auto) Baso # (Auto) Immature Gran # (Auto) Sample Site POC pH POC pCO2 POC pO2 POC HCO3 POC Total CO2 POC Base Excess ABG pH (Temp Correct) ABG pCO2 (Temp Corrct POC ABG pO2 at Pt Temp POC ABG O2 Sat Emeka Test O2 Delivery Device POC O2 Rate POC FiO2 Tidal Volume PEEP POC Sodium Sodium POC Potassium Potassium Chloride Carbon Dioxide Anion Gap BUN Creatinine Est Cr Clr Drug Dosing eGFR BUN/Creatinine Ratio Glucose POC Glucose 218 H 186 H 91 Lactate Calcium Magnesium Troponin I High Sens Urine Color Urine Appearance Urine pH Ur Specific [place] Urine Protein Urine Glucose (UA) Urine Ketones Urine Blood Urine Nitrite Urine Bilirubin Urine Urobilinogen Ur Leukocyte Esterase Urine WBC (Auto) Urine RBC (Auto) U Hyaline Cast (Auto) U Epithel Cells (Auto) Urine Bacteria (Auto) 02/22/24 02/22/24 11:46 12:32 WBC RBC Hgb POC Hgb Hct POC Hct MCV MCH MCHC RDW Std Deviation RDW Coeff of Kiana Plt Count MPV Immature Gran % (Auto) Neut % (Auto) Lymph % (Auto) [place] % (Auto) Eos % (Auto) Baso % (Auto) Neut # (Auto) Lymph # (Auto) [place] # (Auto) Eos # (Auto) Baso # (Auto) Immature Gran # (Auto) Sample Site POC pH POC pCO2 POC pO2 POC HCO3 POC Total CO2 POC Base Excess ABG pH (Temp Correct) ABG pCO2 (Temp Corrct POC ABG pO2 at Pt Temp POC ABG O2 Sat Emeka Test O2 Delivery Device POC O2 Rate POC FiO2 Tidal Volume PEEP POC Sodium Sodium POC Potassium Potassium Chloride Carbon Dioxide Anion Gap BUN Creatinine Est Cr Clr Drug Dosing eGFR BUN/Creatinine Ratio Glucose 156 H POC Glucose 160 H Lactate Calcium Magnesium Troponin I High Sens Urine Color Urine Appearance Urine pH Ur Specific [place] Urine Protein Urine Glucose (UA) Urine Ketones Urine Blood Urine Nitrite Urine Bilirubin Urine Urobilinogen Ur Leukocyte Esterase Urine WBC (Auto) Urine RBC (Auto) U Hyaline Cast (Auto) U Epithel Cells (Auto) Urine Bacteria (Auto)
[2024-02-22] MEDS: HEPARIN SOD 5,000 UNIT/0.5 ML VIAL SC SCH (13:20)
--- NOTE | 2024-02-22 13:32 | Billing Data ---
Date of Service February 22, 2024 Coding Level of Care Code 39749 CRITICAL CARE
[2024-02-22 14:01] VITALS: TEMP 100
--- NOTE | 2024-02-22 14:02 | CT Scan Report ---
CT chest diagnostic wo con CT DOSE: 670.74 mGy.cm CLINICAL HISTORY: 88 years-old Female with Worsened resp status. Acute shortness of breath TECHNIQUE: Multiaxial CT images of the chest were performed without contrast. A dose lowering techni que was utilized adhering to the principles of ALARA. COMPARISON: Chest radiograph of same day, chest CT 02/13/2024 FINDINGS: Limited study secondary to positioning and respiratory motion artifact. Endotracheal tube d istal tip terminates 2.5 cm superior to the vadim. Enteric tube courses into the stomach with distal tip outside initial review. Multinodular thyroid redemonstrated. Mildly enlarged mediastinal and hil ar lymph nodes are again seen measuring up to 11 mm which are similar to prior and likely reactive. Moderate cardiomegaly without pericardial effusion. Atherosclerosis of the thoracic aorta without ane urysm. Mild dilation of the pulmonary artery suggestive of pulmonary arterial hypertension. Moderate layering pleural effusions have increased in size from prior. Moderately improved interstiti al pulmonary edema. Moderate improvement of the intermixed scattered bilateral groundglass and alveol ar opacities. These are most pronounced in the lower lobes. Tracheobronchial secretions with areas of bibasilar mucous plugging. No acute upper abdominal abnormality. Contrast noted within the splenic flexure. Mild generalized bod y wall edema. Degenerative changes of the shoulders and spine. No acute fracture or destructive bone lesion. IMPRESSION: 1. Endotracheal and enteric tube positioning as above. 2. Cardiomegaly with improved interstitial pulmonary edema.. There is however increased size of the m oderate layering pleural effusions. 3. Scattered bilateral groundglass and alveolar opacities have moderately improved compared to the study. Primary differential considerations include alveolar pulmonary edema versus multifocal pneumonia. 4. Endobronchial secretions with bibasilar mucous plugging. 5. Mild lymphadenopathy redemonstrated, favored to be reactive. ACT 112: Negative or not required by law. Electronically signed by: Major Maloney M.D. 02/22/2024 2:01 PM
--- NOTE | 2024-02-22 14:04 | Hospitalist Progress Note ---
Date of Service February 22, 2024 Assessment & Plan (1) Aspiration pneumonia: (2) Cardiac arrest: Plan Patient is an 88-year-old female with past medical history significant for type 2 diabetes, renal artery stenosis, hypertension, GERD, CKD who was brought in via EMS intubated status post cardiac arrest at the [facility]. Acute respiratory failure with hypoxia and hypercarbia Cardiac arrest Elevated Troponin Aspiration pneumonia Pericardial effusion Diffuse pulmonary alveolar hemorrhage Small loculated right lateral pericardial effusion Bilateral pleural effusion Patient had cardiac arrest at [facility]; ROSC achieve after 4 minutes. Was intubated and brought to the hospital --Chest x-ray on admission showed multiple airspace opacity --Chest CT does extensive diffuse multifocal air space opacity. --Echocardiogram shows EF of 60 to 65% with moderate concentric LVH, severe mitral annular calcification. Small loculated right lateral pericardial effusion --Bronchoscopy done on 02/12: " airways appeared hyperemic with bloody secretions emanating from bilateral lower lobes. Washings were performed of the right lower lobe and sent for culture and cytology. Approximately 150 mL of saline was used to wash the bilateral lungs and clear his own secretions and blood. No obvious active bleeding was noted". --Bronchial sample from 02/12- light normal tania --Bronchoscopy on 02/14 showed findings suggestive of diffuse alveolar hemorrhage. --MRI Brain wo contrast- no acute findings --Patient was extubated on 02/15 and required reintubation on the same day due to hypoxia --Patient again extubated on 02/18; currently on nasal cannula --Reintubated on 02/21/2024 -- Completed 5-day course of Zosyn, azithromycin --Restarted on Zosyn 02/22/24 --continue prednisone for 5 more days --Appreciate critical care, cardiology input -- Failed spontaneous breathing trial today --Repeat CT chest, sputum cultures pending --Started on tube feeds Hypertensive urgency PACs, PVCs Amlodipine discontinued Continue losartan 50 mg daily Carvedilol changed to metoprolol IV hydralazine as needed Also started nitroglycerin Appreciate cardiology input Monitor blood pressure and adjust medications as needed Abnormal urinalysis Urine culture pending Empirically on Zosyn Other chronic conditions: Type 2 diabetes mellitus; maintain euglycemic state; on insulin drip Hypertension -management as above DVT Px: On SQ heparin--monitor for any bleeding issues closely CODE STATUS DNI/DNR Disposition To be determined Admission and Anticipated Discharge Date Admission Date: February 13, 2024 Subjective Patient is seen and examined at bedside Failed spontaneous breathing trial this morning Remains sedated and intubated CT chest suggestive of bilateral pleural effusion Has been afebrile overnight and this morning UA concerning for UTI. Urine culture pending Review of Systems Review of Systems: Unobtainable due to endotracheal tube Physical Exam Physical Exam: Physical Exam: Vitals signs as noted above General Appearance:Moderately built and nourished, ill-appearing, elderly, no apparent distress Head: normocephalic, Atraumatic Eyes: normal inspection Neck: supple, Trachea midline Respiratory/Chest: Normal breath sounds, bilateral crackles, No accessory muscle use Cardiovascular: S1, S2, No murmur Abdomen/GI:Soft, Non tender, Bowel sounds present Extremities/Musculoskeletal:normal inspection, no edema Neurologic/Psych: Sedated and intubated, complete neurological exam could not be performed Skin: normal color, warm Results & Data Results & Data Vital Signs (Past 12 Hours) Vital Signs Temp Pulse Resp BP Pulse Ox O2 Del Method FiO2 02/22/24 12:15 114/72 02/22/24 12:03 37.9 C H 69 20 97 02/22/24 12:00 37.9 C H 70 20 96 02/22/24 12:00 121/42 L 02/22/24 11:46 117/48 L 02/22/24 11:45 38.0 C H 71 20 96 02/22/24 11:30 104/41 L 02/22/24 11:30 104/41 L 02/22/24 11:30 104/41 L 02/22/24 11:15 114/46 L 02/22/24 11:03 38.2 C H 71 20 96 02/22/24 11:00 115/44 L 02/22/24 11:00 115/44 L 02/22/24 11:00 40 02/22/24 10:57 38.3 C H 74 20 95 02/22/24 10:46 137/45 L 02/22/24 10:42 38.4 C H 80 20 93 02/22/24 10:33 38.5 C H 78 20 93 02/22/24 10:30 106/44 L 02/22/24 10:27 38.4 C H 79 20 93 02/22/24 10:21 38.4 C H 85 20 91 02/22/24 10:18 103/41 L 02/22/24 10:18 103/41 L 02/22/24 10:15 88 23 93 40 02/22/24 10:09 38.2 C H 89 0 L 95 02/22/24 10:00 85 23 89 L 02/22/24 09:46 195/63 H 02/22/24 09:46 195/63 H 02/22/24 09:46 195/63 H 02/22/24 09:39 38.4 C H 88 21 90 02/22/24 09:16 199/65 H 02/22/24 09:16 199/65 H 02/22/24 09:12 38.4 C H 87 27 H 92 02/22/24 09:00 38.3 C H 78 21 92 02/22/24 09:00 176/57 H 02/22/24 09:00 176/57 H 02/22/24 09:00 176/57 H 02/22/24 08:55 75 22 92 40 02/22/24 08:48 38.3 C H 73 20 89 L 02/22/24 08:45 159/62 H 02/22/24 08:42 38.3 C H 68 20 97 02/22/24 08:30 38.2 C H 66 20 97 02/22/24 08:30 148/50 H 02/22/24 08:15 159/58 H 02/22/24 08:15 159/58 H 02/22/24 08:15 38.2 C H 67 20 97 02/22/24 08:00 77 02/22/24 08:00 158/51 H 02/22/24 08:00 158/51 H 02/22/24 08:00 38.1 C H 65 20 97 02/22/24 08:00 Mechanical Vent 40 02/22/24 07:45 38.1 C H 67 20 97 02/22/24 07:45 155/50 H 02/22/24 07:36 68 20 99 40 02/22/24 07:30 136/46 L 02/22/24 07:24 38.1 C H 80 20 99 02/22/24 07:15 117/45 L 02/22/24 07:15 117/45 L 02/22/24 07:15 117/45 L 02/22/24 07:09 38.1 C H 70 20 99 02/22/24 07:00 112/43 L 02/22/24 06:51 38.1 C H 71 20 99 02/22/24 05:45 133/45 L 02/22/24 05:42 38.2 C H 72 20 99 02/22/24 05:03 38.1 C H 72 20 98 02/22/24 05:00 134/46 L 02/22/24 05:00 134/46 L 02/22/24 05:00 134/46 L 02/22/24 04:57 38.1 C H 74 20 97 02/22/24 04:45 141/43 H 02/22/24 04:36 38.0 C H 72 20 96 02/22/24 04:30 38.0 C H 70 20 97 02/22/24 04:30 153/52 H 02/22/24 04:30 153/52 H 02/22/24 04:15 167/48 H 02/22/24 04:15 167/48 H 02/22/24 04:15 167/48 H 02/22/24 04:06 37.8 C H 72 20 99 02/22/24 04:00 167/57 H 02/22/24 04:00 37.8 C H 73 20 99 02/22/24 04:00 71 20 97 50 02/22/24 03:54 37.8 C H 73 20 99 02/22/24 03:45 172/56 H 02/22/24 03:36 37.7 C H 73 20 99 02/22/24 03:30 37.6 C H 20 96 02/22/24 03:15 133/47 L 02/22/24 03:15 37.5 C 70 20 98 02/22/24 03:00 50 02/22/24 02:45 37.4 C 70 20 97 02/22/24 02:45 143/46 H 02/22/24 02:45 143/46 H 02/22/24 02:45 143/46 H 02/22/24 02:45 143/46 H 02/22/24 02:45 143/46 H 02/22/24 02:30 141/51 H 02/22/24 02:30 37.3 C 70 20 97 02/22/24 02:30 141/51 H 02/22/24 02:30 141/51 H 02/22/24 02:30 141/51 H 02/22/24 02:15 37.2 C 71 20 97 02/22/24 02:15 167/70 H 02/22/24 02:00 37.2 C 70 20 96
--- NOTE | 2024-02-22 16:34 | Electrocardiogram Report ---
Test Reason : Blood Pressure : */* mmHG Vent. Rate : 120 BPM Atrial Rate : 159 BPM P-R Int : 168 ms QRS Dur : 134 ms QT Int : 348 ms P-R-T Axes : * -57 125 degrees QTcB Int : 491 ms Sinus tachycardia with Premature atrial complexes (consecutive) Left axis deviation Left bundle branch block Abnormal ECG When compared with ECG of 21-Feb-2024 14:27, No significant change was found Confirmed by August Esquivel ([id number]) on 02/22/2024 4:34:17 PM Referred By: REFERRED SELF Confirmed By: August Esquivel
[2024-02-22] MEDS: 4.5GM EXT INFUSION IV SCH (17:15)
[2024-02-22] MEDS: INSULIN ASPART PER UNIT CHARGE SC SCH (17:16)
[2024-02-22] MEDS ORDERED: Nursing to Pharmacy Communication SCH (20:30)
[2024-02-23 00:08] LABS: Anti Nuclear Antibody Screen NEGATIVE (NEGATIVE); Anti-Centromere Ab <1.0 NEG AI (<1.0 NEG); Anti-SS-A <1.0 NEG AI (<1.0 NEG); Anti-SS-B <1.0 NEG AI (<1.0 NEG); Complement C3 98 mg/dL; DNA ds Crithidia NEGATIVE (NEGATIVE); JO 1 Antibody <1.0 NEG AI (<1.0 NEG); RNP Antibody <1.0 NEG AI (<1.0 NEG); Sm Antibody <1.0 NEG AI (<1.0 NEG)
[2024-02-23] MEDS: INSULIN ASPART PER UNIT CHARGE SC SCH (00:44)
[2024-02-23 04:45] LABS: Basophils # (auto) 0.02 K/uL (0.00-0.20); Basophils % (auto) 0.1 %; Hematocrit (blood only) 36.9 % (37.0-47.0); Hemoglobin 12.2 g/dl (12.0-16.0); Immature Granulocytes # (auto) 0.18 K/uL (0.01-0.20); Immature Granulocytes % (auto) 1.1 %; Lymphocytes # (auto) 1.23 K/uL (1.20-3.40); Lymphocytes % (auto) 7.6 %; Mean Corpuscular Hgb Conc 33.1 g/dL (32.0-36.0); Mean Corpuscular Volume 90.9 fL (80.0-100.0); Mean Platelet Volume 9.7 fL (9.4-12.4); Monocytes # (auto) 0.84 K/uL (0.11-0.59); Monocytes % (auto) 5.2 %; Neutrophils # (auto) 13.81 K/uL (1.40-6.50); Platelet Count 174 K/uL (130-400); RDW Coefficient of Variation 12.6 % (11.5-14.5); RDW Standard Deviation 42.6 fL (36.4-46.3); Red Blood Count 4.06 M/uL (4.20-5.40); White Blood Count 16.08 K/ul (4.8-10.8)
[2024-02-23 05:03] LABS: BUN Creatinine Ratio 42.5 (10-20); Calcium 8.1 mg/dl (8.6-10.3); Creatinine Clr Calc Pharmacy 22.9 ml/min; Magnesium 2.5 mg/dl (1.7-2.4); Phosphorus 3.7 mg/dl (2.5-4.9); Potassium 3.6 mmol/L (3.5-5.1)
[2024-02-23 05:23] LABS: iSTAT Allen Test Pass; iSTAT Art Bld Gas pCO2 Correct 36 mmHg (35-46); iSTAT Art Bld Gas pH Corrected 7.448 (7.35-7.45); iSTAT Arterial Blood Gas HCO3 25 meg/L (19-24); iSTAT Arterial Blood Gas pCO2 37 mmHg (35-46); iSTAT Arterial Blood Gas pH 7.44 (7.35-7.45); iSTAT Arterial Blood Gas pO2 64 mmHg (80-95); iSTAT Arterial Blood Gas pO2 C 62; iSTAT Carbon Dioxide 26 mmol/L (24-31); iSTAT FiO2 40 %; iSTAT Hematocrit 34 % (37-47); iSTAT Hemoglobin 11.6 g/dl (12.0-16.0); iSTAT Potassium 3.3 mmol/L (3.3-5.0); iSTAT Site R Radial; iSTAT Sodium 138 mmol/L (135-144)
--- NOTE | 2024-02-23 06:42 | Critical Care Progress Note ---
Date of Service February 23, 2024 Assessment & Plan (1) Respiratory failure requiring intubation: (2) Respiratory failure: (3) Acute encephalopathy: (4) Diffuse pulmonary alveolar hemorrhage: (5) Cardiac arrest: (6) GERD (gastroesophageal reflux disease): (7) DM type 2 (diabetes mellitus, type 2): (8) CKD (chronic kidney disease), stage III: Plan Reason Critically Ill: Pt is an 88 yo female with a past med hx of cervical spinal stenosis, HTN, GERD, CKD stage 3, hiatal hernia, and hx of LBBB who presents to the hospital on 02/12 after cardiac arrest when doing a CT abd with contrast at [facility], initially in the ICU from 02/12 to 02/18 for need for mechanical ventilation, back in the ICU on 02/20 and intubated for the 3rd time this admission for recurrence of need for mechanical ventilation due to acute hypercapnic resp distress. Plan: Neuro - Encephalopathy, anxiety, sedation for mechanical ventilation this morning -> extubated successfully after SBT CAM ICU: NATY Cardiac - Tachycardia, hypertension poorly controlled, HFpEF, dysrhythmia - Patient remains with pulmonary edema- CXR relatively unchanged today - her previous ECHO post arrest was without RWMA and preserved EF, repeat echo showed EF 60-65% with diastolic failure - Her ECG is with LBBB - which appears chronic- again will obtain HsCTNI and ECHO - Possible with afib or uncompensated PACS- resolved with lowering her HR and now with PACs - She was diuresed prior to intubation - and will continue to diurese - For her HR/HfpEF medications - last ECG is without obvious STEMI - started on amiodarone today for afib not rate controlled by cardio du to concern if she continues to be tachycardiac that she will decompensate quickly again - Her repeated failures- seems to come from SCAPE like picture with poor tolerance to HTN, Anxiety, and Tachycardia and unfortunately she has poor reserve and decompensates rapidly Respiratory - Acute on chronic respiratory failure requiring emergent intubation, DAH - Patient has failed extubation x2 now intubated x3 - - Continue steroids for suspected DAH but will extend steroid course from to more prolonged course, - 30 mg steroid for 5 days starting 02/21, then 20 mg for 5 days and then 10 mg for 5 days - chest CT w/o contrast; interval improvement in pulm edema - sputum culture; pending GI - No acute needs RENAL/LYTES - JEFFREY, worsening - Cr worsened from 1.49 yest to 1.81 today, - electrolyte protocol per ICU - No acute needs - continue with Dixon catheter ENDO - DMII - ICU hyper/hypoglycemic protocol HEME - - LE US; neg for DVT bilaterally ID - - was on azithromycin - empiric zosyn for 7 days LINES/IV ACCESS - PIV x3 , Arterial Line, Dixon catheter, ETT, OGT DVT PROPHYLAXIS - SCDS, Heparin sub q DISPO: ICU while intubated and sedated and requiring mechanical ventilation Admission and Anticipated Discharge Date Admission Date: February 13, 2024 Supervising Physician Co-Signing Physician Notes Dr. Langford was resident physician during care of patient. I separately evaluated patient for griffin portions of the history and the exam. I was present during the critical portion of medical decision making, and I discussed the case with the resident. I generally agree with the findings and plan. Patient successfully passed spontaneous breathing trial we will proceed with extubation. Contacted family at number left message. Patient at risk for sympathetic crashing acute pulmonary edema, will do our best to manage agitatio n. Creatinine has increased again today, cumulative fluid balance is negative she was positive yesterday by 500 mL. Patient's weight still down 3.5 kg from admission weight. Will use nitrates to assist with management of hemodynamic profile. We are using a high flow nasal cannula to minimize agitation she has previously been on CPAP/BiPAP and the mask seems to worsen her agitation; however, high flow should provide some positive pressure After discussions with the family all in agreement that patient would not be reintubated in event of respiratory insufficiency and we will best attempt to treat any underlying pathology however if patient continues to decompensate from respiratory standpoint there may be a rapid transition to comfort measures and morphine administration to relieve the symptomatology of respiratory insufficiency/failure I have updated the patient's son who will be in to see the patient this afternoon, also discussed the case with cardiology will initiate amiodarone for hopeful rate control. I am very much less concerned with acute pulmonary toxicity and feel that is an acceptable long-term risk compared to short-term decompensation leading to Patient to remain in ICU as she may need IV nitrates and vasoactive medications and attempt to manage acute pulmonary edema should it arise. I have again emphasized I am concerned for patient's acute decompensation leading severe respiratory compromise leading to patient expiring. I have personally spent 65 minutes of critical care time in the direct management of this patient. This is a life/limb threatening event. This includes time spent evaluating patient, direct bedside care, chart review, placing orders, interpretation of diagnostic studies, discussion with consultants, patient, and/or family members regarding treatment decisions, as well as other required patient management activities. This time is exclusive of all separately billable procedures, and teaching time and separate from and in addition to any other critical care service time. Subjective Today, pt is mechanically ventilated, no acute distress. She does open eyes to verbal stimuli this morning. Review of Systems Review of Systems: Unobtainable due to endotracheal tube Physical Exam Physical Exam: General: On ventilator, no signs of acute distress, opens eyes to verbal stimuli, able to squeeze my hand on request HEENT: Normocephalic, atraumatic, Resp: Lungs relatively clear to auscultation today, some faint crackles noted in the bases Cardio: Regular rate during time of exam and rhythm, GI: Soft, bowel sounds noted but faint Skin: Warm, dry, Results & Data Results & Data Vital Signs (Past 12 Hours) Vital Signs Pulse Resp BP Pulse Ox O2 Del Method FiO2 02/23/24 05:00 67 20 95 40 02/23/24 04:06 65 20 96 02/23/24 04:00 123/63 02/23/24 03:00 98/43 L 02/23/24 03:00 40 02/23/24 02:51 51 L 20 91 02/23/24 02:00 116/43 L 02/23/24 01:57 61 20 93 02/23/24 01:24 48 L 20 94 02/23/24 01:00 109/40 L 02/23/24 00:45 104/44 L 02/23/24 00:42 54 L 20 93 02/23/24 00:30 107/52 L 02/23/24 00:30 107/52 L 02/23/24 00:30 54 L 20 92 02/23/24 00:03 53 L 20 92 02/23/24 00:00 53 L 02/23/24 00:00 111/39 L 02/23/24 00:00 111/39 L 02/22/24 23:54 57 L 20 92 02/22/24 23:49 58 L 20 93 40 02/22/24 23:30 113/48 L 02/22/24 23:30 113/48 L 02/22/24 23:30 113/48 L 02/22/24 23:30 55 L 20 92 02/22/24 23:15 128/43 L 02/22/24 23:15 128/43 L 02/22/24 23:00 111/42 L 02/22/24 23:00 52 L 20 93 02/22/24 23:00 40 02/22/24 22:02 164/72 H 02/22/24 22:00 61 20 99 02/22/24 21:00 99/40 L 02/22/24 20:57 54 L 20 97 02/22/24 20:30 51 L 20 98 40 02/22/24 20:30 101/39 L 02/22/24 20:27 52 L 20 97 02/22/24 20:00 101/49 L 02/22/24 19:57 54 L 20 97 02/22/24 19:36 56 L 20 97 02/22/24 19:30 105/41 L 02/22/24 19:01 102/52 L 02/22/24 19:00 Mechanical Vent 40 02/22/24 19:00 55 L 20 95 02/22/24 19:00 40 Resident Activity Tracking Resident Involvement: Resident Care Provided Care Provided: Adult Hospital Medicine
[2024-02-23] MEDS: POTASSIUM CHLORIDE 20 MEQ/15 ML UDC PO STA (06:47)
--- NOTE | 2024-02-23 07:45 | XRay Report ---
XR chest 1V portable CLINICAL HISTORY: Respiratory failure. COMPARISON STUDY: Chest radiograph and chest CT February 22, 2024. FINDINGS: Tip of the endotracheal tube is 4 cm above the vadim. Tip of nasogastric tube is within th e gastric body. There is no pneumothorax. Small to moderate right and small left pleural effusions wi th associated bibasilar opacities persist. Interstitial thickening is similar to prior exam. Cardiome diastinal silhouette is stable. IMPRESSION: 1. Satisfactory positioning of the endotracheal and nasogastric tubes. 2. Persistent pulmonary edema with small to moderate right and small left pleural effusions with asso ciated bibasilar opacities. No significant change in appearance of the chest. ACT 112: Negative or not required by law. Electronically signed by: Luis Carlos Boyd M.D. 02/23/2024 7:43 AM
[2024-02-23] MEDS: MULTI VIT W/MINERALS LIQUID 15 ML UDC NG SCH (08:10)
[2024-02-23] MEDS: predniSONE 10 MG TABLET PO SCH (08:10)
[2024-02-23] MEDS: MoRPHine SULFATE 2 MG/ML CARP ONE (09:50)
[2024-02-23] MEDS ORDERED: NITROGLYCERIN SL 0.4 MG/TAB TAB SL ONE (10:00)
[2024-02-23] MEDS: METOPROLOL TARTRATE 1 MG/ML VIAL IV ONE ×2 (10:03→11:34)
[2024-02-23] MEDS: MoRPHine SULFATE 2 MG/ML CARP IV STA ×2 (10:08)
--- NOTE | 2024-02-23 10:33 | Electrocardiogram Report ---
Test Reason : Blood Pressure : */* mmHG Vent. Rate : 85 BPM Atrial Rate : 85 BPM P-R Int : 160 ms QRS Dur : 136 ms QT Int : 394 ms P-R-T Axes : 65 -48 124 degrees QTcB Int : 468 ms Normal sinus rhythm Possible Left atrial enlargement Left axis deviation Left bundle branch block Abnormal ECG When compared with ECG of 21-Feb-2024 17:43, Premature atrial complexes are no longer Present Confirmed by August Esquivel ([id number]) on 02/23/2024 10:33:08 AM Referred By: REFERRED SELF Confirmed By: August Esquivel
[2024-02-23] MEDS ORDERED: STAT IV Infusion **Titration per Protocol STA (10:52)
[2024-02-23] MEDS ORDERED: AMIODARONE IV BOLUS & DRIP IV STA (10:52)
[2024-02-23] MEDS ORDERED: 0.2 MICRON FILTER SET 1 EACH IV STA (10:52)
[2024-02-23 11:07] VITALS: O2SAT 91
[2024-02-23] MEDS: AMIODARONE / D5W 150 MG/100 ML BAG IV STA (11:07)
--- NOTE | 2024-02-23 11:16 | Billing Data ---
Date of Service February 23, 2024 Coding Level of Care Code 88457 CRITICAL CARE
--- NOTE | 2024-02-23 11:19 | Cardiology Progress Note ---
Date of Service February 23, 2024 Assessment & Plan (1) Respiratory failure requiring intubation: (2) Left bundle branch block: (3) Diastolic dysfunction: (4) Severe hypertension: (5) Atrial fibrillation with rapid ventricular response: Plan Critically ill 88-year-old female with complex history as previously outlined Extubated earlier today but continues to struggle postextubation. Lapsed into atrial fibrillation shortly after with elevated ventricular response rates LVH and small left ventricular cavity size poorly tolerant of rapid rates Plan: IV amiodarone bolus and infusion. Patient at risk for bradycardia arrhythmias given underlying conduction abnormalities with left bundle branch block first-degree AV block. Has not received beta-brice today will continue to hold. Stop Seroquel due to amiodarone use Overall prognosis limited as atrial arrhythmias are being driven by respiratory distress. Atrial fibrillation compounding underlying concerns Admission and Anticipated Discharge Date Admission Date: February 13, 2024 Subjective Patient seen and personally examined Extubated early this morning but remains critically ill Lapsed into atrial fibrillation with rapid ventricular sponsor shortly after extubation No hypotension but marginal compensation respiratory. Review of Systems Review of Systems: All systems reviewed & are unremarkable except as noted in Subjective Physical Exam Constitutional: + ill appearing ENMT: external ear and nose normal, oropharynx normal Neck: trachea midline, no thyromegaly Respiratory: + labored breathing and + uses accessory muscles Cardiovascular: Rate/Rhythm: + tachycardic and + irregularly irregular Extremities: + edema Gastrointestinal (Abdomen): normal bowel sounds, soft, nontender, no hepatosplenomegaly Results & Data Vital Signs (Past 12 Hours) Vital Signs Pulse Pulse Resp BP Pulse Ox O2 Del Method O2 Flow Rate 02/23/24 11:06 130 H 26 H 91 High Flow Nasal Cannula 50 02/23/24 10:03 152 H 02/23/24 09:35 156 H 28 H 91 High Flow Nasal Cannula 50 02/23/24 09:30 142 H 29 H 90 Oxymask 8 02/23/24 09:09 97 H 39 H 94 Oxymask 4 02/23/24 09:01 145/50 H 02/23/24 08:45 93 H 25 H 95 Oxymask 4 02/23/24 08:45 73 95 02/23/24 08:33 91 H 26 H 95 02/23/24 08:30 149/61 H 02/23/24 08:30 149/61 H 02/23/24 08:27 93 H 25 H 95 02/23/24 08:09 77 19 94 02/23/24 08:00 140/43 L 02/23/24 08:00 140/43 L 02/23/24 08:00 140/43 L 02/23/24 07:58 75 15 94 Mechanical Vent 02/23/24 07:57 76 18 95 02/23/24 07:42 73 15 95 02/23/24 07:30 118/44 L 02/23/24 07:30 65 18 95 02/23/24 07:06 60 18 95 02/23/24 07:00 121/47 L 02/23/24 06:01 123/40 L 02/23/24 06:00 65 18 95 02/23/24 05:01 104/54 L 02/23/24 05:00 76 20 95 02/23/24 05:00 67 20 95 02/23/24 04:06 65 20 96 02/23/24 04:00 123/63 02/23/24 03:00 98/43 L 02/23/24 03:00 02/23/24 02:51 51 L 20 91 02/23/24 02:00 116/43 L 02/23/24 01:57 61 20 93 02/23/24 01:24 48 L 20 94 02/23/24 01:00 109/40 L 02/23/24 00:45 104/44 L 02/23/24 00:42 54 L 20 93 02/23/24 00:30 107/52 L 02/23/24 00:30 107/52 L 02/23/24 00:30 54 L 20 92 02/23/24 00:03 53 L 20 92 02/23/24 00:00 53 L 02/23/24 00:00 111/39 L 02/23/24 00:00 111/39 L 02/22/24 23:54 57 L 20 92 02/22/24 23:49 58 L 20 93 02/22/24 23:30 113/48 L 02/22/24 23:30 113/48 L 02/22/24 23:30 113/48 L 02/22/24 23:30 55 L 20 92 FiO2 02/23/24 11:06 50 02/23/24 10:03 02/23/24 09:35 50 02/23/24 09:30 02/23/24 09:09 02/23/24 09:01 02/23/24 08:45 02/23/24 08:45 02/23/24 08:33 02/23/24 08:30 02/23/24 08:30 02/23/24 08:27 02/23/24 08:09 02/23/24 08:00 02/23/24 08:00 02/23/24 08:00 02/23/24 07:58 40 02/23/24 07:57 02/23/24 07:42 40 02/23/24 07:30 02/23/24 07:30 02/23/24 07:06 02/23/24 07:00 02/23/24 06:01 02/23/24 06:00 02/23/24 05:01 02/23/24 05:00 02/23/24 05:00 40 02/23/24 04:06 02/23/24 04:00 02/23/24 03:00 02/23/24 03:00 40 02/23/24 02:51 02/23/24 02:00 02/23/24 01:57 02/23/24 01:24 02/23/24 01:00 02/23/24 00:45 02/23/24 00:42 02/23/24 00:30 02/23/24 00:30 02/23/24 00:30 02/23/24 00:03 02/23/24 00:00 02/23/24 00:00 02/23/24 00:00 02/22/24 23:54 02/22/24 23:49 40 02/22/24 23:30 02/22/24 23:30 02/22/24 23:30 02/22/24 23:30 Laboratory Results Laboratory Results - last 24 hr 02/15/24 02/22/24 02/22/24 10:58 11:32 11:35 WBC RBC Hgb POC Hgb Hct POC Hct MCV MCH MCHC RDW Std Deviation RDW Coeff of Kiana Plt Count MPV Immature Gran % (Auto) Neut % (Auto) Lymph % (Auto) Rogers % (Auto) Eos % (Auto) Baso % (Auto) Neut # (Auto) Lymph # (Auto) Rogers # (Auto) Eos # (Auto) Baso # (Auto) Immature Gran # (Auto) Sample Site POC pH POC pCO2 POC pO2 POC HCO3 POC Total CO2 POC Base Excess ABG pH (Temp Correct) ABG pCO2 (Temp Corrct POC ABG pO2 at Pt Temp POC ABG O2 Sat Emeka Test O2 Delivery Device POC O2 Rate POC FiO2 Tidal Volume PEEP POC Sodium Sodium POC Potassium Potassium Chloride Carbon Dioxide Anion Gap BUN Creatinine Est Cr Clr Drug Dosing eGFR BUN/Creatinine Ratio Glucose POC Glucose 218 H 186 H Calcium Phosphorus Magnesium KARIN Screen NEGATIVE EDWARDO-1 Antibody <1.0 NEG SS-A/Ro Antibody <1.0 NEG SS-B/La Antibody <1.0 NEG Sm (Acosta) Antibody <1.0 NEG UX MANAGER Antibody <1.0 NEG Scl-70 Scleroderma Ab <1.0 NEG Anti-ds DNA (Crithidia) NEGATIVE Anti-Centromere Ab <1.0 NEG Complement C3 98 Complement C4 19 02/22/24 02/22/24 02/22/24 11:41 11:46 12:32 WBC RBC Hgb POC Hgb Hct POC Hct MCV MCH MCHC RDW Std Deviation RDW Coeff of Kiana Plt Count MPV Immature Gran % (Auto) Neut % (Auto) Lymph % (Auto) Rogers % (Auto) Eos % (Auto) Baso % (Auto) Neut # (Auto) Lymph # (Auto) Rogers # (Auto) Eos # (Auto) Baso # (Auto) Immature Gran # (Auto) Sample Site POC pH POC pCO2 POC pO2 POC HCO3 POC Total CO2 POC Base Excess ABG pH (Temp Correct) ABG pCO2 (Temp Corrct POC ABG pO2 at Pt Temp POC ABG O2 Sat Emeka Test O2 Delivery Device POC O2 Rate POC FiO2 Tidal Volume PEEP POC Sodium Sodium POC Potassium Potassium Chloride Carbon Dioxide Anion Gap BUN Creatinine Est Cr Clr Drug Dosing eGFR BUN/Creatinine Ratio Glucose 156 H POC Glucose 91 160 H Calcium Phosphorus Magnesium KARIN Screen EDWARDO-1 Antibody SS-A/Ro Antibody SS-B/La Antibody Sm (Acosta) Antibody UX MANAGER Antibody Scl-70 Scleroderma Ab Anti-ds DNA (Crithidia) Anti-Centromere Ab Complement C3 Complement C4 02/22/24 02/23/24 02/23/24 16:08 00:31 00:35 WBC RBC Hgb POC Hgb Hct POC Hct MCV MCH MCHC RDW Std Deviation RDW Coeff of Kiana Plt Count MPV Immature Gran % (Auto) Neut % (Auto) Lymph % (Auto) Rogers % (Auto) Eos % (Auto) Baso % (Auto) Neut # (Auto) Lymph # (Auto) Rogers # (Auto) Eos # (Auto) Baso # (Auto) Immature Gran # (Auto) Sample Site POC pH POC pCO2 POC pO2 POC HCO3 POC Total CO2 POC Base Excess ABG pH (Temp Correct) ABG pCO2 (Temp Corrct POC ABG pO2 at Pt Temp POC ABG O2 Sat Emeka Test O2 Delivery Device POC O2 Rate POC FiO2 Tidal Volume PEEP POC Sodium Sodium POC Potassium Potassium Chloride Carbon Dioxide Anion Gap BUN Creatinine Est Cr Clr Drug Dosing eGFR BUN/Creatinine Ratio Glucose POC Glucose 160 H 248 H 260 H Calcium Phosphorus Magnesium KARIN Screen EDWARDO-1 Antibody SS-A/Ro Antibody SS-B/La Antibody Sm (Acosta) Antibody UX MANAGER Antibody Scl-70 Scleroderma Ab Anti-ds DNA (Crithidia) Anti-Centromere Ab Complement C3 Complement C4 02/23/24 02/23/24 02/23/24 04:29 05:11 08:29 WBC 16.08 H RBC 4.06 L Hgb 12.2 POC Hgb 11.6 L Hct 36.9 L POC Hct 34 L MCV 90.9 MCH 30.0 MCHC 33.1 RDW Std Deviation 42.6 RDW Coeff of Kiana 12.6 Plt Count 174 MPV 9.7 Immature Gran % (Auto) 1.1 Neut % (Auto) 86.0 Lymph % (Auto) 7.6 Rogers % (Auto) 5.2 Eos % (Auto) 0.0 Baso % (Auto) 0.1 Neut # (Auto) 13.81 H Lymph # (Auto) 1.23 Rogers # (Auto) 0.84 H Eos # (Auto) 0.00 Baso # (Auto) 0.02 Immature Gran # (Auto) 0.18 Sample Site R Radial POC pH 7.44 POC pCO2 37 POC pO2 64 L POC HCO3 25 H POC Total CO2 26 POC Base Excess 1.0 ABG pH (Temp Correct) 7.448 ABG pCO2 (Temp Corrct 36 POC ABG pO2 at Pt Temp 62 POC ABG O2 Sat 93.0 Emeka Test Pass O2 Delivery Device Ventilator POC O2 Rate 20 POC FiO2 40 Tidal Volume 400 PEEP 8 POC Sodium 138 Sodium 140 POC Potassium 3.3 Potassium 3.6 Chloride 104 Carbon Dioxide 26 Anion Gap 10 BUN 77 H Creatinine 1.81 H D Est Cr Clr Drug Dosing 22.9 eGFR 26.59 BUN/Creatinine Ratio 42.5 H Glucose 270 H POC Glucose 253 H Calcium 8.1 L Phosphorus 3.7 Magnesium 2.5 H KARIN Screen EDWARDO-1 Antibody SS-A/Ro Antibody SS-B/La Antibody Sm (Acosta) Antibody UX MANAGER Antibody Scl-70 Scleroderma Ab Anti-ds DNA (Crithidia) Anti-Centromere Ab Complement C3 Complement C4
[2024-02-23] MEDS: AMIODARONE / D5W 360 MG/200 ML BAG IV ONE (11:21)
[2024-02-23 11:54] VITALS: BP 163/54; PULSE 89; RESP 22
[2024-02-23] MEDS ORDERED: NITROGLYCERIN SL 0.4 MG/TAB TAB ONE (12:14)
[2024-02-23] MEDS: NITROGLYCERIN SL 0.4 MG/TAB TAB SL ONE (12:16)
--- NOTE | 2024-02-23 13:10 | Death Pronouncement Note ---
Date of Service February 23, 2024 Pronouncement Note Admission Date February 13, 2024 Preliminary Cause of (1) Respiratory failure requiring intubation: (2) Respiratory failure: (3) Acute encephalopathy: (4) Diffuse pulmonary alveolar hemorrhage: (5) Cardiac arrest: (6) GERD (gastroesophageal reflux disease): (7) DM type 2 (diabetes mellitus, type 2): (8) CKD (chronic kidney disease), stage III: Summary I was called to pronounce the of ( []) by [] on [date] Upon entering the room, patient was found to be in a terminal state. They were unresponsive to, and did not withdrawal from, verbal or tactile stimuli. They were unresponsive to corneal, pupillary, and oculocephalic reflexes. On cardiopulmonary exam, they were found to be without detectable carotid pulses, and without spontaneous heart tones or respirations. Time of was pronounced by me on [date] at [24-hour time]. Attending physician was notified was notified. Next of kin was notified by []. Signed: [] Additional Data Attending physician: Emerson Ramos MD
--- NOTE | 2024-02-23 13:11 | Death Pronouncement Note ---
Date of Service February 23, 2024 Pronouncement Note Admission Date Admission Date: February 13, 2024 Date and Time of Date of : 02/23/24 Time of : 13:07 PCOD Preliminary cause of : Aspiration into airway Contributing Factors (1) Respiratory failure requiring intubation: (2) Left bundle branch block: (3) Diastolic dysfunction: (4) Atrial fibrillation with rapid ventricular response: (5) Cardiac arrest: (6) CKD (chronic kidney disease), stage III: Hospital Course Hospital Course: Patient is an 88-year-old female who who presented to the emergency department after a cardiac arrest secondary to respiratory arrest secondary to aspiration of contrast material during a CT scan. Patient had return of spontaneous circulation and was admitted to the ICU. Her her hospital course waxed and waned from a pulmonary standpoint secondary to the aspiration pneumonitis and acute kidney injury from the initial insulting event. Patient had several recurrent bouts of respiratory failure complicated by pre-existing structural heart disease and limited cardiac reserve secondary to diastolic dysfunction, atrial fibrillation and conduction disease. Ultimately it was felt it was inconsistent with the patient's long-term wishes to continue to be intubated and tracheostomy and ventilatory assistance was felt to be inconsistent with the patient's long-term wishes and the patient extubated and converted to a DO NOT RESUSCITATE and DO NOT INTUBATE status. Despite aggressive measures the patient continued to become hypoxic and ultimately due to her respiratory insufficiency. I have requested this case be referred to the manager medical for determination of accidental versus natural as the an initial insulting event was aspiration during a medical procedure. Additional Data Confirmation of : no pulse, no respirations, no heart sounds, pupils fixed and dilated and other (Asystole on port purser) Family: at bedside (Son at bedside) Attending physician: Emerson Ramos MD Autopsy requested?: No forensic medical examiner notified?: Yes (Requesting manager medical review) Coding Level of Care Code None Diagnoses Respiratory failure requiring intubation J96.90 Left bundle branch block I44.7 Diastolic dysfunction I51.89 Atrial fibrillation with rapid ventricular response I48.91 Cardiac arrest I46.9 CKD (chronic kidney disease), stage III N18.3
--- NOTE | 2024-02-23 13:31 | Hospitalist Progress Note ---
Date of Service February 23, 2024 Time of Care around 11:00 AM Assessment & Plan (1) Aspiration pneumonia: (2) Cardiac arrest: Plan Patient is an 88-year-old female with past medical history significant for type 2 diabetes, renal artery stenosis, hypertension, GERD, CKD who was brought in via EMS intubated status post cardiac arrest at the [facility]. Acute respiratory failure with hypoxia and hypercarbia Cardiac arrest Elevated Troponin Aspiration pneumonia Pericardial effusion Diffuse pulmonary alveolar hemorrhage Small loculated right lateral pericardial effusion Bilateral pleural effusion A-fib RVR Patient had cardiac arrest at [facility]; ROSC achieve after 4 minutes. Was intubated and brought to the hospital --Chest x-ray on admission showed multiple airspace opacity --Chest CT does extensive diffuse multifocal air space opacity. --Echocardiogram shows EF of 60 to 65% with moderate concentric LVH, severe mitral annular calcification. Small loculated right lateral pericardial effusion --Bronchoscopy done on 02/12: " airways appeared hyperemic with bloody secretions emanating from bilateral lower lobes. Washings were performed of the right lower lobe and sent for culture and cytology. Approximately 150 mL of saline was used to wash the bilateral lungs and clear his own secretions and blood. No obvious active bleeding was noted". --Bronchial sample from 02/12- light normal tania --Bronchoscopy on 02/14 showed findings suggestive of diffuse alveolar hemorrhage. --MRI Brain wo contrast- no acute findings --Patient was extubated on 02/15 and required reintubation on the same day due to hypoxia --Patient again extubated on 02/18 --Reintubated on 02/21/2024 -- Completed 5-day course of Zosyn, azithromycin --Restarted on Zosyn 02/22/24 --Patient extubated on 02/23/24 --continue prednisone for 5 more days --Appreciate critical care, cardiology input -- Repeat CT chest from 02/22/2024 showed improving interstitial edema however has increased moderate pleural effusions. Bilateral alveolar opacities improved when compared to prior CT scan. Postextubation, patient required high flow oxygen to maintain saturations secondary to hypoxia. Noted to be in A-fib RVR post extubation. Amiodarone was initiated to control heart rate Seroquel to be discontinued as started on amiodarone Despite aggressive measures, patient clinically deteriorated and . Hypertensive urgency PACs, PVCs Left bundle branch block--also noted on EKG from May 2019 Amlodipine discontinued Continue losartan 50 mg daily Carvedilol changed to metoprolol IV hydralazine as needed Also started nitroglycerin Appreciate cardiology input Monitor blood pressure and adjust medications as needed UTI Urine culture growing gram negative Bacilli Empirically on Zosyn Acute Kidney Injury Cr 1.8 today Monitor renal function Avoid nephrotoxic agents as able Other chronic conditions: Type 2 diabetes mellitus; maintain euglycemic state; on insulin Hypertension -management as above DVT Px: On SQ heparin--Per ICU team CODE STATUS DNI/DNR Admission and Anticipated Discharge Date Admission Date: February 13, 2024 Subjective Patient is seen and examined at bedside this morning Extubated this morning Very Lethargic during my encounter Poor Historian Followed simple commands Currently on high flow oxygen Review of Systems Review of Systems: Unobtainable due to reduced consciousness Physical Exam Physical Exam: Physical Exam: Vitals signs as noted above General Appearance:Moderately built and nourished, ill-appearing, elderly, + Lethargic Head: normocephalic, Atraumatic Eyes: normal inspection Neck: supple, Trachea midline Respiratory/Chest: Coarse breath sounds, bilateral crackles, + accessory muscle use Cardiovascular: Irregular, tachycardic, No murmur Extremities/Musculoskeletal:normal inspection, +edema Neurologic/Psych: Lethargic, follows simple commands, complete neurological exam not performed Results & Data Results & Data Vital Signs (Past 12 Hours) Vital Signs Pulse Pulse Resp BP Pulse Ox O2 Del Method O2 Flow Rate 02/23/24 11:46 163/54 H 02/23/24 11:39 89 22 91 02/23/24 11:30 104/90 02/23/24 11:30 104/90 02/23/24 11:16 132/76 02/23/24 11:16 132/76 02/23/24 11:16 132/76 02/23/24 11:12 132 H 23 91 02/23/24 11:06 130 H 26 H 91 High Flow Nasal Cannula 50 02/23/24 11:00 144 H 27 H 88 L 02/23/24 11:00 129/76 02/23/24 11:00 129/76 02/23/24 10:46 144/58 H 02/23/24 10:46 144/58 H 10/04/24 10:42 137 H 24 89 L 02/23/24 10:30 96/58 L 02/23/24 10:24 127 H 34 H 91 High Flow Nasal Cannula 02/23/24 10:16 109/79 02/23/24 10:16 109/79 02/23/24 10:15 119 H 29 H 91 High Flow Nasal Cannula 02/23/24 10:03 152 H 02/23/24 10:00 110/83 02/23/24 10:00 147 H 31 H 88 L 02/23/24 09:59 104/89 02/23/24 09:57 151 H 29 H 89 L 02/23/24 09:45 146/71 H 02/23/24 09:45 146/71 H 02/23/24 09:45 149 H 25 H 91 02/23/24 09:39 121 H 27 H 93 02/23/24 09:35 156 H 28 H 91 High Flow Nasal Cannula 50 02/23/24 09:31 174/50 H 02/23/24 09:30 142 H 29 H 90 Oxymask 8 02/23/24 09:27 101 H 27 H 91 02/23/24 09:15 102 H 29 H 91 02/23/24 09:09 97 H 39 H 94 Oxymask 4 02/23/24 09:01 145/50 H 02/23/24 08:45 93 H 25 H 95 Oxymask 4 02/23/24 08:45 73 95 02/23/24 08:33 91 H 26 H 95 02/23/24 08:30 149/61 H 02/23/24 08:30 149/61 H 02/23/24 08:27 93 H 25 H 95 02/23/24 08:09 77 19 94 02/23/24 08:00 140/43 L 02/23/24 08:00 140/43 L 02/23/24 08:00 140/43 L 02/23/24 07:58 75 15 94 Mechanical Vent 02/23/24 07:57 76 18 95 02/23/24 07:42 73 15 95 02/23/24 07:30 118/44 L 02/23/24 07:30 65 18 95 02/23/24 07:06 60 18 95 02/23/24 07:00 121/47 L 02/23/24 06:01 123/40 L 02/23/24 06:00 65 18 95 02/23/24 05:01 104/54 L 02/23/24 05:00 76 20 95 02/23/24 05:00 67 20 95 02/23/24 04:06 65 20 96 02/23/24 04:00 123/63 02/23/24 03:00 98/43 L 02/23/24 03:00 02/23/24 02:51 51 L 20 91 02/23/24 02:00 116/43 L 02/23/24 01:57 61 20 93 FiO2 02/23/24 11:46 02/23/24 11:39 02/23/24 11:30 02/23/24 11:30 02/23/24 11:16 02/23/24 11:16 02/23/24 11:16 02/23/24 11:12 02/23/24 11:06 50 02/23/24 11:00 02/23/24 11:00 02/23/24 11:00 02/23/24 10:46 02/23/24 10:46 02/23/24 10:42 02/23/24 10:30 02/23/24 10:24 02/23/24 10:16 02/23/24 10:16 02/23/24 10:15 02/23/24 10:03 02/23/24 10:00 02/23/24 10:00 02/23/24 09:59 02/23/24 09:57 02/23/24 09:45 02/23/24 09:45 02/23/24 09:45 02/23/24 09:39 02/23/24 09:35 50 02/23/24 09:31 02/23/24 09:30 02/23/24 09:27 02/23/24 09:15 02/23/24 09:09 02/23/24 09:01 02/23/24 08:45 02/23/24 08:45 02/23/24 08:33 02/23/24 08:30 02/23/24 08:30 02/23/24 08:27 02/23/24 08:09 02/23/24 08:00 02/23/24 08:00 02/23/24 08:00 02/23/24 07:58 40 02/23/24 07:57 02/23/24 07:42 40 02/23/24 07:30 02/23/24 07:30 02/23/24 07:06 02/23/24 07:00 02/23/24 06:01 02/23/24 06:00 02/23/24 05:01 02/23/24 05:00 02/23/24 05:00 40 02/23/24 04:06 02/23/24 04:00 02/23/24 03:00 02/23/24 03:00 40 02/23/24 02:51 02/23/24 02:00 02/23/24 01:57 Laboratory Results Short CBC 02/23/24 Range/Units 04:29 WBC 16.08 H (4.8-10.8) K/ul Hgb 12.2 (12.0-16.0) g/dl Hct 36.9 L (37.0-47.0) % Plt Count 174 (130-400) K/uL BMP 02/23/24 04:29 Sodium 140 Potassium 3.6 Chloride 104 Carbon Dioxide 26 BUN 77 H Creatinine 1.81 H D Glucose 270 H Calcium 8.1 L
--- NOTE | 2024-02-23 15:12 | Discharge Summary ---
Date of Service February 23, 2024 Admission HPI Per Admitting Provider Patient is an 88-year-old female with past medical history significant for type 2 diabetes, renal artery stenosis, hypertension, GERD, CKD who was brought in via EMS intubated status post cardiac arrest at the [facility]. Patient was at the [facility] to complete a CT abdomen pelvis with IV and oral contrast as part of her gastroenterology workup for generalized abdominal pain. Reportedly right after patient drank oral contrast she developed nausea and respiratory distress. The rapid response team was activated, which included shirt creaser Dr. Matos and anesthesia who was pre sent in the building. It was reported that her oxygen saturations were in the 70s and she was given a dose of Solu-Medrol 125 mg and 50 mg of diphenhydramine IM into the left deltoid. She was also given supplemental oxygen. Her respiratory distress progressed and she became unresponsive. Per Dr. Matos's report in [facility], her EKG revealed left bundle branch block which he states is chronic for her. CPR was started when she became bradycardic down to the 30s and she was given 1 mg of IV atropine. Per Dr. Matos's report in [facility], she subsequently developed wide-complex tachycardia in the 140s and had a palpable brachial and radial pulse. As she was still unresponsive, she underwent endotracheal intubation by anesthesia and was given succinylcholine. She was then transferred to the [facility] emergency room via EMS. Per other reports, ACLS was performed for 4 minutes and patient also received 1mg of epinephrine. On arrival to the emergency room, patient was sedated, central and peripheral lines placed and she was admitted to the ICU. Discussion with patient's son via telephone who states that he does have her CODE STATUS wishes down on paper but it is at home. States he is unclear of the exact wording however he believes that initially she would want everything done and is a full code at this time. Admission Exam Per Admitting Provider General: intubated and sedated at the time of exam Psych: mood and affect could not be determined Neuro: intubated and sedated HEENT: NC/AT, intubated and sedated CV: RRR Resp: intubated and sedated Abdomen: Soft Extremities: No edema in lower extremities bilaterally. Principal Diagnosis Preliminary cause of : Aspiration into airway Discharge Data Allergies Allergy/AdvReac Type Severity Reaction Status Date / Time Iodinated Contrast Media Allergy Severe Anaphylaxis Verified 02/13/24 20:21 latex Allergy Intermediate RED RASH Verified 06/12/23 14:35 Aabntvy-YXC-HvG Reductase Allergy Intermediate muscle Verified 06/12/23 14:35 Inhibitor pain/can't [Fvnmtdk-Ylr-Xwz Reductase concentrate/dizzy/nausea Inhibitor] Consultations 02/13/24 16:47 Consult Supervisor Riveting Routine 02/13/24 16:49 ED Decision to Admit Stat 02/13/24 16:58 Consult Cardiology Stat 02/21/24 14:07 Consult Cardiology Routine Procedures Performed Laboratory Results WBC 16.08 K/ul (4.8-10.8) H 02/23/24 04:29 RBC 4.06 M/uL (4.20-5.40) L 02/23/24 04:29 Hgb 12.2 g/dl (12.0-16.0) 02/23/24 04:29 POC Hgb 11.6 g/dl (12.0-16.0) L 02/23/24 05:11 Hct 36.9 % (37.0-47.0) L 02/23/24 04:29 POC Hct 34 % (37-47) L 02/23/24 05:11 MCV 90.9 fL (80.0-100.0) 02/23/24 04:29 MCH 30.0 pg (25.0-34.0) 02/23/24 04:29 MCHC 33.1 g/dL (32.0-36.0) 02/23/24 04:29 RDW Std Deviation 42.6 fL (36.4-46.3) 02/23/24 04:29 RDW Coeff of Kiana 12.6 % (11.5-14.5) 02/23/24 04:29 Plt Count 174 K/uL (130-400) 02/23/24 04:29 MPV 9.7 fL (9.4-12.4) 02/23/24 04:29 Immature Gran % (Auto) 1.1 % 02/23/24 04:29 Neut % (Auto) 86.0 % 02/23/24 04:29 Lymph % (Auto) 7.6 % 02/23/24 04:29 [place] % (Auto) 5.2 % 02/23/24 04:29 Eos % (Auto) 0.0 % 02/23/24 04:29 Baso % (Auto) 0.1 % 02/23/24 04:29 Neut # (Auto) 13.81 K/uL (1.40-6.50) H 02/23/24 04:29 Lymph # (Auto) 1.23 K/uL (1.20-3.40) 02/23/24 04:29 [place] # (Auto) 0.84 K/uL (0.11-0.59) H 02/23/24 04:29 Eos # (Auto) 0.00 K/uL (0.00-0.50) 02/23/24 04:29 Baso # (Auto) 0.02 K/uL (0.00-0.20) 02/23/24 04: Immature Gran # (Auto) 0.18 K/uL (0.01-0.20) 02/23/24 04:29 ESR 27 mm/hr (0-30) 02/15/24 10:58 PT 10.6 Seconds (9.0-12.0) 02/15/24 10:49 INR 1.0 (0.9-1.1) 02/15/24 10:49 APTT 26 Seconds (21-31) 02/14/24 05:44 PTT Ratio 1.0 02/14/24 05:44 Fibrinogen 474 mg/dl (184-400) H 02/15/24 10:49 Heparin Anti-Xa, Unfract 0.81 IU/ml (0.3-0.7) H* 02/14/24 12:05 Sample Site R Radial 02/23/24 05:11 POC pH 7.44 (7.35-7.45) 02/23/24 05:11 POC pCO2 37 mmHg (35-46) 02/23/24 05:11 POC pO2 64 mmHg (80-95) L 02/23/24 05:11 POC HCO3 25 guillermina/L (19-24) H 02/23/24 05:11 POC Total CO2 26 mmol/L (24-31) 02/23/24 05:11 POC Base Excess 1.0 guillermina/L (-9-1.8) 02/23/24 05:11 ABG pH (Temp Correct) 7.448 (7.35-7.45) 02/23/24 05:11 ABG pCO2 (Temp Corrct 36 mmHg (35-46) 02/23/24 05:11 POC ABG pO2 at Pt Temp 62 02/23/24 05:11 POC ABG O2 Sat 93.0 % (90-95) 02/23/24 05:11 Emeka Test Pass 02/23/24 05:11 O2 Delivery Device Ventilator 02/23/24 05:11 POC O2 Rate 20 02/23/24 05:11 Minute Ventilation 6.8 02/18/24 05:38 POC FiO2 40 % 02/23/24 05:11 Tidal Volume 400 02/23/24 05:11 PEEP 8 02/23/24 05:11 POC Sodium 138 mmol/L (135-144) 02/23/24 05:11 Sodium 140 mmol/L (136-145) 02/23/24 04:29 POC Potassium 3.3 mmol/L (3.3-5.0) 02/23/24 05:11 Potassium 3.6 mmol/L (3.5-5.1) 02/23/24 04:29 Chloride 104 mmol/L (98-107) 02/23/24 04:29 Carbon Dioxide 26 mmol/L (21-32) 02/23/24 04:29 Anion Gap 10 (3-11) 02/23/24 04:29 BUN 77 mg/dl (6-23) H 02/23/24 04:29 Creatinine 1.81 mg/dl (0.6-1.2) H D 02/23/24 04:29 Est Cr Clr Drug Dosing 22.9 ml/min 02/23/24 04:29 eGFR 26.59 02/23/24 04:29 Est GFR ( Amer) 43.2 ml/min 02/21/24 04:10 Est GFR (Non-Af Amer) 37.3 ml/min 02/21/24 04:10 BUN/Creatinine Ratio 42.5 (10-20) H 02/23/24 04:29 Glucose 270 mg/dl (70-99(Fasting)) H 02/23/24 04:29 POC Glucose 253 mg/dl (70-99) H 02/23/24 08:29 POC Glucose (other) 88 mg/dl (70-99) 02/16/24 23:38 Lactate 1.4 mmol/L (0.4-2.0) 02/21/24 19:12 Calcium 8.1 mg/dl (8.6-10.3) L 02/23/24 04:29 Phosphorus 3.7 mg/dl (2.5-4.9) 02/23/24 04:29 Magnesium 2.5 mg/dl (1.7-2.4) H 02/23/24 04:29 Total Bilirubin 0.6 mg/dl (0.2-1.0) 02/13/24 15:24 AST 47 U/L (13-39) H 02/13/24 17:17 ALT 31 U/L (7-52) 02/13/24 15:24 Alkaline Phosphatase 134 U/L (34-104) H 02/13/24 15:24 Lactate Dehydrogenase 197 U/L (86-244) 02/15/24 10:49 Total Creatine Kinase 216 U/L (26-192) H 02/15/24 10:49 Troponin I High Sens 133.1 pg/ml (0-14) H* 02/21/24 19:12 B-Natriuretic Peptide 628 pg/ml (0-100) H 02/17/24 12:06 Total Protein 7.5 gm/dl (6.0-8.3) 02/13/24 15:24 Albumin 3.8 gm/dl (3.4-5.0) 02/13/24 15:24 Globulin 3.7 gm/dl (2.5-4.0) 02/13/24 15:24 Albumin/Globulin Ratio 1.0 (0.9-2) 02/13/24 15:24 Triglycerides 118 mg/dl (0-150) 02/17/24 04:49 Lipase 46 U/L (11-82) 02/13/24 15:24 Procalcitonin 0.30 ng/ml (0-0.5) 02/17/24 12:06 Urine Color Yellow 02/22/24 10:20 Urine Appearance Cloudy (Clear) A 02/22/24 10:20 Urine pH 5.0 (4.5-7.5) 02/22/24 10:20 Ur Specific [place] 1.014 (1.000-1.030) 02/22/24 10:20 Urine Protein Negative (Negative) 02/22/24 10:20 Urine Glucose (UA) Negative (Negative) 02/22/24 10:20 Urine Ketones Negative (Negative) 02/22/24 10:20 Urine Blood Negative (Negative) 02/22/24 10:20 Urine Nitrite Negative (Negative) 02/22/24 10:20 Urine Bilirubin Negative (Negative) 02/22/24 10:20 Urine Urobilinogen Negative (Negative) 02/22/24 10:20 Ur Leukocyte Esterase 2+ (Negative) H 02/22/24 10:20 Urine WBC (Auto) 21-50 /hpf (0-5) H 02/22/24 10:20 Urine RBC (Auto) 0-2 /hpf (0-2) 02/22/24 10:20 U Hyaline Cast (Auto) 11-20 /lpf (0-2) H 02/22/24 10:20 U Epithel Cells (Auto) 0-2 /hpf (0-2) 02/22/24 10:20 Urine Bacteria (Auto) 4+ (None Seen) H 02/22/24 10:20 Fluid Neutrophils % 72 % 02/13/24 19:00 Fluid Lymphocytes % 5 % 02/13/24 19:00 Fl Monocyt/Macrophag % 23 % 02/13/24 19:00 Fluid Comment 02/13/24 19:00 Nasal Screen MRSA (PCR) Negative (Negative) 02/13/24 18:45 KARIN Screen NEGATIVE (NEGATIVE) 02/15/24 10:58 EDWARDO-1 Antibody <1.0 NEG AI (<1.0 NEG) 02/15/24 10:58 SS-A/Ro Antibody <1.0 NEG AI (<1.0 NEG) 02/15/24 10:58 SS-B/La Antibody <1.0 NEG AI (<1.0 NEG) 02/15/24 10:58 Sm (Acosta) Antibody <1.0 NEG AI (<1.0 NEG) 02/15/24 10:58 CADMIUM PLATER Antibody <1.0 NEG AI (<1.0 NEG) 02/15/24 10:58 Scl-70 Scleroderma Ab <1.0 NEG AI (<1.0 NEG) 02/15/24 10:58 Anti-ds DNA (Crithidia) NEGATIVE (NEGATIVE) 02/15/24 10:58 Anti-Centromere Ab <1.0 NEG AI (<1.0 NEG) 02/15/24 10:58 Complement C3 98 mg/dL 02/15/24 10:58 Complement C4 19 mg/dL 02/15/24 10:58 Adenovirus (PCR) Not Detected (NotDetected) 02/13/24 18:45 B. pertussis DNA (PCR) Not Detected (NotDetected) 02/13/24 18:45 B.parapertussis DNA PCR Not Detected (NotDetected) 02/13/24 18:45 C. pneumoniae DNA (PCR) Not Detected (NotDetected) 02/13/24 18:45 Coronavirus OC43 (PCR) Not Detected (NotDetected) 02/13/24 18:45 Coronavirus HKU1 (PCR) Not Detected (NotDetected) 02/13/24 18:45 Coronavirus 229E (PCR) Not Detected (NotDetected) 02/13/24 18:45 SARS-CoV-2 (PCR) Not Detected (NotDetected) 02/13/24 18:45 Coronavirus NL63 (PCR) Not Detected (NotDetected) 02/13/24 18:45 Human Metapneumovir PCR Not Detected (NotDetected) 02/13/24 18:45 Influenza Type A (PCR) Not Detected (NotDetected) 02/13/24 18:45 Influenza Type B (PCR) Not Detected (NotDetected) 02/13/24 18:45 Legionella Source BAL 02/13/24 19:00 Legionella sp (PCR) NOT DETECTED 02/13/24 19:00 L.pneumophila DNA (PCR) NOT DETECTED 02/13/24 19:00 Urine Legionella Ag SEE NOTE 02/13/24 15:34 M. pneumoniae (PCR) Not Detected (NotDetected) 02/13/24 18:45 Parainfluenza 1 (PCR) Not Detected (NotDetected) 02/13/24 18:45 Parainfluenza 2 (PCR) Not Detected (NotDetected) 02/13/24 18:45 Parainfluenza 3 (PCR) Not Detected (NotDetected) 02/13/24 18:45 Parainfluenza 4 (PCR) Not Detected (NotDetected) 02/13/24 18:45 Pneumocyst jirovecii PCR See Scanned Report 02/13/24 19:00 Aspergillus Antigen See Scanned Report 02/13/24 19:00 RSV (PCR) Not Detected (NotDetected) 02/13/24 18:45 Entero/Rhino (PCR) Not Detected (NotDetected) 02/13/24 18:45 Impressions Abdomen/Pelvis CT 02/13/24 15:29 CT abd pelvis wo con CLINICAL HISTORY: arrest TECHNIQUE: Helical axial images of the abdomen and pelvis were obtained. Automated dose lowering techniques and/or adjustment according to patient size were utilized for this exam. This exam was performed without intravenous contrast. COMPARISON: Comparison is made to CT abdomen pelvis 01/28/2022 FINDINGS: Lower chest: For findings above the diaphragm, please see CT chest performed same day. Liver: Unremarkable. No focal lesions are seen. Gallbladder and biliary tree: Patient is status post cholecystectomy. No intra- or extrahepatic biliary ductal dilation. Pancreas: Fatty replacement of the pancreas is seen. Spleen: Unremarkable. Adrenals: Unremarkable. Kidneys and ureters: Perinephric stranding is noted bilaterally. Bladder: Dixon catheter is seen. Reproductive organs: Patient is status post hysterectomy. Bowel: Unremarkable. Lymph nodes Retroperitoneal: Unremarkable. Pelvic: Unremarkable. Mesenteric: Unremarkable. Peritoneum: A small amount of gas is seen surrounding the large bowel about the splenic flexure. Vessels: Atherosclerotic calcifications are seen. Abdominal wall: Unremarkable. Bones: Degenerative changes in the visualized spine. IMPRESSION: A small amount of pneumatosis versus extraluminal gas about the splenic flexure is likely due to barotrauma in this patient status post cardiac arrest. No gross abnormalities are otherwise seen. ACT 112: Negative or not required by law. Electronically signed by: Jersey Chauhan M.D. 02/13/2024 4:[address] 02/13/24 15:29 CT head/brain wo con CLINICAL HISTORY: 88 years-old Female with arrest. Acute cardiac arrest TECHNIQUE: Multiple axial CT images of the head were obtained without contrast. A dose lowering technique was utilized adhering to the principles of ALARA. CT DOSE: 1787.8 mGy.cm COMPARISON: 06/18/2019 FINDINGS: Motion degraded study. No acute intracranial hemorrhage, midline shift, intra- axial mass, hydrocephalus, territorial ischemia or abnormal extra-axial collection. Involutional changes with chronic microvascular ischemic disease. Cerebrovascular calcifications. 11 mm calcified meningioma adjacent to the right frontotemporal lobe on image 11 series 2 without significant mass effect, unchanged. The calvarium is intact. The paranasal sinuses, mastoid air cells, and middle ear cavities are clear. IMPRESSION: Chronic findings as above without acute intracranial abnormality. ACT 112: Negative or not required by law. The above report was generated using voice recognition software. It may contain grammatical, syntax or spelling errors. Electronically signed by: Major Maloney M.D. 02/13/2024 4:06 PM Brain MRI 02/15/24 10:33 MR brain wo con CLINICAL HISTORY: encephalopathy s/p cardiac arrest TECHNIQUE: Multiplanar and multisequence MR images of the brain were obtained without intravenous contrast. Comparison: None available at the time of this dictation. FINDINGS: No abnormal restricted diffusion is identified. Foci of T2 and FLAIR hyperintensity are noted in the paraventricular areas consistent with chronic small vessel ischemic disease. Ex vacuo ventriculomegaly and sulcal enlargement is noted compatible with diffuse volume loss. No mass is seen. There is no mass effect or midline shift. There is no evidence of acute intraparenchymal hemorrh age. No extra axial fluid collections are seen. The corpus callosum, pituitary gland, and cerebellar tonsils appear grossly unremarkable. Flow voids of the major intracranial arterial vessels are identified. The imaged portions of the paranasal sinuses, mastoid air cells, and orbits are unremarkable. IMPRESSION: No acute abnormality and in particular no evidence of acute infarct. ACT 112: Negative or not required by law. Electronically signed by: Jersey Chauhan M.D. 02/15/2024 12:32 PM KUB X-Ray 02/16/24 15:58 XR KUB/Abdomen 1 view CLINICAL HISTORY: abdominal pain TECHNIQUE: 1 view of the abdomen was obtained. Comparison: Comparison is made to CT abdomen pelvis 02/13/2024 FINDINGS: Enteric tube terminates in the stomach. The osseous structures are grossly unremarkable. The bowel gas pattern is nonobstructive. A moderate amount of stool is noted within the large bowel. IMPRESSION: Nonobstructive bowel gas pattern. ACT 112: Negative or not required by law. Electronically signed by: Jersey Chauhan M.D. 02/16/2024 4:[address] 02/22/24 09:45 CT chest diagnostic wo con CT DOSE: 670.74 mGy.cm CLINICAL HISTORY: 88 years-old Female with Worsened resp status. Acute shortness of breath TECHNIQUE: Multiaxial CT images of the chest were performed without contrast. A dose lowering technique was utilized adhering to the principles of ALARA. COMPARISON: Chest radiograph of same day, chest CT 02/13/2024 FINDINGS: Limited study secondary to positioning and respiratory motion artifact. Endotracheal tube distal tip terminates 2.5 cm superior to the vadim. Enteric tube courses into the stomach with distal tip outside initial review. Multinodular thyroid redemonstrated. Mildly enlarged mediastinal and hilar lymph nodes are again seen measuring up to 11 mm which are similar to prior and likely reactive. Moderate cardiomegaly without pericardial effusion. Atherosclerosis of the th oracic aorta without aneurysm. Mild dilation of the pulmonary artery suggestive of pulmonary arterial hypertension. Moderate layering pleural effusions have increased in size from prior. Moderately improved interstitial pulmonary edema. Moderate improvement of the intermixed scattered bilateral groundglass and alveolar opacities. These are most pronounced in the lower lobes. Tracheobronchial secretions with areas of bibasilar mucous plugging. No acute upper abdominal abnormality. Contrast noted within the splenic flexure. Mild generalized body wall edema. Degenerative changes of the shoulders and spine. No acute fracture or destructive bone lesion. IMPRESSION: 1. Endotracheal and enteric tube positioning as above. 2. Cardiomegaly with improved interstitial pulmonary edema.. There is however increased size of the moderate layering pleural effusions. 3. Scattered bilateral groundglass and alveolar opacities have moderately improved compared to the 02/13/2024 study. Primary differential considerations include alveolar pulmonary edema versus multifocal pneumonia. 4. Endobronchial secretions with bibasilar mucous plugging. 5. Mild lymphadenopathy redemonstrated, favored to be reactive. ACT 112: Negative or not required by law. Electronically signed by: Major Maloney M.D. 02/22/2024 2:01 PM Venous Doppler Study 02/22/24 09:46 BILATERAL LOWER EXTREMITY VENOUS DOPPLER HISTORY: Acute pain and swelling of lower legs Worsened resp status, DVT? COMPARISON STUDY: None. FINDINGS: There is normal compressibility, flow, and augmentation within the bilateral lower extremity deep venous systems. IMPRESSION: No DVT within the right or left lower extremity. ACT 112: Negative or not required by law. Electronically signed by: Major Maloney M.D. 02/22/2024 12:49 PM Chest X-Ray 02/23/24 07:00 XR chest 1V portable CLINICAL HISTORY: Respiratory failure. COMPARISON STUDY: Chest radiograph and chest CT February 22, 2024. FINDINGS: Tip of the endotracheal tube is 4 cm above the vadim. Tip of nasogastric tube is within the gastric body. There is no pneumothorax. Small to moderate right and small left pleural effusions with associated bibasilar opacities persist. Interstitial thickening is similar to prior exam. Cardiomediastinal silhouette is stable. IMPRESSION: 1. Satisfactory positioning of the endotracheal and nasogastric tubes. 2. Persistent pulmonary edema with small to moderate right and small left pleural effusions with associated bibasilar opacities. No significant change in appearance of the chest. ACT 112: Negative or not required by law. Electronically signed by: Luis Carlos Boyd M.D. 02/23/2024 7:43 AM Ordered Studies 02/13/24 15:29 CT Abd and Pelvis [CT abd pelvis wo con] Stat CT head/brain wo con Stat 02/13/24 15:30 CT chest diagnostic wo con Stat 02/15/24 10:33 MRI Brain [MR brain wo con] Urgent 02/22/24 09:45 CT chest without contrast [CT chest diagnostic wo con] Urgent 02/22/24 09:46 US leg [US venous doppler LE BI] Urgent Hospital Course (1) Aspiration pneumonia: (2) Cardiac arrest: Plan Patient is an 88-year-old female with past medical history significant for type 2 diabetes, renal artery stenosis, hypertension, GERD, CKD who was brought in via EMS intubated status post cardiac arrest at the [facility]. Acute respiratory failure with hypoxia and hypercarbia Cardiac arrest Elevated Troponin Aspiration pneumonia Pericardial effusion Diffuse pulmonary alveolar hemorrhage Small loculated right lateral pericardial effusion Bilateral pleural effusion A-fib RVR Patient had cardiac arrest at [facility]; ROSC achieve after 4 minutes. Was intubated and brought to the hospital --Chest x-ray on admission showed multiple airspace opacity --Chest CT does extensive diffuse multifocal air space opacity. --Echocardiogram shows EF of 60 to 65% with moderate concentric LVH, severe mitral annular calcification. Small loculated right lateral pericardial effusion --Bronchoscopy done on 02/12: " airways appeared hyperemic with bloody secretions emanating from bilateral lower lobes. Washings were performed of the right lower lobe and sent for culture and cytology. Approximately 150 mL of saline was used to wash the bilateral lungs and clear his own secretions and blood. No obvious active bleeding was noted". --Bronchial sample from 02/12- light normal tania --Bronchoscopy on 02/14 showed findings suggestive of diffuse alveolar hemorrhage. --MRI Brain wo contrast- no acute findings --Patient was extubated on 02/15 and required reintubation on the same day due to hypoxia --Patient again extubated on 02/18 --Reintubated on 02/21/2024 -- Completed 5-day course of Zosyn, azithromycin --Restarted on Zosyn 02/22/24 --Patient extubated on 02/23/24 --continue prednisone for 5 more days --Appreciate critical care, cardiology input -- Repeat CT chest from 02/22/2024 showed improving interstitial edema however has increased moderate pleural effusions. Bilateral alveolar opacities improved when compared to prior CT scan. Postextubation, patient required high flow oxygen to maintain saturations secondary to hypoxia. Noted to be in A-fib RVR post extubation. Amiodarone was initiated to control heart rate Seroquel to be discontinued as started on amiodarone Despite aggressive measures, patient clinically deteriorated and . Hypertensive urgency PACs, PVCs Left bundle branch block--also noted on EKG from May 2019 Amlodipine discontinued Continue losartan 50 mg daily Carvedilol changed to metoprolol IV hydralazine as needed Also started nitroglycerin Appreciate cardiology input Monitor blood pressure and adjust medications as needed Possible UTI Urine culture growing gram negative Bacilli Empirically on Zosyn Acute Kidney Injury Cr 1.8 today Monitor renal function Avoid nephrotoxic agents as able Other chronic conditions: Type 2 diabetes mellitus; maintain euglycemic state; on insulin Hypertension -management as above DVT Px: On SQ heparin--Per ICU team CODE STATUS DNI/DNR NOTE per ICU Supervisor Riveting as below Date of Service February 23, 2024 Pronouncement Note Admission Date Admission Date: February 13, 2024 Date and Time of Date of : 02/23/24 Time of : 13:07 PCOD Preliminary cause of : Aspiration into airway Contributing Factors (1) Respiratory failure requiring intubation: (2) Left bundle branch block: (3) Diastolic dysfunction: (4) Atrial fibrillation with rapid ventricular response: (5) Cardiac arrest: (6) CKD (chronic kidney disease), stage III: Hospital Course Hospital Course: Patient is an 88-year-old female who who presented to the emergency department after a cardiac arrest secondary to respiratory arrest secondary to aspiration of contrast material during a CT scan. Patient had return of spontaneous circulation and was admitted to the ICU. Her her hospital course waxed and waned from a pulmonary standpoint secondary to the aspiration pneumonitis and acute kidney injury from the initial insulting event. Patient had several recurrent bouts of respiratory failure complicated by pre-existing structural h eart disease and limited cardiac reserve secondary to diastolic dysfunction, atrial fibrillation and conduction disease. Ultimately it was felt it was inconsistent with the patient's long-term wishes to continue to be intubated and tracheostomy and ventilatory assistance was felt to be inconsistent with the patient's long-term wishes and the patient extubated and converted to a DO NOT RESUSCITATE and DO NOT INTUBATE status. Despite aggressive measures the patient continued to become hypoxic and ultimately due to her respiratory insufficiency. I have requested this case be referred to the medical logistics specialist for determination of accidental versus natural as the an initial insulting event was aspiration during a medical procedure. Additional Data Confirmation of : no pulse, no respirations, no heart sounds, pupils fixed and dilated and other (Asystole on equipment monitor phototypesetting) Family: at bedside (Son at bedside) Attending physician: Emerson Ramos MD Autopsy requested?: No test examiner notified?: Yes (Requesting medical logistics specialist review) Coding Level of Care Code None Diagnoses Respiratory failure requiring intubation J96.90 Left bundle branch block I44.7 Diastolic dysfunction I51.89 Atrial fibrillation with rapid ventricular response I48.91 Cardiac arrest I46.9 CKD (chronic kidney disease), stage III N18.3 Total Time Total Time Spent Total Time Spent (In Minutes): 36 minutes Discharge Plan Discharge Items Patient Disposition: Other Date/Time: 02/23/24 13:08
[2024-02-23] MEDS ORDERED: AMIODARONE / D5W 360 MG/200 ML BAG IV SCH (17:00)
== END 2024-02-23 15:42 | disposition expired | DRG 208 ==
LOC: ED 15:12 → 1E 16:47 → SUATTDRO 16:47 → 1E 18:01